=== PATIENT | male | born 1950 | race Caucasian/White ===

== ENCOUNTER 2016-09-10 13:52 | Inpatient (IN) ==
--- NOTE | 2016-09-10 16:58 | Emergency Department Note ---
Disposition Clinical Impression: Acute exacerbation of chronic obstructive airways disease Chest pain Qualifiers: Chest pain type: unspecified Qualified Code(s): R07.9 - Chest pain, unspecified Disposition: Admitted As Inpatient Condition: Fair Referrals: Lavinia Guerra MD [Primary Care Provider] - Forms: ED Satisfaction Letter Time of Disposition: 17:37 SOB HPI - General Chief Complaint: ED Shortness of Breath/Dyspnea Stated Complaint: Chest Pain, [place] Source: patient, family Limitations: no limitations Nursing Notes Reviewed: Yes Vital Signs Reviewed: Yes - History of Present Illness 66-year-old L with a history of COPD and CHF comes in with increasing shortness of breath. Patient states that he ran out of steroids 3 days ago symptoms got worse. Pt Subjective Complaint: shortness of breath Onset (ago): day(s) Severity: moderate Consistency/Duration: constant Improves with: nothing Worsens with: exertion Known history of: COPD, congestive heart failure Associated symptoms: Reports: cough Treatment prior to arrival: none Cough Description: Involuntary Cough Frequency: Intermittent - Related Data Home Medications Medication Instructions Recorded Confirmed Insulin Human Regular [HumuLIN R] 30 unit SQ TIDAC #0 09/05/15 05/10/16 Isosorbide MONOnitrate (24 HR) 30 mg PO DAILY #0 09/05/15 05/10/16 [Imdur] Ferrous Sulfate [Iron Supplement] 325 mg PO TID 12/18/15 05/10/16 Aspirin [Lo-Dose Aspirin EC] 81 mg PO DAILY 03/15/16 05/10/16 Glucagon,Human Recombinant 1 mg SQ DAILY PRN 03/15/16 05/10/16 [Glucagon Emergency Kit] Insulin NPH/REG 70/30 [HumuLIN 80 unit SQ BIDWM 03/15/16 05/10/16 70/30 VIAL] Albuterol Sulfate [Proair 90 mcg IH TID 05/10/16 Respiclick] Atorvastatin Calcium [Lipitor] 80 mg PO HS 05/10/16 05/10/16 Budesonide/Formoterol 160/4.5 2 puff IH BIDR 05/10/16 05/10/16 [Symbicort 160/4.5] Diltiazem CD (24hr) [Cardizem CD] 120 mg PO DAILY 05/10/16 05/10/16 Furosemide [Lasix] 80 mg PO TID 05/10/16 Gabapentin [Neurontin] 300 mg PO TID 05/10/16 05/10/16 GlipiZIDE [Glipizide] 10 mg PO DAILY 05/10/16 Lisinopril 2.5 mg PO DAILY 05/10/16 Metformin [Glucophage] 500 mg PO BIDWM 05/10/16 05/10/16 Metolazone 10 mg PO DAILY 05/10/16 Metoprolol [Lopressor] 50 mg PO BID 05/10/16 05/10/16 Nitroglycerin [Nitrostat] 0.4 mg SL 05/10/16 Pantoprazole Sodium [Protonix] 40 mg PO DAILY 05/10/16 Potassium Chloride [K-Tab ER] 20 meq PO TID 05/10/16 05/10/16 Buspirone HCl [Buspar] 10 mg PO BID 07/30/16 07/30/16 Ipratropium/Albuterol Neb [Duoneb] 3 ml IH Q6HR 07/30/16 07/30/16 Montelukast Sodium [Singulair] 10 mg PO DAILY 07/30/16 07/30/16 Naproxen Sodium [Aleve] 220 mg PO BID 07/30/16 07/30/16 Oseltamivir Phosphate 75 mg PO BID 07/30/16 07/30/16 PredniSONE [Deltasone] 60 mg PO DAILY 07/30/16 07/30/16 Previous Rx's Medication Instructions Recorded HYDROcodone/Acet 5/325 mg [[place] 1 tab PO Q6H PRN #10 tab 07/31/16 5-325 mg] Indomethacin [Indocin] 25 mg PO BIDWM #10 capsule 08/23/16 Indomethacin [Indocin] 25 mg PO BIDWM #10 capsule 08/23/16 PredniSONE 60 mg PO DAILY #15 tablet 08/23/16 PredniSONE 60 mg PO DAILY #15 tablet 08/23/16 Allergies Allergy/AdvReac Type Severity Reaction Status Date / Time No Known Allergies Allergy Verified 09/10/16 14:44 Constitutional: Denies: fever, chills, weakness, weight change Eyes: Denies: eye pain, eye discharge, vision change ENT ED: Denies: ear pain, throat pain, dental pain, hearing loss, epistaxis, congestion, dysphagia Cardiovascular: Denies: chest pain, palpitations, dyspnea on exertion, edema, syncope Respiratory: Reports: dyspnea, wheezes. Denies: cough, hemoptysis, stridor Gastrointestinal: Denies: abdominal pain, nausea, vomiting, diarrhea, constipation, hematemesis, melena, hematochezia Genitourinary: Denies: urgency, dysuria, frequency, hematuria Musculoskeletal: Denies: back pain, neck pain, arthralgia, myalgia Integumentary: Denies: rash, abrasion, lesions Neurological: Denies: headache, weakness, numbness, paresthesias, confusion, abnormal gait, vertigo Psychiatric: Denies: anxiety, depression, suicidal thoughts, homicidal thoughts , auditory hallucinations, visual hallucinations Endocrine: Denies: fatigue Hematological/Lymphatic: Denies: easy bleeding, easy bruising Allergic/Immunologic: Denies: facial swelling, urticaria Past Medical History - Past Medical History Medical history: Reports: arthritis, atrial fibrillation, CHF, COPD, coronary artery disease, diabetes, GERD, hyperlipidemia, hypertension, myocardial infarction, osteoporosis, venous stasis, valvular heart disease, other Surgical history: Reports: angioplasty/stent, herniorrhaphy, knee replacement, other Psychiatric history: Reports: anxiety, depression - Social History Smoking Status: Never smoker Smokeless Tobacco Status: No Alcohol use: Reports: none Drug use: Reports: none Physical Exam - General Limitations: no limitations General appearance: alert, in no apparent distress - Head Head exam: atraumatic, normocephalic, normal inspection - Eye Eye exam: Present: normal appearance, PERRL, EOMI - ENT ENT exam: normal exam, normal oropharynx, mucous membranes moist - Neck Neck exam: Present: normal inspection, full ROM, trachea midline - Chest Chest inspection: Present: normal inspection, symmetric chest wall rise - Respiratory Respiratory exam: Present: wheezes, accessory muscle use - Cardiovascular Cardiovascular exam: Present: regular rate, normal rhythm, normal heart sounds - Abdominal Exam Abdominal exam: Present: soft, Non-Tender. Absent: tenderness, distention, guarding, rebound, rigidity - Extremities Exam Extremities exam: Present: normal inspection, full ROM. Absent: tenderness, pedal edema - Expanded Lower Extremity Exam Neurovascular/Tendon exam: Absent: motor deficit, sensory deficit, tendon deficit Gait: not tested/not observed - Back Exam Back exam: Present: normal inspection, full ROM. Absent: tenderness - Neurological Exam Neurological exam: Present: alert, oriented X3 - Psychiatric Psychiatric exam: Present: normal affect, normal mood - Skin Skin exam: Present: warm, dry, intact, normal color Course - Reevaluation(s) Reevaluation #1: 66-year-old with a COPD exacerbation. Patient also had some congestive changes on his chest x-ray that looked unchanged from previous. Patient was given breathing treatments Lasix will be admitted for further evaluation. Time: 18:38 - Consultations Consultation #1: Discussed with Time: 18:39 Vital Signs Temperature 98.9 F 09/10/16 14:35 Pulse Rate 70 09/10/16 14:35 Respiratory Rate 20 09/10/16 14:35 Blood Pressure 118/69 09/10/16 14:35 O2 Sat by Pulse Oximetry 93 09/10/16 14:35 Temperature 98.9 F 09/10/16 14:35 Pulse Rate 85 09/10/16 18:32 Respiratory Rate 25 09/10/16 18:32 Blood Pressure 134/88 09/10/16 18:32 O2 Sat by Pulse Oximetry 92 09/10/16 18:32 Oxygen Delivery Oxygen Delivery Nasal Cannula Shortness of Breath/Dyspnea - Lab Data Lab results reviewed: Yes I reviewed the patient's lab results. Result diagrams: 09/10/16 17:00 09/10/16 17:00 Lab Results 09/10/16 09/10/16 09/10/16 Range/Units 17:00 17:00 17:00 WBC 10.3 (4.3-11.1) K/mcL RBC 4.39 (4.19-5.50) M/mcL Hgb 11.7 L (12.9-16.9) g/dL Hct 39.6 (37.5-50.1) % MCV 90.2 (83.0-100.0) fL MCH 26.7 L (28.0-33.3) pg MCHC 29.5 L (31.6-35.5) g/dL RDW 20.4 H (11.5-14.5) % Plt Count 224 (140-400) K/mcL MPV 10.7 (9.4-12.4) fL Immature Gran % 0.9 (0-4) % Seg Neutrophils % 76.1 % Lymphocytes % 16.2 % Monocytes % 5.9 % Eosinophils % 0.7 % Basophils % 0.2 % Neutrophils # 7.8 (1.6-8.9) K/mcL Lymphocytes # 1.7 (0.6-4.6) K/mcL Monocytes # 0.6 (0.0-1.3) K/mcL Eosinophils # 0.1 (0.0-0.6) K/mcL Basophils # 0.0 (0.0-0.2) K/mcL PT 11.0 (9.4-12.1) Seconds INR 1.0 APTT 30.2 (26.0-36.0) Seconds Sodium 141 (136-145) mEq/L Potassium 4.0 (3.5-4.5) mEq/L Chloride 92 L (98-109) mEq/L Carbon Dioxide 38 H (19-29) mEq/L BUN 27 H (8-26) mg/dL Creatinine 1.42 H (0.72-1.25) mg/dL Est GFR ( Amer) > 60 (> 60) Est GFR (Non-Af Amer) 50 L (> 60) BUN/Creatinine Ratio 19 (6-26) Glucose 211 H (70-99) mg/dL Calculated Osmolality 303 H (280-300) Calcium 10.2 (8.6-10.8) mg/dL Troponin I (0-0.03) ng/mL TSH 7.802 H (0.350-4.840) mcIU/mL 09/10/16 Range/Units 17:00 WBC (4.3-11.1) K/mcL RBC (4.19-5.50) M/mcL Hgb (12.9-16.9) g/dL Hct (37.5-50.1) % MCV (83.0-100.0) fL MCH (28.0-33.3) pg MCHC (31.6-35.5) g/dL RDW (11.5-14.5) % Plt Count (140-400) K/mcL MPV (9.4-12.4) fL Immature Gran % (0-4) % Seg Neutrophils % % Lymphocytes % % Monocytes % % Eosinophils % % Basophils % % Neutrophils # (1.6-8.9) K/mcL Lymphocytes # (0.6-4.6) K/mcL Monocytes # (0.0-1.3) K/mcL Eosinophils # (0.0-0.6) K/mcL Basophils # (0.0-0.2) K/mcL PT (9.4-12.1) Seconds INR APTT (26.0-36.0) Seconds Sodium (136-145) mEq/L Potassium (3.5-4.5) mEq/L Chloride (98-109) mEq/L Carbon Dioxide (19-29) mEq/L BUN (8-26) mg/dL Creatinine (0.72-1.25) mg/dL Est GFR ( Amer) (> 60) Est GFR (Non-Af Amer) (> 60) BUN/Creatinine Ratio (6-26) Glucose (70-99) mg/dL Calculated Osmolality (280-300) Calcium (8.6-10.8) mg/dL Troponin I 0.09 H* (0-0.03) ng/mL TSH (0.350-4.840) mcIU/mL - Radiology Data Radiology results reviewed: Yes I reviewed the patient's radiology results. Chest X-Ray 09/10/16 16:48 IMPRESSION: Pulmonary vascular congestion and interstitial prominence, not substantially changed. D/ / Jannie Guevara MD / Jannie Guevara MD Interpreting Provider: Jannie Guevara MD - EKG Data EKG attestation: Yes I reviewed and interpreted this EKG. EKG results narrative: Repeat EKG was obtained as the patient's chest pain seemed to increase. It's unchanged from the previous EKG we just obtained earlier. EKG shows normal: Reports: sinus rhythm Rate: Reports: normal Rhythm: Reports: NSR, PAC's Heart block present: Reports: 1st Degree Interpretation: Reports: no acute changes
[2016-09-10] MEDS ORDERED: Ipratropium/Albuterol Neb 3 ML IH ONE (16:59)
[2016-09-10] MEDS ORDERED: methylPREDNISolone 125 MG/2 ML VIAL IVP ONE (16:59)
[2016-09-10 17:09] LABS: Basophils % 0.2 %; Eosinophils # 0.1 K/mcL (0.0-0.6); Eosinophils % 0.7 %; Hematocrit 39.6 % (37.5-50.1); Hemoglobin 11.7 g/dL (12.9-16.9); Immature Granulocytes % 0.9 % (0-4); Lymphocytes # 1.7 K/mcL (0.6-4.6); Lymphocytes % 16.2 %; Mean Corpuscular HGB Conc 29.5 g/dL (31.6-35.5); Mean Corpuscular Hemoglobin 26.7 pg (28.0-33.3); Mean Corpuscular Volume 90.2 fL (83.0-100.0); Mean Platelet Volume 10.7 fL (9.4-12.4); Monocytes # 0.6 K/mcL (0.0-1.3); Monocytes % 5.9 %; Neutrophils # 7.8 K/mcL (1.6-8.9); Platelet Count 224 K/mcL (140-400); Red Blood Count 4.39 M/mcL (4.19-5.50); Red Cell Distribution Width 20.4 % (11.5-14.5); Segmented Neutrophils % 76.1 %
[2016-09-10 17:19] LABS: BUN/Creatinine Ratio 19 (6-26); Blood Urea Nitrogen 27 mg/dL (8-26); Calcium 10.2 mg/dL (8.6-10.8); Carbon Dioxide 38 mEq/L (19-29); Chloride 92 mEq/L (98-109); Glucose 211 mg/dL (70-99); Osmolality,Calculated 303 (280-300); Sodium 141 mEq/L (136-145); eGFR For African Americans > 60 (> 60); eGFR For Non-African Americans 50 (> 60)
[2016-09-10 17:40] LABS: Thyroid Stimulating Hormone 7.802 mcIU/mL (0.350-4.840)
[2016-09-10 18:07] LABS: Activated Partial Thrombo Time 30.2 Seconds (26.0-36.0)
[2016-09-10] MEDS ORDERED: Furosemide 40 MG/4 ML VIAL IVP ONE (18:14)
[2016-09-11] MEDS ORDERED: Naloxone 0.4 MG/ML INJ IVP PRN (01:01)
[2016-09-11] MEDS ORDERED: *HR* Morphine 2 MG/ML SYRINGE IVP PRN (01:01)
[2016-09-11] MEDS ORDERED: *HR* Promethazine 25 MG/ML VIAL IVP PRN (01:01)
[2016-09-11] MEDS ORDERED: Albuterol 2.5 MG/3 ML NEBULIZER IH PRN (01:01)
[2016-09-11] MEDS ORDERED: *HR* Dextrose 50 % in Water (Syg) 50 ML SYRINGE IVP PRN (01:06)
[2016-09-11] MEDS ORDERED: *HR* Heparin 5,000 UNIT/ML VIAL IVP PRN ×2 (01:06)
[2016-09-11] MEDS ORDERED: Dextrose Gel 15 GM PO PRN ×2 (01:06)
[2016-09-11] MEDS ORDERED: *HR* Heparin 5,000 UNIT/ML VIAL IVP ONE (01:06)
[2016-09-11] MEDS ORDERED: D5% in Water 1,000 ML IVC PRN (01:06)
--- NOTE | 2016-09-11 01:20 | Internal Med History&Physical ---
Date of Encounter: 09/11/16 Time of Encounter: 00:45 Assessment and Plan (1) Asthma exacerbation Current visit: No Status: Acute 1. Will treat with frequent aerosols, steroids, and antibiotics. 2. Patient has never smoked and has not been exposed to smoke. 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 3. Oxygen per home dosing. (2) Chest pain Current visit: No Status: Acute 1. Given history, I'm concerned for PE. 2. Will start heparin drip and pursue work-up with V/Q and BLE Dopplers. 3. Unable to proceed with CTA chest due to CKD. 4. Will cycle troponins and provide Morphine for chest pain. 5. May need repeat ECHO and/or cardiology consultation if above negative. Qualifiers: Chest pain type: chest pain on breathing Qualified Code(s): R07.1 - Chest pain on breathing (3) Diabetes mellitus Current visit: No Status: Chronic 1. Hold Metformin. 2. Will continue basal insulin and SSI. 3. Monitor glucose closely with IV steroids use. 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 Resume CPAP per home setings and per RT. Qualifiers: Sleep apnea type: obstructive Qualified Code(s): G47.33 - Obstructive sleep apnea (adult) (pediatric) (5) DVT prophylaxis Current visit: Yes Status: Acute 1. On heparin drip. Internal Medicine - H&P: HPI Chief complaint: CP; SOB Admitted From: Emergency Dept Plans for Post Hospital Care: Home History of present illness: Mr. Hill is a 66 year old male who presents with complaints of chest pain, worsening shortness of breath, cough, and increasing generalized edema. He was seen by his PCP today who sent him to the ER for evaluation and admission. He states his chest pain is pleuritic in nature and worse with deep breath and exertion. He has a history of COPD but denies any prior history of smoke exposure or tobacco use. 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 He also has a history of sleep apnea and was wearing a CPAP mask at night religiously. However, his CPAP machine was recently retrieved by his home medical equipment company as directed by his insurance company for reasons unexplained, according to the patient. He denies any fevers or chills but he states his respiratory status has worsened recently. He denies any known history of pulmonary hypertension or right heart failure. He did have 2 recent echoes in the last year, neither of which could document his right ventricular systolic pressures and/or findings. Patient denies any prolonged travel, family history of clots, or any known malignancy. Nonetheless, given his symptoms and pleuritic chest pain, I am concerned for the possibility of thromboembolism. Therefore, I will start him on heparin drip empirically and pursue workup as detailed above. Past Med Surg Social Fam HX - Past Medical History Attestation: Yes The following information was validated with the patient. Source: patient, old records reviewed Medical history: arthritis, atrial fibrillation, CHF, COPD, coronary artery disease, diabetes, GERD, hyperlipidemia, hypertension, myocardial infarction, osteoporosis, venous stasis, valvular heart disease Psychiatric history: anxiety, depression - Past Surgical History Surgical History: angioplasty/stent, herniorrhaphy, knee replacement, other - Social History Smoking Status: Never smoker Smokeless Tobacco Status: No Alcohol use: none Drug use: none Occupational status: retired Current living situation: Home, With Family Activity Level: Independent ambulation Recent Out of Country Travel Within the Last 8 Weeks: No - Family History Father Living Status: Hx Family Cardiac Disorders: Yes Hx Family Respiratory Disorders: Yes Hx Family Cancer: Yes Hx Family GI Disorders: Yes Hx Family Endocrine Disorder: No Internal Medicine - H&P: Meds Insulin Human Regular [HumuLIN R] 25 - 30 unit SQ TIDAC #0 09/05/15 [History] Isosorbide MONOnitrate (24 HR) [Imdur] 30 mg PO DAILY #0 09/05/15 [History] Ferrous Sulfate [Iron Supplement] 325 mg PO TID 12/18/15 [History] Aspirin [Lo-Dose Aspirin EC] 81 mg PO DAILY 03/15/16 [History] Glucagon,Human Recombinant [Glucagon Emergency Kit] 1 mg SQ DAILY PRN 03/15/16 [ History] Insulin NPH/REG 70/30 [HumuLIN 70/30 VIAL] 80 unit SQ BIDWM 03/15/16 [History] Albuterol Sulfate [Proair Respiclick] 90 mcg IH TID 01/06/17 [History] Atorvastatin Calcium [Lipitor] 80 mg PO HS 05/10/16 [History] Budesonide/Formoterol 160/4.5 [Symbicort 160/4.5] 2 puff IH BIDR 05/10/16 [ History] Diltiazem CD (24hr) [Cardizem CD] 120 mg PO DAILY 05/10/16 [History] Furosemide [Lasix] 80 mg PO TID 05/10/16 [History] Gabapentin [Neurontin] 300 mg PO TID PRN 05/10/16 [History] GlipiZIDE [Glipizide] 10 mg PO DAILY 05/10/16 [History] Lisinopril 2.5 mg PO DAILY 05/10/16 [History] Metformin [Glucophage] 500 mg PO BIDWM 05/10/16 [History] Metolazone 10 mg PO DAILY 05/10/16 [History] Metoprolol [Lopressor] 50 mg PO BID 05/10/16 [History] Nitroglycerin [Nitrostat] 0.4 mg SL 05/10/16 [History] Pantoprazole Sodium [Protonix] 40 mg PO DAILY 05/10/16 [History] Potassium Chloride [K-Tab ER] 20 meq PO TID 05/10/16 [History] Buspirone HCl [Buspar] 10 mg PO BID 07/30/16 [History] Ipratropium/Albuterol Neb [Duoneb] 3 ml IH Q6HR 07/30/16 [History] Montelukast Sodium [Singulair] 10 mg PO HS 07/30/16 [History] Naproxen Sodium [Aleve] 220 mg PO BID PRN 07/30/16 [History] Oseltamivir Phosphate 75 mg PO BID 07/30/16 [History] Albuterol Neb [Proventil Neb] 2.5 mg IH TID 09/10/16 [History] Allopurinol [Zyloprim 100 MG] 100 mg PO DAILY 09/10/16 [History] Potassium Chloride [K-Tab ER] 60 meq PO TID 09/10/16 [History] Allergies No Known Allergies Allergy (Verified 09/10/16 14:44) - Constitutional Constitutional: no chills, no fever(s) - EENT Eyes: no blurry vision, no change in vision Ears: no ear pain, no tinnitus Nose, mouth and throat: dry mouth, nasal congestion, no sinus pain, no sinus pressure, no sore throat - Cardiovascular Cardiovascular ROS IM: chest pain (pleuritic), dyspnea, dyspnea on exertion, edema - Respiratory Respiratory: cough, dyspnea, dyspnea on exertion, wheezing, pain on inspiration , change in phlegm color, pain with cough, no hemoptysis, no excessive phlegm production - Gastrointestinal Gastrointestinal: abdominal pain, bloating, no diarrhea, no hematemesis, no hematochezia, no melena, no vomiting - Genitourinary Genitourinary ROS male: no dysuria, no flank pain - Musculoskeletal Musculoskeletal ROS IM: no arthralgias, no back pain, no joint swelling - Integumentary Integumentary IM: no rash, no jaundice - Neurological Neurological ROS: no dizziness, no focal weakness, no frequent falls - Psychiatric Psychiatric: no anxiety, no depression - Endocrine Endocrine IM: fatigue, no polydipsia, no polyuria - Allergic/Immunologic Allergic/Immunologic: wheezing, no GI upset with certain foods - Constitutional Vitals: Temp Pulse Resp BP Pulse Ox 98.1 F 90 18 157/98 93 09/10/16 23:20 09/10/16 23:20 09/10/16 23:20 09/10/16 23:20 09/10/16 23:20 General appearance: Present: cooperative, mild distress, A&O X 3, pleasant, answers questions appropriately - Head Head exam: Present: atraumatic, normal inspection - Expanded Head Exam Head exam expanded: Absent: abrasion, contusion - Eye Eye exam: Present: EOMI, normal appearance, PERRL. Absent: scleral icterus Pupils: Present: normal accommodation - ENT ENT exam: Present: mucous membranes dry, normal exam - Neck Neck exam general surgery: Present: full ROM, supple. Absent: tenderness, thyromegaly - Expanded Neck Exam Neck exam: Absent: carotid bruit - Respiratory Respiratory exam: Present: decreased breath sounds, prolonged expiratory phase, respiratory distress (mild), wheezes (very distant), tachypnea. Absent: chest wall tenderness, CTAB, rhonchi - Cardiovascular Cardiovascular exam: Present: distant heart sounds, RRR, +S1, +S2. Absent: diastolic murmur, JVD, systolic murmur - GI/Abdominal GI/Abdominal exam: Present: distended, normal bowel sounds. Absent: guarding, hepatomegaly, rebound, splenomegaly, tenderness - Extremities Exam Extremities exam: Present: pedal edema, warm, radial pulses palpable and symetrical. Absent: calf tenderness, joint swelling, tenderness - Back Exam Back exam: Present: normal inspection. Absent: CVA tenderness (L), CVA tenderness (R) - Neurological Exam Neurological exam: Present: alert, CN II-XII intact, oriented X3, no focal deficits, strengths equal and symetr throughout - Psychiatric Psychiatric exam: Present: normal affect, normal mood - Skin Skin exam: Present: dry, warm. Absent: rash Internal Med - H&P Results - Labs CBC & Chem 7: 09/10/16 17:00 09/10/16 17:00 - EKG Data -: EKG Interpreted by Myself EKG shows normal: sinus rhythm - EKG Data EKG comments: 09/11/16 01:41 Sinus rhythm with some T wave flattening but non-specific. - Diagnostic Studies Chest x-ray Status: image reviewed by me (negative toehr than some vascular congestion)
[2016-09-11] MEDS: Heparin 25,000 UNIT/500 ML D5W 25,000 UNIT/500 ML MLS IVC SCH ×2 (03:04→17:21)
[2016-09-11 03:08] LABS: Basophils % 0.1 %; Hemoglobin 11.2 g/dL (12.9-16.9); Immature Granulocytes % 0.9 % (0-4); Lymphocytes # 0.8 K/mcL (0.6-4.6); Lymphocytes % 9.3 %; Mean Corpuscular HGB Conc 30.3 g/dL (31.6-35.5); Mean Corpuscular Hemoglobin 27.1 pg (28.0-33.3); Mean Corpuscular Volume 89.4 fL (83.0-100.0); Mean Platelet Volume 10.9 fL (9.4-12.4); Monocytes # 0.1 K/mcL (0.0-1.3); Monocytes % 1.5 %; Neutrophils # 7.1 K/mcL (1.6-8.9); Platelet Count 205 K/mcL (140-400); Red Blood Count 4.14 M/mcL (4.19-5.50); Segmented Neutrophils % 88.2 %
[2016-09-11 03:14] LABS: INR 1.1
[2016-09-11 03:16] LABS: Activated Partial Thrombo Time 30.8 Seconds (26.0-36.0)
[2016-09-11 03:21] LABS: Chol/HDL Ratio 5.6 (0-4.9)
[2016-09-11 03:23] LABS: Albumin 3.5 g/dL (3.5-5.0); Calcium 9.4 mg/dL (8.6-10.8); Globulin 3.6 g/dL (2.4-3.5); Magnesium 1.7 mg/dL (1.6-2.6); Potassium 4.7 mEq/L (3.5-4.5); Total Protein 7.1 g/dL (6.0-8.3)
[2016-09-11] MEDS: Ipratropium/Albuterol Neb 3 ML IH SCH ×6 (03:53→23:35)
[2016-09-11] MEDS ORDERED: INSULIN NPH SQ SCH (08:00)
[2016-09-11] MEDS ORDERED: REG SQ SCH (08:00)
[2016-09-11] MEDS ORDERED: Insulin NPH/REG 70/30 300 UNIT/3 ML VIAL SQ SCH (08:00)
[2016-09-11] MEDS: Budesonide/Formoterol 160/4.5 MDI IH SCH ×2 (08:00→19:42)
[2016-09-11] MEDS: Isosorbide MONOnitrate (24 HR) 30 MG TAB.ER.24H PO SCH (09:38)
[2016-09-11] MEDS: Furosemide 40 MG TABLET PO SCH ×2 (09:38→17:23)
[2016-09-11] MEDS: Azithromycin 250 MG TABLET PO SCH (09:38)
[2016-09-11] MEDS: Aspirin Enteric Coated 81 MG Tablet PO SCH (09:38)
[2016-09-11] MEDS: metOLazone 5 MG TABLET PO SCH (09:38)
[2016-09-11] MEDS: methylPREDNISolone 125 MG/2 ML VIAL IVP SCH ×3 (09:38→22:54)
[2016-09-11] MEDS: Insulin LISPRO 300 UNITS/3 ML VIAL SQ SCH ×4 (09:38→22:17)
[2016-09-11] MEDS: Diltiazem CD (24hr) 120 MG CAPSULE PO SCH (09:38)
[2016-09-11] MEDS: Insulin NPH/REG 70/30 100 UNIT/ML (x5UNIT) SQ SCH ×2 (10:08→17:23)
--- NOTE | 2016-09-11 15:16 | Electrocardiograph Report ---
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
--- NOTE | 2016-09-11 15:21 | Electrocardiograph Report ---
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
--- NOTE | 2016-09-11 17:58 | Internal Med Progress Note ---
Date of Encounter: 09/11/16 Time of Encounter: 09:10 - Assessment and plan (1) Asthma exacerbation Current Visit: No Status: Acute Assessment and plan: Patient states that he has had shortness of breath and joint pain for about a week to 10 days. He was on prednisone outpatient and said he felt better, however, when the prednisone was done he started feeling badly again. He is a nonsmoker, he has never smoked. 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 Patient normally wears oxygen at home, 3 L continuously. He noted that his sats dropped below 87% yesterday even on his oxygen. He was sent here for evaluation due to low sats and hypotension from his primary care office. Nebulizers scheduled Steroids Zithromax by mouth and Rocephin IV Oxygen at 3 L and titrate to maintain sats greater than 92%. Monitor vital signs Monitor labs Continuous pulse ox (2) Diabetes mellitus type 2, uncontrolled Current Visit: No Status: Chronic Assessment and plan: Blood sugar has been uncontrolled today. 400 this morning. Nursing covering. He is on steroids. Continue to monitor blood sugars before meals at bedtime Sliding scale coverage Taper steroids when available Diabetic diet Qualifiers: Diabetes mellitus complication status: with neurologic complications Diabetes mellitus complication detail: with unspecified neuropathy Diabetes mellitus half-way insulin use: with half-way use Qualified Code(s): E11.40 - Type 2 diabetes mellitus with diabetic neuropathy, unspecified (3) Chest pain Current Visit: No Status: Acute Assessment and plan: Patient denied chest pain to me today. Concern for PE. Patient was placed on a heparin drip which may remains VQ scan appeared to be negative with low probability for PE. Troponins have been mildly elevated last one 0.05. It is not trending up, however it did trend down from initial 0.09. Most likely from demand. Bilateral lower extremity Dopplers ordered and negative for DVT and SVT Patient had echocardiogram in March, showed LVEF 70% with normal systolic function. Mild concentric LV hypertrophy and indeterminant diastolic dysfunction. His a severely dilated left atrium, mildly dilated right atrium and no significant valvular dysfunction. All wall segments showed normal motion. We will repeat echocardiogram in the morning. Cardiology consult and echo change from prior. Qualifiers: Chest pain type: chest pain on breathing Qualified Code(s): R07.1 - Chest pain on breathing (4) Sleep apnea Current Visit: Yes Status: Acute Assessment and plan: CPAP use. Qualifiers: Sleep apnea type: obstructive Qualified Code(s): G47.33 - Obstructive sleep apnea (adult) (pediatric) (5) DVT prophylaxis Current Visit: Yes Status: Acute Assessment and plan: Patient is on a heparin drip at this time due to concern for PE and chest pain. - Time Spent With Patient less than 15 minutes - Subjective Interval history: Patient was seen and examined at about 910 this morning. He says that he had been on prednisone outpatient and says that his shortness of breath and joints felt better. He says that he absolutely needs prednisone every day to feel better. He repeatedly tells me that he requires at least 20 mg of prednisone a day just to baseline function. He says that his primary care physician does not want to give it to him for obvious reasons. He says that she occasionally will put him on a taper and he will break up the prescription and take it how he wants to make it last longer. He says that he has chronic arthritis and that he can barely move without prednisone. He did ask to see a specialist. Perhaps an outpatient rheumatology appointment is in order. Patient states that he was at his primary care physician's office yesterday was sent to a local emergency room for hypotension. He did come here from [facility]. He said that his sats were less than 87% at home on his 3 L of oxygen that he wears continuously. He was sent here for evaluation and admission. - Constitutional Vitals: Temp Pulse Resp BP Pulse Ox 98.1 F 87 15 123/76 96 09/11/16 15:20 09/11/16 15:20 09/11/16 15:20 09/11/16 15:20 09/11/16 15:20 General appearance: Present: cooperative, mild distress, A&O X 3, pleasant, obese, answers questions appropriately - Head Head exam: Present: normal inspection - Eye Eye exam: Present: normal appearance, conjuntiva pink - ENT ENT exam: Present: mucous membranes moist, normal exam - Neck Neck exam general surgery: Present: normal inspection. Absent: lymphadenopathy , tenderness - Respiratory Respiratory exam: Present: decreased breath sounds, wheezes. Absent: rales, rhonchi, stridor - Cardiovascular Cardiovascular exam: Present: RRR, +S1, +S2. Absent: diastolic murmur, systolic murmur - GI/Abdominal GI/Abdominal exam: Present: distended, firm, rigid. Absent: hepatomegaly, tenderness Additional comments: Abdomen rounded, distended, hard. Patient states is normal for him and has been that way for years. - Extremities Exam Extremities exam: Present: pedal edema, warm, radial pulses palpable and symetrical Additional comments: Patient reports chronic lower extremity edema. +3 nonpitting. - Neurological Exam Neurological exam: Present: alert, oriented X3, no focal deficits, strengths equal and symetr throughout. Absent: facial droop, speech deficit Internal Medicine: Result - Labs CBC & Chem 7: 09/11/16 03:00 09/11/16 03:00 Labs: Short CBC 09/11/16 Range/Units 03:00 WBC 8.0 (4.3-11.1) K/mcL Hgb 11.2 L (12.9-16.9) g/dL Hct 37.0 L (37.5-50.1) % Plt Count 205 (140-400) K/mcL Neutrophils # 7.1 (1.6-8.9) K/mcL BMP 09/11/16 03:00 Sodium 139 Potassium 4.7 H Chloride 91 L Carbon Dioxide 34 H BUN 32 H Creatinine 1.46 H Glucose 487 H Calcium 9.4 Cardiac Enzymes 09/11/16 09/11/16 09/11/16 Range/Units 03:00 06:37 13:23 Troponin I 0.05 H* 0.04 H* 0.05 H* (0-0.03) ng/mL Liver Function 09/11/16 Range/Units 03:00 Total Bilirubin 1.0 (0.2-1.2) mg/dL AST 35 H (5-34) Units/L ALT 50 (0-55) Units/L Alkaline Phosphatase 90 (38-126) Units/L Albumin 3.5 (3.5-5.0) g/dL - ABG Interpretation ABG results: PT/INR, D-dimer PT 12.0 Seconds (9.4-12.1) 09/11/16 03:00 - Impressions Impressions Pulmonary Perfusion Imaging 09/11/16 01:06 IMPRESSION: Low probability for pulmonary embolism. D/ / Cliff Jang MD / Cliff Jang MD Interpreting Provider: Cliff Jang MD Consult Discharge Plan - Plan Referrals: Lavinia Guerra MD [Primary Care Provider] -
--- NOTE | 2016-09-11 18:45 | Venous Imaging Report ---
LE Venous Duplex Patient Name:Josh Hill Order Number:[id number] Procedure Date:09/11/2016 Date:1950Age:66 yrs Gender:Male Location:[facility] Room #: 3B37 Control Systems Technician:Mina Lucy Referring MD:Mauricio Beaulieu MD intensive care anaesthetist:Lavinia James MD Reading MD:Johnson Lerma MD , FACS Primary Indications:Rule out DVT Secondary Indications: Risk Factors Yes/No Anticoagulants No Hx of DVT No Impressions: Bilateral lower extremity: normal superficial and deep exam. Recommendations: After imaging the patient returned to their room. Findings Venous Duplex Results: Right: Venous imaging of the lower extremity reveals full patency and normal vessel compressibility of the right distal iliac, right common femoral, right superficial femoral, right popliteal, right posterior tibial, right peroneal, right great saphenous and right lesser saphenous. Doppler signals in the evaluated veins were normal. Left: Venous imaging of the lower extremity reveals full patency and normal vessel compressibility of the left distal iliac, left common femoral, left superficial femoral, left popliteal, left posterior tibial, left peroneal, left great saphenous and left lesser saphenous. Doppler signals in the evaluated veins were normal. Prior Study: No prior study available for comparison. Lower Extremity Venous Duplex Side Vein Compress Spontaneous Flow Augment Diameter (cm) Depth (cm) Right Distal Iliac Normal Yes Phasic Yes Right Common Femoral Normal Yes Phasic Yes Right Superficial Femoral Normal Yes Phasic Yes Right Popliteal Normal Yes Phasic Yes Right Posterior Tibial Normal Yes Phasic Yes Right Peroneal Normal Yes Phasic Yes Right Great Saphenous Normal Yes Phasic Yes Right Lesser Saphenous Normal Yes Phasic Yes Left Distal Iliac Normal Yes Phasic Yes Left Common Femoral Normal Yes Phasic Yes Left Superficial Femoral Normal Yes Phasic Yes Left Popliteal Normal Yes Phasic Yes Left Posterior Tibial Normal Yes Phasic Yes Left Peroneal Normal Yes Phasic Yes Left Great Saphenous Normal Yes Phasic Yes Left Lesser Saphenous Normal Yes Phasic Yes Updated by Johnson Lerma MD, FACS on 09/11/2016 6:38:57 PM Johnson Lerma MD electronically signed on 09/11/2016 6:39:35 PM with status of Final
[2016-09-12] MEDS ORDERED: INSULIN HUMAN REGULAR IV ONE (00:34)
[2016-09-12] MEDS ORDERED: SODIUM CHLORIDE 0.9% IV ONE (00:34)
[2016-09-12] MEDS: Ipratropium/Albuterol Neb 3 ML IH SCH ×5 (03:45→20:44)
[2016-09-12 05:23] LABS: Basophils % 0.1 %; Hematocrit 35.3 % (37.5-50.1); Hemoglobin 11.1 g/dL (12.9-16.9); Immature Granulocytes % 0.6 % (0-4); Lymphocytes # 0.8 K/mcL (0.6-4.6); Lymphocytes % 8.2 %; Mean Corpuscular HGB Conc 31.4 g/dL (31.6-35.5); Mean Corpuscular Hemoglobin 27.8 pg (28.0-33.3); Mean Corpuscular Volume 88.3 fL (83.0-100.0); Mean Platelet Volume 11.4 fL (9.4-12.4); Monocytes # 0.3 K/mcL (0.0-1.3); Monocytes % 3.4 %; Neutrophils # 8.5 K/mcL (1.6-8.9); Platelet Count 216 K/mcL (140-400); Segmented Neutrophils % 87.7 %
[2016-09-12 05:46] LABS: Potassium 3.7 mEq/L (3.5-4.5)
[2016-09-12] MEDS: Heparin 25,000 UNIT/500 ML D5W 25,000 UNIT/500 ML MLS IVC SCH (05:46)
[2016-09-12 06:24] LABS: Calcium 9.6 mg/dL (8.6-10.8)
[2016-09-12] MEDS: Budesonide/Formoterol 160/4.5 MDI IH SCH ×2 (07:49→20:44)
[2016-09-12] MEDS ORDERED: Perflutren Lipid Microsphere 1.3 ML in 0.9 % Sodium Chloride 8.7 ML IVP ONE ×2 (08:21→08:45)
[2016-09-12] MEDS: Isosorbide MONOnitrate (24 HR) 30 MG TAB.ER.24H PO SCH (09:23)
[2016-09-12] MEDS: methylPREDNISolone 125 MG/2 ML VIAL IVP SCH (09:23)
[2016-09-12] MEDS: Diltiazem CD (24hr) 120 MG CAPSULE PO SCH (09:23)
[2016-09-12] MEDS: Aspirin Enteric Coated 81 MG Tablet PO SCH (09:24)
[2016-09-12] MEDS: Azithromycin 250 MG TABLET PO SCH (09:24)
[2016-09-12] MEDS: metOLazone 5 MG TABLET PO SCH (09:24)
[2016-09-12] MEDS: Furosemide 40 MG TABLET PO SCH (09:24)
[2016-09-12] MEDS: Insulin LISPRO 300 UNITS/3 ML VIAL SQ SCH ×4 (09:25→21:54)
[2016-09-12] MEDS: Insulin NPH/REG 70/30 100 UNIT/ML (x5UNIT) SQ SCH (09:40)
--- NOTE | 2016-09-12 10:12 | ECHO - Doppler Report ---
Echo with Imaging Enhancement Agent Name: Josh Hill Date of Study: 09/12/2016 Date: 1950 Ht: 64.0 in Medical Record#: [id number] Age: 66 Wt: 285.0 lb Gender: Male BSA: 2.27 Order #: [id number] Location: [facility] Room #: 3B37 Reading Physician: Kaveh Henderson DO, FACC, SPENSER Technical Support Intern: Angela Rodrigez, RVT Ordering Physician: Shalini Mcghee CNP Primary Physician: Lavinia James MD Indications: Chest pain Impressions: LVEF 60%. Normal LV chamber size and function. Mild to moderate concentric left ventricular hypertrophy. Severe left ventricular diastolic dysfunction. Atypical septal motion consistent with bundle branch block. Mildly dilated right ventricle with normal function. Severely dilated left atrium. Moderately dilated right atrium. Unable to estimate RVSP due to lack of TR jet. Left Ventricular Wall Motion: Rest Echo Findings All wall segments showed normal motion. Findings: Study Quality * Technically sub-optimal due to body habitus. ECG Findings * Sinus rhythm with BBB. Left Ventricle * LVEF 60%. * Normal LV chamber size and function. * Mild to moderate concentric left ventricular hypertrophy. * Severe left ventricular diastolic dysfunction. * Atypical septal motion consistent with bundle branch block. Right Ventricle * Mildly dilated right ventricle with normal function. Left Atrium * Severely dilated left atrium. Right Atrium * Moderately dilated right atrium. Interatrial Septum * Interatrial septum not well evaluated. Aortic Valve * Aortic valve not well visualized. * Focal areas of calcification noted on the aortic valve. * No aortic regurgitation. * No aortic stenosis. Mitral Valve * Normal mitral valve structure and function. * No mitral regurgitation. * No mitral stenosis. Tricuspid Valve * No tricuspid regurgitation. * Tricuspid valve not well visualized. * Unable to estimate RVSP due to lack of TR jet. Pulmonic Valve * Pulmonic valve not well visualized. Aorta * Normally sized aortic root. Pericardium * The pericardium appears normal. IVC * Normal IVC dimensions and inspiratory collapse. Pulmonary Artery * Normal visualized portions of the main pulmonary artery. History Hypertension Diabetes History of CAD/PTCA Congestive Heart Failure 03/2016 a Previous Echo was performed. Contrast: Definity 1.3 ml in 8.7 ml of saline 3 ml. Measurements: BP: 126/ 86 2D Normal Values RVIDd: 3.21 cm <2.7 cm IVSd: 1.40 cm 0.6 - 1.0 cm LVIDd: 5.57 cm 3.7 - 5.6 cm LVPWd: 1.40 cm 0.6 - 1.1 cm LVIDs: 3.69 cm 1.5 - 3.6 cm AO: 2.80 cm < 4.0 cm LA: 5.00 cm 2.0 - 4.0cm %FS: 33.80 cm >25 % LA volume: 124 Mitral Valve Pressure Time:59.00 msec Valve Area:3.73 cm2 Peak E:1.28 m/sec Peak A:.51 m/sec E/A Ratio:2.5 E/E' Lat Ratio:13.4 E/E' Med Ratio:11.7 Updated by Kaveh Henderson DO, TYLER, SPENSER, KAITA on 09/12/2016 10:05:35 AM electronically signed on 09/12/2016 10:06:31 AM with status of Final Wall Motion Colon: 1=Normal, 2=Hypokinesis, 3=Akinesis, 4=Dyskinesis, 5=Aneurysmal, 6=Hyperkinetic, X=Not Visualized (Blank)=Missing
[2016-09-12] MEDS: Insulin DETEMIR 100 UNIT/ML X5UNITS SQ SCH ×2 (11:40→21:53)
[2016-09-12] MEDS: Torsemide 20 MG TABLET PO SCH ×3 (14:24→21:55)
--- NOTE | 2016-09-12 18:28 | Internal Med Progress Note ---
Date of Encounter: 09/12/16 Time of Encounter: 09:45 - Assessment and plan (1) Acute on chronic respiratory failure with hypoxia Current Visit: Yes Status: Acute Assessment and plan: Secondary to severe diastolic and right-sided heart failure and asthma-COPD exacerbation. Patient uses 3 L of oxygen at home. He takes torsemide at home and not any more Lasix due to worsening of kidney function. Echocardiogram revealed LVEF 60%, severe left ventricular diastolic dysfunction , moderate dilated right atrium, atypical septal motion consistent with bundle branch block. CT chest showed no evidence of acute airspace disease, bandlike parenchymal thickening within the right aspect of the left lower lobe is slightly greater than remote prior examination most likely representing atelectasis or scaring. Clinically improving. Patient requires 6 L oxygen on admission and now down to 3 L which is his baseline. Stop Lasix. Start torsemide home dose 60 mg twice a day. Stop IV steroids due to hyperglycemia. May start oral prednisone tomorrow. Continue metolazone. Fluid restriction. If not Worsening of kidney function in the morning I will discharge him home. (2) Diabetes mellitus type 2, uncontrolled Current Visit: No Status: Chronic Assessment and plan: Accuchecks in the 4 to 500s. Stop NPH. He started Levemir 40 twice a day. Humalog 40 units before meals and at bedtime. Stop his steroids. 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 (4) Atrial fibrillation Current Visit: No Status: Chronic Assessment and plan: Heart rate is controlled. Continue home dose metoprolol and Cardizem. Qualifiers: Atrial fibrillation type: permanent Qualified Code(s): I48.2 - Chronic atrial fibrillation (5) CAD (coronary artery disease) Current Visit: No Status: Chronic Assessment and plan: Stable. Continue home medications. Qualifiers: Coronary Disease-Associated Artery/Lesion type: [place] artery [place] vs. transplanted heart: [place] heart Associated angina: angina presence unspecified Qualified Code(s): I25.10 - Atherosclerotic heart disease of [place] coronary artery without angina pectoris (6) COPD (chronic obstructive pulmonary disease) Current Visit: No Status: Acute Assessment and plan: Asthma -COPD overlap syndrome exacerbation. Plan as above. Qualifiers: COPD type: unspecified COPD Qualified Code(s): J44.9 - Chronic obstructive pulmonary disease, unspecified (7) HTN (hypertension) Current Visit: No Status: Chronic Qualifiers: Hypertension type: unspecified secondary hypertension Qualified Code(s): I15.9 - Secondary hypertension, unspecified; I15 - Secondary hypertension (8) Morbid obesity with BMI of 45.0-49.9, adult Current Visit: Yes Status: Acute Assessment and plan: BMI 45.9. Outpatient weight loss program. - Subjective Interval history: Patient reports improved shortness of breath at exertion and productive cough. No chest pain. Positive lower extremity edema. - Constitutional Vitals: Temp Pulse Resp BP Pulse Ox 98.7 F 64 16 154/76 94 09/12/16 16:03 09/12/16 16:03 09/12/16 16:03 09/12/16 16:03 09/12/16 16:03 General appearance: Present: cooperative, mild distress, A&O X 3, pleasant, obese, answers questions appropriately - Respiratory Respiratory exam: Present: decreased breath sounds, wheezes. Absent: respiratory distress - Cardiovascular Cardiovascular exam: Present: RRR - GI/Abdominal GI/Abdominal exam: Present: normal bowel sounds, soft. Absent: distended, tenderness - Extremities Exam Extremities exam: Present: pedal edema (2+ lower extremity edema.) - Neurological Exam Neurological exam: Present: alert, oriented X3, no focal deficits, strengths equal and symetr throughout. Absent: facial droop, speech deficit - Skin Skin exam: Absent: rash Internal Medicine: Result - Labs CBC & Chem 7: 09/12/16 05:01 09/12/16 05:01 Labs: Short CBC 09/12/16 Range/Units 05:01 WBC 9.7 (4.3-11.1) K/mcL Hgb 11.1 L (12.9-16.9) g/dL Hct 35.3 L (37.5-50.1) % Plt Count 216 (140-400) K/mcL Neutrophils # 8.5 (1.6-8.9) K/mcL BMP 09/12/16 05:01 Sodium 139 Potassium 3.7 D Chloride 92 L Carbon Dioxide 29 BUN 43 H D Creatinine 1.50 H Glucose 400 H Calcium 9.6 Cardiac Enzymes 09/11/16 Range/Units 18:35 Troponin I 0.04 H* (0-0.03) ng/mL - ABG Interpretation ABG results: PT/INR, D-dimer PT 12.0 Seconds (9.4-12.1) 09/11/16 03:00 - Impressions Impressions Chest CT 09/12/16 12:30 IMPRESSION: No evidence of acute airspace disease. Bandlike parenchymal thickening within the inferior aspect of the left lower lobe is slightly greater than remote prior examination. While most likely representing atelectasis or scarring, neoplasm cannot be excluded. Three-month follow-up chest CT would be helpful for reassessment. Atherosclerosis, including coronary artery calcification. Fatty liver. D/ / Cliff Jang MD / Cliff Jang MD Interpreting Provider: Cliff Jang MD Consult Discharge Plan - Plan Referrals: Lavinia Guerra MD [Primary Care Provider] -
[2016-09-13] MEDS: Ipratropium/Albuterol Neb 3 ML IH SCH ×7 (01:00→23:01)
[2016-09-13 04:26] LABS: Basophils % 0.1 %; Hematocrit 38.1 % (37.5-50.1); Hemoglobin 11.8 g/dL (12.9-16.9); Immature Granulocytes % 0.5 % (0-4); Lymphocytes # 0.9 K/mcL (0.6-4.6); Lymphocytes % 8.3 %; Mean Corpuscular Hemoglobin 26.8 pg (28.0-33.3); Mean Corpuscular Volume 86.6 fL (83.0-100.0); Mean Platelet Volume 10.7 fL (9.4-12.4); Monocytes # 0.7 K/mcL (0.0-1.3); Neutrophils # 9.4 K/mcL (1.6-8.9); Platelet Count 244 K/mcL (140-400); Red Cell Distribution Width 19.9 % (11.5-14.5); Segmented Neutrophils % 85.1 %
[2016-09-13 04:48] LABS: Calcium 10.2 mg/dL (8.6-10.8); Magnesium 2.5 mg/dL (1.6-2.6); Phosphorous 4.3 mg/dL (2.3-4.7)
[2016-09-13] MEDS: Budesonide/Formoterol 160/4.5 MDI IH SCH ×2 (08:02→20:23)
[2016-09-13] MEDS: Aspirin Enteric Coated 81 MG Tablet PO SCH (08:29)
[2016-09-13] MEDS: Diltiazem CD (24hr) 120 MG CAPSULE PO SCH (08:29)
[2016-09-13] MEDS: Torsemide 20 MG TABLET PO SCH (08:29)
[2016-09-13] MEDS: metOLazone 5 MG TABLET PO SCH (08:29)
[2016-09-13] MEDS: Isosorbide MONOnitrate (24 HR) 30 MG TAB.ER.24H PO SCH (08:29)
[2016-09-13] MEDS: Azithromycin 250 MG TABLET PO SCH (08:29)
[2016-09-13] MEDS: Insulin LISPRO 300 UNITS/3 ML VIAL SQ SCH ×3 (08:38→17:31)
[2016-09-13] MEDS: Insulin DETEMIR 100 UNIT/ML X5UNITS SQ SCH ×2 (08:38→22:29)
--- NOTE | 2016-09-13 13:39 | Electrocardiograph Report ---
[address] [place], [place] [address] Test Date: 2016-09-13 Pat Name: Josh Hill Department: 113 Room: 3B37 Gender: M [employer] Fe[employer]: MILENA : 1950 Requested By: Nan Anthony Order Number: [id number] Reading MD: Magalie Apodaca Measurements Intervals [place] Rate: 77 P: DE: 0 QRS: -2 QRSD: 105 T: 252 QT: 372 QTc: 403 Interpretive Statements ATRIAL FIBRILLATION ST DEVIATION AND MODERATE T-WAVE ABNORMALITY, CONSIDER LATERAL ISCHEMIA ST DEVIATION AND MODERATE T-WAVE ABNORMALITY, CONSIDER INFERIOR ISCHEMIA Electronically Signed On 09-13-2016 13:37:53 EDT by Magalie Apodaca
[2016-09-13 14:40] LABS: Calcium 9.9 mg/dL (8.6-10.8); Potassium 2.9 mEq/L (3.5-4.5)
[2016-09-13] MEDS ORDERED: Potassium Chloride 40 MEQ, Lidocaine 1% 2 ML in D5% in Water 500 ML IVPB STA (16:12)
--- NOTE | 2016-09-13 16:39 | Internal Med Progress Note ---
Date of Encounter: 09/13/16 Time of Encounter: 10:00 - Assessment and plan (1) Hypokalemia Current Visit: Yes Status: Acute Assessment and plan: replete (2) Acute worsening of stage 3 chronic kidney disease Current Visit: Yes Status: Acute Assessment and plan: BUn and Cr are trending up. will hold torsemide and metolazone. close monitor of kidney function. (3) Acute on chronic respiratory failure with hypoxia Current Visit: Yes Status: Acute Assessment and plan: Secondary to severe diastolic and right-sided heart failure and asthma-COPD exacerbation. Patient uses 3 L of oxygen at home. He takes torsemide at home and not any more Lasix due to worsening of kidney function. Echocardiogram revealed LVEF 60%, severe left ventricular diastolic dysfunction , moderate dilated right atrium, atypical septal motion consistent with bundle branch block. CT chest showed no evidence of acute airspace disease, bandlike parenchymal thickening within the right aspect of the left lower lobe is slightly greater than remote prior examination most likely representing atelectasis or scaring. Clinically improving. Patient requires 6 L oxygen on admission and now down to 3 L which is his baseline. He received solumedrol and now he is on prednisone. Stop torsemide and metolazone given GINA. Fluid restriction. continue nebs and symbicort. (4) Diabetes mellitus type 2, uncontrolled Current Visit: No Status: Chronic Assessment and plan: 09/12: Accuchecks in the 400 to 500s. Solumedrol stopped. 09/13 acuccheck improving. continue Levemir 40 twice a day. stop Humalog 40 units at bedtime and decreased humalog to 30 units before meals. Diabetic diet Qualifiers: Diabetes mellitus complication status: with neurologic complications Diabetes mellitus complication detail: with unspecified neuropathy Diabetes mellitus intermission coordinator insulin use: with intermission coordinator use Qualified Code(s): E11.40 - Type 2 diabetes mellitus with diabetic neuropathy, unspecified (5) Acute on chronic diastolic CHF (congestive heart failure), NYHA class 3 Current Visit: Yes Status: Acute Assessment and plan: Plan as above. (6) Atrial fibrillation Current Visit: No Status: Chronic Assessment and plan: Heart rate is controlled. Continue home dose metoprolol and Cardizem. Qualifiers: Atrial fibrillation type: permanent Qualified Code(s): I48.2 - Chronic atrial fibrillation (7) CAD (coronary artery disease) Current Visit: No Status: Chronic Assessment and plan: Stable. Continue home medications. Qualifiers: Coronary Disease-Associated Artery/Lesion type: [place] artery [place] vs. transplanted heart: [place] heart Associated angina: angina presence unspecified Qualified Code(s): I25.10 - Atherosclerotic heart disease of [place] coronary artery without angina pectoris (8) COPD (chronic obstructive pulmonary disease) Current Visit: No Status: Acute Assessment and plan: Asthma -COPD overlap syndrome exacerbation. Plan as above. Qualifiers: COPD type: unspecified COPD Qualified Code(s): J44.9 - Chronic obstructive pulmonary disease, unspecified (9) HTN (hypertension) Current Visit: No Status: Chronic Qualifiers: Hypertension type: unspecified secondary hypertension Qualified Code(s): I15.9 - Secondary hypertension, unspecified; I15 - Secondary hypertension (10) Morbid obesity with BMI of 45.0-49.9, adult Current Visit: Yes Status: Acute Assessment and plan: BMI 45.9. Outpatient weight loss program. - Subjective Interval history: Minimal cough. no shortness of breath. No chest pain. - Constitutional Vitals: Temp Pulse Resp BP Pulse Ox 98.1 F 76 20 110/62 97 09/13/16 15:21 09/13/16 15:21 09/13/16 16:08 09/13/16 15:21 09/13/16 16:08 General appearance: Present: cooperative, mild distress, A&O X 3, pleasant, obese, answers questions appropriately - Eye Eye exam: Present: PERRL, sclera anicteric - Neck Neck exam general surgery: Present: supple, trachea midline. Absent: lymphadenopathy - Respiratory Respiratory exam: Present: rhonchi (at lung bases). Absent: wheezes - Cardiovascular Cardiovascular exam: Present: RRR - GI/Abdominal GI/Abdominal exam: Present: normal bowel sounds, soft. Absent: distended, tenderness - Extremities Exam Extremities exam: Absent: pedal edema - Back Exam Back exam: Absent: CVA tenderness (L), CVA tenderness (R) - Neurological Exam Neurological exam: Present: alert, oriented X3, no focal deficits, strengths equal and symetr throughout. Absent: facial droop, speech deficit - Skin Skin exam: Absent: rash Internal Medicine: Result - Labs CBC & Chem 7: 09/13/16 03:40 09/13/16 14:11 Labs: Short CBC 09/13/16 Range/Units 03:40 WBC 11.0 (4.3-11.1) K/mcL Hgb 11.8 L (12.9-16.9) g/dL Hct 38.1 (37.5-50.1) % Plt Count 244 (140-400) K/mcL Neutrophils # 9.4 H (1.6-8.9) K/mcL BMP 09/13/16 09/13/16 03:40 14:11 Sodium 144 143 Potassium 3.0 L 2.9 L Chloride 90 L 92 L Carbon Dioxide 36 H 34 H BUN 52 H 52 H Creatinine 1.56 H 1.57 H Glucose 162 H 177 H Calcium 10.2 9.9 - ABG Interpretation ABG results: PT/INR, D-dimer PT 12.0 Seconds (9.4-12.1) 09/11/16 03:00 Consult Discharge Plan - Plan Referrals: Lavinia Guerra MD [Primary Care Provider] -
[2016-09-13] MEDS: Gabapentin 300 MG CAPSULE PO PRN (21:19)
[2016-09-14] MEDS: Acetaminophen 325 MG TABLET PO PRN ×2 (02:57→10:18)
[2016-09-14] MEDS: Ipratropium/Albuterol Neb 3 ML IH SCH ×4 (04:13→15:54)
[2016-09-14] MEDS ORDERED: *HR* OxyCODONE/APAP 5/325 TABLET PO ONE (04:22)
[2016-09-14 05:22] LABS: Basophils % 0.1 %; Eosinophils % 0.1 %; Hematocrit 40.9 % (37.5-50.1); Hemoglobin 12.6 g/dL (12.9-16.9); Immature Granulocytes % 0.5 % (0-4); Lymphocytes # 1.5 K/mcL (0.6-4.6); Lymphocytes % 15.4 %; Mean Corpuscular HGB Conc 30.8 g/dL (31.6-35.5); Mean Corpuscular Hemoglobin 27.5 pg (28.0-33.3); Mean Corpuscular Volume 89.1 fL (83.0-100.0); Mean Platelet Volume 11.3 fL (9.4-12.4); Monocytes # 0.7 K/mcL (0.0-1.3); Monocytes % 6.6 %; Neutrophils # 7.6 K/mcL (1.6-8.9); Platelet Count 219 K/mcL (140-400); Red Blood Count 4.59 M/mcL (4.19-5.50); Red Cell Distribution Width 20.2 % (11.5-14.5); Segmented Neutrophils % 77.3 %
[2016-09-14 05:34] LABS: BUN/Creatinine Ratio 36 (6-26); Blood Urea Nitrogen 45 mg/dL (8-26); Calcium 9.9 mg/dL (8.6-10.8); Carbon Dioxide 33 mEq/L (19-29); Chloride 96 mEq/L (98-109); Glucose 149 mg/dL (70-99); Magnesium 2.3 mg/dL (1.6-2.6); Osmolality,Calculated 310 (280-300); Potassium 3.2 mEq/L (3.5-4.5); Sodium 143 mEq/L (136-145); eGFR For African Americans > 60 (> 60); eGFR For Non-African Americans 57 (> 60)
[2016-09-14] MEDS: Budesonide/Formoterol 160/4.5 MDI IH SCH (07:28)
[2016-09-14] MEDS ORDERED: Torsemide 20 MG TABLET PO SCH (08:00)
[2016-09-14] MEDS: Azithromycin 250 MG TABLET PO SCH (08:01)
[2016-09-14] MEDS: Diltiazem CD (24hr) 120 MG CAPSULE PO SCH (08:02)
[2016-09-14] MEDS: Aspirin Enteric Coated 81 MG Tablet PO SCH (08:02)
[2016-09-14] MEDS: Isosorbide MONOnitrate (24 HR) 30 MG TAB.ER.24H PO SCH (08:02)
[2016-09-14] MEDS: Insulin LISPRO 300 UNITS/3 ML VIAL SQ SCH ×2 (08:03→11:46)
[2016-09-14] MEDS: Insulin DETEMIR 100 UNIT/ML X5UNITS SQ SCH (08:03)
[2016-09-14] MEDS ORDERED: predniSONE 10 MG TABLET PO SCH (09:00)
--- NOTE | 2016-09-14 09:54 | Discharge Summary ---
Date of Encounter: 09/14/16 Time of Encounter: 09:52 - Discharge Diagnosis (1) Hypokalemia Priority: Primary Status: Acute (2) Acute worsening of stage 3 chronic kidney disease Priority: Primary Status: Acute (3) Acute on chronic respiratory failure with hypoxia Priority: Primary Status: Acute (4) Acute on chronic diastolic CHF (congestive heart failure), NYHA class 3 Priority: Primary Status: Acute (5) COPD (chronic obstructive pulmonary disease) Priority: Primary Status: Acute Qualifiers: COPD type: COPD with acute exacerbation Qualified Code(s): J44.1 - Chronic obstructive pulmonary disease with (acute) exacerbation (6) Diabetes mellitus type 2, uncontrolled Priority: Secondary Status: Chronic Qualifiers: Diabetes mellitus complication status: with hyperglycemia 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 transplanted heart: [place] heart Associated angina: angina presence unspecified Qualified Code(s): I25.10 - Atherosclerotic heart disease of [place] coronary artery without angina pectoris (9) HTN (hypertension) Priority: Secondary Status: Chronic Qualifiers: Hypertension type: unspecified secondary hypertension Qualified Code(s): I15.9 - Secondary hypertension, unspecified; I15 - Secondary hypertension (10) Morbid obesity with BMI of 45.0-49.9, adult Priority: Secondary Status: Chronic - Discharge Medications Prescriptions: GuaiFENesin ER [Mucinex] 1,200 mg PO BID #10 tbbp.12hr predniSONE [PredniSONE] 30 mg PO AD #15 tablet Home Medications: Insulin Human Regular [HumuLIN R] 25 - 30 unit SQ TIDAC #0 09/05/15 [History] Isosorbide MONOnitrate (24 HR) [Imdur] 30 mg PO DAILY #0 09/05/15 [History] Ferrous Sulfate [Iron Supplement] 325 mg PO TID 12/18/15 [History] Aspirin [Lo-Dose Aspirin EC] 81 mg PO DAILY 03/15/16 [History] Glucagon,Human Recombinant [Glucagon Emergency Kit] 1 mg SQ DAILY PRN 03/15/16 [ History] Insulin NPH/REG 70/30 [HumuLIN 70/30 VIAL] 80 unit SQ BIDWM 03/15/16 [History] Albuterol Sulfate [Proair Respiclick] 90 mcg IH TID 05/10/16 [History] Budesonide/Formoterol 160/4.5 [Symbicort 160/4.5] 2 puff IH BIDR 05/10/16 [ History] Diltiazem CD (24hr) [Cardizem CD] 120 mg PO DAILY 05/10/16 [History] Gabapentin [Neurontin] 300 mg PO TID PRN 05/10/16 [History] Metoprolol [Lopressor] 50 mg PO BID 05/10/16 [History] Nitroglycerin [Nitrostat] 0.4 mg SL AD PRN 05/10/16 [History] Pantoprazole Sodium [Protonix] 40 mg PO DAILY 05/10/16 [History] Potassium Chloride [K-Tab ER] 20 meq PO TID 05/10/16 [History] glipiZIDE [Glipizide] 10 mg PO DAILY 05/10/16 [History] metFORMIN [Glucophage] 500 mg PO BIDWM 05/10/16 [History] metOLazone [Metolazone] 10 mg PO DAILY 05/10/16 [History] Buspirone HCl [Buspar] 10 mg PO BID 07/30/16 [History] Montelukast Sodium [Singulair] 10 mg PO HS 07/30/16 [History] Allopurinol [Zyloprim 100 MG] 100 mg PO DAILY 09/10/16 [History] Oxygen 3 l .ROUTE AD 09/11/16 [History] Torsemide [Demadex] 60 mg PO BID 09/11/16 [History] Atorvastatin [Lipitor] 80 mg PO HS tablet 09/14/16 [Rx] GuaiFENesin ER [Mucinex] 1,200 mg PO BID #10 tbbp.12hr 09/14/16 [Rx] Ipratropium/Albuterol Neb [Duoneb] 3 ml IH Q4HR #0 09/14/16 [Rx] predniSONE [PredniSONE] 30 mg PO AD #15 tablet 09/14/16 [Rx] Allergies/Adverse Reactions: Allergies No Known Allergies Allergy (Verified 09/10/16 14:44) Procedures/tests Complete & Pending: Procedures Performed prior 72 hours Category Date Time Status CT chest wo con [CT] Routine Cat Scan 09/12/16 12:30 Completed EKG [ECG 12 lead ECG] [ECG] Stat Y 09/13/16 11:17 Completed EV echocardiogram w enhance Routine Y 09/12/16 18:11 Completed Date of admission: 09/11/16 17:51 Primary care physician: Lavinia Guerra, Consults: 09/12/16 17:02 Consult to Occupational Therapy [CONS] Routine Comment: Evaluate, develop and implement POC Reason for Consult: weakness, falls Consult to Physical Therapy [CONS] Routine Comment: Evaluate, develop and implement POC Reason for Consult: weakness, falls Consult to Rn Bsn [CONS] Routine Reason for SW Consult: weakness, rehab - Patient Status Disposition: Home, Self-Care Condition: Good Functional capacity at discharge: independent ambulation Overall status at discharge: patient is progressing back to baseline - Discharge Instructions Instructions: Heart Failure (DC), Chest Pain (DC), Chronic Obstructive Pulmonary Disease (DC) Follow Up With: Lavinia Guerra MD [Primary Care Provider] - Additional Instructions: PLEASE CHECK YOUR BLOOD SUGARS BEFORE MEALS AND AT BEDTIME. WRITE DOWN THE NUMBERS AND BRING RECORD TO DOCTOR'S APPOINTMENT. PLEASE FOLLOW A STRICT 1.5 LITERS A DAY OF FLUID RESTRICTION AND A LOW SALT AND DIABETIC DIET. WEIGHT YOURSELF EVERY DAY AND IF YOU GAIN MORE THAN 1 POUND IN A DAY, PLEASE CALL YOUR DOCTOR. FOLLOW UP WITH YOUR PRIMARY CARE DOCTOR NEXT WEEK. YOU WILL NEED A REPEAT CAT SCAN OF YOUR CHEST IN 3-4 MONTHS MAKE SURE TO HAVE A BLOOD TEST THIS COMING FRIDAY. - Diet and Activity Activity: resume usual activities as tolerated, wear oxygen at all times (3 l nc ) Diet: diabetic diet, low fat, low cholesterol, low salt diet, other (FLUID RESTRICTION 1.5 l A DAY) Interval History: patient feels better compared to admission. he states that he will follow his own fluid restriction at home as well as his own diabetic diet. patient encourage to watch his fluid and salt intake to prevent coming back to the hospital. Hospital course: Mr. Hill is a 66 year old male with past medical history of COPD on 3 L NC , asthma-COPD overlap syndrome, diastolic heart failure,C AD, diabetes, and hypertension. He presented with a chief complaint of shortness of breath and chest pain. Patient admitted with acute on chronic respiratory failure secondary to severe diastolic and right-sided heart failure and asthma COPD exacerbation. He was started on IV Solu-Medrol, nebulizations, Lasix, fluid restriction and Symbicort with slow clinical improvement. Patient required 6 L of oxygen on admission and it was down to 3.5 L at discharge. He developed worsening of chronic kidney disease due to Lasix and this was held for one day with improvement of his kidney function to baseline. His home dose torsemide was resume at discharge. He developed severe hyperglycemia due to Solu-Medrol with Accu-Cheks in the 400s to 500s. Solu-Medrol was stopped and he was started on oral prednisone with better control of his diabetes. Patient was encouraged to follow a strict diabetic, fluid restriction and low-salt diet at home however he stated to the nurse that he will follow his own diet and fluid restriction. plan: BMP NEXT FRIDAY. CT CHEST IN 3 MONTHS. Follow-up with primary care physician next week for CHF, CKD and COPD. - Time Spent with Patient Total time spent providing and/or coordinating discharge services: - Constitutional Vitals: Temp Pulse Resp BP Pulse Ox 97.4 F L 71 18 148/100 97 09/14/16 07:03 09/14/16 07:03 09/14/16 07:29 09/14/16 07:03 09/14/16 07:29 General appearance: Present: cooperative, mild distress, A&O X 3, pleasant, obese, answers questions appropriately - Neck Neck exam general surgery: Present: supple, trachea midline. Absent: lymphadenopathy - Respiratory Respiratory exam: Present: rhonchi (AT LUNG BASES) - Cardiovascular Cardiovascular exam: Present: RRR - GI/Abdominal GI/Abdominal exam: Present: normal bowel sounds, soft. Absent: distended, tenderness - Extremities Exam Extremities exam: Absent: pedal edema - Back Exam Back exam: Absent: CVA tenderness (L), CVA tenderness (R) - Neurological Exam Neurological exam: Present: alert, oriented X3, no focal deficits, strengths equal and symetr throughout. Absent: facial droop, speech deficit - Skin Skin exam: Absent: rash
[2016-09-14] MEDS: Gabapentin 300 MG CAPSULE PO PRN (10:18)
[2016-09-14 11:04] VITALS: BP 128/81
== END 2016-09-14 17:00 | disposition home or self-care (01) | DRG 189 ==
LOC: EMEROO 13:52 → 3BNU 13:52 → SUATTDRO 09-11 17:51 → 3ANU 09-13 17:18
PROVIDERS: ADMIT Internal Medicine; ATTEND Internal Medicine

== ENCOUNTER 2016-09-22 00:26 | Inpatient (IN) ==
[2016-09-22] MEDS ORDERED: Naloxone 0.4 MG/ML INJ IVP PRN (04:50)
[2016-09-22] MEDS ORDERED: Ondansetron 4 MG/2 ML VIAL IVP PRN (04:50)
[2016-09-22] MEDS ORDERED: Acetaminophen 325 MG TABLET PO PRN (04:50)
[2016-09-22] MEDS ORDERED: D5% in Water 1,000 ML IVC PRN (04:57)
[2016-09-22] MEDS ORDERED: Dextrose Gel 15 GM PO PRN ×2 (04:57)
[2016-09-22] MEDS ORDERED: *HR* Dextrose 50 % in Water (Syg) 50 ML SYRINGE IVP PRN (04:57)
[2016-09-22] MEDS: *HR* Heparin 5,000 UNIT/ML VIAL SQ SCH ×2 (05:15→18:29)
[2016-09-22] MEDS: *HR* Morphine 2 MG/ML SYRINGE IVP PRN ×3 (05:15→17:20)
--- NOTE | 2016-09-22 05:25 | Internal Med History&Physical ---
Date of Encounter: 09/22/16 Time of Encounter: 04:00 Assessment and Plan (1) Edema of upper extremity Current visit: Yes Status: Acute Uncertain etiology- DVT vs acute gout vs acute CHF. Venous Doppler of left upper extremity to r/o DVT. Continue IV diuresis, left UE elevation and supportive care. Pain control with PRN Tylenol and IV Morphine. (2) CHF (congestive heart failure) Current visit: Yes Status: Acute Likely acute on chronic given worsening pedal edema, dyspnea, pulmonary edema/ pleural effusion on chest XRay; continue IV Lasix along with fluid restriction, daily weights and urine output monitoring; reports compliance to meds at home. He will likely need to be discharged on oral Lasix as he reports Torsemide was not effective for him. Telemetry monitoring. Continue beta-liv; Echocardiogram from 10 days back showed preserved EF, severe LV diastolic dysfunction, biatrial dilation; Qualifiers: Congestive heart failure type: diastolic Congestive heart failure chronicity: acute on chronic Qualified Code(s): I50.33 - Acute on chronic diastolic (congestive) heart failure (3) CKD (chronic kidney disease) Current visit: Yes Status: Chronic serum creatinine noted to be at baseline and improving; patient does need to be on diuretics due to volume overload; Qualifiers: Chronic kidney disease stage: stage 3 (moderate) Qualified Code(s): N18.3 - Chronic kidney disease, stage 3 (moderate) (4) CAD (coronary artery disease) Current visit: Yes Status: Chronic Qualifiers: Coronary Disease-Associated Artery/Lesion type: [place] artery [place] vs. transplanted heart: [place] heart Associated angina: without angina Qualified Code(s): I25.10 - Atherosclerotic heart disease of [place] coronary artery without angina pectoris (5) Asthma with COPD (chronic obstructive pulmonary disease) Current visit: Yes Status: Chronic not in acute exacerbation. Continue bronchodilators, supplemental O2, ICS, Singulair; (6) HTN (hypertension) Current visit: Yes Status: Chronic Qualifiers: Hypertension type: essential hypertension Qualified Code(s): I10 - Essential (primary) hypertension (7) Hyperlipidemia Current visit: Yes Status: Chronic Qualifiers: Hyperlipidemia type: unspecified Qualified Code(s): E78.5 - Hyperlipidemia , unspecified (8) Diabetes mellitus Current visit: Yes Status: Chronic Uncontrolled DM; HbA1C last month noted to be around 10%. 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 Continue beta-liv; no skilled nursing anticoagulation due to h/o- Gi bleed per patient; Qualifiers: Atrial fibrillation type: permanent Qualified Code(s): I48.2 - Chronic atrial fibrillation Internal Medicine - H&P: HPI Chief complaint: Pain and swelling in left arm Admitted From: Emergency Dept Plans for Post Hospital Care: Home History of present illness: Mr. Hill is a 66 year old male with multiple medical problems including CHF , DM, presents with c/o- worsening pain and swelling in his left arm and forearm including his hand for the last 2-3 days. He also has worsening leg swelling. He reports no trauma or injury, reports compliance to diuretics and fluid restriction at home. He was recently discharged from our hospital after being treated for acute CHF and COPD and was sent home on Torsemide. He followed up with his PCP 3 days ago, who changed his diuretics to Lasix as Torsemide was not diuresing him well enough. He reports no chest pain, and does have some baseline dyspnea, palpitations and leg swelling. Past Med Surg Social Fam HX - Past Medical History Medical history: arthritis, atrial fibrillation, CHF, COPD, coronary artery disease, diabetes, GERD, hyperlipidemia, hypertension, myocardial infarction, osteoporosis, venous stasis, valvular heart disease Psychiatric history: anxiety, depression - Past Surgical History Surgical History: angioplasty/stent, herniorrhaphy, knee replacement (B/L), other - Social History Smoking Status: Never smoker Smokeless Tobacco Status: No Alcohol use: none Drug use: none Occupational status: disabled Current living situation: Home, With Family Activity Level: Independent ambulation Recent Out of Country Travel Within the Last 8 Weeks: No - Family History Father Living Status: Hx Family Cardiac Disorders: Yes Hx Family Respiratory Disorders: Yes Hx Family Cancer: Yes Hx Family GI Disorders: Yes Hx Family Endocrine Disorder: No Internal Medicine - H&P: Meds Insulin Human Regular [HumuLIN R] 25 - 30 unit SQ TIDAC #0 09/05/15 [History] Isosorbide MONOnitrate (24 HR) [Imdur] 30 mg PO DAILY #0 09/05/15 [History] Ferrous Sulfate [Iron Supplement] 325 mg PO TID 12/18/15 [History] Aspirin [Lo-Dose Aspirin EC] 81 mg PO DAILY 03/15/16 [History] Glucagon,Human Recombinant [Glucagon Emergency Kit] 1 mg SQ DAILY PRN 03/15/16 [ History] Insulin NPH/REG 70/30 [HumuLIN 70/30 VIAL] 80 unit SQ BIDWM 03/15/16 [History] Albuterol Sulfate [Proair Respiclick] 90 mcg IH TID 05/10/16 [History] Budesonide/Formoterol 160/4.5 [Symbicort 160/4.5] 2 puff IH BIDR 05/10/16 [ History] Diltiazem CD (24hr) [Cardizem CD] 120 mg PO DAILY 05/10/16 [History] Gabapentin [Neurontin] 300 mg PO TID PRN 05/10/16 [History] Metoprolol [Lopressor] 50 mg PO BID 05/10/16 [History] Nitroglycerin [Nitrostat] 0.4 mg SL AD PRN 05/10/16 [History] Pantoprazole Sodium [Protonix] 40 mg PO DAILY 05/10/16 [History] Potassium Chloride [K-Tab ER] 20 meq PO TID 05/10/16 [History] glipiZIDE [Glipizide] 10 mg PO DAILY 05/10/16 [History] metFORMIN [Glucophage] 500 mg PO BIDWM 05/10/16 [History] metOLazone [Metolazone] 10 mg PO DAILY 05/10/16 [History] Buspirone HCl [Buspar] 10 mg PO BID 07/30/16 [History] Montelukast Sodium [Singulair] 10 mg PO HS 07/30/16 [History] Allopurinol [Zyloprim 100 MG] 100 mg PO DAILY 09/10/16 [History] Oxygen 3 l .ROUTE AD 09/11/16 [History] Atorvastatin [Lipitor] 80 mg PO HS tablet 09/14/16 [Rx] Ipratropium/Albuterol Neb [Duoneb] 3 ml IH Q4HR #0 09/14/16 [Rx] Lisinopril [Zestril] 2.5 mg PO DAILY 09/21/16 [History] Allergies No Known Allergies Allergy (Verified 09/10/16 14:44) All Systems PM: A 10-system review of systems was performed and is negative for pertinent findings except as documented above in the HPI. - Constitutional Constitutional: weight gain - EENT Eyes: no change in vision, no discharge, no pain, no photophobia Ears: no ear discharge, no ear pain, no tinnitus Nose, mouth and throat: no dysphagia, no nasal discharge, no neck pain, no sore throat - Cardiovascular Cardiovascular ROS IM: dyspnea, dyspnea on exertion, edema - Respiratory Respiratory: dyspnea - Gastrointestinal Gastrointestinal: no abdominal pain, no diarrhea, no hematemesis, no hematochezia, no melena, no nausea, no vomiting - Musculoskeletal Musculoskeletal ROS IM: limited range of motion (left shoulder, elbow and wrist due to pain and swelling) - Integumentary Integumentary IM: no rash, no unusual bruising - Neurological Neurological ROS: no confusion, no convulsions, no focal weakness, no numbness, no tingling, no tremor(s) - Hematologic/Lymphatic Hematologic/Lymphatic: no easy bruising - Constitutional Vitals: Temp Pulse Resp BP Pulse Ox 98.4 F 81 24 147/85 97 09/22/16 02:20 09/22/16 02:20 09/22/16 02:20 09/22/16 02:20 09/22/16 03:28 General appearance: Present: mild distress, A&O X 3 - Respiratory Respiratory exam: Present: CTAB. Absent: accessory muscle use, rales, rhonchi, wheezes - Cardiovascular Cardiovascular exam: Present: irregular rhythm, +S1, +S2. Absent: diastolic murmur, gallop, rubs, systolic murmur - GI/Abdominal GI/Abdominal exam: Present: normal bowel sounds, soft, no peritoneal signs. Absent: distended, tenderness - Extremities Exam Extremities exam: Present: full ROM, pedal edema (B/L 3+ tense pedal edema with mild erythema on legs; Left UE diffuse nonpitting edema with tenderness, no focal joint swelling), warm, radial pulses palpable and symetrical. Absent: calf tenderness, cyanotic - Neurological Exam Neurological exam: Present: CN II-XII intact, oriented X3, no focal deficits. Absent: pronater drift, facial droop, speech deficit - Skin Skin exam: Present: dry, intact Internal Med - H&P Results - Diagnostic Studies Chest x-ray Status: image reviewed by me (cardiomegaly, pulmonary edema, right pleural effusion)
[2016-09-22 05:45] LABS: Basophils % 0.2 %; Eosinophils % 0.2 %; Hematocrit 37.3 % (37.5-50.1); Hemoglobin 11.2 g/dL (12.9-16.9); Immature Granulocytes % 0.7 % (0-4); Lymphocytes # 1.3 K/mcL (0.6-4.6); Lymphocytes % 10.4 %; Mean Corpuscular Hemoglobin 26.7 pg (28.0-33.3); Mean Platelet Volume 10.9 fL (9.4-12.4); Monocytes # 0.8 K/mcL (0.0-1.3); Monocytes % 5.9 %; Neutrophils # 10.6 K/mcL (1.6-8.9); Platelet Count 271 K/mcL (140-400); Red Blood Count 4.19 M/mcL (4.19-5.50); Red Cell Distribution Width 18.6 % (11.5-14.5); Segmented Neutrophils % 82.6 %
[2016-09-22 06:51] LABS: BUN/Creatinine Ratio 22 (6-26); Blood Urea Nitrogen 22 mg/dL (8-26); Calcium 9.3 mg/dL (8.6-10.8); Carbon Dioxide 35 mEq/L (19-29); Chloride 89 mEq/L (98-109); Glucose 262 mg/dL (70-99); Magnesium 1.3 mg/dL (1.6-2.6); Osmolality,Calculated 302 (280-300); Phosphorous 3.2 mg/dL (2.3-4.7); Potassium 3.7 mEq/L (3.5-4.5); Sodium 140 mEq/L (136-145); eGFR For African Americans > 60 (> 60); eGFR For Non-African Americans > 60 (> 60)
[2016-09-22] MEDS: Budesonide/Formoterol 160/4.5 MDI IH SCH ×2 (08:17→19:48)
[2016-09-22] MEDS: Insulin LISPRO 300 UNITS/3 ML VIAL SQ SCH ×5 (08:32→22:35)
[2016-09-22] MEDS: Magnesium Oxide 400 MG TABLET PO SCH ×2 (08:33→22:35)
[2016-09-22] MEDS: Gabapentin 300 MG CAPSULE PO SCH ×3 (08:33→22:34)
[2016-09-22] MEDS: *HR* OxyCODONE Immed Rel 5 MG TABLET PO PRN ×2 (08:35→18:30)
[2016-09-22] MEDS: Aspirin Enteric Coated 81 MG Tablet PO SCH (08:36)
[2016-09-22] MEDS: Furosemide 40 MG/4 ML VIAL IVP SCH ×2 (08:36→18:29)
[2016-09-22] MEDS: Diltiazem CD (24hr) 120 MG CAPSULE PO SCH (08:36)
[2016-09-22] MEDS: Isosorbide MONOnitrate (24 HR) 30 MG TAB.ER.24H PO SCH (08:36)
[2016-09-22] MEDS: Insulin DETEMIR 100 UNIT/ML X5UNITS SQ SCH ×2 (08:37→22:36)
--- NOTE | 2016-09-22 12:13 | Internal Med Progress Note ---
<Chemo Phillips - Last Filed: 09/22/16 14:29> Date of Encounter: 09/22/16 Time of Encounter: 12:12 - Assessment and plan (1) CHF exacerbation Current Visit: Yes Status: Acute Assessment and plan: 66 y/o male hx of diastolic CHF, diabetes mellitus, coronary disease presents with worsening pain and swelling of the left arm and forearm in the last 2 days and also worsening lower extremity swelling. Patient states he is also short of breath. He was recently discharged from [facility] after being treated for acute CHF and COPD exacerbation and sent home on torsemide. Patient's PCP after discharge changed his diuretics from torsemide to Lasix as he was not diuresing well with torsemide. CXR: cardiomegaly and pulmonary edema lung exam: b/l basilar rales, accessory muscle use, decreased breath sounds BNP pending echo 09/12/2016: EF 60%, severe left ventricular diastolic dysfunction, atypical septal motion consistent with bundle branch block, severely dilated left atrium , moderately dilated right atrium Plan: continue IV lasix, fluid restriction, strict I&O, daily weight, continue daily potassium chloride Qualifiers: Congestive heart failure type: diastolic Qualified Code(s): I50.33 - Acute on chronic diastolic (congestive) heart failure (2) DVT (deep venous thrombosis) Current Visit: Yes Status: Suspected Assessment and plan: Patient has asymmetrical swelling of LUE and states he has increased pain in left elbow and shoulder that worsens with movement. Furthermore, patient has new onset left lower extremity pain. both b/l lower extremity have 2+ swelling Will obtain venous doppler patient also has hx of gout and may visits to ER for acute gout which complicates the picture. had venous duplex of b/l lower extremities 11 days ago that were negative. Qualifiers: DVT location: upper extremity Affected thrombotic vein of extremity: unspecified vein of extremity Laterality: left Chronicity: acute Qualified Code(s): I82.622 - Acute embolism and thrombosis of deep veins of left upper extremity (3) Pulmonary embolism Current Visit: Yes Status: Suspected Assessment and plan: Patient presented sob, tachycardic, tachypneic. wells score 4.5 will obtain CTA r/o PE. he has similar work up during the past admission and had pulmonary perfusion imaging which was negative. continue supplemental O2. Qualifiers: Pulmonary embolism type: other Chronicity: unspecified Acute cor pulmonale presence: without acute cor pulmonale Qualified Code(s): I26.99 - Other pulmonary embolism without acute cor pulmonale (4) CAD (coronary artery disease) Current Visit: Yes Status: Chronic Assessment and plan: hx of PCI to LAD february 2014 Nuclear stress test 09/2015 negative for ischemia with EF of 67%. denies cp currently mild trop elevation 2nd to demand ischemia trending down. continue aspirin, statin, bblocker, imdur Qualifiers: Coronary Disease-Associated Artery/Lesion type: [place] artery [place] vs. transplanted heart: [place] heart Associated angina: without angina Qualified Code(s): I25.10 - Atherosclerotic heart disease of [place] coronary artery without angina pectoris (5) Atrial fibrillation Current Visit: Yes Status: Chronic Assessment and plan: hx of afib currently in afib and rate controlled with cardizem not on angticoagutaion due to GI bleed on coumadin and also xarelto. had ANNIE cardioversion on 10/2015 colonoscopy in 10/2015 found tubular adenoma. hgb stable. Qualifiers: Atrial fibrillation type: permanent Qualified Code(s): I48.2 - Chronic atrial fibrillation (6) HTN (hypertension) Current Visit: Yes Status: Chronic Assessment and plan: controlled. continue home medications Qualifiers: Hypertension type: essential hypertension Qualified Code(s): I10 - Essential (primary) hypertension (7) Hyperlipidemia Current Visit: Yes Status: Chronic Assessment and plan: hx of HLD on atorvastatin 80mg qHS will continue Qualifiers: Hyperlipidemia type: pure hypercholesterolemia Qualified Code(s): E78.00 - Pure hypercholesterolemia, unspecified; E78.0 - Pure hypercholesterolemia (8) Gouty arthritis Current Visit: Yes Status: Acute Assessment and plan: patient has hx of gout. currently has pain in left elbow and shoulder, and left lower extremity calf area patient has left elbow effusion on xray taken on 09/20 shoulder xray on 09/20 show no fracture but patient has AC join degernative changes and calcific peritendinitis adjacent to the greater tuberosity. left ankle xray on 05/2016 showed ankle swelling. will continue allopurinol. (9) Diabetes mellitus Current Visit: Yes Status: Chronic Assessment and plan: last HgA1c is 10.5. uncontrolled diabetes cardiac ada diet. on SSI will start on basal and preprandial insulin Qualifiers: Diabetes mellitus type: type 2 Diabetes mellitus complication status: with hyperglycemia Diabetes mellitus sales apprentice insulin use: with sales apprentice use Qualified Code(s): E11.65 - Type 2 diabetes mellitus with hyperglycemia; Z79.4 - nursing home (current) use of insulin (10) Asthma Current Visit: Yes Status: Acute Assessment and plan: PFT in 2016 shows restrictive pattern with FC 40% predicted and FEV1 41 %. asthma complicated by superimposed COPD continue duoneb prn, symbicort, singulair, Qualifiers: Asthma severity: unspecified severity Asthma complication type: uncomplicated Qualified Code(s): J45.909 - Unspecified asthma, uncomplicated - Subjective Interval history: Patient continues to feel short of breath and complains of pain in the left upper extremity and left lower extremity. - Constitutional Vitals: Temp Pulse Resp BP Pulse Ox 97.6 F 79 18 134/88 93 09/22/16 11:16 09/22/16 11:16 09/22/16 11:16 09/22/16 11:16 09/22/16 11:16 General appearance: Present: mild distress, A&O X 3 - Neck Neck exam general surgery: Present: supple, trachea midline. Absent: lymphadenopathy - Respiratory Respiratory exam: Present: accessory muscle use, decreased breath sounds, rales (bibasilar ), tachypnea - Cardiovascular Cardiovascular exam: Present: irregular rhythm, tachycardia - GI/Abdominal GI/Abdominal exam: Present: normal bowel sounds, soft, no peritoneal signs. Absent: distended, tenderness - Extremities Exam Extremities exam: Absent: full ROM (decreased ROM LUE due to pain with movemnt ) Additional comments: LUE swelling form shoulder to hand b/l lower extremity swelling 2+ Internal Medicine: Result - Labs CBC & Chem 7: 09/22/16 05:08 09/22/16 05:08 Labs: Short CBC 09/22/16 Range/Units 05:08 WBC 12.8 H (4.3-11.1) K/mcL Hgb 11.2 L (12.9-16.9) g/dL Hct 37.3 L (37.5-50.1) % Plt Count 271 (140-400) K/mcL Neutrophils # 10.6 H (1.6-8.9) K/mcL BMP 09/22/16 05:08 Sodium 140 Potassium 3.7 Chloride 89 L Carbon Dioxide 35 H BUN 22 Creatinine 1.00 Glucose 262 H Calcium 9.3 Cardiac Enzymes 09/22/16 09/22/16 Range/Units 05:08 10:32 Troponin I 0.07 H* 0.06 H* (0-0.03) ng/mL Consult Discharge Plan - Plan Referrals: Lavinia Guerra MD [Primary Care Provider] - <Naveen Moreno - Last Filed: 09/23/16 15:44> Date of Encounter: 09/22/16 - Constitutional Vitals: Temp Pulse Resp BP Pulse Ox 97.8 F 70 17 153/80 95 09/23/16 11:54 09/23/16 11:54 09/23/16 11:54 09/23/16 11:54 09/23/16 11:54 Internal Medicine: Result - Labs CBC & Chem 7: 09/23/16 04:04 09/23/16 04:04 Labs: Short CBC 09/23/16 Range/Units 04:04 WBC 13.6 H (4.3-11.1) K/mcL Hgb 11.1 L (12.9-16.9) g/dL Hct 37.3 L (37.5-50.1) % Plt Count 270 (140-400) K/mcL Neutrophils # 11.8 H (1.6-8.9) K/mcL BMP 09/23/16 04:04 Sodium 143 Potassium 4.3 Chloride 93 L Carbon Dioxide 36 H BUN 17 Creatinine 1.00 Glucose 273 H Calcium 9.8 Cardiac Enzymes 09/22/16 Range/Units 17:23 Troponin I 0.05 H* (0-0.03) ng/mL - ABG Interpretation ABG results: ABG ABG pH 7.49 pH Units (7.32-7.45) H 09/22/16 22:30 ABG pCO2 61 mmHg (35-45) H 09/22/16 22:30 ABG pO2 64 mmHg (85-104) L 09/22/16 22:30 ABG O2 Saturation 94 % (95-98) L 09/22/16 22:30 - Impressions Impressions Chest CTA 09/22/16 15:45 IMPRESSION: 1. No evidence of pulmonary embolic disease. 2. No acute pulmonary findings. Dependent atelectasis at the lung bases bilaterally without significant change. 3. Cardiomegaly with atherosclerotic calcification in the coronary circulation. 4. Hepatomegaly with steatosis. Borderline splenomegaly. D/ / 09/22/2016 17:29:55 Bull Lopes MD / earnold Interpreting Provider: Bull Lopes MD - Attending Attestation I examined this patient and my medical decision-making was reviewed with the Resident Physician on 09/22/16. I agree with the documented findings, disposition and treatment plan as described except to the extent set forth below. Mr. Hill was admitted earlier today. He has L arm swelling and pain. Exam LUE and LLE edematous - elbow with effusion Plan Continue current plan ? gout versus other
[2016-09-22] MEDS ORDERED: predniSONE 20 MG TABLET PO ONE (18:41)
--- NOTE | 2016-09-22 20:52 | Electrocardiograph Report ---
[address] [place], [place] [address] Test Date: 2016-09-22 Pat Name: Josh Hill Department: 111 Room: [facility] Gender: M Internal Corrosion Specialist: GE : 1950 Requested By: Naveen Morneo Order Number: [id number] Reading MD: Aamir Norton MD Measurements Intervals [place] Rate: 93 P: 15 VA: 209 QRS: -2 QRSD: 95 T: -7 QT: 364 QTc: 415 Interpretive Statements ATRIAL FIBRILLATION BASELINE ARTIFACT Electronically Signed On 09-22-2016 20:50:31 EDT by Aamir Norton MD
[2016-09-22] MEDS ORDERED: Insulin DETEMIR 100 UNIT/ML X5UNITS SQ SCH (21:00)
[2016-09-22] MEDS: Colchicine 0.6 MG TABLET PO SCH (22:35)
[2016-09-22 22:47] LABS: ABG Base Excess 19.6 mEq/L (-2.0 to 3.0); ABG HCO3 46.5 mEQ/L (21-27); ABG Oxygen Saturation 94 % (95-98); ABG PCO2 61 mmHg (35-45); ABG PH 7.49 pH Units (7.32-7.45); ABG PO2 64 mmHg (85-104); ABG TCO2 48.4 mEq/L (20-26)
[2016-09-22 22:49] LABS: Blood Gas FiO2 38 %
--- NOTE | 2016-09-23 01:23 | Venous Imaging Report ---
LE Venous Duplex Patient Name:Josh Hill Order Number:[id number] Procedure Date:09/22/2016 Date:1950Age:66 yrs Gender:Male Location:[facility] Room #: 2NE25 Louver Mortiser Operator:Johanna Parra RVT Referring MD:Chemo Phillips DO perianesthesia rn:Lavinia James MD Reading MD:Judah Fulton MD Primary Indications:bilateral lower extremity swelling Secondary Indications: Risk Factors Yes/No Anticoagulants No Hx of DVT No Impressions: Normal bilateral lower extremity deep and superficial venous exam. Recommendations: Critical findings reported to The floor by phone by Johanna Parra RVT. Findings Venous Duplex Results: Right: Venous imaging of the lower extremity reveals full patency and normal vessel compressibility of the right distal iliac, right common femoral, right superficial femoral, right popliteal, right great saphenous and right lesser saphenous. Doppler signals in the evaluated veins were normal. Left: Venous imaging of the lower extremity reveals full patency and normal vessel compressibility of the left distal iliac, left common femoral, left superficial femoral, left popliteal, left great saphenous and left lesser saphenous. Doppler signals in the evaluated veins were normal. Lower Extremity Venous Duplex Side Vein Compress Spontaneous Flow Augment Diameter (cm) Depth (cm) Right Distal Iliac Normal Yes Phasic Yes Right Common Femoral Normal Yes Phasic Yes Right Superficial Femoral Normal Yes Phasic Yes Right Popliteal Normal Yes Phasic Yes Right Great Saphenous Normal Yes Phasic Yes Right Lesser Saphenous Normal Yes Phasic Yes Left Distal Iliac Normal Yes Phasic Yes Left Common Femoral Normal Yes Phasic Yes Left Superficial Femoral Normal Yes Phasic Yes Left Popliteal Normal Yes Phasic Yes Left Great Saphenous Normal Yes Phasic Yes Left Lesser Saphenous Normal Yes Phasic Yes Updated by Judah Fulton MD on 09/23/2016 1:17:30 AM electronically signed on 09/23/2016 1:17:52 AM with status of Final
--- NOTE | 2016-09-23 01:23 | Venous Imaging Report ---
UE Venous Duplex Patient Name:Josh Hill Order Number:[id number] Procedure Date:09/22/2016 Date:1950Age:66 yrs Gender:Male Location:[facility] Room #: 2NE25 Agricultural Equipment Mechanic:Johanna Parra RVT Referring MD:Chemo Phillips DO foil stamp operator:Lavinia James MD Reading MD:Judah Fulton MD Primary Indications:bilateral arm swelling Secondary Indications: Risk Factors Yes/No Anticoagulants No Hx of DVT No Recent IV therapy ( past 2 weeks) Yes Impressions: Normal bilateral upper extremity deep and superficial venous exam. Recommendations: Critical findings reported to The floor by phone by Johanna Parra RVT. Findings Venous Duplex Results: Right: Venous imaging of the upper extremity reveals full patency and normal vessel compressibility of the right jugular, right subclavian, right axillary, right brachial, right cephalic, right basilic, right radial and right ulnar. Doppler signals in the evaluated veins were normal. Left: Venous imaging of the upper extremity reveals full patency and normal vessel compressibility of the left jugular, left subclavian, left axillary, left brachial, left cephalic, left basilic, left radial and left ulnar. Doppler signals in the evaluated veins were normal. Prior Study: No prior study available for comparison. Upper Extremity Venous Duplex Side Vein Compress Spontaneous Flow Augment Right Jugular Normal Yes Phasic Yes Right Subclavian Normal Yes Phasic Yes Right Axillary Normal Yes Phasic Yes Right Brachial Normal Yes Phasic Yes Right Cephalic Normal Yes Phasic Yes Right Basilic Normal Yes Phasic Yes Right Radial Normal Yes Phasic Yes Right Ulnar Normal Yes Phasic Yes Left Jugular Normal Yes Phasic Yes Left Subclavian Normal Yes Phasic Yes Left Axillary Normal Yes Phasic Yes Left Brachial Normal Yes Phasic Yes Left Cephalic Normal Yes Phasic Yes Left Basilic Normal Yes Phasic Yes Left Radial Normal Yes Phasic Yes Left Ulnar Normal Yes Phasic Yes Updated by Judah Fulton MD on 09/23/2016 1:18:23 AM electronically signed on 09/23/2016 1:19:12 AM with status of Final
[2016-09-23 04:51] LABS: BUN/Creatinine Ratio 17 (6-26); Basophils % 0.1 %; Blood Urea Nitrogen 17 mg/dL (8-26); Calcium 9.8 mg/dL (8.6-10.8); Carbon Dioxide 36 mEq/L (19-29); Chloride 93 mEq/L (98-109); Glucose 273 mg/dL (70-99); Hematocrit 37.3 % (37.5-50.1); Hemoglobin 11.1 g/dL (12.9-16.9); Immature Granulocytes % 0.8 % (0-4); Lymphocytes # 0.9 K/mcL (0.6-4.6); Lymphocytes % 6.5 %; Mean Corpuscular HGB Conc 29.8 g/dL (31.6-35.5); Mean Corpuscular Hemoglobin 27.2 pg (28.0-33.3); Mean Corpuscular Volume 91.4 fL (83.0-100.0); Mean Platelet Volume 11.1 fL (9.4-12.4); Monocytes # 0.8 K/mcL (0.0-1.3); Monocytes % 5.8 %; Neutrophils # 11.8 K/mcL (1.6-8.9); Osmolality,Calculated 307 (280-300); Platelet Count 270 K/mcL (140-400); Potassium 4.3 mEq/L (3.5-4.5); Red Blood Count 4.08 M/mcL (4.19-5.50); Red Cell Distribution Width 18.4 % (11.5-14.5); Segmented Neutrophils % 86.8 %; Sodium 143 mEq/L (136-145); eGFR For African Americans > 60 (> 60); eGFR For Non-African Americans > 60 (> 60)
[2016-09-23] MEDS: *HR* Heparin 5,000 UNIT/ML VIAL SQ SCH ×2 (06:39→16:49)
[2016-09-23] MEDS: Budesonide/Formoterol 160/4.5 MDI IH SCH ×2 (08:10→21:43)
[2016-09-23] MEDS: *HR* OxyCODONE Immed Rel 5 MG TABLET PO PRN ×3 (09:01→21:14)
[2016-09-23] MEDS: Gabapentin 300 MG CAPSULE PO SCH ×3 (09:02→20:21)
[2016-09-23] MEDS: Diltiazem CD (24hr) 120 MG CAPSULE PO SCH (09:02)
[2016-09-23] MEDS: Magnesium Oxide 400 MG TABLET PO SCH ×2 (09:02→20:22)
[2016-09-23] MEDS: Aspirin Enteric Coated 81 MG Tablet PO SCH (09:02)
[2016-09-23] MEDS: Colchicine 0.6 MG TABLET PO SCH ×2 (09:02→20:22)
[2016-09-23] MEDS: Furosemide 40 MG/4 ML VIAL IVP SCH (09:03)
[2016-09-23] MEDS: Isosorbide MONOnitrate (24 HR) 30 MG TAB.ER.24H PO SCH (09:03)
[2016-09-23] MEDS: Insulin LISPRO 300 UNITS/3 ML VIAL SQ SCH ×7 (09:04→20:23)
[2016-09-23] MEDS: Insulin DETEMIR 100 UNIT/ML X5UNITS SQ SCH ×2 (09:19→20:22)
[2016-09-23] MEDS ORDERED: Vancomycin 2,000 MG in D5% in Water 250 ML IVPB SCH (11:00)
[2016-09-23] MEDS: Vancomycin 2,000 MG in D5% in Water 500 ML IVPB SCH ×2 (11:34→23:54)
--- NOTE | 2016-09-23 14:09 | Infectious Disease Consult ---
Date of Encounter: 09/23/16 Time of Encounter: 14:07 Assessment and Plan (1) Sepsis Status: Acute Assessment and plan: Had 3 SIRS criteria on admission. No obvious source of infection on review of system and physical exam Noninfectious etiology high on my differential Patient currently on vancomycin and Zosyn If all cultures and imaging continue to be negative by tomorrow consider reducing the vancomycin and Zosyn on observing. Sepsis type: sepsis due to unspecified organism (2) Gout attack Status: Acute Assessment and plan: Check uric acid, check inflammatory markers, Discussed with Dr. Darden from rheumatology Patient was started on appropriate antigout medication Defer to rheumatology for further evaluation and if needed imaging of the joints. Qualifiers: Gout site: multiple sites Gout etiology: unspecified cause Qualified Code (s): M10.9 - Gout, unspecified (3) Elevated erythrocyte sedimentation rate Status: Acute (4) CHF (congestive heart failure) Status: Acute Qualifiers: Congestive heart failure type: diastolic Congestive heart failure chronicity: acute on chronic Qualified Code(s): I50.33 - Acute on chronic diastolic (congestive) heart failure (5) Edema of upper extremity Status: Acute Infectious Disease HPI - Data of Consult Patient: new to practice Consult date: 09/23/16 Requesting Physician: Naveen Moreno DO Primary Care Provider: Lavinia Guerra, - Consult Narrative Reason for consult: fever History of present illness: Mr. Hill is a 66 year old male Patient is a 66-year-old gentleman admitted on 09/22/2016 complaining of pain and swelling in the left upper extremity. We are consulted on 09/23/2016 or worsen joint erythema and swelling of the left upper extremity and right knee with fever and leukocytosis. Patient 0-7-walp-old gentleman with past medical history mentioned below including congestive heart failure, diabetes mellitus presented to the emergency department complaining of pain and swelling in the left upper extremity and forearm and hands for about 2-3 days prior to admission. Apparently patient also having leg swelling, bilateral ankle and knee pain, left shoulder pain and some neck pain. Patient denied any fevers or chills or rigors at home. Patient denies any chest pain or shortness of breath. Patient denied any URI symptoms. Patient denied any cough or sputum production. Patient denied any diarrhea. Patient denied any urinary symptoms. Patient denied any rash. On further questioning patient tells me that he's had bilateral knee replacement surgeries in the past. No complications post knee replacement. Patient also tells me when he usually gets a gout attack they usually goes to his ankles bilaterally and one time to his left elbow but never to his knees or shoulder. Patient apparently was recently admitted to the hospital for CHF exacerbation and shortness of breath and he tells me at that time they did not give him his gout medication. Since admission, patient had a MAXIMUM TEMPERATURE of 100.8, respiratory rate of 24, heart rate of 102 and WBC of 12.8 with neutrophil predominance no bands. Patients that also revealed metabolic alkalosis. And elevated CRP at 383. ESR was over 130. Blood cultures were obtained on 09/21/2016 and are no growth to date. CT chest was done and it showed no pulmonary embolic disease no acute pulmonary findings there is some atelectasis at the lung bases bilaterally. Ultrasound venous duplex of the upper extremities done and it showed no DVT. Patient was started on vancomycin and Zosyn and we were asked to evaluate the patient and make further recommendations. Had a chest discussed the case with rheumatology, theyre concerned that this is a gout attack. CC: Naveen Moreno, DO Past Med Surg Social Fam HX - Past Medical History Medical history: arthritis, atrial fibrillation, CHF, COPD, coronary artery disease, diabetes, GERD, hyperlipidemia, hypertension, myocardial infarction, osteoporosis, venous stasis, valvular heart disease Psychiatric history: anxiety, depression - Past Surgical History Surgical History: angioplasty/stent, herniorrhaphy, knee replacement (B/L), other - Social History Smoking Status: Never smoker Smokeless Tobacco Status: No Alcohol use: none Drug use: none - Family History Father Living Status: Hx Family Cardiac Disorders: Yes Hx Family Respiratory Disorders: Yes Hx Family Cancer: Yes Hx Family GI Disorders: Yes Hx Family Endocrine Disorder: No Infectious Disease-CN:Meds Insulin Human Regular [HumuLIN R] 40 unit SQ 0800,1700 #0 MDD With Breakfast and Dinner 09/05/15 [History] Isosorbide MONOnitrate (24 HR) [Imdur] 30 mg PO DAILY #0 09/05/15 [History] Ferrous Sulfate [Iron Supplement] 325 mg PO TID 12/18/15 [History] Aspirin [Lo-Dose Aspirin EC] 81 mg PO DAILY 03/15/16 [History] Glucagon,Human Recombinant [Glucagon Emergency Kit] 1 mg SQ DAILY PRN 03/15/16 [ History] Insulin NPH/REG 70/30 [HumuLIN 70/30 VIAL] 80 unit SQ BIDWM 03/15/16 [History] Budesonide/Formoterol 160/4.5 [Symbicort 160/4.5] 2 puff IH BIDR 05/10/16 [ History] Diltiazem CD (24hr) [Cardizem CD] 120 mg PO DAILY 05/10/16 [History] Gabapentin [Neurontin] 300 mg PO TID PRN 05/10/16 [History] Metoprolol [Lopressor] 50 mg PO BID 05/10/16 [History] Nitroglycerin [Nitrostat] 0.4 mg SL Q5M PRN 05/10/16 [History] Pantoprazole Sodium [Protonix] 40 mg PO DAILY 05/10/16 [History] Potassium Chloride [K-Tab ER] 20 meq PO TID 05/10/16 [History] glipiZIDE [Glipizide] 10 mg PO DAILY 05/10/16 [History] metFORMIN [Glucophage] 500 mg PO BIDWM 05/10/16 [History] metOLazone [Metolazone] 10 mg PO DAILY 05/10/16 [History] Buspirone HCl [Buspar] 10 mg PO BID 07/30/16 [History] Montelukast Sodium [Singulair] 10 mg PO HS 07/30/16 [History] Allopurinol [Zyloprim 100 MG] 100 mg PO DAILY 09/10/16 [History] Oxygen 3 l .ROUTE AD 09/11/16 [History] Atorvastatin [Lipitor] 80 mg PO HS tablet 09/14/16 [Rx] Lisinopril [Zestril] 2.5 mg PO DAILY 09/21/16 [History] Albuterol Sulfate [Albuterol Inhaler] 2 puff IH Q4H 09/22/16 [History] Ipratropium/Albuterol Neb [Duoneb] 3 ml IH Q4HR PRN 09/22/16 [History] Allergies No Known Allergies Allergy (Verified 09/10/16 14:44) Review of systems: 10 point ros done, negative other what's mentioned in the HPI Exam - Constitutional Vitals: Temp Pulse Resp BP Pulse Ox 97.8 F 70 17 153/80 95 09/23/16 11:54 09/23/16 11:54 09/23/16 11:54 09/23/16 11:54 09/23/16 11:54 General appearance: no acute distress, no febrile - Head Head exam: Present: atraumatic, normocephalic - Eye Eye exam: Present: EOMI, PERRL - Neck Neck exam: Present: normal inspection. Absent: tenderness - Respiratory Respiratory exam: Present: CTAB, rales - Cardiovascular Cardiovascular exam: Present: RRR, +S1, +S2 - GI/Abdominal GI/Abdominal exam: Present: normal bowel sounds, soft. Absent: rebound, tenderness Additional comments: Patient's abdomen is mildly distended but due to obesity - Extremities Exam Additional comments: Decreased range of motion all 4 extremities. Unable to get the water off the table to hand him. Patient has bilateral scars of the lower extremities on the knees but with no obvious knee infection. There is no erythema there is no edema and it's not warm to touch. Some redness around his ankle bilaterally. Some venous stasis and lower extremities bilaterally. - Neurological Exam Neurological exam: Present: alert, oriented X3. Absent: no focal deficits - Skin Skin exam: Present: normal color. Absent: rash Infectious Disease CN: Results - Labs CBC & Chem 7: 09/24/16 06:08 09/24/16 06:08 Consult Discharge Plan - Plan Referrals: Lavinia Guerra MD [Primary Care Provider] -
--- NOTE | 2016-09-23 14:10 | Internal Med Progress Note ---
<Yo Phillip - Last Filed: 09/23/16 17:00> Date of Encounter: 09/23/16 Time of Encounter: 10:15 - Assessment and plan (1) Gout attack Status: Acute Assessment and plan: - With polyarthritis, low-grade fever and worsening leukocytosis. - Infectious diseases consulted and think it's more likely gout attack than infection. - Patient has serum uric acid 15.8 on 08/23/16 and 8.0 today. Per rheumatology, a slightly elevated to normal uric acid can be seen in acute gout attack. - Continue allopurinol and cochicine. - Start prednisone 40 mg PO daily as recommended by rheumatology. - Continue to monitor. Qualifiers: Gout site: multiple sites Gout etiology: unspecified cause Qualified Code (s): M10.9 - Gout, unspecified (2) Inflammatory arthritis Status: Acute Assessment and plan: - Polyarthritis affecting left upper extremity, bilateral knee and possible neck and back. - Likely secondary to goat given known history of gout and uric acid 8.0 today. - Elevated ESR and CRP. - Continue allopurinol and chochicine. - Arthrocentesis of left elbow was attempted but cannot obtain any fluid. - Will start prednisone as recommended by rheumatology. - Continue to monitor. (3) CHF exacerbation Status: Acute Assessment and plan: - Recently discharged from [place] after being treated for acute CHF and COPD exacerbation and sent home on torsemide. Patient's PCP then changed his diuretics from torsemide to Lasix as he was not diuresing well with torsemide. - CXR on admission showed cardiomegaly and pulmonary edema - Echo 09/12/2016: EF 60%, severe left ventricular diastolic dysfunction, atypical septal motion consistent with bundle branch block, severely dilated left atrium, moderately dilated right atrium. - Bilateral upper and lower extremities venous US and CTA chest found no evidence of blood clots. - Clinically improves as patient reports breathing better compared to yesterday. - Continue IV Lasix, fluid restriction, strict I&O, daily weight and daily potassium chloride. - Continue to monitor. Qualifiers: Congestive heart failure type: diastolic Qualified Code(s): I50.33 - Acute on chronic diastolic (congestive) heart failure (4) Atrial fibrillation Status: Chronic Assessment and plan: - Still in A-fib but rate controlled. - Not on on anticoagulation at home given history of GI bleed while on coumadin or xarelto. - Continue rate control with Cardizem. - Continue to monitor with telemetry. 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 (6) CAD (coronary artery disease) Status: Chronic Assessment and plan: - History of PCI to LAD February 2014 - Nuclear stress test 09/2015 negative for ischemia with EF of 67%. - No chest pain at this time. - Troponin mildly elevated on admission but then trending down (0.07, 0.06, 0.05 ), likely secondary to demand ischemia. - Continue aspirin, statin, beta liv, Imdur Qualifiers: Coronary Disease-Associated Artery/Lesion type: [place] artery [place] vs. transplanted heart: [place] heart Associated angina: without angina Qualified Code(s): I25.10 - Atherosclerotic heart disease of [place] coronary artery without angina pectoris - Subjective Interval history: Patient was noted to be lethargy overnight likely secondary to opiate since patient became more awake after Narcan was given. Patient was also noted to have fever 100.8 at midnight. Patient was seen and examined this morning. Patient reports worsening pain and swelling of left upper extremity joints, mostly elbow and hand. Patient also reports some right knee pain & swelling, low back pain and decreased neck range of motion due to pain. Patient reports breathing better and denies chest pain, abdominal pain, nausea, vomiting, diarrhea. - Constitutional Vitals: Temp Pulse Resp BP Pulse Ox 97.8 F 70 17 153/80 95 09/23/16 11:54 09/23/16 11:54 09/23/16 11:54 09/23/16 11:54 09/23/16 11:54 General appearance: Present: mild distress (from multiple joint pain), A&O X 3 - Head Head exam: Present: atraumatic, normocephalic - Eye Eye exam: Present: EOMI, PERRL, conjuntiva pink, sclera anicteric - Neck Neck exam general surgery: Present: supple, trachea midline. Absent: lymphadenopathy - Respiratory Respiratory exam: Present: CTAB. Absent: accessory muscle use, rales, rhonchi, wheezes - Cardiovascular Cardiovascular exam: Present: irregular rhythm, +S1, +S2. Absent: diastolic murmur, gallop, rubs, systolic murmur - GI/Abdominal GI/Abdominal exam: Present: distended, firm, normal bowel sounds, no peritoneal signs. Absent: tenderness - Extremities Exam Extremities exam: Present: warm, radial pulses palpable and symetrical. Absent : cyanotic Additional comments: Left upper extremity: Diffuse edema, erythema and tenderness to palpation with limited range of motion in elbow and wrist. It's also felt warmer compared to the right Bilateral lower extremities: Diffuse edema and tenderness to palpation with the left greater than the right. Erythema extending from left ankle and upward. Limited range of motion in bilateral knees and ankles due to severe pain. - Neurological Exam Neurological exam: Present: CN II-XII intact, oriented X3, no focal deficits. Absent: pronater drift, facial droop, speech deficit - Skin Skin exam: Present: dry, intact, warm Internal Medicine: Result - Labs CBC & Chem 7: 09/23/16 04:04 09/23/16 04:04 Labs: Short CBC 09/23/16 Range/Units 04:04 WBC 13.6 H (4.3-11.1) K/mcL Hgb 11.1 L (12.9-16.9) g/dL Hct 37.3 L (37.5-50.1) % Plt Count 270 (140-400) K/mcL Neutrophils # 11.8 H (1.6-8.9) K/mcL BMP 09/23/16 04:04 Sodium 143 Potassium 4.3 Chloride 93 L Carbon Dioxide 36 H BUN 17 Creatinine 1.00 Glucose 273 H Calcium 9.8 Cardiac Enzymes 09/22/16 Range/Units 17:23 Troponin I 0.05 H* (0-0.03) ng/mL - ABG Interpretation ABG results: ABG ABG pH 7.49 pH Units (7.32-7.45) H 09/22/16 22:30 ABG pCO2 61 mmHg (35-45) H 09/22/16 22:30 ABG pO2 64 mmHg (85-104) L 09/22/16 22:30 ABG O2 Saturation 94 % (95-98) L 09/22/16 22:30 - Impressions Impressions Chest CTA 09/22/16 15:45 IMPRESSION: 1. No evidence of pulmonary embolic disease. 2. No acute pulmonary findings. Dependent atelectasis at the lung bases bilaterally without significant change. 3. Cardiomegaly with atherosclerotic calcification in the coronary circulation. 4. Hepatomegaly with steatosis. Borderline splenomegaly. D/ / 09/22/2016 17:29:55 Bull Lopes MD / earnold Interpreting Provider: Bull Lopes MD Consult Discharge Plan - Plan Additional Instructions: Please continue prescribed allopurinol 100 mg by mouth daily and colchicine 0.6 mg by mouth twice a day. Please finish prednisone laurie: 20 mg by mouth daily for 3 days followed by 10 mg by mouth daily for 3 days. Okay to use oxycodone immediate release 5 mg every 4 hours as needed for moderate or severe pain (18 pills prescribed, no refill). Please follow up with Dr. De La Vega of rheumatology at 11:20 am on 10/11/16. Dr. De La Vega's office is located in the Medical Office Building. [address]. Please follow up with your primary care physician Dr. Guerra within a week regarding your hospitalization. Please come back to emergency room if you develop acute onset of fever, significant erythema or joint pain. Referrals: Lavinia Guerra MD [Primary Care Provider] - (Within a week) Brayden De L aVega DO [Partnered Physician] - 10/11/16 11:20 am (Rheumatolgy) Prescriptions: Allopurinol [Zyloprim 100 MG] 100 mg PO DAILY #30 tablet Colchicine [Colcrys] 0.6 mg PO BID #30 tablet OxyCODONE Immed Rel [Roxicodone 5 MG] 5 mg PO Q4H PRN #18 tablet PRN Reason: moderate or severe pain predniSONE [PredniSONE] See Taper PO TAPER #9 tablet <Naveen Moreno - Last Filed: 10/02/16 15:24> Date of Encounter: 09/23/16 - Constitutional Vitals: Temp Pulse Resp BP Pulse Ox 97.6 F 63 16 146/89 96 09/30/16 04:52 09/30/16 07:00 09/30/16 10:14 09/30/16 07:00 09/30/16 10:14 Internal Medicine: Result - Labs CBC & Chem 7: 09/30/16 05:40 09/30/16 05:40 - ABG Interpretation ABG results: ABG ABG pH 7.49 pH Units (7.32-7.45) H 09/22/16 22:30 ABG pCO2 61 mmHg (35-45) H 09/22/16 22:30 ABG pO2 64 mmHg (85-104) L 09/22/16 22:30 ABG O2 Saturation 94 % (95-98) L 09/22/16 22:30 - Attending Attestation I examined this patient and my medical decision-making was reviewed with the Resident Physician on 09/23/2016. I agree with the documented findings, disposition and treatment plan as described except to the extent set forth below. Mr. Hill is moderate to high risk due to potential for worsening cardiac and respiratory status. Mr. Hill is doing OK Denies new issues. Exam Alert. Comfortable Heart reg No wheeze I/P 1. Resp failure Further diagnoses and plan as above.
--- NOTE | 2016-09-23 14:52 | Rheumatology Consult Note ---
<Gibson Aranda - Last Filed: 09/23/16 16:52> Date of Encounter: 09/23/16 Time of Encounter: 13:30 Rheumatology Assess and Plan (1) Inflammatory arthritis Current Visit: Yes Status: Acute Polyarthritis, inflammatory likely due to gout. Patient has multiple sites of inflammatory arthritis, patient states this is similar to previous get attacks but more severe and widespread. Patient low-grade fever and leukocytosis could be the result of polyarthritis due to gout. Previous uric acid was 15.8 in late August, recheck of 8.0 today. Patient is on uric acid lowering medications , and a slightly elevated to normal uric acid is expected in acute gouty attack. We will attempt arthrocentesis of wrist or elbow Recommend 40 mg prednisone daily with dose today Continue allopurinol and colchicine (2) Gouty arthritis Current Visit: Yes Status: Acute Plan as above (3) Diabetes mellitus type 2, uncontrolled Current Visit: No Status: Chronic Since patient will be continued on prednisone, will expect this to affect patient blood sugar. We will continue to monitor patient blood sugar and adjust insulin dosage accordingly Qualifiers: Diabetes mellitus complication status: with hyperglycemia Diabetes mellitus long-term insulin use: with intermediate manager use Qualified Code(s): E11.65 - Type 2 diabetes mellitus with hyperglycemia; Z79.4 - assisted (current) use of insulin (4) Diastolic CHF, acute on chronic Current Visit: No Status: Acute Management per primary team Rheumatology HPI Consult date: 09/23/16 Requesting physician: Yo Phillip Consult reason: Polyarthritis with elevated inflammatory markers Chief complaint: Severe joint pain History of present illness: Mr. Hill is a 66 year old male with prior medical history of HFpEF, COPD, atrial fibrillation, diabetes, gout, and other problems as below who presents to [facility] on 09/22/16 due to severe pain in his extremities. He states the pain started to progress 2-3 days ago and was in his feet originally, which evolved to include his left elbow and left wrist. Pain progressed to the point where she has been unable to ambulate in any motions involving the affected joints causes severe pain. He recently pain as 8/10 in severity and describes sensation as "achy" that is similar in quality to his previous gout attacks, though he states there is never been this widespread before. He states his preliminary move his elbow, feet, or left wrist. He states this pain was present during this last hospitalization, discharged on 09/14/16. During his last hospitalization he was treated for acute exacerbation of COPD and acute exacerbation of CHF over the course of 4 days. He was treated with Lasix and torsemide with course of his treatment, with improvement of his rotatory status was discharged home with continued prednisone. He states the pain was present during this hospitalization, but not nearly as severe as it is now. He has a history of gout attacks with previous uric acid on 08/03/16 of 15.8. He reports having had several attacks in the past usually involve his knees. Denies ever having an attack this widespread or this severe. He has difficulty moving his extremities due to pain and reports significant swelling, he describes the feeling in his left hand of "wearing a boxing glove." He reports fever, diaphoresis, left-sided pain as per history of present illness , nausea/vomiting of clear liquid, off-and-on blurry vision (with elevated blood sugar and pain), stiff neck, pain with movement, erythema, swelling in his joints. He denies chest pain, photophobia, shortness of breath, cough, rashes Past Med Surg Social Fam HX - Past Medical History Medical history: arthritis, atrial fibrillation, CHF, COPD, coronary artery disease, diabetes, GERD, hyperlipidemia, hypertension, myocardial infarction, osteoporosis, venous stasis, valvular heart disease Psychiatric history: anxiety, depression - Past Surgical History Surgical History: angioplasty/stent, herniorrhaphy, knee replacement (B/L), other - Social History Smoking Status: Never smoker Smokeless Tobacco Status: No Alcohol use: none Drug use: none - Family History Father Living Status: Hx Family Cardiac Disorders: Yes Hx Family Respiratory Disorders: Yes Hx Family Cancer: Yes Hx Family GI Disorders: Yes Hx Family Endocrine Disorder: No Medications and Allergies Insulin Human Regular [HumuLIN R] 40 unit SQ 0800,1700 #0 MDD With Breakfast and Dinner 09/05/15 [History] Isosorbide MONOnitrate (24 HR) [Imdur] 30 mg PO DAILY #0 09/05/15 [History] Ferrous Sulfate [Iron Supplement] 325 mg PO TID 12/18/15 [History] Aspirin [Lo-Dose Aspirin EC] 81 mg PO DAILY 03/15/16 [History] Glucagon,Human Recombinant [Glucagon Emergency Kit] 1 mg SQ DAILY PRN 03/15/16 [ History] Insulin NPH/REG 70/30 [HumuLIN 70/30 VIAL] 80 unit SQ BIDWM 03/15/16 [History] Budesonide/Formoterol 160/4.5 [Symbicort 160/4.5] 2 puff IH BIDR 05/10/16 [ History] Diltiazem CD (24hr) [Cardizem CD] 120 mg PO DAILY 05/10/16 [History] Gabapentin [Neurontin] 300 mg PO TID PRN 05/10/16 [History] Metoprolol [Lopressor] 50 mg PO BID 05/10/16 [History] Nitroglycerin [Nitrostat] 0.4 mg SL Q5M PRN 05/10/16 [History] Pantoprazole Sodium [Protonix] 40 mg PO DAILY 05/10/16 [History] Potassium Chloride [K-Tab ER] 20 meq PO TID 05/10/16 [History] glipiZIDE [Glipizide] 10 mg PO DAILY 05/10/16 [History] metFORMIN [Glucophage] 500 mg PO BIDWM 05/10/16 [History] metOLazone [Metolazone] 10 mg PO DAILY 05/10/16 [History] Buspirone HCl [Buspar] 10 mg PO BID 07/30/16 [History] Montelukast Sodium [Singulair] 10 mg PO HS 07/30/16 [History] Allopurinol [Zyloprim 100 MG] 100 mg PO DAILY 09/10/16 [History] Oxygen 3 l .ROUTE AD 09/11/16 [History] Atorvastatin [Lipitor] 80 mg PO HS tablet 09/14/16 [Rx] Lisinopril [Zestril] 2.5 mg PO DAILY 09/21/16 [History] Albuterol Sulfate [Albuterol Inhaler] 2 puff IH Q4H 09/22/16 [History] Ipratropium/Albuterol Neb [Duoneb] 3 ml IH Q4HR PRN 09/22/16 [History] Allergies No Known Allergies Allergy (Verified 09/10/16 14:44) Review of Systems: General: + fever, diaphoresis HEENT: + Nasal pharyngeal dryness, occasional/chronic blurry vision, - photophobia, sore throat Resp: - Shortness of breath, cough CV: - Chest pain GI: + N/V of clear emesis, abdominal distention, - abdominal pain MSK/Ext: + Pain, swelling, erythema, limited motion, Skin: - Rash Rheumatology Exam Vital Signs, Last 4 Hours Temp Pulse Resp BP Pulse Ox 09/23/16 11:54 97.8 F 70 17 153/80 95 Exam: General: Cooperative, pleasant, severe pain on movement, alert and oriented 3, answers questions appropriately HEENT: Normocephalic, atraumatic, limited range of motion in left/right side bending, left/right rotation, and flexion/extension, trachea midline, Conjunctiva pink, sclera anicteric, oral mucosa moist, no orophargeal erythema or exudates Respiratory: No accessory muscle usage, clear to auscultation bilaterally, no wheezes/rhonchi/rales appreciated Cardiovascular:Irregular rhythm, no murmurs/rubs/gallops/clicks appreciated GI/abdominal: Distended, firm, nontender, normal bowel sounds, no peritoneal signs, no fluid wave Extremities: Left upper extremity tenderness to palpation, limited range of motion in elbow and wrist, increased warmth compared to right, fluid collection in left elbow, increased swelling in the entirety of left upper extremity including back of hand, tenderness to palpation in bilateral lower extremities worse on left, increased edema in bilateral lower extremities worse on left, erythema on left lower extremity apparently started ankle and extending upward, limited range of motion in bilateral knees and ankles, range of motion limited in all joints due to severe pain, lower extremity pulses palpable and symmetrical Neurological: Alert and oriented 3, no facial droop, no focal deficits Skin: Dry, intact, normal color Rheumatology Results 09/23/16 04:04 09/23/16 04:04 ESR >= 130 CRP 383 Uric acid 8.0 Consult Discharge Plan - Plan Referrals: Lavinia Guerra MD [Primary Care Provider] - <Brayden De La Vega - Last Filed: 09/23/16 17:36> Date of Encounter: 09/23/16 Rheumatology HPI History of present illness: Mr. Hill is a 66 year old male All Systems Review: A 10-system review of systems was performed and is negative for pertinent findings except as documented above in the HPI. Rheumatology Exam Vital Signs, Last 4 Hours Temp Pulse Resp BP Pulse Ox 09/23/16 16:30 98.3 F 70 20 150/94 93 Rheumatology Results 09/23/16 04:04 09/23/16 04:04 All other labs normal. - Attending Attestation I examined this patient and my medical decision making was reviewed with the resident physician. I agree with the documented findings, disposition and treatment as described with these exceptions. In summary, this is a 66 year old male with PMH diastolic heart disease, A fib, CAD, DM, HTN, HLD and gout who presesnts to the hospital with polyarticular arthritis. Uric Acid 15.8 on 08/19, Allopurinol 100 mg started 08/26. Now with fever, leukocytosis and inflammatory arthritis. Blood cultures negative. Fevers resolved. Attempts were made to withdraw fluid unsuccessfully. At this time, will treat empirically for acute polyarticular gouty arthritis. Start prednisone 40 mg po daily; will need close monitoring of glucose and cardiovascular function. Continue colchicine Can continue allopurinol 100 mg daily Continue to monitor.
[2016-09-23] MEDS: Piperacillin/Tazobactam 3.375 GM in D5% in Water (Mini-Bag+) 100 ML IVPB SCH (15:01)
[2016-09-23] MEDS: predniSONE 20 MG TABLET PO SCH (16:49)
--- NOTE | 2016-09-23 16:51 | Procedure Note ---
Date of procedure: 09/23/16 Pre-op diagnosis: Inflammatory Arthritis Post-op diagnosis: same Procedure: Arthrocentesis of left wrist and left elbow Sign consent was obtained from patient prior to attempted arthrocentesis. The best site was identified in the dorsal aspect of patient's left wrist and lateral aspect of patient left elbow. Patient's left wrist was prepped in sterile manner using alcohol swabs. A 20 mL syringe with 18-gauge needle was used and inserted into location previously identified, syringe was kept under continuous negative pressure by continuous manual aspiration, no fluid was obtained from patient left wrist. The needle withdrawn with slight patient bleeding. Site was dressed with Band- Aid A 20 mL syringe and 18-gauge needle was used with lateral aspect of patient elbow at previously identified site, the syringe was kept under continuous negative pressure by continuous manual aspiration, no fluid was obtained from patient left elbow. No bleeding was seen after attempted arthrocentesis, site was dressed with Band-Aid. Anesthesia: none Surgeon: Gibson Aranda Customer Care Coordinator: Brayden De La Vega Estimated blood loss (cc): 2 IV fluids (cc): 0 Urine output (cc): 0 Pathology: none sent Condition: stable Disposition: floor
--- NOTE | 2016-09-23 17:06 | Electrocardiograph Report ---
[address] [address] Test Date: 2016-09-22 Pat Name: Josh Hill Department: 111 Room: [facility] Gender: M Director Of Solutions Architecture: GE : 1950 Requested By: Willam Butler Order Number: [id number] Reading MD: Juanito Apodaca Measurements Intervals [place] Rate: 99 P: 51 UT: 203 QRS: 3 QRSD: 91 T: 9 QT: 336 QTc: 392 Interpretive Statements SINUS RHYTHM WITH OCCASIONAL SUPRAVENTRICULAR PREMATURE COMPLEXES NONSPECIFIC T-WAVE ABNORMALITY Electronically Signed On 09-23-2016 17:04:49 EDT by Juanito Apodaca
[2016-09-23] MEDS: Ipratropium/Albuterol Neb 3 ML IH PRN (21:45)
[2016-09-24] MEDS: Ipratropium/Albuterol Neb 3 ML IH PRN ×2 (00:27→00:41)
[2016-09-24] MEDS ORDERED: Albuterol 2.5 MG/3 ML NEBULIZER IH PRN (00:48)
[2016-09-24] MEDS: Piperacillin/Tazobactam 3.375 GM in D5% in Water (Mini-Bag+) 100 ML IVPB SCH ×3 (02:55→17:53)
[2016-09-24] MEDS: Ipratropium/Albuterol Neb 3 ML IH SCH ×4 (03:59→21:02)
[2016-09-24] MEDS ORDERED: Insulin LISPRO 300 UNITS/3 ML VIAL SQ SCH (04:54)
[2016-09-24] MEDS: Insulin LISPRO 300 UNITS/3 ML VIAL SQ SCH ×8 (05:10→21:54)
[2016-09-24] MEDS: *HR* Heparin 5,000 UNIT/ML VIAL SQ SCH ×2 (05:53→17:53)
[2016-09-24] MEDS: Insulin DETEMIR 100 UNIT/ML X5UNITS SQ SCH ×2 (06:14→21:54)
[2016-09-24 06:16] LABS: Basophils % 0.1 %; Hematocrit 33.5 % (37.5-50.1); Hemoglobin 10.1 g/dL (12.9-16.9); Immature Granulocytes % 0.7 % (0-4); Lymphocytes # 0.9 K/mcL (0.6-4.6); Lymphocytes % 7.8 %; Mean Corpuscular HGB Conc 30.1 g/dL (31.6-35.5); Mean Corpuscular Hemoglobin 27.4 pg (28.0-33.3); Mean Corpuscular Volume 90.8 fL (83.0-100.0); Mean Platelet Volume 10.6 fL (9.4-12.4); Monocytes # 0.6 K/mcL (0.0-1.3); Neutrophils # 9.6 K/mcL (1.6-8.9); Platelet Count 285 K/mcL (140-400); Red Blood Count 3.69 M/mcL (4.19-5.50); Red Cell Distribution Width 18.4 % (11.5-14.5); Segmented Neutrophils % 86.4 %
[2016-09-24 06:30] LABS: BUN/Creatinine Ratio 22 (6-26); Blood Urea Nitrogen 27 mg/dL (8-26); Carbon Dioxide 35 mEq/L (19-29); Chloride 89 mEq/L (98-109); Potassium 4.5 mEq/L (3.5-4.5); Sodium 136 mEq/L (136-145); eGFR For African Americans > 60 (> 60)
[2016-09-24 06:31] LABS: Calcium 9.4 mg/dL (8.6-10.8); Glucose 422 mg/dL (70-99); Osmolality,Calculated 305 (280-300); eGFR For Non-African Americans 60 (> 60)
--- NOTE | 2016-09-24 08:44 | Rheumatology Progress Note ---
<Gibson Aranda - Last Filed: 09/24/16 08:41> Date of Encounter: 09/24/16 Time of Encounter: 08:00 Rheumatology Assess and Plan (1) Inflammatory arthritis Current Visit: Yes Status: Acute Polyarthritis, inflammatory likely due to gout. Patient has multiple sites of inflammatory arthritis, patient states this is similar to previous get attacks but more severe and widespread. Patient low-grade fever and leukocytosis could be the result of wide inflammation from polyarticular gout. Previous uric acid was 15.8 in late August, recheck of 8.0. Patient is on uric acid lowering medications, and a slightly elevated to normal uric acid is expected in acute gouty attack. Arthrocentesis attempt of patient left wrist and elbow were unsuccessful Patient having mild improvement on allopurinol, colchicine, and prednisone Recommend continuing 40 mg prednisone daily Continue allopurinol and colchicine (2) Gouty arthritis Current Visit: Yes Status: Acute Plan as above (3) Diabetes mellitus type 2, uncontrolled Current Visit: No Status: Chronic Since patient will be continued on prednisone, will expect this to affect patient blood sugar. We will continue to monitor patient blood sugar and adjust insulin dosage accordingly Qualifiers: Diabetes mellitus complication status: with hyperglycemia Diabetes mellitus terminal makeup operator insulin use: with penitentiary use Qualified Code(s): E11.65 - Type 2 diabetes mellitus with hyperglycemia; Z79.4 - FPC (current) use of insulin (4) Diastolic CHF, acute on chronic Current Visit: No Status: Acute Management per primary team - Subjective Interval history: Patient reports mild improvement of overall symptoms. He states he has mild improvement in his ability to move the affected joints, especially in his neck, left arm, left wrist. He denies continued nausea and vomiting, but does report having continued fevers and diaphoresis. Review of systems: General: Continued fevers, reports diaphoresis Respiratory: Denies shortness of breath, denies cough Cardiovascular: Denies chest pain, denies palpitations Abdomen: Continued distention, denies nausea/vomiting, denies abdominal pain Back: Reports chronic low back pain with paraspinal musculature : Reports mild dysuria, denies hematuria MSK/skin: Denies rash, reports continued pain in joints, reports continued swelling, reports continued difficulty with movement Exam Vital Signs - 24 hr 09/23/16 11:54 09/23/16 16:30 09/23/16 20:00 Temperature 97.8 F 98.3 F 99.1 F Pulse Rate 70 70 85 Respiratory Rate 17 20 20 Blood Pressure 153/80 150/94 149/91 O2 Sat by Pulse Oximetry 95 93 91 09/23/16 20:15 09/23/16 21:48 09/24/16 00:00 Temperature 97.6 F Pulse Rate 65 Respiratory Rate 18 20 Blood Pressure 111/77 O2 Sat by Pulse Oximetry 94 95 92 09/24/16 00:39 09/24/16 03:59 09/24/16 04:00 Temperature 97.4 F L Pulse Rate 74 Respiratory Rate 18 18 20 Blood Pressure 107/90 O2 Sat by Pulse Oximetry 94 95 94 Exam: General: Cooperative, pleasant, significant pain on movement, alert and oriented 3, answers questions appropriately HEENT: Normocephalic, atraumatic, limited range of motion in left/right side bending, left/right rotation, and flexion/extension, trachea midline, head ROM mildly improved from yesterday, Conjunctiva pink, sclera anicteric, oral mucosa moist, no orophargeal erythema or exudates Respiratory: No accessory muscle usage, clear to auscultation bilaterally, no wheezes/rhonchi/rales appreciated Cardiovascular: Irregular rhythm, no murmurs/rubs/gallops/clicks appreciated GI/abdominal: Distended, firm, nontender, normal bowel sounds, no peritoneal signs, no fluid wave Extremities: Left upper extremity tenderness to palpation, limited range of motion in elbow and wrist, increased warmth compared to right, fluid collection in left elbow, increased swelling in the entirety of left upper extremity including back of hand, tenderness to palpation in bilateral lower extremities worse on left, increased edema in bilateral lower extremities worse on left, erythema on left lower extremity apparently started ankle and extending upward, limited range of motion in bilateral knees and ankles, range of motion limited in all joints due to severe pain, lower extremity pulses palpable and symmetrical mild improvement in patient ROM seen since yesterday Neurological: Alert and oriented 3, no facial droop, no focal deficits Skin: Dry, intact, normal color Objective Data 09/24/16 06:08 09/24/16 06:08 Short CBC 09/24/16 Range/Units 06:08 WBC 11.1 (4.3-11.1) K/mcL Hgb 10.1 L (12.9-16.9) g/dL Hct 33.5 L (37.5-50.1) % Plt Count 285 (140-400) K/mcL Neutrophils # 9.6 H (1.6-8.9) K/mcL BMP 09/24/16 Range/Units 06:08 Sodium 136 (136-145) mEq/L Potassium 4.5 (3.5-4.5) mEq/L Chloride 89 L (98-109) mEq/L Carbon Dioxide 35 H (19-29) mEq/L BUN 27 H D (8-26) mg/dL Creatinine 1.21 (0.72-1.25) mg/dL Glucose 422 H (70-99) mg/dL Calcium 9.4 (8.6-10.8) mg/dL Consult Discharge Plan - Plan Referrals: Lavinia Guerra MD [Primary Care Provider] - <Brayden De La Vega - Last Filed: 09/24/16 17:07> Date of Encounter: 09/24/16 Exam Vital Signs, Last 4 Hours Temp Pulse Resp BP Pulse Ox 09/24/16 16:33 20 91 09/24/16 16:06 98.4 F 74 20 121/79 94 Objective Data 09/24/16 06:08 09/24/16 06:08 All other labs normal. - Attending Attestation I examined this patient and my medical decision making was reviewed with the resident physician. I agree with the documented findings, disposition and treatment as described with these exceptions. He is clinically improving; I suspect this is a polyarticular gout attack. Infectious workup unrevealing thus far. I would continue prednisone 40 mg daily x 5 days for a clinical response with careful attention to blood glucose levels. He may need to be discharged on a lower dose of prednisone in a prophylactic manner to prevent flares especially given the severity. He will require close follow-up with PCP and myself. Will require outpatient titration of urate lowering therapy.
[2016-09-24] MEDS ORDERED: predniSONE 20 MG TABLET PO SCH (09:00)
[2016-09-24] MEDS: predniSONE 20 MG TABLET PO SCH (09:31)
[2016-09-24] MEDS: Colchicine 0.6 MG TABLET PO SCH ×2 (09:32→21:52)
[2016-09-24] MEDS: Magnesium Oxide 400 MG TABLET PO SCH ×2 (09:32→21:53)
[2016-09-24] MEDS: Furosemide 40 MG/4 ML VIAL IVP SCH (09:32)
[2016-09-24] MEDS: Diltiazem CD (24hr) 120 MG CAPSULE PO SCH (09:32)
[2016-09-24] MEDS: Isosorbide MONOnitrate (24 HR) 30 MG TAB.ER.24H PO SCH (09:32)
[2016-09-24] MEDS: Gabapentin 300 MG CAPSULE PO SCH ×3 (09:32→21:53)
[2016-09-24] MEDS: Aspirin Enteric Coated 81 MG Tablet PO SCH (09:32)
[2016-09-24] MEDS: *HR* OxyCODONE Immed Rel 5 MG TABLET PO PRN ×2 (09:50→19:51)
--- NOTE | 2016-09-24 10:23 | Internal Med Progress Note ---
<Yo Phillip - Last Filed: 09/24/16 15:58> Date of Encounter: 09/24/16 Time of Encounter: 09:15 - Assessment and plan (1) Gout attack Current Visit: Yes Status: Acute Assessment and plan: - With polyarthritis, low-grade fever and worsening leukocytosis. - Infectious diseases consulted and think it's more likely gout attack than infection. - Patient has serum uric acid 15.8 on 08/23/16 and 8.0 today. Per rheumatology, a slightly elevated to normal uric acid can be seen in acute gout attack. - Continue allopurinol and cochicine. - Patient seems to have good response on steroid. Will continue prednisone. - Continue antibiotic for now given cannot 100% rule out infectious cause. Will de-escalate later based on clinical findings and culture results. - Continue to monitor. Qualifiers: Gout site: multiple sites Gout etiology: unspecified cause Qualified Code (s): M10.9 - Gout, unspecified (2) Inflammatory arthritis Current Visit: Yes Status: Acute Assessment and plan: - Polyarthritis affecting left upper extremity, bilateral knee and possible neck and back. - Likely secondary to goat given known history of gout and uric acid 8.0 today. - Elevated ESR and CRP. - Continue allopurinol and chochicine. - Arthrocentesis of left elbow was attempted but cannot obtain any fluid. - Patient seems to have good response on steroid. Will continue prednisone. - Continue to monitor. (3) CHF exacerbation Current Visit: Yes Status: Acute Assessment and plan: - Recently discharged from [facility] after being treated for acute CHF and COPD exacerbation and sent home on torsemide. Patient's PCP then changed his diuretics from torsemide to Lasix as he was not diuresing well with torsemide. - CXR on admission showed cardiomegaly and pulmonary edema - Echo 09/12/2016: EF 60%, severe left ventricular diastolic dysfunction, atypical septal motion consistent with bundle branch block, severely dilated left atrium, moderately dilated right atrium. - Bilateral upper and lower extremities venous US and CTA chest found no evidence of blood clots. - Clinically improves as patient reports breathing better than before. - Continue IV Lasix, fluid restriction, strict I&O, daily weight and daily potassium chloride. - Continue to monitor. Qualifiers: Congestive heart failure type: diastolic Qualified Code(s): I50.33 - Acute on chronic diastolic (congestive) heart failure (4) Atrial fibrillation Current Visit: Yes Status: Chronic Assessment and plan: - Still in A-fib but rate controlled. - Not on on anticoagulation at home given history of GI bleed while on coumadin or xarelto. - Continue rate control with Cardizem. - Continue to monitor with telemetry. 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 (6) CAD (coronary artery disease) Current Visit: Yes Status: Chronic Assessment and plan: - History of PCI to LAD February 2014 - Nuclear stress test 09/2015 negative for ischemia with EF of 67%. - No chest pain at this time. - Troponin mildly elevated on admission but then trending down (0.07, 0.06, 0.05 ), likely secondary to demand ischemia. - Continue aspirin, statin, beta liv, Imdur Qualifiers: Coronary Disease-Associated Artery/Lesion type: [place] artery [place] vs. transplanted heart: [place] heart Associated angina: without angina Qualified Code(s): I25.10 - Atherosclerotic heart disease of [place] coronary artery without angina pectoris - Subjective Interval history: No significant event noted overnight. Patient was seen and examined this morning. Patient reports diffuse joint and swelling, mostly affecting left upper extremity, had been significantly improved. Patient denies shortness of breath, chest pain, abdominal pain, nausea, vomiting, diarrhea. - Constitutional Vitals: Temp Pulse Resp BP Pulse Ox 97.5 F L 72 20 107/82 95 09/24/16 07:39 09/24/16 07:39 09/24/16 07:39 09/24/16 07:39 09/24/16 07:39 General appearance: Present: cooperative, A&O X 3, no acute distress, answers questions appropriately - Head Head exam: Present: atraumatic, normocephalic - Eye Eye exam: Present: EOMI, PERRL, conjuntiva pink, sclera anicteric - Neck Neck exam general surgery: Present: supple, trachea midline. Absent: lymphadenopathy - Respiratory Respiratory exam: Present: CTAB. Absent: accessory muscle use, rales, rhonchi, wheezes - Cardiovascular Cardiovascular exam: Present: irregular rhythm, +S1, +S2. Absent: diastolic murmur, gallop, rubs, systolic murmur - GI/Abdominal GI/Abdominal exam: Present: distended, firm, normal bowel sounds, no peritoneal signs. Absent: tenderness - Extremities Exam Extremities exam: Present: warm, radial pulses palpable and symetrical. Absent : calf tenderness, cyanotic Additional comments: Left upper extremity: Edema, erythema and tenderness to palpation reduced compared to yesterday and patient is able to move his left elbow and wrist better. Bilateral lower extremities: Edema reduced compared to yesterday. Erythema extending from left ankle and upward seems about the same like yesterday. - Neurological Exam Neurological exam: Present: CN II-XII intact, oriented X3, no focal deficits. Absent: pronater drift, facial droop, speech deficit - Skin Skin exam: Present: dry, intact, warm Internal Medicine: Result - Labs CBC & Chem 7: 09/24/16 06:08 09/24/16 06:08 Labs: Short CBC 09/24/16 Range/Units 06:08 WBC 11.1 (4.3-11.1) K/mcL Hgb 10.1 L (12.9-16.9) g/dL Hct 33.5 L (37.5-50.1) % Plt Count 285 (140-400) K/mcL Neutrophils # 9.6 H (1.6-8.9) K/mcL BMP 09/24/16 06:08 Sodium 136 Potassium 4.5 Chloride 89 L Carbon Dioxide 35 H BUN 27 H D Creatinine 1.21 Glucose 422 H Calcium 9.4 - ABG Interpretation ABG results: ABG ABG pH 7.49 pH Units (7.32-7.45) H 09/22/16 22:30 ABG pCO2 61 mmHg (35-45) H 09/22/16 22:30 ABG pO2 64 mmHg (85-104) L 09/22/16 22:30 ABG O2 Saturation 94 % (95-98) L 09/22/16 22:30 Consult Discharge Plan - Plan Referrals: Lavinia Guerra MD [Primary Care Provider] - <Jin Badillo - Last Filed: 09/24/16 18:21> Date of Encounter: 09/24/16 - Constitutional Vitals: Temp Pulse Resp BP Pulse Ox 98.4 F 74 20 121/79 91 09/24/16 16:06 09/24/16 16:06 09/24/16 16:33 09/24/16 16:06 09/24/16 16:33 Internal Medicine: Result - Labs CBC & Chem 7: 09/24/16 06:08 09/24/16 06:08 Labs: Short CBC 09/24/16 Range/Units 06:08 WBC 11.1 (4.3-11.1) K/mcL Hgb 10.1 L (12.9-16.9) g/dL Hct 33.5 L (37.5-50.1) % Plt Count 285 (140-400) K/mcL Neutrophils # 9.6 H (1.6-8.9) K/mcL BMP 09/24/16 06:08 Sodium 136 Potassium 4.5 Chloride 89 L Carbon Dioxide 35 H BUN 27 H D Creatinine 1.21 Glucose 422 H Calcium 9.4 - ABG Interpretation ABG results: ABG ABG pH 7.49 pH Units (7.32-7.45) H 09/22/16 22:30 ABG pCO2 61 mmHg (35-45) H 09/22/16 22:30 ABG pO2 64 mmHg (85-104) L 09/22/16 22:30 ABG O2 Saturation 94 % (95-98) L 09/22/16 22:30 - Attending Attestation I examined this patient and my medical decision-making was reviewed with the COLD REDUCTION ROLLER/PA/Advanced Practice Nurse/Resident Physician. I agree with the documented findings, disposition and treatment plan as described except to the extent set forth below.
[2016-09-24] MEDS: Budesonide/Formoterol 160/4.5 MDI IH SCH ×2 (10:55→21:02)
[2016-09-24] MEDS: *HR* Morphine 2 MG/ML SYRINGE IVP PRN (12:09)
[2016-09-24] MEDS: Vancomycin 1,250 MG in D5% in Water 250 ML IVPB SCH (16:32)
--- NOTE | 2016-09-24 16:53 | Infectious Disease Progress No ---
Date of Encounter: 09/24/16 Time of Encounter: 16:51 - Assessment and Plan (1) Sepsis Current Visit: Yes Status: Acute The patient had three SIRS criteria on admission. No obvious source of infection identified. The patient has been afebrile x >24 hours. Blood cultures drawn 09/23/16 are pending. Continue antibiotics for now. Will likely discontinue soon if no infectious etiology is identified. Sepsis type: sepsis due to unspecified organism (2) Gout attack Current Visit: Yes Status: Acute Uric acid elevated at 8. ESR >130. Patient has been started on appropriate anti-gout medication and appears to be improving. Rheumatology consulted and following. Defer further management to the rheumatology team. Qualifiers: Gout site: multiple sites Gout etiology: unspecified cause Qualified Code (s): M10.9 - Gout, unspecified (3) Elevated erythrocyte sedimentation rate Current Visit: Yes Status: Acute (4) Edema of upper extremity Current Visit: Yes Status: Acute (5) CHF (congestive heart failure) Current Visit: Yes Status: Acute Qualifiers: Congestive heart failure type: diastolic Congestive heart failure chronicity: acute on chronic Qualified Code(s): I50.33 - Acute on chronic diastolic (congestive) heart failure - Subjective Interval history: Patient seen and examined. No acute events noted overnight. Patient states he continues to have pain in the left upper extremity, bilateral lower extremities , and neck, but states he is marginally better today. He denies any fevers or chills or rigors. He denies any chest pain or cough, but does report chronic shortness of breath . He denies any nausea, vomiting, diarrhea, or constipation. He denies any urinary complaints. he denies any oral thrush or new skin lesions. Infect Dis PN-Objective Data - Labs CBC & Chem 7: 09/24/16 06:08 09/24/16 06:08 Labs: Laboratory Results - last 24 hr 09/23/16 09/23/16 09/23/16 11:59 16:34 19:41 WBC RBC Hgb Hct MCV MCH MCHC RDW Plt Count MPV Immature Gran % Seg Neutrophils % Lymphocytes % Monocytes % Eosinophils % Basophils % Neutrophils # Lymphocytes # Monocytes # Eosinophils # Basophils # Immature Plt Fraction Sodium Potassium Chloride Carbon Dioxide BUN Creatinine Est GFR ( Amer) Est GFR (Non-Af Amer) BUN/Creatinine Ratio Glucose POC Glucose 312 H 241 H 389 H Calculated Osmolality Calcium Random Vancomycin 09/24/16 09/24/16 09/24/16 03:46 03:51 05:54 WBC RBC Hgb Hct MCV MCH MCHC RDW Plt Count MPV Immature Gran % Seg Neutrophils % Lymphocytes % Monocytes % Eosinophils % Basophils % Neutrophils # Lymphocytes # Monocytes # Eosinophils # Basophils # Immature Plt Fraction Sodium Potassium Chloride Carbon Dioxide BUN Creatinine Est GFR ( Amer) Est GFR (Non-Af Amer) BUN/Creatinine Ratio Glucose POC Glucose 478 H* 443 H* 410 H* Calculated Osmolality Calcium Random Vancomycin 09/24/16 09/24/16 09/24/16 06:08 06:08 07:39 WBC 11.1 RBC 3.69 L Hgb 10.1 L Hct 33.5 L MCV 90.8 MCH 27.4 L MCHC 30.1 L RDW 18.4 H Plt Count 285 MPV 10.6 Immature Gran % 0.7 Seg Neutrophils % 86.4 Lymphocytes % 7.8 Monocytes % 5.0 Eosinophils % 0.0 Basophils % 0.1 Neutrophils # 9.6 H Lymphocytes # 0.9 Monocytes # 0.6 Eosinophils # 0.0 Basophils # 0.0 Immature Plt Fraction 6.0 Sodium 136 Potassium 4.5 Chloride 89 L Carbon Dioxide 35 H BUN 27 H D Creatinine 1.21 Est GFR ( Amer) > 60 Est GFR (Non-Af Amer) 60 BUN/Creatinine Ratio 22 Glucose 422 H POC Glucose 364 H Calculated Osmolality 305 H Calcium 9.4 Random Vancomycin 09/24/16 10:06 WBC RBC Hgb Hct MCV MCH MCHC RDW Plt Count MPV Immature Gran % Seg Neutrophils % Lymphocytes % Monocytes % Eosinophils % Basophils % Neutrophils # Lymphocytes # Monocytes # Eosinophils # Basophils # Immature Plt Fraction Sodium Potassium Chloride Carbon Dioxide BUN Creatinine Est GFR ( Amer) Est GFR (Non-Af Amer) BUN/Creatinine Ratio Glucose POC Glucose Calculated Osmolality Calcium Random Vancomycin 21.8 Cultures: Cultures 09/23/16 12:00 Urine Culture - Final Urine,Clean Catch No pathogens isolated. Exam - Constitutional Vitals: Temp Pulse Resp BP Pulse Ox 98.4 F 74 20 121/79 91 09/24/16 16:06 09/24/16 16:06 09/24/16 16:33 09/24/16 16:06 09/24/16 16:33 General appearance: cooperative, no acute distress, obese - Head Head exam: Present: atraumatic, normal inspection, normocephalic - Eye Eye exam: Present: EOMI, normal appearance, PERRL Pupils: Present: normal accommodation - ENT ENT exam: Present: mucous membranes moist - Neck Neck exam: Present: normal inspection. Absent: full ROM (Range of motion limited due to pain.) - Respiratory Respiratory exam: Present: wheezes (Fine expiratoryFinal Silvino wheezes throughout all lung goel anteriorly.), tachypnea. Absent: rales, respiratory distress, rhonchi - Cardiovascular Cardiovascular exam: Present: RRR, +S1, +S2 - GI/Abdominal GI/Abdominal exam: Present: distended (Obese), normal bowel sounds, soft. Absent: tenderness - Extremities Exam Extremities exam: Present: normal inspection, pedal edema (1+ bilateral lower extremities), tenderness (Bilateral feet, bilateral ankles, bilateral knees). Absent: joint swelling - Neurological Exam Neurological exam: Present: alert, oriented X3, no focal deficits - Psychiatric Psychiatric exam: Present: normal affect, normal mood - Skin Skin exam: Present: dry, intact, normal color, warm Consult Discharge Plan - Plan Referrals: Lavinai Guerra MD [Primary Care Provider] - - Attending Attestation I examined this patient and my medical decision-making was reviewed with the LOG GETTER/PA/Advanced Practice Nurse/Resident Physician. I agree with the documented findings, disposition and treatment plan as described except to the extent set forth below.
[2016-09-25] MEDS: Piperacillin/Tazobactam 3.375 GM in D5% in Water (Mini-Bag+) 100 ML IVPB SCH ×2 (00:36→08:50)
[2016-09-25] MEDS: Ipratropium/Albuterol Neb 3 ML IH SCH ×4 (03:57→21:22)
[2016-09-25] MEDS: Vancomycin 1,250 MG in D5% in Water 250 ML IVPB SCH (04:36)
[2016-09-25] MEDS: *HR* Heparin 5,000 UNIT/ML VIAL SQ SCH ×2 (04:39→16:50)
[2016-09-25 07:06] LABS: Basophils % 0.1 %; Eosinophils % 0.3 %; Hematocrit 33.9 % (37.5-50.1); Immature Granulocytes % 1.4 % (0-4); Lymphocytes # 1.1 K/mcL (0.6-4.6); Lymphocytes % 12.2 %; Mean Corpuscular HGB Conc 29.5 g/dL (31.6-35.5); Mean Corpuscular Hemoglobin 26.7 pg (28.0-33.3); Mean Corpuscular Volume 90.6 fL (83.0-100.0); Mean Platelet Volume 10.9 fL (9.4-12.4); Monocytes # 0.4 K/mcL (0.0-1.3); Monocytes % 4.6 %; Neutrophils # 7.2 K/mcL (1.6-8.9); Platelet Count 283 K/mcL (140-400); Red Blood Count 3.74 M/mcL (4.19-5.50); Red Cell Distribution Width 17.8 % (11.5-14.5); Segmented Neutrophils % 81.4 %
[2016-09-25 07:19] LABS: BUN/Creatinine Ratio 28 (6-26); Blood Urea Nitrogen 28 mg/dL (8-26); Calcium 9.4 mg/dL (8.6-10.8); Carbon Dioxide 37 mEq/L (19-29); Chloride 91 mEq/L (98-109); Glucose 319 mg/dL (70-99); Osmolality,Calculated 306 (280-300); Potassium 4.2 mEq/L (3.5-4.5); Sodium 139 mEq/L (136-145); eGFR For African Americans > 60 (> 60); eGFR For Non-African Americans > 60 (> 60)
[2016-09-25] MEDS ORDERED: Aminoglycoside Consult 1 EACH MC ONE (08:09)
[2016-09-25] MEDS: Gabapentin 300 MG CAPSULE PO SCH ×3 (08:48→20:23)
[2016-09-25] MEDS: *HR* OxyCODONE Immed Rel 5 MG TABLET PO PRN ×2 (08:49→16:49)
[2016-09-25] MEDS: Colchicine 0.6 MG TABLET PO SCH ×2 (08:49→20:23)
[2016-09-25] MEDS: Diltiazem CD (24hr) 120 MG CAPSULE PO SCH (08:49)
[2016-09-25] MEDS: Isosorbide MONOnitrate (24 HR) 30 MG TAB.ER.24H PO SCH (08:49)
[2016-09-25] MEDS: Magnesium Oxide 400 MG TABLET PO SCH ×2 (08:49→20:23)
[2016-09-25] MEDS: predniSONE 20 MG TABLET PO SCH (08:49)
[2016-09-25] MEDS: Furosemide 40 MG/4 ML VIAL IVP SCH (08:49)
[2016-09-25] MEDS: Insulin LISPRO 300 UNITS/3 ML VIAL SQ SCH ×7 (08:50→21:50)
[2016-09-25] MEDS: Insulin DETEMIR 100 UNIT/ML X5UNITS SQ SCH ×2 (08:50→20:23)
[2016-09-25] MEDS: Aspirin Enteric Coated 81 MG Tablet PO SCH (08:51)
--- NOTE | 2016-09-25 09:32 | Rheumatology Progress Note ---
<Gibson Aranda - Last Filed: 09/25/16 09:16> Date of Encounter: 09/25/16 Time of Encounter: 08:00 Rheumatology Assess and Plan (1) Inflammatory arthritis Current Visit: Yes Status: Acute Polyarthritis, inflammatory likely due to gout. Patient has multiple sites of inflammatory arthritis, patient states this is similar to previous gout attacks but more severe and widespread. Patient low-grade fever and leukocytosis could be the result of more diffuse inflammation from polyarticular gout. Previous uric acid was 15.8 in late August, recheck of 8.0. Patient was previously started on allopurinol in August and a slightly elevated to normal uric acid is expected in acute gouty attack. Patient having mild improvement on allopurinol, colchicine, and prednisone Recommend continuing 40 mg prednisone daily for 3 more days, if clinical response observed prior to beginning taper Continue close monitoring of patient blood glucose Continue allopurinol and colchicine (2) Gouty arthritis Current Visit: Yes Status: Acute Plan as above (3) Diabetes mellitus type 2, uncontrolled Current Visit: No Status: Chronic Since patient will be continued on prednisone, will expect this to affect patient blood sugar. We will continue to monitor patient blood sugar and adjust insulin dosage accordingly Qualifiers: Diabetes mellitus complication status: with hyperglycemia Diabetes mellitus [facility] insulin use: with [facility] use Qualified Code(s): E11.65 - Type 2 diabetes mellitus with hyperglycemia; Z79.4 - [facility] (current) use of insulin (4) Diastolic CHF, acute on chronic Current Visit: No Status: Acute Management per primary team - Subjective Interval history: Patient reports feeling improved overall. He continues to reports decreased range of motion of his head, left arm, and b/l legs. He continues to have tenderness in his affected areas, but the tenderness is not as severe. He reports continued long grade, subjective fevers and diaphoresis. Review of systems: General: Continued mild fevers, reports diaphoresis Respiratory: Denies shortness of breath, denies cough Cardiovascular: Denies chest pain, denies palpitations Abdomen: Continued distention, denies nausea/vomiting, reports mild, chronic abdominal pain Back: Reports chronic low back pain with paraspinal musculature : Reports mild dysuria, denies hematuria MSK/skin: Denies rash, reports continued pain in joints, reports continued swelling, reports continued difficulty with movement Exam Vital Signs, Last 4 Hours Temp Pulse Resp BP Pulse Ox 09/25/16 07:00 98.0 F 74 24 132/84 90 Exam: General: Cooperative, pleasant, significant pain on movement, alert and oriented 3, answers questions appropriately HEENT: Normocephalic, atraumatic, limited range of motion in left/right side bending, left/right rotation, and flexion/extension, trachea midline, head ROM shows continued improvement, Conjunctiva pink, sclera anicteric, oral mucosa moist, no orophargeal erythema or exudates Respiratory: No accessory muscle usage, clear to auscultation bilaterally, no wheezes/rhonchi/rales appreciated Cardiovascular: Irregular rhythm, no murmurs/rubs/gallops/clicks appreciated GI/abdominal: Distended, firm, nontender, normal bowel sounds, no peritoneal signs, no fluid wave Extremities: Left upper extremity tenderness to palpation, limited range of motion in elbow and wrist, tenderness to palpation in bilateral lower extremities worse on left, increased edema in bilateral lower extremities worse on left, erythema on left lower extremity apparently started ankle and extending upward, limited range of motion in bilateral knees and ankles, range of motion limited in all joints due to severe pain, lower extremity pulses palpable and symmetrical, no warmth in joints appreciated, improvement/ resolution of upper extremity swelling Neurological: Alert and oriented 3, no facial droop, no focal deficits Skin: Dry, intact, normal color Objective Data 09/25/16 06:23 09/25/16 06:23 Short CBC 09/25/16 Range/Units 06:23 WBC 8.8 (4.3-11.1) K/mcL Hgb 10.0 L (12.9-16.9) g/dL Hct 33.9 L (37.5-50.1) % Plt Count 283 (140-400) K/mcL Neutrophils # 7.2 (1.6-8.9) K/mcL BMP 09/25/16 Range/Units 06:23 Sodium 139 (136-145) mEq/L Potassium 4.2 (3.5-4.5) mEq/L Chloride 91 L (98-109) mEq/L Carbon Dioxide 37 H (19-29) mEq/L BUN 28 H (8-26) mg/dL Creatinine 1.00 (0.72-1.25) mg/dL Glucose 319 H (70-99) mg/dL Calcium 9.4 (8.6-10.8) mg/dL Consult Discharge Plan - Plan Referrals: Lavinia Guerra MD [Primary Care Provider] - <YoletteBrayden chapman - Last Filed: 09/25/16 16:36> Date of Encounter: 09/25/16 Exam Vital Signs, Last 4 Hours Temp Pulse Resp BP Pulse Ox 09/25/16 15:08 97.7 F 69 18 137/85 91 Objective Data 09/25/16 06:23 09/25/16 06:23 All other labs normal. - Attending Attestation I examined this patient and my medical decision making was reviewed with the resident physician. I agree with the documented findings, disposition and treatment as described with these exceptions. He is clinically improving and this is most likely a polyarticular gout attack. While inpatient, I would continue prednisone 40 mg daily for a total of 5 days with careful blood glucose monitoring. I would discharge him on prednisone 10 mg daily; Given the severity of this attack, he will need a prophylactic medication while allopurinol is titrated. I would stop colchicine at discharge to avoid interactions with other medications. I will set him up a follow-up appt in rheumatology clinic.
[2016-09-25] MEDS: Budesonide/Formoterol 160/4.5 MDI IH SCH ×2 (10:09→21:22)
--- NOTE | 2016-09-25 11:41 | Internal Med Progress Note ---
<Yo Phillip - Last Filed: 09/25/16 14:46> Date of Encounter: 09/25/16 Time of Encounter: 09:45 - Assessment and plan (1) Gout attack Current Visit: Yes Status: Acute Assessment and plan: - With polyarthritis, low-grade fever and worsening leukocytosis. - Infectious diseases consulted and think it's more likely gout attack than infection. - Patient has serum uric acid 15.8 on 08/23/16 and 8.0 on 09/23/16. Per rheumatology, a slightly elevated to normal uric acid can be seen in acute gout attack. - Continue allopurinol and cochicine. - Patient seems to have good response on steroid. Will continue prednisone. Appreciate rheumatology input. - Patient is still on IV vancomycin and Zosyn given infectious cause is likely low (since multiple joints affected) but cannot be completely ruled out. Urine culture negative and blood cultures NGTD. Appreciate infectious diseases recommendations regarding when to discontinue antibiotics. - Continue to monitor. Qualifiers: Gout site: multiple sites Gout etiology: unspecified cause Qualified Code (s): M10.9 - Gout, unspecified (2) Inflammatory arthritis Current Visit: Yes Status: Acute Assessment and plan: - Polyarthritis affecting left upper extremity, bilateral knee and possible neck and back. - Likely secondary to goat given known history of gout and uric acid 8.0 on 09/23. - Elevated ESR and CRP. - Continue allopurinol and chochicine. - Arthrocentesis of left elbow was attempted but cannot obtain any fluid. - Patient seems to have good response on steroid. Will continue prednisone. - Continue to monitor. (3) CHF exacerbation Current Visit: Yes Status: Acute Assessment and plan: - Recently discharged from [place] after being treated for acute CHF and COPD exacerbation and sent home on torsemide. Patient's PCP then changed his diuretics from torsemide to Lasix as he was not diuresing well with torsemide. - CXR on admission showed cardiomegaly and pulmonary edema - Echo 09/12/2016: EF 60%, severe left ventricular diastolic dysfunction, atypical septal motion consistent with bundle branch block, severely dilated left atrium, moderately dilated right atrium. - Bilateral upper and lower extremities venous US and CTA chest found no evidence of blood clots. - Clinically improves as patient reports breathing without significant difficulty. Negative 2.5 L so far since admission. - Continue IV Lasix, fluid restriction, strict I&O, daily weight and daily potassium chloride. - Continue to monitor. Qualifiers: Congestive heart failure type: diastolic Qualified Code(s): I50.33 - Acute on chronic diastolic (congestive) heart failure (4) Atrial fibrillation Current Visit: Yes Status: Chronic Assessment and plan: - Still in A-fib but rate controlled. - Not on on anticoagulation at home given history of GI bleed while on Coumadin or Xarelto. - Continue rate control with Cardizem. - Continue to monitor with telemetry. 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 (6) CAD (coronary artery disease) Current Visit: Yes Status: Chronic Assessment and plan: - History of PCI to LAD February 2014 - Nuclear stress test 09/2015 negative for ischemia with EF of 67%. - No chest pain at this time. - Troponin mildly elevated on admission but then trending down (0.07, 0.06, 0.05 ), likely secondary to demand ischemia. - Continue aspirin, statin, beta liv, Imdur Qualifiers: Coronary Disease-Associated Artery/Lesion type: enterprise artery [place] vs. transplanted heart: enterprise heart Associated angina: without angina Qualified Code(s): I25.10 - Atherosclerotic heart disease of enterprise coronary artery without angina pectoris - Subjective Interval history: No significant event noted overnight. Patient was seen and examined this morning. Patient reports much better than yesterday with diffuse joint and swelling significantly improved and be able to walk to bedside commode. Patient reports breathing well and denies chest pain, abdominal pain, nausea, vomiting, diarrhea. - Constitutional Vitals: Temp Pulse Resp BP Pulse Ox 98.0 F 74 24 132/84 90 09/25/16 07:00 09/25/16 07:00 09/25/16 10:11 09/25/16 07:00 09/25/16 10:11 General appearance: Present: cooperative, A&O X 3, no acute distress, answers questions appropriately - Head Head exam: Present: atraumatic, normocephalic - Eye Eye exam: Present: EOMI, PERRL, conjuntiva pink, sclera anicteric - Neck Neck exam general surgery: Present: supple, trachea midline. Absent: lymphadenopathy - Respiratory Respiratory exam: Present: CTAB. Absent: accessory muscle use, rales, rhonchi, wheezes - Cardiovascular Cardiovascular exam: Present: irregular rhythm, +S1, +S2. Absent: diastolic murmur, gallop, rubs, systolic murmur - GI/Abdominal GI/Abdominal exam: Present: distended, firm, normal bowel sounds, soft, no peritoneal signs. Absent: tenderness - Extremities Exam Extremities exam: Present: warm, radial pulses palpable and symetrical. Absent : cyanotic Additional comments: Left upper extremity: Edema, erythema and tenderness to palpation continues to improve compared to yesterday and patient is also able to move his left elbow and wrist better. Bilateral lower extremities: Edema improves compared to yesterday. Erythema extending from left ankle and upward seems reduced as well and no longer hot to touch. - Neurological Exam Neurological exam: Present: CN II-XII intact, oriented X3, no focal deficits. Absent: pronater drift, facial droop, speech deficit - Skin Skin exam: Present: dry, intact, warm Internal Medicine: Result - Labs CBC & Chem 7: 09/25/16 06:23 09/25/16 06:23 Labs: Short CBC 09/25/16 Range/Units 06:23 WBC 8.8 (4.3-11.1) K/mcL Hgb 10.0 L (12.9-16.9) g/dL Hct 33.9 L (37.5-50.1) % Plt Count 283 (140-400) K/mcL Neutrophils # 7.2 (1.6-8.9) K/mcL BMP 09/25/16 06:23 Sodium 139 Potassium 4.2 Chloride 91 L Carbon Dioxide 37 H BUN 28 H Creatinine 1.00 Glucose 319 H Calcium 9.4 - ABG Interpretation ABG results: ABG ABG pH 7.49 pH Units (7.32-7.45) H 09/22/16 22:30 ABG pCO2 61 mmHg (35-45) H 09/22/16 22:30 ABG pO2 64 mmHg (85-104) L 09/22/16 22:30 ABG O2 Saturation 94 % (95-98) L 09/22/16 22:30 Consult Discharge Plan - Plan Referrals: Lavinia Guerra MD [Primary Care Provider] - <Jin Badillo P - Last Filed: 09/25/16 16:39> Date of Encounter: 09/25/16 - Constitutional Vitals: Temp Pulse Resp BP Pulse Ox 97.7 F 69 18 137/85 94 09/25/16 15:08 09/25/16 15:08 09/25/16 16:37 09/25/16 15:08 09/25/16 16:37 Internal Medicine: Result - Labs CBC & Chem 7: 09/25/16 06:23 09/25/16 06:23 Labs: Short CBC 09/25/16 Range/Units 06:23 WBC 8.8 (4.3-11.1) K/mcL Hgb 10.0 L (12.9-16.9) g/dL Hct 33.9 L (37.5-50.1) % Plt Count 283 (140-400) K/mcL Neutrophils # 7.2 (1.6-8.9) K/mcL BMP 09/25/16 06:23 Sodium 139 Potassium 4.2 Chloride 91 L Carbon Dioxide 37 H BUN 28 H Creatinine 1.00 Glucose 319 H Calcium 9.4 - ABG Interpretation ABG results: ABG ABG pH 7.49 pH Units (7.32-7.45) H 09/22/16 22:30 ABG pCO2 61 mmHg (35-45) H 09/22/16 22:30 ABG pO2 64 mmHg (85-104) L 09/22/16 22:30 ABG O2 Saturation 94 % (95-98) L 09/22/16 22:30 - Attending Attestation I examined this patient and my medical decision-making was reviewed with the BODY PIERCER/PA/Advanced Practice Nurse/Resident Physician. I agree with the documented findings, disposition and treatment plan as described except to the extent set forth below.
[2016-09-25] MEDS: *HR* Morphine 2 MG/ML SYRINGE IVP PRN (12:00)
--- NOTE | 2016-09-25 13:30 | Infectious Disease Progress No ---
Date of Encounter: 09/25/16 Time of Encounter: 13:26 - Assessment and Plan (1) Sepsis Current Visit: Yes Status: Resolved The patient had three SIRS criteria on admission. No obvious source of infection identified. Consider non-infectious etiology. The patient has been afebrile x >24 hours. Blood cultures drawn 09/23/16 are NGTD. Urine culture negative. Very low index of suspicion for infectious etiology. Discontinue antibiotics and observe. Sepsis type: sepsis due to unspecified organism (2) Gout attack Current Visit: Yes Status: Acute Uric acid elevated at 8. ESR >130. Patient has been started on appropriate anti-gout medication and appears to be improving. Rheumatology consulted and following. Defer further management to the rheumatology team. Qualifiers: Gout site: multiple sites Gout etiology: unspecified cause Qualified Code (s): M10.9 - Gout, unspecified (3) Elevated erythrocyte sedimentation rate Current Visit: Yes Status: Acute (4) Edema of upper extremity Current Visit: Yes Status: Acute (5) CHF (congestive heart failure) Current Visit: Yes Status: Acute Qualifiers: Congestive heart failure type: diastolic Congestive heart failure chronicity: acute on chronic Qualified Code(s): I50.33 - Acute on chronic diastolic (congestive) heart failure - Subjective Interval history: Patient seen and examined. No acute events noted overnight. Patient sitting up on the side of the bed during exam. States he continues to have pain in the left upper extremity, bilateral lower extremities, and neck, but states he is better today and is better able to move around. He denies any fevers or chills or rigors. He denies any chest pain or cough. He reports chronic shortness of breath that appears to be back to baseline . He denies any nausea, vomiting, diarrhea, or constipation. He denies any urinary complaints. He denies any oral thrush or new skin lesions. Infect Dis PN-Objective Data - Labs CBC & Chem 7: 09/26/16 03:58 09/26/16 03:58 Labs: Laboratory Results - last 24 hr 09/24/16 09/24/16 09/24/16 12:06 15:44 19:35 WBC RBC Hgb Hct MCV MCH MCHC RDW Plt Count MPV Immature Gran % Seg Neutrophils % Lymphocytes % Monocytes % Eosinophils % Basophils % Neutrophils # Lymphocytes # Monocytes # Eosinophils # Basophils # Sodium Potassium Chloride Carbon Dioxide BUN Creatinine Est GFR ( Amer) Est GFR (Non-Af Amer) BUN/Creatinine Ratio Glucose POC Glucose 338 H 336 H 391 H Calculated Osmolality Calcium 09/25/16 09/25/16 06:23 06:23 WBC 8.8 RBC 3.74 L Hgb 10.0 L Hct 33.9 L MCV 90.6 MCH 26.7 L MCHC 29.5 L RDW 17.8 H Plt Count 283 MPV 10.9 Immature Gran % 1.4 Seg Neutrophils % 81.4 Lymphocytes % 12.2 Monocytes % 4.6 Eosinophils % 0.3 Basophils % 0.1 Neutrophils # 7.2 Lymphocytes # 1.1 Monocytes # 0.4 Eosinophils # 0.0 Basophils # 0.0 Sodium 139 Potassium 4.2 Chloride 91 L Carbon Dioxide 37 H BUN 28 H Creatinine 1.00 Est GFR ( Amer) > 60 Est GFR (Non-Af Amer) > 60 BUN/Creatinine Ratio 28 H Glucose 319 H POC Glucose Calculated Osmolality 306 H Calcium 9.4 Cultures: Cultures 09/23/16 10:46 Blood Culture - Preliminary Peripheral Venipuncture No growth. 09/23/16 10:46 Blood Culture - Preliminary Peripheral Venipuncture No growth. 09/23/16 12:00 Urine Culture - Final Urine,Clean Catch No pathogens isolated. Exam - Constitutional Vitals: Temp Pulse Resp BP Pulse Ox 98.5 F 75 22 119/87 90 09/25/16 11:00 09/25/16 11:00 09/25/16 11:00 09/25/16 11:00 09/25/16 10:11 General appearance: cooperative, morbidly obese, no acute distress - Head Head exam: Present: atraumatic, normal inspection, normocephalic - Eye Eye exam: Present: EOMI, normal appearance, PERRL Pupils: Present: normal accommodation - ENT ENT exam: Present: mucous membranes moist - Neck Neck exam: Absent: full ROM (ROM limited due to pain.) - Respiratory Respiratory exam: Present: CTAB. Absent: rales, respiratory distress, rhonchi, wheezes - Cardiovascular Cardiovascular exam: Present: RRR, +S1, +S2 - GI/Abdominal GI/Abdominal exam: Present: distended (obese), normal bowel sounds, soft. Absent: tenderness - Extremities Exam Extremities exam: Present: normal inspection, pedal edema (1+ BLE), tenderness ( BLE, LUE). Absent: joint swelling - Neurological Exam Neurological exam: Present: alert, oriented X3, no focal deficits - Psychiatric Psychiatric exam: Present: normal affect, normal mood - Skin Skin exam: Present: dry, intact, normal color, warm Consult Discharge Plan - Plan Additional Instructions: Dr. De La Vega's office is located in the Medical Office Building. [address] Referrals: Lavinia Guerra MD [Primary Care Provider] - Brayden De La Vega DO [Partnered Physician] - 10/11/16 11:20 am (Rheumatolgy) - Attending Attestation I examined this patient and my medical decision-making was reviewed with the WATERSHED COORDINATOR/PA/Advanced Practice Nurse/Resident Physician. I agree with the documented findings, disposition and treatment plan as described except to the extent set forth below.
[2016-09-26] MEDS: *HR* OxyCODONE Immed Rel 5 MG TABLET PO PRN ×4 (00:46→21:42)
[2016-09-26] MEDS: Ipratropium/Albuterol Neb 3 ML IH SCH ×4 (04:40→21:09)
[2016-09-26 04:46] LABS: Basophils % 0.1 %; Eosinophils % 0.4 %; Hematocrit 32.6 % (37.5-50.1); Hemoglobin 9.9 g/dL (12.9-16.9); Immature Granulocytes % 1.5 % (0-4); Lymphocytes # 1.1 K/mcL (0.6-4.6); Lymphocytes % 13.5 %; Mean Corpuscular HGB Conc 30.4 g/dL (31.6-35.5); Mean Corpuscular Hemoglobin 27.4 pg (28.0-33.3); Mean Corpuscular Volume 90.3 fL (83.0-100.0); Mean Platelet Volume 10.6 fL (9.4-12.4); Monocytes # 0.4 K/mcL (0.0-1.3); Monocytes % 4.6 %; Neutrophils # 6.2 K/mcL (1.6-8.9); Platelet Count 294 K/mcL (140-400); Red Blood Count 3.61 M/mcL (4.19-5.50); Red Cell Distribution Width 17.8 % (11.5-14.5); Segmented Neutrophils % 79.9 %
[2016-09-26 05:10] LABS: BUN/Creatinine Ratio 29 (6-26); Blood Urea Nitrogen 29 mg/dL (8-26); Calcium 9.4 mg/dL (8.6-10.8); Carbon Dioxide 34 mEq/L (19-29); Chloride 93 mEq/L (98-109); Glucose 289 mg/dL (70-99); Osmolality,Calculated 304 (280-300); Potassium 4.1 mEq/L (3.5-4.5); Sodium 139 mEq/L (136-145); eGFR For African Americans > 60 (> 60); eGFR For Non-African Americans > 60 (> 60)
[2016-09-26] MEDS: *HR* Heparin 5,000 UNIT/ML VIAL SQ SCH ×2 (05:17→16:54)
[2016-09-26] MEDS: Isosorbide MONOnitrate (24 HR) 30 MG TAB.ER.24H PO SCH (08:52)
[2016-09-26] MEDS: predniSONE 20 MG TABLET PO SCH (08:52)
[2016-09-26] MEDS: Gabapentin 300 MG CAPSULE PO SCH ×3 (08:52→21:26)
[2016-09-26] MEDS: Diltiazem CD (24hr) 120 MG CAPSULE PO SCH (08:52)
[2016-09-26] MEDS: Magnesium Oxide 400 MG TABLET PO SCH ×2 (08:52→21:26)
[2016-09-26] MEDS: Colchicine 0.6 MG TABLET PO SCH ×2 (08:52→21:26)
[2016-09-26] MEDS: Aspirin Enteric Coated 81 MG Tablet PO SCH (08:52)
[2016-09-26] MEDS: Insulin DETEMIR 100 UNIT/ML X5UNITS SQ SCH ×2 (08:53→21:26)
[2016-09-26] MEDS: Insulin LISPRO 300 UNITS/3 ML VIAL SQ SCH ×7 (08:53→21:26)
[2016-09-26] MEDS: Furosemide 40 MG/4 ML VIAL IVP SCH (08:53)
[2016-09-26] MEDS: Budesonide/Formoterol 160/4.5 MDI IH SCH ×2 (10:51→21:10)
--- NOTE | 2016-09-26 11:23 | Internal Med Progress Note ---
<Yo Phillip - Last Filed: 09/26/16 13:19> Date of Encounter: 09/26/16 Time of Encounter: 10:15 - Assessment and plan (1) Gout attack Current Visit: Yes Status: Acute Assessment and plan: - With polyarthritis, low-grade fever and worsening leukocytosis. - Infectious diseases consulted and think it's more likely gout attack than infection. - Patient has serum uric acid 15.8 on 08/23/16 and 8.0 on 09/23/16. Per rheumatology, a slightly elevated to normal uric acid can be seen in acute gout attack. - Continue allopurinol and cochicine. - Patient seems to have good response on steroid. Will continue prednisone. Appreciate rheumatology input. - ID on board. IV vancomycin and Zosyn were discontinued on 09/25 due to very low index of suspicion for infectious etiology with rine culture negative and blood cultures NGTD. - Continue to monitor. Qualifiers: Gout site: multiple sites Gout etiology: unspecified cause Qualified Code (s): M10.9 - Gout, unspecified (2) Inflammatory arthritis Current Visit: Yes Status: Acute Assessment and plan: - Polyarthritis affecting left upper extremity, bilateral knee and possible neck and back. - Likely secondary to goat given known history of gout and uric acid 8.0 on 09/23. - Elevated ESR and CRP. - Continue allopurinol and chochicine. - Arthrocentesis of left elbow was attempted but cannot obtain any fluid. - Patient seems to have good response on steroid. Will continue prednisone. - Continue to monitor. (3) CHF exacerbation Current Visit: Yes Status: Acute Assessment and plan: - Recently discharged from [facility] after being treated for acute CHF and COPD exacerbation and sent home on torsemide. Patient's PCP then changed his diuretics from torsemide to Lasix as he was not diuresing well with torsemide. - CXR on admission showed cardiomegaly and pulmonary edema - Echo 09/12/2016: EF 60%, severe left ventricular diastolic dysfunction, atypical septal motion consistent with bundle branch block, severely dilated left atrium, moderately dilated right atrium. - Bilateral upper and lower extremities venous US and CTA chest found no evidence of blood clots. - Clinically improves as patient reports breathing without significant difficulty. Negative 4 L so far since admission. - Continue IV Lasix, fluid restriction, strict I&O, daily weight and daily potassium chloride. - Continue to monitor. Qualifiers: Congestive heart failure type: diastolic Qualified Code(s): I50.33 - Acute on chronic diastolic (congestive) heart failure (4) Atrial fibrillation Current Visit: Yes Status: Chronic Assessment and plan: - Still in A-fib but rate controlled. - Not on on anticoagulation at home given history of GI bleed while on Coumadin or Xarelto. - Continue rate control with Cardizem. - Continue to monitor with telemetry. 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 (6) CAD (coronary artery disease) Current Visit: Yes Status: Chronic Assessment and plan: - History of PCI to LAD February 2014 - Nuclear stress test 09/2015 negative for ischemia with EF of 67%. - No chest pain at this time. - Troponin mildly elevated on admission but then trending down (0.07, 0.06, 0.05 ), likely secondary to demand ischemia. - Continue aspirin, statin, beta liv, Imdur Qualifiers: Coronary Disease-Associated Artery/Lesion type: [place] artery [place] vs. transplanted heart: [place] heart Associated angina: without angina Qualified Code(s): I25.10 - Atherosclerotic heart disease of [place] coronary artery without angina pectoris - Subjective Interval history: No significant event noted overnight. Patient was seen and examined this morning. Patient reports his diffuse joint and swelling continue to improve. Patient reports breathing well and denies chest pain, abdominal pain, nausea, vomiting, diarrhea. - Constitutional Vitals: Temp Pulse Resp BP Pulse Ox 97.6 F 74 16 133/97 98 09/26/16 07:00 09/26/16 07:00 09/26/16 07:00 09/26/16 07:00 09/26/16 07:00 General appearance: Present: cooperative, A&O X 3, no acute distress, answers questions appropriately - Head Head exam: Present: atraumatic, normocephalic - Eye Eye exam: Present: EOMI, PERRL, conjuntiva pink, sclera anicteric - Neck Neck exam general surgery: Present: supple, trachea midline. Absent: lymphadenopathy - Respiratory Respiratory exam: Present: CTAB. Absent: accessory muscle use, rales, rhonchi, wheezes - Cardiovascular Cardiovascular exam: Present: RRR, +S1, +S2. Absent: diastolic murmur, gallop, rubs, systolic murmur - GI/Abdominal GI/Abdominal exam: Present: normal bowel sounds, soft, no peritoneal signs. Absent: distended, tenderness - Extremities Exam Extremities exam: Present: warm, radial pulses palpable and symetrical. Absent : cyanotic Additional comments: Left upper extremity: Edema, erythema and tenderness to palpation continues to improve compared to yesterday and patient is also able to move his left elbow and wrist better. Bilateral lower extremities: Edema improves compared to yesterday. Erythema extending from left ankle and upward seems to become a little bit more prominent and warmer to touch. - Neurological Exam Neurological exam: Present: CN II-XII intact, oriented X3, no focal deficits. Absent: pronater drift, facial droop, speech deficit - Skin Skin exam: Present: dry, intact, warm Internal Medicine: Result - Labs CBC & Chem 7: 09/26/16 03:58 09/26/16 03:58 Labs: Short CBC 09/26/16 Range/Units 03:58 WBC 7.8 (4.3-11.1) K/mcL Hgb 9.9 L (12.9-16.9) g/dL Hct 32.6 L (37.5-50.1) % Plt Count 294 (140-400) K/mcL Neutrophils # 6.2 (1.6-8.9) K/mcL BMP 09/26/16 03:58 Sodium 139 Potassium 4.1 Chloride 93 L Carbon Dioxide 34 H BUN 29 H Creatinine 0.99 Glucose 289 H Calcium 9.4 - ABG Interpretation ABG results: ABG ABG pH 7.49 pH Units (7.32-7.45) H 09/22/16 22:30 ABG pCO2 61 mmHg (35-45) H 09/22/16 22:30 ABG pO2 64 mmHg (85-104) L 09/22/16 22:30 ABG O2 Saturation 94 % (95-98) L 09/22/16 22:30 Consult Discharge Plan - Plan Additional Instructions: Dr. De La Vega's office is located in the Medical Office Building. [address] Referrals: Lavinia Guerra MD [Primary Care Provider] - Brayden De La Vega DO [Partnered Physician] - 10/11/16 11:20 am (Rheumatolgy) <Jin Badillo - Last Filed: 09/26/16 17:53> Date of Encounter: 09/26/16 - Constitutional Vitals: Temp Pulse Resp BP Pulse Ox 97.5 F L 82 18 105/95 96 09/26/16 15:00 09/26/16 15:00 09/26/16 15:00 09/26/16 15:00 09/26/16 15:00 Internal Medicine: Result - Labs CBC & Chem 7: 09/26/16 03:58 09/26/16 03:58 Labs: Short CBC 09/26/16 Range/Units 03:58 WBC 7.8 (4.3-11.1) K/mcL Hgb 9.9 L (12.9-16.9) g/dL Hct 32.6 L (37.5-50.1) % Plt Count 294 (140-400) K/mcL Neutrophils # 6.2 (1.6-8.9) K/mcL BMP 09/26/16 03:58 Sodium 139 Potassium 4.1 Chloride 93 L Carbon Dioxide 34 H BUN 29 H Creatinine 0.99 Glucose 289 H Calcium 9.4 - ABG Interpretation ABG results: ABG ABG pH 7.49 pH Units (7.32-7.45) H 09/22/16 22:30 ABG pCO2 61 mmHg (35-45) H 09/22/16 22:30 ABG pO2 64 mmHg (85-104) L 09/22/16 22:30 ABG O2 Saturation 94 % (95-98) L 09/22/16 22:30 - Attending Attestation I examined this patient and my medical decision-making was reviewed with the FIRE BOAT ENGINEER/PA/Advanced Practice Nurse/Resident Physician. I agree with the documented findings, disposition and treatment plan as described except to the extent set forth below.
--- NOTE | 2016-09-26 11:44 | Infectious Disease Progress No ---
Date of Encounter: 09/26/16 Time of Encounter: 11:42 - Assessment and Plan (1) Sepsis Current Visit: Yes Status: Resolved The patient had three SIRS criteria on admission. No obvious source of infection identified. Consider non-infectious etiology. The patient has been afebrile x >24 hours. Blood cultures drawn 09/23/16 are NGTD. Urine culture negative. Very low index of suspicion for infectious etiology. Antibiotics discontinued 09/25/16. Continue to observe off antibiotics. Sepsis type: sepsis due to unspecified organism (2) Gout attack Current Visit: Yes Status: Acute Uric acid elevated at 8. ESR >130. Patient has been started on appropriate anti-gout medication and appears to be improving. Rheumatology consulted and following. Defer further management to the rheumatology team. Qualifiers: Gout site: multiple sites Gout etiology: unspecified cause Qualified Code (s): M10.9 - Gout, unspecified (3) Elevated erythrocyte sedimentation rate Current Visit: Yes Status: Acute (4) Edema of upper extremity Current Visit: Yes Status: Acute (5) CHF (congestive heart failure) Current Visit: Yes Status: Acute Qualifiers: Congestive heart failure type: diastolic Congestive heart failure chronicity: acute on chronic Qualified Code(s): I50.33 - Acute on chronic diastolic (congestive) heart failure (6) Edema of both legs Current Visit: Yes Status: Acute Likely secondary to venous insufficiency. Recommend the patient sit with legs elevated at all times. Recommend compression stockings if the patient can tolerate them. Discussed with Dr. Phillip of the primary team. - Subjective Interval history: Patient seen and examined. No acute events noted overnight. Patient lying in bed during exam. States he continues to have pain in the left upper extremity, bilateral lower extremities, and neck, but he states it continues to get better by the day. He denies any fevers or chills or rigors. He denies any chest pain or cough. He reports chronic shortness of breath that appears to be back to baseline . He denies any nausea, vomiting, diarrhea, or constipation. He denies any urinary complaints. He denies any oral thrush or new skin lesions. Infect Dis PN-Objective Data - Labs CBC & Chem 7: 09/26/16 03:58 09/26/16 03:58 Labs: Laboratory Results - last 24 hr 09/25/16 09/25/16 09/25/16 07:44 11:46 15:11 WBC RBC Hgb Hct MCV MCH MCHC RDW Plt Count MPV Immature Gran % Seg Neutrophils % Lymphocytes % Monocytes % Eosinophils % Basophils % Neutrophils # Lymphocytes # Monocytes # Eosinophils # Basophils # Sodium Potassium Chloride Carbon Dioxide BUN Creatinine Est GFR ( Amer) Est GFR (Non-Af Amer) BUN/Creatinine Ratio Glucose POC Glucose 295 H 341 H 297 H Calculated Osmolality Calcium 09/26/16 09/26/16 03:58 03:58 WBC 7.8 RBC 3.61 L Hgb 9.9 L Hct 32.6 L MCV 90.3 MCH 27.4 L MCHC 30.4 L RDW 17.8 H Plt Count 294 MPV 10.6 Immature Gran % 1.5 Seg Neutrophils % 79.9 Lymphocytes % 13.5 Monocytes % 4.6 Eosinophils % 0.4 Basophils % 0.1 Neutrophils # 6.2 Lymphocytes # 1.1 Monocytes # 0.4 Eosinophils # 0.0 Basophils # 0.0 Sodium 139 Potassium 4.1 Chloride 93 L Carbon Dioxide 34 H BUN 29 H Creatinine 0.99 Est GFR ( Amer) > 60 Est GFR (Non-Af Amer) > 60 BUN/Creatinine Ratio 29 H Glucose 289 H POC Glucose Calculated Osmolality 304 H Calcium 9.4 Cultures: Cultures 09/23/16 10:46 Blood Culture - Preliminary Peripheral Venipuncture No growth. 09/23/16 10:46 Blood Culture - Preliminary Peripheral Venipuncture No growth. 09/23/16 12:00 Urine Culture - Final Urine,Clean Catch No pathogens isolated. Exam - Constitutional Vitals: Temp Pulse Resp BP Pulse Ox 97.6 F 74 16 133/97 98 09/26/16 07:00 09/26/16 07:00 09/26/16 07:00 09/26/16 07:00 09/26/16 07:00 General appearance: cooperative, morbidly obese, no acute distress - Head Head exam: Present: atraumatic, normal inspection, normocephalic - Eye Eye exam: Present: EOMI, normal appearance, PERRL Pupils: Present: normal accommodation - ENT ENT exam: Present: mucous membranes moist - Neck Neck exam: Present: full ROM, normal inspection - Respiratory Respiratory exam: Present: rales (Fine crackles to the left anterior base.). Absent: respiratory distress, rhonchi, wheezes - Cardiovascular Cardiovascular exam: Present: irregular rhythm. Absent: tachycardia - GI/Abdominal GI/Abdominal exam: Present: distended (obese), firm, normal bowel sounds. Absent: tenderness - Extremities Exam Extremities exam: Present: pedal edema (1+ BLE), tenderness (BLE, LUE). Absent : joint swelling Additional comments: Mild erythema noted to the lower aspect of the LLE, but no ulcers or warmth noted. - Neurological Exam Neurological exam: Present: alert, oriented X3, no focal deficits - Psychiatric Psychiatric exam: Present: normal affect, normal mood - Skin Skin exam: Present: dry, intact, normal color, warm Consult Discharge Plan - Plan Additional Instructions: Dr. De La Vega's office is located in the Medical Office Building. [address] Referrals: Lavinia Guerra MD [Primary Care Provider] - Brayden De La Vega DO [Partnered Physician] - 10/11/16 11:20 am (Rheumatolgy) - Attending Attestation I examined this patient and my medical decision-making was reviewed with the CIGAR HEAD PERFORATOR/PA/Advanced Practice Nurse/Resident Physician. I agree with the documented findings, disposition and treatment plan as described except to the extent set forth below.
[2016-09-27] MEDS: Ipratropium/Albuterol Neb 3 ML IH SCH ×4 (03:52→21:19)
[2016-09-27 04:13] LABS: Basophils % 0.4 %; Eosinophils % 0.3 %; Hematocrit 34.9 % (37.5-50.1); Hemoglobin 10.4 g/dL (12.9-16.9); Immature Granulocytes % 2.2 % (0-4); Lymphocytes % 13.6 %; Mean Corpuscular HGB Conc 29.8 g/dL (31.6-35.5); Mean Corpuscular Volume 90.6 fL (83.0-100.0); Mean Platelet Volume 10.9 fL (9.4-12.4); Monocytes # 0.3 K/mcL (0.0-1.3); Monocytes % 4.6 %; Neutrophils # 5.8 K/mcL (1.6-8.9); Nucleated Red Blood Cells 0.5 /100 WBC (0); Platelet Count 316 K/mcL (140-400); Red Blood Count 3.85 M/mcL (4.19-5.50); Red Cell Distribution Width 17.9 % (11.5-14.5); Segmented Neutrophils % 78.9 %
[2016-09-27 04:24] LABS: BUN/Creatinine Ratio 32 (6-26); Blood Urea Nitrogen 29 mg/dL (8-26); Calcium 9.6 mg/dL (8.6-10.8); Carbon Dioxide 34 mEq/L (19-29); Chloride 97 mEq/L (98-109); Glucose 223 mg/dL (70-99); Osmolality,Calculated 305 (280-300); Potassium 4.3 mEq/L (3.5-4.5); Sodium 141 mEq/L (136-145); eGFR For African Americans > 60 (> 60); eGFR For Non-African Americans > 60 (> 60)
[2016-09-27] MEDS: *HR* Heparin 5,000 UNIT/ML VIAL SQ SCH ×2 (05:28→16:47)
[2016-09-27] MEDS: *HR* OxyCODONE Immed Rel 5 MG TABLET PO PRN ×3 (05:33→21:33)
[2016-09-27] MEDS: Insulin LISPRO 300 UNITS/3 ML VIAL SQ SCH ×6 (08:49→16:51)
[2016-09-27] MEDS: Aspirin Enteric Coated 81 MG Tablet PO SCH (08:50)
[2016-09-27] MEDS: Diltiazem CD (24hr) 120 MG CAPSULE PO SCH (08:50)
[2016-09-27] MEDS: Magnesium Oxide 400 MG TABLET PO SCH ×2 (08:51→21:33)
[2016-09-27] MEDS: Gabapentin 300 MG CAPSULE PO SCH ×3 (08:51→21:33)
[2016-09-27] MEDS: predniSONE 20 MG TABLET PO SCH (08:51)
[2016-09-27] MEDS: Isosorbide MONOnitrate (24 HR) 30 MG TAB.ER.24H PO SCH (08:51)
[2016-09-27] MEDS: Colchicine 0.6 MG TABLET PO SCH ×2 (08:51→21:32)
[2016-09-27] MEDS: Furosemide 40 MG/4 ML VIAL IVP SCH (08:52)
[2016-09-27] MEDS: Budesonide/Formoterol 160/4.5 MDI IH SCH ×2 (10:09→21:19)
[2016-09-27] MEDS: Insulin DETEMIR 100 UNIT/ML X5UNITS SQ SCH (10:40)
--- NOTE | 2016-09-27 11:37 | Infectious Disease Progress No ---
Date of Encounter: 09/27/16 Time of Encounter: 11:35 - Assessment and Plan (1) Sepsis Current Visit: Yes Status: Resolved The patient had three SIRS criteria on admission. No obvious source of infection identified. Consider non-infectious etiology. The patient has been afebrile x >24 hours. Blood cultures drawn 09/23/16 are NGTD. Urine culture negative. Very low index of suspicion for infectious etiology. Antibiotics discontinued 09/25/16. Continue to observe off antibiotics. Sepsis type: sepsis due to unspecified organism (2) Gout attack Current Visit: Yes Status: Acute Uric acid elevated at 8. ESR >130. Patient has been started on appropriate anti-gout medication and appears to be improving. Rheumatology consulted and following. Defer further management to the rheumatology team. Qualifiers: Gout site: multiple sites Gout etiology: unspecified cause Qualified Code (s): M10.9 - Gout, unspecified (3) Elevated erythrocyte sedimentation rate Current Visit: Yes Status: Acute (4) Edema of upper extremity Current Visit: Yes Status: Acute (5) CHF (congestive heart failure) Current Visit: Yes Status: Acute Qualifiers: Congestive heart failure type: diastolic Congestive heart failure chronicity: acute on chronic Qualified Code(s): I50.33 - Acute on chronic diastolic (congestive) heart failure (6) Edema of both legs Current Visit: Yes Status: Acute Likely secondary to venous insufficiency. Recommend the patient sit with legs elevated at all times. Recommend compression stockings if the patient can tolerate them. Discussed with Dr. Phillip of the primary team. - Subjective Interval history: Patient seen and examined. No acute events noted overnight. Patient lying in bed during exam. States he continues to have pain in the left upper extremity, bilateral lower extremities, and neck, but he states it continues to get better each day. He denies any fevers or chills or rigors. He denies any chest pain or cough. He reports chronic shortness of breath that appears to be back to baseline . He denies any nausea, vomiting, diarrhea, or constipation. He denies any urinary complaints. He denies any oral thrush or new skin lesions. Infect Dis PN-Objective Data - Labs CBC & Chem 7: 09/27/16 03:27 09/27/16 03:27 Labs: Laboratory Results - last 24 hr 09/25/16 09/26/16 09/26/16 21:42 07:27 11:44 WBC RBC Hgb Hct MCV MCH MCHC RDW Plt Count MPV Immature Gran % Seg Neutrophils % Lymphocytes % Monocytes % Eosinophils % Basophils % Neutrophils # Lymphocytes # Monocytes # Eosinophils # Basophils # Nucleated RBCs/100 WBC Sodium Potassium Chloride Carbon Dioxide BUN Creatinine Est GFR ( Amer) Est GFR (Non-Af Amer) BUN/Creatinine Ratio Glucose POC Glucose 337 H 231 H 317 H Calculated Osmolality Calcium 09/26/16 09/26/16 09/26/16 16:20 19:31 19:33 WBC RBC Hgb Hct MCV MCH MCHC RDW Plt Count MPV Immature Gran % Seg Neutrophils % Lymphocytes % Monocytes % Eosinophils % Basophils % Neutrophils # Lymphocytes # Monocytes # Eosinophils # Basophils # Nucleated RBCs/100 WBC Sodium Potassium Chloride Carbon Dioxide BUN Creatinine Est GFR ( Amer) Est GFR (Non-Af Amer) BUN/Creatinine Ratio Glucose POC Glucose 305 H 404 H* 429 H* Calculated Osmolality Calcium 09/26/16 09/27/16 09/27/16 22:21 03:27 03:27 WBC 7.4 RBC 3.85 L Hgb 10.4 L Hct 34.9 L MCV 90.6 MCH 27.0 L MCHC 29.8 L RDW 17.9 H Plt Count 316 MPV 10.9 Immature Gran % 2.2 Seg Neutrophils % 78.9 Lymphocytes % 13.6 Monocytes % 4.6 Eosinophils % 0.3 Basophils % 0.4 Neutrophils # 5.8 Lymphocytes # 1.0 Monocytes # 0.3 Eosinophils # 0.0 Basophils # 0.0 Nucleated RBCs/100 WBC 0.5 H Sodium 141 Potassium 4.3 Chloride 97 L Carbon Dioxide 34 H BUN 29 H Creatinine 0.90 Est GFR ( Amer) > 60 Est GFR (Non-Af Amer) > 60 BUN/Creatinine Ratio 32 H Glucose 223 H POC Glucose 308 H Calculated Osmolality 305 H Calcium 9.6 09/27/16 07:36 WBC RBC Hgb Hct MCV MCH MCHC RDW Plt Count MPV Immature Gran % Seg Neutrophils % Lymphocytes % Monocytes % Eosinophils % Basophils % Neutrophils # Lymphocytes # Monocytes # Eosinophils # Basophils # Nucleated RBCs/100 WBC Sodium Potassium Chloride Carbon Dioxide BUN Creatinine Est GFR ( Amer) Est GFR (Non-Af Amer) BUN/Creatinine Ratio Glucose POC Glucose 191 H Calculated Osmolality Calcium Cultures: Cultures 09/23/16 10:46 Blood Culture - Preliminary Peripheral Venipuncture No growth. 09/23/16 10:46 Blood Culture - Preliminary Peripheral Venipuncture No growth. 09/23/16 12:00 Urine Culture - Final Urine,Clean Catch No pathogens isolated. Exam - Constitutional Vitals: Temp Pulse Resp BP Pulse Ox 97.3 F L 63 18 139/86 94 09/27/16 07:32 09/27/16 07:32 09/27/16 10:22 09/27/16 07:32 09/27/16 10:22 General appearance: cooperative, morbidly obese, no acute distress - Head Head exam: Present: atraumatic, normal inspection, normocephalic - Eye Eye exam: Present: EOMI, normal appearance, PERRL Pupils: Present: normal accommodation - ENT ENT exam: Present: mucous membranes moist - Neck Neck exam: Present: normal inspection - Respiratory Respiratory exam: Present: CTAB. Absent: rales, respiratory distress, rhonchi, wheezes - Cardiovascular Cardiovascular exam: Present: irregular rhythm. Absent: tachycardia - GI/Abdominal GI/Abdominal exam: Present: distended (obese), firm, normal bowel sounds. Absent: tenderness - Extremities Exam Extremities exam: Present: tenderness (BLE, LUE, neck). Absent: joint swelling , pedal edema Additional comments: Venous stasis dermatitis noted to the LLE. - Neurological Exam Neurological exam: Present: alert, oriented X3, no focal deficits - Psychiatric Psychiatric exam: Present: normal affect, normal mood - Skin Skin exam: Present: dry, intact, normal color, warm Consult Discharge Plan - Plan Additional Instructions: Dr. De La Vega's office is located in the Medical Office Building. [address] Referrals: Lavinia Guerra MD [Primary Care Provider] - Brayden De La Vega DO [Partnered Physician] - 10/11/16 11:20 am (Rheumatolgy) - Attending Attestation I examined this patient and my medical decision-making was reviewed with the DESK OPERATOR/PA/Advanced Practice Nurse/Resident Physician. I agree with the documented findings, disposition and treatment plan as described except to the extent set forth below.
--- NOTE | 2016-09-27 13:26 | Internal Med Progress Note ---
<Yo Phillip - Last Filed: 09/27/16 13:26> Date of Encounter: 09/27/16 Time of Encounter: 10:30 - Assessment and plan (1) Gout attack Current Visit: Yes Status: Acute Assessment and plan: - With polyarthritis, low-grade fever and worsening leukocytosis. - Infectious diseases consulted and think it's more likely gout attack than infection. - Patient has serum uric acid 15.8 on 08/23/16 and 8.0 on 09/23/16. Per rheumatology, a slightly elevated to normal uric acid can be seen in acute gout attack. - Continue allopurinol and cochicine. - Patient seems to have good response on steroid. Per rheumatology recommendation, will continue prednisone 40 mg PO daily one more day and then switch to taper dose. - ID on board. IV vancomycin and Zosyn were discontinued on 09/25 due to very low index of suspicion for infectious etiology with urine culture negative and blood cultures NGTD. - Continue to monitor. Qualifiers: Gout site: multiple sites Gout etiology: unspecified cause Qualified Code (s): M10.9 - Gout, unspecified (2) Inflammatory arthritis Current Visit: Yes Status: Acute Assessment and plan: - Polyarthritis affecting left upper extremity, bilateral knee and possible neck and back. - Likely secondary to goat given known history of gout and uric acid 8.0 on 09/23. - Elevated ESR and CRP. - Continue allopurinol and chochicine. - Arthrocentesis of left elbow was attempted but cannot obtain any fluid. - Patient seems to have good response on steroid. Will continue prednisone. - Continue to monitor. (3) CHF exacerbation Current Visit: Yes Status: Acute Assessment and plan: - Recently discharged from [facility] after being treated for acute CHF and COPD exacerbation and sent home on torsemide. Patient's PCP then changed his diuretics from torsemide to Lasix as he was not diuresing well with torsemide. - CXR on admission showed cardiomegaly and pulmonary edema - Echo 09/12/2016: EF 60%, severe left ventricular diastolic dysfunction, atypical septal motion consistent with bundle branch block, severely dilated left atrium, moderately dilated right atrium. - Bilateral upper and lower extremities venous US and CTA chest found no evidence of blood clots. - Clinically improves as patient reports breathing without significant difficulty. Negative 4 L so far since admission. - Continue IV Lasix, fluid restriction, strict I&O, daily weight and daily potassium chloride. - Continue to monitor. Qualifiers: Congestive heart failure type: diastolic Qualified Code(s): I50.33 - Acute on chronic diastolic (congestive) heart failure (4) Atrial fibrillation Current Visit: Yes Status: Chronic Assessment and plan: - Still in A-fib but rate controlled. - Not on on anticoagulation at home given history of GI bleed while on Coumadin or Xarelto. - Continue rate control with Cardizem. - Continue to monitor with telemetry. 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 (6) CAD (coronary artery disease) Current Visit: Yes Status: Chronic Assessment and plan: - History of PCI to LAD February 2014 - Nuclear stress test 09/2015 negative for ischemia with EF of 67%. - No chest pain at this time. - Troponin mildly elevated on admission but then trending down (0.07, 0.06, 0.05 ), likely secondary to demand ischemia. - Continue aspirin, statin, beta liv, Imdur Qualifiers: Coronary Disease-Associated Artery/Lesion type: [place] artery [place] vs. transplanted heart: [place] heart Associated angina: without angina Qualified Code(s): I25.10 - Atherosclerotic heart disease of [place] coronary artery without angina pectoris - Subjective Interval history: No significant event noted overnight. Patient was seen and examined this morning. Patient reports doing well as his joint pain and swelling continue to reduce and no significant breathing difficulty. Patient denies chest pain, abdominal pain, nausea, vomiting, diarrhea. - Constitutional Vitals: Temp Pulse Resp BP Pulse Ox 97.3 F L 72 18 137/88 94 09/27/16 12:10 09/27/16 12:10 09/27/16 10:22 09/27/16 12:10 09/27/16 10:22 General appearance: Present: cooperative, A&O X 3, no acute distress, answers questions appropriately - Head Head exam: Present: atraumatic, normocephalic - Eye Eye exam: Present: EOMI, PERRL, conjuntiva pink, sclera anicteric - Neck Neck exam general surgery: Present: supple, trachea midline. Absent: lymphadenopathy - Respiratory Respiratory exam: Present: CTAB. Absent: accessory muscle use, rales, rhonchi, wheezes - Cardiovascular Cardiovascular exam: Present: RRR, +S1, +S2. Absent: diastolic murmur, gallop, rubs, systolic murmur - GI/Abdominal GI/Abdominal exam: Present: normal bowel sounds, soft, no peritoneal signs. Absent: distended, tenderness - Extremities Exam Extremities exam: Present: warm, radial pulses palpable and symetrical. Absent : cyanotic Additional comments: Left upper extremity: Edema, erythema and tenderness to palpation continues to improve compared to yesterday and patient is also able to move his left elbow and wrist better. Bilateral lower extremities: Edema improves compared to yesterday. Erythema extending from left ankle and upward seems to be reduced compared to yesterday and not hot to touch.. - Neurological Exam Neurological exam: Present: CN II-XII intact, oriented X3, no focal deficits. Absent: pronater drift, facial droop, speech deficit - Skin Skin exam: Present: dry, intact, warm Internal Medicine: Result - Labs CBC & Chem 7: 09/27/16 03:27 09/27/16 03:27 Labs: Short CBC 09/27/16 Range/Units 03:27 WBC 7.4 (4.3-11.1) K/mcL Hgb 10.4 L (12.9-16.9) g/dL Hct 34.9 L (37.5-50.1) % Plt Count 316 (140-400) K/mcL Neutrophils # 5.8 (1.6-8.9) K/mcL BMP 09/27/16 03:27 Sodium 141 Potassium 4.3 Chloride 97 L Carbon Dioxide 34 H BUN 29 H Creatinine 0.90 Glucose 223 H Calcium 9.6 - ABG Interpretation ABG results: ABG ABG pH 7.49 pH Units (7.32-7.45) H 09/22/16 22:30 ABG pCO2 61 mmHg (35-45) H 09/22/16 22:30 ABG pO2 64 mmHg (85-104) L 09/22/16 22:30 ABG O2 Saturation 94 % (95-98) L 09/22/16 22:30 Consult Discharge Plan - Plan Additional Instructions: Dr. De La Vega's office is located in the Medical Office Building. [address] Referrals: Lavinia Guerra MD [Primary Care Provider] - Brayden De La Vega DO [Partnered Physician] - 10/11/16 11:20 am (Rheumatolgy) <Jin Badillo - Last Filed: 09/27/16 13:47> Date of Encounter: 09/27/16 - Constitutional Vitals: Temp Pulse Resp BP Pulse Ox 97.3 F L 72 18 137/88 94 09/27/16 12:10 09/27/16 12:10 09/27/16 10:22 09/27/16 12:10 09/27/16 10:22 Internal Medicine: Result - Labs CBC & Chem 7: 09/27/16 03:27 09/27/16 03:27 Labs: Short CBC 09/27/16 Range/Units 03:27 WBC 7.4 (4.3-11.1) K/mcL Hgb 10.4 L (12.9-16.9) g/dL Hct 34.9 L (37.5-50.1) % Plt Count 316 (140-400) K/mcL Neutrophils # 5.8 (1.6-8.9) K/mcL BMP 09/27/16 03:27 Sodium 141 Potassium 4.3 Chloride 97 L Carbon Dioxide 34 H BUN 29 H Creatinine 0.90 Glucose 223 H Calcium 9.6 - ABG Interpretation ABG results: ABG ABG pH 7.49 pH Units (7.32-7.45) H 09/22/16 22:30 ABG pCO2 61 mmHg (35-45) H 09/22/16 22:30 ABG pO2 64 mmHg (85-104) L 09/22/16 22:30 ABG O2 Saturation 94 % (95-98) L 09/22/16 22:30 - Attending Attestation I examined this patient and my medical decision-making was reviewed with the AD TAKER/PA/Advanced Practice Nurse/Resident Physician. I agree with the documented findings, disposition and treatment plan as described except to the extent set forth below.
[2016-09-28] MEDS: Ipratropium/Albuterol Neb 3 ML IH SCH ×4 (03:19→22:38)
[2016-09-28 04:46] LABS: Basophils % 0.5 %; Eosinophils % 0.4 %; Hematocrit 35.3 % (37.5-50.1); Hemoglobin 10.5 g/dL (12.9-16.9); Immature Granulocytes % 2.5 % (0-4); Lymphocytes % 12.3 %; Mean Corpuscular HGB Conc 29.7 g/dL (31.6-35.5); Mean Corpuscular Hemoglobin 27.4 pg (28.0-33.3); Mean Corpuscular Volume 92.2 fL (83.0-100.0); Mean Platelet Volume 11.1 fL (9.4-12.4); Monocytes # 0.4 K/mcL (0.0-1.3); Monocytes % 4.4 %; Neutrophils # 6.3 K/mcL (1.6-8.9); Nucleated Red Blood Cells 0.5 /100 WBC (0); Platelet Count 345 K/mcL (140-400); Red Blood Count 3.83 M/mcL (4.19-5.50); Red Cell Distribution Width 18.1 % (11.5-14.5); Segmented Neutrophils % 79.9 %
[2016-09-28] MEDS: *HR* Heparin 5,000 UNIT/ML VIAL SQ SCH ×2 (05:23→17:07)
[2016-09-28] MEDS: *HR* OxyCODONE Immed Rel 5 MG TABLET PO PRN ×3 (05:23→17:06)
[2016-09-28] MEDS: Insulin DETEMIR 100 UNIT/ML X5UNITS SQ SCH ×3 (05:31→22:24)
[2016-09-28] MEDS: Insulin LISPRO 300 UNITS/3 ML VIAL SQ SCH ×8 (05:31→22:21)
[2016-09-28] MEDS: Isosorbide MONOnitrate (24 HR) 30 MG TAB.ER.24H PO SCH (07:47)
[2016-09-28] MEDS: Diltiazem CD (24hr) 120 MG CAPSULE PO SCH (07:47)
[2016-09-28] MEDS: Gabapentin 300 MG CAPSULE PO SCH ×3 (07:47→21:28)
[2016-09-28] MEDS: Aspirin Enteric Coated 81 MG Tablet PO SCH (07:47)
[2016-09-28] MEDS: Magnesium Oxide 400 MG TABLET PO SCH ×2 (07:47→21:28)
[2016-09-28] MEDS: predniSONE 20 MG TABLET PO SCH (07:47)
[2016-09-28] MEDS: Colchicine 0.6 MG TABLET PO SCH ×2 (07:47→21:26)
[2016-09-28] MEDS: Furosemide 40 MG/4 ML VIAL IVP SCH (07:48)
[2016-09-28] MEDS: Budesonide/Formoterol 160/4.5 MDI IH SCH ×2 (10:16→22:38)
--- NOTE | 2016-09-28 12:31 | Internal Med Progress Note ---
Date of Encounter: 09/28/16 Time of Encounter: 12:29 - Assessment and plan (1) Gout attack Current Visit: Yes Status: Acute Assessment and plan: - With polyarthritis, low-grade fever and worsening leukocytosis. - Infectious diseases consulted and think it's more likely gout attack than infection. - Patient has serum uric acid 15.8 on 08/23/16 and 8.0 on 09/23/16. Per rheumatology, a slightly elevated to normal uric acid can be seen in acute gout attack. - Continue allopurinol and cochicine. - Patient seems to have good response on steroid. Per rheumatology recommendation, will continue prednisone 40 mg PO daily one more day and then switch to taper dose. - ID on board. IV vancomycin and Zosyn were discontinued on 09/25 due to very low index of suspicion for infectious etiology with urine culture negative and blood cultures NGTD. - Continue to monitor. 09/28/2016 Patient feels much better as compared to yesterday. Patient claims that joint pains are much less severe as compared to last 2-3 days. Noted that dermatology has signed off. We will continue present treatment for his gout attack. Patient will go for rehabilitation likely in next 1-2 days at [facility]. Qualifiers: Gout site: multiple sites Gout etiology: unspecified cause Qualified Code (s): M10.9 - Gout, unspecified (2) Inflammatory arthritis Current Visit: Yes Status: Acute Assessment and plan: - Polyarthritis affecting left upper extremity, bilateral knee and possible neck and back. - Likely secondary to goat given known history of gout and uric acid 8.0 on 09/23. - Elevated ESR and CRP. - Continue allopurinol and chochicine. - Arthrocentesis of left elbow was attempted but cannot obtain any fluid. - Patient seems to have good response on steroid. Will continue prednisone. - Continue to monitor. 09/28/2016 Infectious disease on the board. We will follow the recommendation. (3) Atrial fibrillation Current Visit: Yes Status: Chronic Assessment and plan: - Still in A-fib but rate controlled. - Not on on anticoagulation at home given history of GI bleed while on Coumadin or Xarelto. - Continue rate control with Cardizem. - Continue to monitor with telemetry. Qualifiers: Atrial fibrillation type: permanent Qualified Code(s): I48.2 - Chronic atrial fibrillation - Subjective Interval history: Seen and examined. Chart reviewed. Patient is comfortably sitting in a chair. Patient still has a swelling, redness, inability to move his left lower extremity. Patient has a redness at his left ankle. Patient claims that the redness is getting better as compared to yesterday. - Constitutional Vitals: Temp Pulse Resp BP Pulse Ox 97.6 F 76 16 151/81 98 09/28/16 07:12 09/28/16 07:12 09/28/16 10:16 09/28/16 07:12 09/28/16 10:16 General appearance: Present: cooperative, A&O X 3, no acute distress, answers questions appropriately - Head Head exam: Present: atraumatic, normocephalic - Eye Eye exam: Present: PERRL, conjuntiva pink, sclera anicteric Pupils: Present: PERRL - Neck Neck exam general surgery: Present: supple, trachea midline. Absent: lymphadenopathy - Respiratory Respiratory exam: Present: CTAB. Absent: accessory muscle use, rales, rhonchi, wheezes - Cardiovascular Cardiovascular exam: Present: RRR, +S1, +S2. Absent: diastolic murmur, gallop, rubs, systolic murmur - GI/Abdominal GI/Abdominal exam: Present: normal bowel sounds, soft, no peritoneal signs. Absent: distended, tenderness - Extremities Exam Extremities exam: Present: warm, radial pulses palpable and symetrical. Absent : calf tenderness, cyanotic, pedal edema - Neurological Exam Neurological exam: Present: CN II-XII intact, oriented X3, no focal deficits. Absent: pronater drift, facial droop, speech deficit - Skin Skin exam: Present: dry, intact Internal Medicine: Result - Labs CBC & Chem 7: 09/28/16 03:52 09/27/16 03:27 Labs: Short CBC 09/28/16 Range/Units 03:52 WBC 7.9 (4.3-11.1) K/mcL Hgb 10.5 L (12.9-16.9) g/dL Hct 35.3 L (37.5-50.1) % Plt Count 345 (140-400) K/mcL Neutrophils # 6.3 (1.6-8.9) K/mcL - ABG Interpretation ABG results: ABG ABG pH 7.49 pH Units (7.32-7.45) H 09/22/16 22:30 ABG pCO2 61 mmHg (35-45) H 09/22/16 22:30 ABG pO2 64 mmHg (85-104) L 09/22/16 22:30 ABG O2 Saturation 94 % (95-98) L 09/22/16 22:30 Consult Discharge Plan - Plan Additional Instructions: Dr. De La Vega's office is located in the Medical Office Building. [address] Referrals: Lavinia Guerra MD [Primary Care Provider] - Brayden De La Vega DO [Partnered Physician] - 10/11/16 11:20 am (Rheumatolgy)
[2016-09-28] MEDS: *HR* Morphine 2 MG/ML SYRINGE IVP PRN (14:43)
[2016-09-28 16:25] LABS: QuantiFERON Mitogen minus NIL 1.49 IU/mL; QuantiFERON-TB minus NIL 0.02 IU/mL (0.00-0.34)
[2016-09-29] MEDS: Ipratropium/Albuterol Neb 3 ML IH SCH ×4 (04:34→22:23)
[2016-09-29] MEDS: *HR* Heparin 5,000 UNIT/ML VIAL SQ SCH ×2 (06:13→16:44)
[2016-09-29 07:29] LABS: QuantiFERON NIL 0.01 IU/mL; QuantiFERON-TB Gold In-Tube NEGATIVE (Negative)
[2016-09-29] MEDS: Insulin DETEMIR 100 UNIT/ML X5UNITS SQ SCH ×2 (08:27→21:31)
[2016-09-29] MEDS: Magnesium Oxide 400 MG TABLET PO SCH ×2 (08:28→21:31)
[2016-09-29] MEDS: predniSONE 20 MG TABLET PO SCH (08:28)
[2016-09-29] MEDS: Aspirin Enteric Coated 81 MG Tablet PO SCH (08:28)
[2016-09-29] MEDS: *HR* OxyCODONE Immed Rel 5 MG TABLET PO PRN ×3 (08:28→21:42)
[2016-09-29] MEDS: Gabapentin 300 MG CAPSULE PO SCH ×3 (08:28→21:32)
[2016-09-29] MEDS: Colchicine 0.6 MG TABLET PO SCH ×2 (08:28→21:30)
[2016-09-29] MEDS: Isosorbide MONOnitrate (24 HR) 30 MG TAB.ER.24H PO SCH (08:28)
[2016-09-29] MEDS: Diltiazem CD (24hr) 120 MG CAPSULE PO SCH (08:29)
[2016-09-29] MEDS: Furosemide 40 MG/4 ML VIAL IVP SCH (08:29)
[2016-09-29] MEDS: Insulin LISPRO 300 UNITS/3 ML VIAL SQ SCH ×7 (08:32→21:33)
[2016-09-29] MEDS: Budesonide/Formoterol 160/4.5 MDI IH SCH ×2 (10:04→22:23)
--- NOTE | 2016-09-29 15:45 | Internal Med Progress Note ---
Date of Encounter: 09/29/16 Time of Encounter: 15:32 - Assessment and plan (1) Gout attack Current Visit: Yes Status: Acute Assessment and plan: - With polyarthritis, low-grade fever and worsening leukocytosis. - Infectious diseases consulted and think it's more likely gout attack than infection. - Patient has serum uric acid 15.8 on 08/23/16 and 8.0 on 09/23/16. Per rheumatology, a slightly elevated to normal uric acid can be seen in acute gout attack. - Continue allopurinol and cochicine. - Patient seems to have good response on steroid. Per rheumatology recommendation, will continue prednisone 40 mg PO daily one more day and then switch to taper dose. - ID on board. IV vancomycin and Zosyn were discontinued on 09/25 due to very low index of suspicion for infectious etiology with urine culture negative and blood cultures NGTD. - Continue to monitor. 09/28/2016 Patient feels much better as compared to yesterday. Patient claims that joint pains are much less severe as compared to last 2-3 days. Noted that dermatology has signed off. We will continue present treatment for his gout attack. Patient will go for rehabilitation likely in next 1-2 days at [facility]. 09/29/2016 Patient is feeling much better as compared to yesterday. His left leg swelling has improved a lot. Redness over left lower extremity has been improved. Transfer to rehabilitation tomorrow Qualifiers: Gout site: multiple sites Gout etiology: unspecified cause Qualified Code (s): M10.9 - Gout, unspecified (2) Inflammatory arthritis Current Visit: Yes Status: Acute Assessment and plan: - Polyarthritis affecting left upper extremity, bilateral knee and possible neck and back. - Likely secondary to goat given known history of gout and uric acid 8.0 on 09/23. - Elevated ESR and CRP. - Continue allopurinol and chochicine. - Arthrocentesis of left elbow was attempted but cannot obtain any fluid. - Patient seems to have good response on steroid. Will continue prednisone. - Continue to monitor. 09/28/2016 Infectious disease on the board. We will follow the recommendation. (3) Atrial fibrillation Current Visit: Yes Status: Chronic Assessment and plan: - Still in A-fib but rate controlled. - Not on on anticoagulation at home given history of GI bleed while on Coumadin or Xarelto. - Continue rate control with Cardizem. - Continue to monitor with telemetry. Qualifiers: Atrial fibrillation type: permanent Qualified Code(s): I48.2 - Chronic atrial fibrillation - Subjective Interval history: Seen and examined. Chart reviewed. Patient is comfortably sitting in a chair. Patient still has a swelling, redness, inability to move his left lower extremity. Patient has a redness at his left ankle. Patient claims that the redness is getting better as compared to yesterday. 09/29/2016 Seen and examined. Chart reviewed. Patient is comfortably lying in the bed. The left leg swelling is much better as compared to yesterday. The redness is getting better. Likely transfer to rehabilitation tomorrow - Constitutional Vitals: Temp Pulse Resp BP Pulse Ox 97.8 F 66 16 157/81 97 09/29/16 07:22 09/29/16 07:22 09/29/16 10:04 09/29/16 07:22 09/29/16 10:04 General appearance: Present: cooperative, A&O X 3, no acute distress, answers questions appropriately - Head Head exam: Present: atraumatic, normocephalic - Eye Eye exam: Present: PERRL, conjuntiva pink, sclera anicteric Pupils: Present: PERRL - Neck Neck exam general surgery: Present: supple, trachea midline. Absent: lymphadenopathy - Respiratory Respiratory exam: Present: CTAB. Absent: accessory muscle use, rales, rhonchi, wheezes - Cardiovascular Cardiovascular exam: Present: RRR, +S1, +S2. Absent: diastolic murmur, gallop, rubs, systolic murmur - GI/Abdominal GI/Abdominal exam: Present: normal bowel sounds, soft, no peritoneal signs. Absent: distended, tenderness - Extremities Exam Extremities exam: Present: warm, radial pulses palpable and symetrical. Absent : calf tenderness, cyanotic, pedal edema - Neurological Exam Neurological exam: Present: CN II-XII intact, oriented X3, no focal deficits. Absent: pronater drift, facial droop, speech deficit - Skin Skin exam: Present: dry, intact Internal Medicine: Result - Labs CBC & Chem 7: 09/28/16 03:52 09/27/16 03:27 - ABG Interpretation ABG results: ABG ABG pH 7.49 pH Units (7.32-7.45) H 09/22/16 22:30 ABG pCO2 61 mmHg (35-45) H 09/22/16 22:30 ABG pO2 64 mmHg (85-104) L 09/22/16 22:30 ABG O2 Saturation 94 % (95-98) L 09/22/16 22:30 - VTE Documentation of Mechanical Device: Graduated compression elastic hosiery Consult Discharge Plan - Plan Additional Instructions: Dr. De La Vega's office is located in the Medical Office Building. [address] Referrals: Lavinia Guerra MD [Primary Care Provider] - Brayden De La Vega DO [Partnered Physician] - 10/11/16 11:20 am (Rheumatolgy)
[2016-09-30] MEDS: Ipratropium/Albuterol Neb 3 ML IH SCH ×2 (04:24→10:14)
[2016-09-30] MEDS: *HR* Heparin 5,000 UNIT/ML VIAL SQ SCH (05:59)
[2016-09-30 06:09] LABS: Basophils % 0.4 %; Eosinophils % 0.4 %; Hematocrit 37.1 % (37.5-50.1); Immature Granulocytes % 2.6 % (0-4); Lymphocytes # 1.3 K/mcL (0.6-4.6); Lymphocytes % 18.9 %; Mean Corpuscular HGB Conc 29.6 g/dL (31.6-35.5); Mean Corpuscular Volume 91.2 fL (83.0-100.0); Mean Platelet Volume 10.8 fL (9.4-12.4); Monocytes # 0.4 K/mcL (0.0-1.3); Monocytes % 5.5 %; Neutrophils # 5.1 K/mcL (1.6-8.9); Nucleated Red Blood Cells 0.3 /100 WBC (0); Platelet Count 316 K/mcL (140-400); Red Blood Count 4.07 M/mcL (4.19-5.50); Red Cell Distribution Width 17.6 % (11.5-14.5); Segmented Neutrophils % 72.2 %
[2016-09-30 06:31] LABS: Alanine Aminotransferase 82 Units/L (0-55); Albumin/Globulin Ratio 0.8 (1.1-2.2); Alkaline Phosphatase 154 Units/L (38-126); Aspartate Amino Transferase 67 Units/L (5-34); BUN/Creatinine Ratio 26 (6-26); Bilirubin,Total 0.6 mg/dL (0.2-1.2); Blood Urea Nitrogen 27 mg/dL (8-26); Calcium 9.6 mg/dL (8.6-10.8); Carbon Dioxide 32 mEq/L (19-29); Chloride 99 mEq/L (98-109); Globulin 3.7 g/dL (2.4-3.5); Glucose 191 mg/dL (70-99); Osmolality,Calculated 306 (280-300); Potassium 4.4 mEq/L (3.5-4.5); Sodium 143 mEq/L (136-145); Total Protein 6.7 g/dL (6.0-8.3); eGFR For African Americans > 60 (> 60); eGFR For Non-African Americans > 60 (> 60)
[2016-09-30 07:24] VITALS: BP 146/89
[2016-09-30] MEDS: Gabapentin 300 MG CAPSULE PO SCH (09:03)
[2016-09-30] MEDS: Colchicine 0.6 MG TABLET PO SCH (09:03)
[2016-09-30] MEDS: *HR* OxyCODONE Immed Rel 5 MG TABLET PO PRN ×2 (09:03→13:42)
[2016-09-30] MEDS: Diltiazem CD (24hr) 120 MG CAPSULE PO SCH (09:03)
[2016-09-30] MEDS: Magnesium Oxide 400 MG TABLET PO SCH (09:03)
[2016-09-30] MEDS: Aspirin Enteric Coated 81 MG Tablet PO SCH (09:03)
[2016-09-30] MEDS: Isosorbide MONOnitrate (24 HR) 30 MG TAB.ER.24H PO SCH (09:03)
[2016-09-30] MEDS: Furosemide 40 MG/4 ML VIAL IVP SCH (09:04)
[2016-09-30] MEDS: predniSONE 20 MG TABLET PO SCH (09:04)
[2016-09-30] MEDS: Insulin DETEMIR 100 UNIT/ML X5UNITS SQ SCH (09:04)
[2016-09-30] MEDS: Insulin LISPRO 300 UNITS/3 ML VIAL SQ SCH ×4 (09:04→12:26)
[2016-09-30] MEDS: Budesonide/Formoterol 160/4.5 MDI IH SCH (10:14)
--- NOTE | 2016-09-30 10:49 | Discharge Summary ---
<Yo Phillip - Last Filed: 09/30/16 17:28> Date of Encounter: 09/30/16 Time of Encounter: 09:30 - Discharge Diagnosis (1) Gout attack Priority: Primary Status: Acute Qualifiers: Gout site: multiple sites Gout etiology: unspecified cause Qualified Code (s): M10.9 - Gout, unspecified (2) Inflammatory arthritis Priority: Secondary Status: Acute (3) CHF exacerbation Priority: Secondary Status: Acute Qualifiers: Congestive heart failure type: diastolic Qualified Code(s): I50.33 - Acute on chronic diastolic (congestive) heart failure (4) Atrial fibrillation Priority: Secondary Status: Chronic Qualifiers: Atrial fibrillation type: permanent Qualified Code(s): I48.2 - Chronic atrial fibrillation (5) 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 transplanted heart: [place] heart Associated angina: without angina Qualified Code(s): I25.10 - Atherosclerotic heart disease of [place] coronary artery without angina pectoris - Discharge Medications Prescriptions: Allopurinol [Zyloprim 100 MG] 100 mg PO DAILY #30 tablet Colchicine [Colcrys] 0.6 mg PO BID #30 tablet OxyCODONE Immed Rel [Roxicodone 5 MG] 5 mg PO Q4H PRN #18 tablet PRN Reason: moderate or severe pain predniSONE [PredniSONE] See Taper PO TAPER #9 tablet Home Medications: Insulin Human Regular [HumuLIN R] 40 unit SQ 0800,1700 #0 MDD With Breakfast and Dinner 09/05/15 [History] Isosorbide MONOnitrate (24 HR) [Imdur] 30 mg PO DAILY #0 09/05/15 [History] Ferrous Sulfate [Iron Supplement] 325 mg PO TID 12/18/15 [History] Aspirin [Lo-Dose Aspirin EC] 81 mg PO DAILY 03/15/16 [History] Insulin NPH/REG 70/30 [HumuLIN 70/30 VIAL] 80 unit SQ BIDWM 03/15/16 [History] Budesonide/Formoterol 160/4.5 [Symbicort 160/4.5] 2 puff IH BIDR 05/10/16 [ History] Diltiazem CD (24hr) [Cardizem CD] 120 mg PO DAILY 05/10/16 [History] Gabapentin [Neurontin] 300 mg PO TID PRN 05/10/16 [History] Metoprolol [Lopressor] 50 mg PO BID 05/10/16 [History] Nitroglycerin [Nitrostat] 0.4 mg SL Q5M PRN 05/10/16 [History] Pantoprazole Sodium [Protonix] 40 mg PO DAILY 05/10/16 [History] Potassium Chloride [K-Tab ER] 20 meq PO TID 05/10/16 [History] glipiZIDE [Glipizide] 10 mg PO DAILY 05/10/16 [History] metFORMIN [Glucophage] 500 mg PO BIDWM 05/10/16 [History] metOLazone [Metolazone] 10 mg PO DAILY 05/10/16 [History] Buspirone HCl [Buspar] 10 mg PO BID 07/30/16 [History] Montelukast Sodium [Singulair] 10 mg PO HS 07/30/16 [History] Oxygen 4 l .ROUTE AD 09/11/16 [History] Atorvastatin [Lipitor] 80 mg PO HS tablet 09/14/16 [Rx] Lisinopril [Zestril] 2.5 mg PO DAILY 09/21/16 [History] Albuterol Sulfate [Albuterol Inhaler] 2 puff IH Q4H 09/22/16 [History] Ipratropium/Albuterol Neb [Duoneb] 3 ml IH Q4HR PRN 09/22/16 [History] Allopurinol [Zyloprim 100 MG] 100 mg PO DAILY #30 tablet 09/30/16 [Rx] Colchicine [Colcrys] 0.6 mg PO BID #30 tablet 09/30/16 [Rx] Furosemide [Lasix] 80 mg PO TID 09/30/16 [History] Insulin LISPRO [HumaLOG] 10 units SQ TIDWM 09/30/16 [History] OxyCODONE Immed Rel [Roxicodone 5 MG] 5 mg PO Q4H PRN #18 tablet 09/30/16 [Rx] predniSONE [PredniSONE] See Taper PO TAPER #9 tablet 09/30/16 [Rx] predniSONE [PredniSONE] 20 mg PO DAILY tablet 10/02/16 [Rx] predniSONE [PredniSONE] 20 mg PO DAILY tablet 10/02/16 [Rx] Allergies/Adverse Reactions: Allergies No Known Allergies Allergy (Verified 09/30/16 17:05) Date of admission: 09/22/16 04:50 Primary care physician: Lavinia Guerra, Consults: 09/22/16 07:27 Consult to Machinery Erector [CONS] Routine Reason for SW Consult: family no longer able to care for him at home and financial concerns 09/23/16 11:50 Consult to Infectious Diseases [CONS] Routine Consulting Provider: Infectious Disease [place] Reason for Consult: Worsening joint erythema and swelling or LUE and right knee. Also c/o neck stiffness. Fever overnight with increased WBC. Appreciate ID evaluation and recommendations. Call Completed: Yes 09/23/16 12:00 Consult to Physician [CONS] Routine Consulting Provider: Brayden De La Vega Reason for Consult: Worsening LUE and right knee arthritis despite of colchicine. Pt also c/o neck stiffness. Pt w/ fever and leukocytosis. Elevated ESR and CRP. Concern of underlying autoimmune process. Appreciate rhemuatology evaluation and recommendations. Call Completed: Yes 09/25/16 09:52 Consult to Occupational Therapy [CONS] Routine Comment: Evaluate, develop and implement POC Reason for Consult: [facility] needs to approve Consult to Physical Therapy [CONS] Routine Comment: Evaluate, develop and implement POC Reason for Consult: [facility] needs to approve placement. Discharging clinician: Yo Phillip Anticipated date of discharge: 09/30/16 - Patient Status Disposition: Transfer Inpatient Rehab Fac Condition: Fair Functional capacity at discharge: uses cane/walker Overall status at discharge: patient is progressing back to baseline - Discharge Instructions Follow Up With: Brayden De La Vega DO [Partnered Physician] - 10/11/16 11:20 am (Rheumatolgy) Lavinia Guerra MD [Primary Care Provider] - (Within a week) Additional Instructions: Please continue prescribed allopurinol 100 mg by mouth daily and colchicine 0.6 mg by mouth twice a day. Please finish prednisone laurie: 20 mg by mouth daily for 3 days followed by 10 mg by mouth daily for 3 days. Okay to use oxycodone immediate release 5 mg every 4 hours as needed for moderate or severe pain (18 pills prescribed, no refill). Please follow up with Dr. De La Vega of rheumatology at 11:20 am on 10/11/16. Dr. De La Vega's office is located in the Medical Office Building. [address]. Please follow up with your primary care physician Dr. Guerra within a week regarding your hospitalization. Please come back to emergency room if you develop acute onset of fever, significant erythema or joint pain. - Diet and Activity Activity: as per physical therapy Diet: diabetic diet, low fat, low cholesterol, low salt diet Hospital course: Mr. Hill is a 66 year old male with PMH of CHF, COPD, CAD, A-fib, HTN, DM, hyperlipidemia and history of gout. Patient was recently hospitalized for CHF exacerbation and his PCP switched him from Lasix to Torsemide, which it's not as effective as Lasix per patient. Patient presented with complaint of 3-day history of worsening pain and swelling of left upper extremities along with worsening leg swelling. Patient was admitted on 09/22/16 for further work-up and management of upper extremity edema. Bilateral upper and lower extremities venous US and chest CTA found evidence of DVT/PE. Patient was noted to have fever 100.8 at midnight of 09/23/16 with WBC increased from 12.8 to 13.6 and worsening arthritis affecting multiple joints including left elbow, left wrist, left hand and bilateral knees. Urine and blood cultures were collected and patient was started on IV vancomycin and Zosyn. For the concern of septic joints , infectious disease was consulted and thinks low suspicion on infectious etiology as it's most likely gout attack. Rheumatology agrees with that and started patient on prednisone 40 mg PO daily while continuing allopurinol and colchicine. Arthrocentesis of left wrist and left elbow were attempted but no fluid was obtained. Patient's polyarthritis significantly improves with prednisone and IV antibiotics were discontinued on 09/25/16 as no growth on urine and blood cultures . Patient's respiratory status and polyarthritis continue to improve during his hospital stay. On 09/30/16, patient's polyarthritis had almost completely resolved. Given patient's clinical improvement and remains hemodynamically stable, patient will be discharged to [facility] as recommended by PT/OT. Patient is instructed tofinish prednisone laurie (20 mg PO daily for 3 days followed by 10 mg PO daily for 3 days) while continuing prescribed allopurinol 100 mg PO daily and colchicine 0.6 mg PO BID. Patient can use prescribed oxycodone immediate release 5 mg every 4 hours as needed for moderate or severe pain (18 pills prescribed, no refill). Patient will follow up with Dr. De La Vega of rheumatology at 11:20 am on 10/11/16. Patient is instructed to follow up with his PCP Dr. Guerra within a week regarding his hospitalization. - Time Spent with Patient Total time spent providing and/or coordinating discharge services: Greater than 30 minutes - Constitutional Vitals: Temp Pulse Resp BP Pulse Ox 97.6 F 63 19 146/89 96 09/30/16 04:52 09/30/16 07:00 09/30/16 07:00 09/30/16 07:00 09/30/16 07:00 General appearance: Present: cooperative, A&O X 3, no acute distress, answers questions appropriately - Head Head exam: Present: atraumatic, normocephalic - Eye Eye exam: Present: EOMI, PERRL, conjuntiva pink, sclera anicteric - Neck Neck exam general surgery: Present: supple, trachea midline. Absent: lymphadenopathy - Respiratory Respiratory exam: Present: CTAB. Absent: accessory muscle use, rales, rhonchi, wheezes - Cardiovascular Cardiovascular exam: Present: RRR, +S1, +S2. Absent: diastolic murmur, gallop, rubs, systolic murmur - GI/Abdominal GI/Abdominal exam: Present: normal bowel sounds, soft, no peritoneal signs. Absent: distended, tenderness - Extremities Exam Extremities exam: Present: warm, radial pulses palpable and symetrical. Absent : calf tenderness, cyanotic Additional comments: Left upper extremity: Edema, erythema and tenderness to palpation had almost completely resolved and patient is also able to move his left elbow and wrist with significant pain or difficulty. Bilateral lower extremities: Erythema and edema extending from left ankle and upward seems to be almost resolved and the site is not even warm to touch.. - Neurological Exam Neurological exam: Present: CN II-XII intact, oriented X3, no focal deficits. Absent: pronater drift, facial droop, speech deficit - Skin Skin exam: Present: dry, intact - VTE Documentation of Mechanical Device: Graduated compression elastic hosiery <Jin Badillo P - Last Filed: 10/07/16 17:40> Date of Encounter: 10/07/16 - Discharge Diagnosis (1) Gout attack Status: Acute Qualifiers: Gout site: multiple sites Gout etiology: unspecified cause Qualified Code (s): M10.9 - Gout, unspecified (2) Inflammatory arthritis Status: Acute (3) Atrial fibrillation Status: Chronic Date of admission: 09/22/16 04:50 Primary care physician: Lavinia Guerra, Consults: 09/22/16 07:27 Consult to Machinery Erector [CONS] Routine Reason for SW Consult: family no longer able to care for him at home and financial concerns 09/23/16 11:50 Consult to Infectious Diseases [CONS] Routine Consulting Provider: Infectious Disease [place] Reason for Consult: Worsening joint erythema and swelling or LUE and right knee. Also c/o neck stiffness. Fever overnight with increased WBC. Appreciate ID evaluation and recommendations. Call Completed: Yes 09/23/16 12:00 Consult to Physician [CONS] Routine Consulting Provider: Brayden De La Vega Reason for Consult: Worsening LUE and right knee arthritis despite of colchicine. Pt also c/o neck stiffness. Pt w/ fever and leukocytosis. Elevated ESR and CRP. Concern of underlying autoimmune process. Appreciate rhemuatology evaluation and recommendations. Call Completed: Yes 09/25/16 09:52 Consult to Occupational Therapy [CONS] Routine Comment: Evaluate, develop and implement POC Reason for Consult: [facility] needs to approve Consult to Physical Therapy [CONS] Routine Comment: Evaluate, develop and implement POC Reason for Consult: [facility] needs to approve placement. Hospital course: Mr. Hill is a 66 year old male - Time Spent with Patient Total time spent providing and/or coordinating discharge services: - Constitutional Vitals: Temp Pulse Resp BP Pulse Ox 97.6 F 63 16 146/89 96 09/30/16 04:52 09/30/16 07:00 09/30/16 10:14 09/30/16 07:00 09/30/16 10:14 - Attending Attestation I examined this patient and my medical decision-making was reviewed with the VITAMIN MANAGER/PA/Advanced Practice Nurse/Resident Physician. I agree with the documented findings, disposition and treatment plan as described except to the extent set forth below. Transferred to [facility] for further management.
--- NOTE | 2016-09-30 12:41 | Physician Discharge Referral ---
<Yo Phillip - Last Filed: 09/30/16 12:41> ExtendedCare Referral Info Transfer To: [facility] Provider in Charge after Transfer: PCP Institutional Level of Care: Intermediate - MR - Diagnosis (1) Gout attack Priority: Primary Status: Acute (2) Inflammatory arthritis Priority: Secondary Status: Acute (3) CHF exacerbation Priority: Secondary Status: Acute (4) Atrial fibrillation Priority: Secondary Status: Chronic (5) Asthma with COPD (chronic obstructive pulmonary disease) Priority: Secondary Status: Chronic (6) CAD (coronary artery disease) Priority: Secondary Status: Chronic Prognosis: Fair Aware of Diagnosis: Patient Aware of Prognosis: Patient - Transfer Medications Prescriptions: Allopurinol [Zyloprim 100 MG] 100 mg PO DAILY #30 tablet Colchicine [Colcrys] 0.6 mg PO BID #30 tablet Furosemide [Lasix] 20 mg PO DAILY #30 tablet OxyCODONE Immed Rel [Roxicodone 5 MG] 5 mg PO Q4H PRN #18 tablet PRN Reason: moderate or severe pain predniSONE [PredniSONE] See Taper PO TAPER #9 tablet Home Medications: Insulin Human Regular [HumuLIN R] 40 unit SQ 0800,1700 #0 MDD With Breakfast and Dinner 09/05/15 [History] Isosorbide MONOnitrate (24 HR) [Imdur] 30 mg PO DAILY #0 09/05/15 [History] Ferrous Sulfate [Iron Supplement] 325 mg PO TID 12/18/15 [History] Aspirin [Lo-Dose Aspirin EC] 81 mg PO DAILY 03/15/16 [History] Glucagon,Human Recombinant [Glucagon Emergency Kit] 1 mg SQ DAILY PRN 03/15/16 [ History] Insulin NPH/REG 70/30 [HumuLIN 70/30 VIAL] 80 unit SQ BIDWM 03/15/16 [History] Budesonide/Formoterol 160/4.5 [Symbicort 160/4.5] 2 puff IH BIDR 05/10/16 [ History] Diltiazem CD (24hr) [Cardizem CD] 120 mg PO DAILY 05/10/16 [History] Gabapentin [Neurontin] 300 mg PO TID PRN 05/10/16 [History] Metoprolol [Lopressor] 50 mg PO BID 05/10/16 [History] Nitroglycerin [Nitrostat] 0.4 mg SL Q5M PRN 05/10/16 [History] Pantoprazole Sodium [Protonix] 40 mg PO DAILY 05/10/16 [History] Potassium Chloride [K-Tab ER] 20 meq PO TID 05/10/16 [History] glipiZIDE [Glipizide] 10 mg PO DAILY 05/10/16 [History] metFORMIN [Glucophage] 500 mg PO BIDWM 05/10/16 [History] metOLazone [Metolazone] 10 mg PO DAILY 05/10/16 [History] Buspirone HCl [Buspar] 10 mg PO BID 07/30/16 [History] Montelukast Sodium [Singulair] 10 mg PO HS 07/30/16 [History] Oxygen 3 l .ROUTE AD 09/11/16 [History] Atorvastatin [Lipitor] 80 mg PO HS tablet 09/14/16 [Rx] Lisinopril [Zestril] 2.5 mg PO DAILY 09/21/16 [History] Albuterol Sulfate [Albuterol Inhaler] 2 puff IH Q4H 09/22/16 [History] Ipratropium/Albuterol Neb [Duoneb] 3 ml IH Q4HR PRN 09/22/16 [History] Allopurinol [Zyloprim 100 MG] 100 mg PO DAILY #30 tablet 09/30/16 [Rx] Colchicine [Colcrys] 0.6 mg PO BID #30 tablet 09/30/16 [Rx] Furosemide [Lasix] 20 mg PO DAILY #30 tablet 09/30/16 [Rx] OxyCODONE Immed Rel [Roxicodone 5 MG] 5 mg PO Q4H PRN #18 tablet 09/30/16 [Rx] predniSONE [PredniSONE] See Taper PO TAPER #9 tablet 09/30/16 [Rx] Allergies/Adverse Reactions: Allergies No Known Allergies Allergy (Verified 09/10/16 14:44) - Respiratory Orders Oxygen / L per min (4) Smoking Cessation: Smoking cessation has been advised. For more information, call the [place] Tobacco Quit Line at 9-025-SAXQ-NOW. - Mobility Orders Ambulate (With walker) - Rehabiliation Orders Rehab Potential: Fair Rehab Orders: Evaluation for Physical Therapy, Evaluation for Occupational Therapy - Diet Orders No Concentrated Sweets, Cardiac CERTIFICATION: I certify that the transfer of the above named patient to an Extended Care Facility is necessary for the continuing treatment of the diagnosis listed. The above information is true and accurate reflection of patient's current condition. Confidential - Redisclosure prohibited without a patient's written consent. <Jin Badillo P - Last Filed: 09/30/16 17:04> - Diagnosis (1) Gout attack Status: Acute (2) Inflammatory arthritis Status: Acute (3) Atrial fibrillation Status: Chronic - Respiratory Orders Smoking Cessation: Smoking cessation has been advised. For more information, call the [place] Tobacco Quit Line at 9-321-EDVSNOW. CERTIFICATION: I certify that the transfer of the above named patient to an Extended Care Facility is necessary for the continuing treatment of the diagnosis listed. The above information is true and accurate reflection of patient's current condition. Confidential - Redisclosure prohibited without a patient's written consent.
== END 2016-09-30 15:19 | DRG 871 ==
LOC: 2NENU → SUATTDRO 04:50
PROVIDERS: ADMIT Internal Medicine; ATTEND Internal Medicine

== ENCOUNTER 2016-11-21 20:28 | Inpatient (IN) ==
[2016-11-21] MEDS ORDERED: D5% in Water 1,000 ML IVC PRN (23:03)
[2016-11-21] MEDS ORDERED: Dextrose Gel 15 GM PO PRN ×2 (23:03)
[2016-11-21] MEDS ORDERED: *HR* Dextrose 50 % in Water (Syg) 50 ML SYRINGE IVP PRN (23:03)
--- NOTE | 2016-11-21 23:09 | Internal Med History&Physical ---
<Janis Cam - Last Filed: 11/22/16 00:23> Date of Encounter: 11/22/16 Time of Encounter: 22:55 Assessment and Plan (1) Hypotension Current visit: Yes Status: Inactive Patient was noted to be hypotensive while he was at [place] emergency department and placed on dopamine after 3 L of fluid was bolused. His dopamine has been turned off since he was transported. He is not hypotensive while here. However he does have an GINA. He states decreased urination today. We will continue to monitor his I's and O's strictly and replace his fluid. This likely is due to dehydration as he states he did not eat or drink well for the past couple days. It appears as if the patient has a chronic troponin leak however his troponin is 0.3 which is higher than his normal leak. We will trend this. He is denying any chest pain or shortness of breath at this time. His EKG does not show any signs of acute infarct. Bladder scanner showed around 100 mL of fluid in his bladder. I do not believe his decreased urination is due to an obstruction. Plan: Closely monitor I's and O's Normal saline at 125 mL an hour. Holding colchicine due to GINA. Repeat troponins. Diabetic diet. Continue to monitor patient's blood pressure and heart rate. Sliding scale insulin Continue Symbicort Albuterol every 4 Oxygen at 3 L per home dose. EPCDs due to patient's history of GI bleeding. Protonix for GI prophylaxis. Qualifiers: Hypotension type: unspecified hypotension type Qualified Code(s): I95.9 - Hypotension, unspecified (2) GINA (acute kidney injury) Current visit: Yes Status: Acute Plan as above. (3) Diabetes mellitus Current visit: Yes Status: Chronic Plan as above. 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 Qualifiers: Atrial fibrillation type: persistent Qualified Code(s): I48.1 - Persistent atrial fibrillation (5) COPD (chronic obstructive pulmonary disease) Current visit: Yes Status: Chronic Plan as above. Qualifiers: COPD type: COPD with acute exacerbation Qualified Code(s): J44.1 - Chronic obstructive pulmonary disease with (acute) exacerbation (6) DVT prophylaxis Current visit: Yes Status: Acute Plan as above (7) Gouty arthritis Current visit: Yes Status: Resolved Resolving (8) Elevated troponin Current visit: Yes Status: Inactive Plan as above (9) CHF (congestive heart failure) Current visit: No Status: Chronic Qualifiers: Congestive heart failure type: combined Congestive heart failure chronicity : chronic Qualified Code(s): I50.42 - Chronic combined systolic (congestive) and diastolic (congestive) heart failure (10) CAD (coronary artery disease) Current visit: No Status: Chronic Qualifiers: Coronary Disease-Associated Artery/Lesion type: [place] artery [place] vs. transplanted heart: [place] heart Associated angina: with stable angina Qualified Code(s): I25.118 - Atherosclerotic heart disease of [place] coronary artery with other forms of angina pectoris Internal Medicine - H&P: HPI Admitted From: Intrahospital Transfer Plans for Post Hospital Care: Home History of present illness: Mr. Hill is a 66 year old male is being sent from [place] emergency department for hypotension. He was placed on dopamine after he was given 3 L of fluid and had no response at their facility. The dopamine has been turned off since he was transported. He is not hypotensive at arrival to the emergency department here. Patient is complaining of a 3 day history of generalized weakness that progressively got worse. He states he went to sleep in a chair today and someone will come up around 5. He then went to the emergency department. Patient states that he has felt like this previously but has been several years ago. He does have a history of atrial fibrillation. He takes aspirin and Plavix but is not on any other type of anticoagulation due to a previous GI bleed. He denies any hematemesis hematuria hematochezia or melena. He denies any chest pain shortness of breath or difficulty breathing. However documentation from [place] shows that he was complaining of chest pain while he was there and he was given a nitroglycerin. Patient had an elevated troponin while he was there as well. We are repeating this well he is here. Of note he has a new AK I. His creatinine is greater than. His previous creatinines were ranging from anywhere from 1-2. Patient denies any weakness to one side of his body or the other. He states he was just generally weak. He also states he had some blurry vision. He denies any headaches or trouble with his peripheral vision. He is neurologically intact at this time. He is mentating appropriately. He is a diabetic and does have a history of coronary artery disease with stent placement. He states that although he is compliant with his medication as well as his diabetic diet his blood sugars do stay high sometimes. He states he has been treated for gout recently and does complain of some bilateral foot pain but he states this is resolving. He states that his urine output has been decreased today. He states that he was so tired and weak earlier that he took a nap and had not eaten all day. We will feed and hydrate patient while here. Does have a history of CHF so we will continue to monitor his lung sounds. Past Med Surg Social Fam HX - Past Medical History Medical history: arthritis, atrial fibrillation, CHF, COPD, coronary artery disease, diabetes, GERD, GI bleed, hyperlipidemia, hypertension, myocardial infarction, osteoporosis, venous stasis, valvular heart disease, other Psychiatric history: anxiety, depression - Past Surgical History Surgical History: angioplasty/stent, cataract, herniorrhaphy, knee replacement, other - Social History Smoking Status: Never smoker Smokeless Tobacco Status: No Alcohol use: none Drug use: none - Family History Sister Living Status: Still Living Mother Living Status: Still Living Hx Family Cardiac Disorders: Yes (htn,cad, lipid) Hx Family Neurologic Disorders: Yes (alzheimers) Father Living Status: Hx Family Cardiac Disorders: Yes (cad) Hx Family Respiratory Disorders: Yes Hx Family Cancer: Yes (colon) Hx Family GI Disorders: Yes Hx Family Endocrine Disorder: No Internal Medicine - H&P: Meds Insulin Human Regular [HumuLIN R] 40 unit SQ 0800,1700 #0 MDD With Breakfast and Dinner 09/05/15 [History] Isosorbide MONOnitrate (24 HR) [Imdur] 30 mg PO DAILY #0 09/05/15 [History] Ferrous Sulfate [Iron Supplement] 325 mg PO TID 12/18/15 [History] Aspirin [Lo-Dose Aspirin EC] 81 mg PO DAILY 03/15/16 [History] Insulin NPH/REG 70/30 [HumuLIN 70/30 VIAL] 80 unit SQ BIDWM 03/15/16 [History] Budesonide/Formoterol 160/4.5 [Symbicort 160/4.5] 2 puff IH BIDR 05/10/16 [ History] Diltiazem CD (24hr) [Cardizem CD] 120 mg PO DAILY 05/10/16 [History] Metoprolol [Lopressor] 50 mg PO BID 05/10/16 [History] Nitroglycerin [Nitrostat] 0.4 mg SL Q5M PRN 05/10/16 [History] Pantoprazole Sodium [Protonix] 40 mg PO DAILY 05/10/16 [History] Potassium Chloride [K-Tab ER] 20 meq PO TID 05/10/16 [History] glipiZIDE [Glipizide] 10 mg PO DAILY 05/10/16 [History] metFORMIN [Glucophage] 500 mg PO BIDWM 05/10/16 [History] metOLazone [Metolazone] 10 mg PO DAILY 05/10/16 [History] Buspirone HCl [Buspar] 10 mg PO BID 07/30/16 [History] Oxygen 3 l .ROUTE AD 09/11/16 [History] Atorvastatin [Lipitor] 80 mg PO HS tablet 09/14/16 [Rx] Lisinopril [Zestril] 2.5 mg PO DAILY 09/21/16 [History] Albuterol Sulfate [Albuterol Inhaler] 2 puff IH Q4H 09/22/16 [History] Ipratropium/Albuterol Neb [Duoneb] 3 ml IH Q4HR PRN 09/22/16 [History] Insulin LISPRO [HumaLOG] 10 units SQ TIDWM 09/30/16 [History] Furosemide [Lasix] 80 mg PO TID 11/01/16 [History] Acetaminophen [Tylenol] 500 mg PO Q6HR PRN #0 tablet 11/06/16 [Rx] Allopurinol [Zyloprim 100 MG] 100 mg PO DAILY #30 tablet 11/06/16 [Rx] Colchicine [Colcrys] 0.6 mg PO BID #60 tablet 11/06/16 [Rx] Gabapentin [Neurontin] 200 mg PO TID #60 capsule 11/06/16 [Rx] OxyCODONE Immed Rel [Roxicodone 5 MG] 5 mg PO Q4H PRN #18 tablet 11/06/16 [Rx] predniSONE [PredniSONE] 10 mg PO DAILY #50 tablet 11/06/16 [Rx] Allergies No Known Allergies Allergy (Verified 11/21/16 19:20) All Systems PM: A 10-system review of systems was performed and is negative for pertinent findings except as documented above in the HPI. - Constitutional Constitutional: weakness (For the past 3 days. Progressively getting worse.), weight loss (Patient states a weight loss over the past 3 months because he has been in and out of the hospital. He states this has been due to his gout.), no chills, no fever(s), no falls - EENT Eyes: blurry vision (At a distance.), no diplopia, no loss of peripheral vision , no loss of vision, no seeing flashes, no spots in vision, no tunnel vision - Cardiovascular Cardiovascular ROS IM: irregular heart rhythm (Chronic), lightheadedness (For the past 3 days progressively got worse today.), no chest pain, no diaphoresis, no dyspnea, no dyspnea on exertion, no edema, no syncope - Respiratory Respiratory: no cough, no dyspnea, no pain on inspiration, no chest congestion, no excessive phlegm production, no change in phlegm color - Gastrointestinal Gastrointestinal: no abdominal pain, no change in stool character, no coffee ground emesis, no constipation, no cramping, no diarrhea, no fecal incontinence , no hematemesis, no hematochezia, no melena, no nausea, no vomiting - Genitourinary Genitourinary ROS male: urinary frequency (Decreased today.), no dysuria, no genital pain, no hematuria, no testicular pain, no urinary incontinence, no urinary urgency - Musculoskeletal Musculoskeletal ROS IM: other (Bilateral foot pain. Consistent with his gout.) - Integumentary Integumentary IM: no erythema, no rash - Neurological Neurological ROS: weakness, no abnormal gait, no abnormal speech, no confusion, no convulsions, no dizziness, no frequent falls, no headache(s), no loss of vision, no memory loss - Constitutional General appearance: Present: cooperative, A&O X 3, pleasant, no acute distress, answers questions appropriately - Head Head exam: Present: atraumatic, normal inspection, normocephalic - Eye Eye exam: Present: EOMI, PERRL. Absent: scleral icterus Pupils: Present: normal accommodation, PERRL Additional comments: Peripheral vision intact. - Neck Neck exam general surgery: Present: full ROM, normal inspection, trachea midline. Absent: lymphadenopathy, tenderness, nuchal rigidity - Respiratory Respiratory exam: Present: CTAB. Absent: accessory muscle use, chest wall tenderness - Cardiovascular Cardiovascular exam: Present: irregular rhythm. Absent: JVD - GI/Abdominal GI/Abdominal exam: Present: normal bowel sounds, soft, no peritoneal signs. Absent: rebound, rigid - Extremities Exam Extremities exam: Present: full ROM, radial pulses palpable and symetrical. Absent: calf tenderness, joint swelling, pedal edema - Neurological Exam Neurological exam: Present: alert, oriented X3, no focal deficits, strengths equal and symetr throughout. Absent: motor sensory deficit, facial droop - Skin Skin exam: Present: dry, normal color, warm. Absent: abrasion, cyanosis, diaphoretic, rash <Avery Zuluaga - Last Filed: 11/22/16 05:41> Date of Encounter: 11/21/16 Internal Medicine - H&P: HPI History of present illness: Mr. Hill is a 66 year old male All Systems PM: A 10-system review of systems was performed and is negative for pertinent findings except as documented above in the HPI. - Constitutional Vitals: Temp Pulse Resp BP Pulse Ox 97.6 F 60 18 89/52 96 11/22/16 02:34 11/22/16 02:34 11/22/16 02:34 11/22/16 02:34 11/22/16 02:34 Internal Med - H&P Results - Labs CBC & Chem 7: 11/22/16 04:01 11/22/16 04:01 Labs: Short CBC 11/22/16 Range/Units 04:01 WBC 9.2 (4.3-11.1) K/mcL Hgb 11.2 L D (12.9-16.9) g/dL Hct 35.6 L (37.5-50.1) % Plt Count 161 (140-400) K/mcL Neutrophils # 7.2 (1.6-8.9) K/mcL BMP 11/22/16 04:01 Sodium 132 L Potassium 2.8 L Chloride 86 L Carbon Dioxide 30 H BUN 72 H Creatinine 4.05 H Glucose 250 H Calcium 8.0 L Cardiac Enzymes 11/22/16 Range/Units 00:21 Troponin I 0.27 H* (0-0.03) ng/mL - Attending Attestation Correction, DATE OF ENCOUNTER WAS 11/21/16, the date above was an electronic error I personally interviewed and examined this patient and my medical decision- making was reviewed with the Resident Physician. I agree with the documented findings, disposition and treatment plan as described. Patient with a history of diastolic failure on heavy doses of lasix; 80mg q8h, and fluid restriction and poor oral intake recently associated with being in the sun and sweating comes in with GINA/hypokalemia in the setting of persistent hypotension which improved after >3L of fluid resuscitation. Caution will be exercised in fluid resuscitation since per family he easily gets fluid overloaded explaining the heavy lasix dose. Avery Zuluaga MD, MPH Hospitalist
[2016-11-21] MEDS ORDERED: 0.9 % Sodium Chloride 1,000 ML IVC SCH (23:45)
[2016-11-22] MEDS ORDERED: Calcium Gluconate 1,000 MG in D5% in Water 100 ML IVPB PRN (00:05)
[2016-11-22] MEDS ORDERED: Magnesium Sulfate 2 GM in D5% in Water 100 ML IVPB PRN (00:05)
[2016-11-22] MEDS: Ipratropium/Albuterol Neb 3 ML IH SCH ×7 (00:12→23:30)
[2016-11-22] MEDS ORDERED: 0.9 % Sodium Chloride 1,000 ML IVC SCH ×2 (00:15→17:45)
[2016-11-22 00:55] LABS: Ionized Calcium 0.93 mmol/L (1.15-1.35)
[2016-11-22] MEDS: Insulin LISPRO 300 UNITS/3 ML VIAL SQ SCH ×6 (00:57→21:20)
[2016-11-22 01:00] LABS: Magnesium 1.9 mg/dL (1.6-2.6); Phosphorous 5.6 mg/dL (2.3-4.7)
[2016-11-22] MEDS ORDERED: 0.9 % Sodium Chloride 500 ML IVC ONE (02:30)
[2016-11-22] MEDS ORDERED: 0.9 % Sodium Chloride 1,000 ML ONE (02:37)
[2016-11-22 04:29] LABS: Basophils % 0.2 %; Eosinophils # 0.1 K/mcL (0.0-0.6); Eosinophils % 0.8 %; Hematocrit 35.6 % (37.5-50.1); Hemoglobin 11.2 g/dL (12.9-16.9); Lymphocytes # 1.3 K/mcL (0.6-4.6); Lymphocytes % 14.4 %; Mean Corpuscular HGB Conc 31.5 g/dL (31.6-35.5); Mean Corpuscular Hemoglobin 26.8 pg (28.0-33.3); Mean Corpuscular Volume 85.2 fL (83.0-100.0); Mean Platelet Volume 11.6 fL (9.4-12.4); Monocytes # 0.5 K/mcL (0.0-1.3); Monocytes % 5.3 %; Neutrophils # 7.2 K/mcL (1.6-8.9); Platelet Count 161 K/mcL (140-400); Red Blood Count 4.18 M/mcL (4.19-5.50); Red Cell Distribution Width 16.5 % (11.5-14.5); Segmented Neutrophils % 78.3 %
[2016-11-22 04:38] LABS: Ionized Calcium 0.92 mmol/L (1.15-1.35)
[2016-11-22 04:40] LABS: Magnesium 1.7 mg/dL (1.6-2.6); Phosphorous 6.7 mg/dL (2.3-4.7); Potassium 2.8 mEq/L (3.5-4.5)
[2016-11-22] MEDS ORDERED: *HR* Dextrose 50 % in Water (Syg) 50 ML SYRINGE IVP PRN (04:55)
[2016-11-22] MEDS ORDERED: Dextrose Gel 15 GM PO PRN ×2 (04:55)
[2016-11-22] MEDS ORDERED: D5% in Water 1,000 ML IVC PRN (04:55)
[2016-11-22] MEDS ORDERED: Potassium Chloride Elixir 20 MEQ/15 ML UDC PO ONE (05:43)
[2016-11-22] MEDS: Budesonide/Formoterol 160/4.5 MDI IH SCH ×2 (07:35→19:54)
[2016-11-22] MEDS ORDERED: Potassium Chloride Elixir 20 MEQ/15 ML UDC PO SCH (09:00)
[2016-11-22] MEDS ORDERED: predniSONE 10 MG TABLET PO SCH ×2 (09:00)
[2016-11-22] MEDS ORDERED: Isosorbide MONOnitrate (24 HR) 30 MG TAB.ER.24H PO SCH (09:00)
[2016-11-22] MEDS ORDERED: Aspirin Enteric Coated 81 MG Tablet PO SCH (09:00)
[2016-11-22] MEDS: Aspirin Enteric Coated 81 MG Tablet PO SCH (09:30)
[2016-11-22] MEDS: *HR* Heparin 5,000 UNIT/ML VIAL SQ SCH ×3 (09:30→21:15)
[2016-11-22] MEDS ORDERED: Budesonide/Formoterol 160/4.5 MDI IH SCH (10:00)
[2016-11-22 10:36] LABS: Bilirubin,Urine Small (Negative); Blood,Urine Trace (Negative); Clarity,Urine Clear (Clear); Color,Urine Yellow (Yellow); Glucose,Urine (UA) 100 mg/dL (Normal); Ketones,Urine Negative (Negative); Leukocyte Esterase,Urine Negative (Negative); Nitrite,Urine Negative (Negative); PH,Urine 5.5 pH Units (5.0-8.0); Protein,Urine 30 mg/dL (Neg-Trace); Specific Gravity,Urine 1.018 (1.010-1.025); Urobilinogen,Urine Normal (Normal)
[2016-11-22 10:38] LABS: Bacteria,Urine None Seen per hpf (None-Few); Hyaline Casts,Urine None Seen per lpf (None-Few); Squamous Epithelial Cell,Urine Moderate per lpf (None-Few); WBC,Urine 0-3 per hpf (0-3)
[2016-11-22] MEDS ORDERED: Insulin DETEMIR 100 UNIT/ML X5UNITS SQ SCH (13:00)
[2016-11-22 18:19] LABS: Magnesium 1.7 mg/dL (1.6-2.6); Potassium 3.6 mEq/L (3.5-4.5)
--- NOTE | 2016-11-22 19:25 | Internal Med Progress Note ---
Date of Encounter: 11/22/16 Time of Encounter: 17:45 - Assessment and plan (1) Generalized weakness Current Visit: Yes Status: Acute Assessment and plan: Patient reports 3 days history of generalized weakness. Likely secondary to dehydration from over diuresis. Patient feels better now. (2) Hypotension Current Visit: Yes Status: Resolved Assessment and plan: Secondary to overdiuresis. Resolved after fluid hydration. Close monitor. Qualifiers: Hypotension type: orthostatic hypotension Qualified Code(s): I95.1 - Orthostatic hypotension (3) Elevated troponin Current Visit: Yes Status: Acute Assessment and plan: Troponin peaked at 0.37. Patient denies any chest pain. No shortness of breath. EKG was unremarkable. Likely secondary to acute kidney injury. 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 Echocardiogram in September 2016 revealed LVEF 60%, mild to moderate concentric left ventricular hypertrophy, severe left ventricular diastolic dysfunction, severely dilated H and, moderate dilated right atrium. Repeat limited echo. (4) GINA (acute kidney injury) Current Visit: Yes Status: Acute Assessment and plan: Secondary to over diuresis. Patient takes high doses of furosemide and metolazone for diastolic heart failure. Patient is currently dehydrated. He responded well to IV fluids. Will continue gentle IV hot fluid hydration. Close monitor kidney function. Avoid nephrotoxic agents as possible. Hold lisinopril, Lasix and metolazone home meds. (5) Hypokalemia Current Visit: Yes Status: Acute Assessment and plan: Potassium 2.9. Replete. Check this afternoon. (6) Diabetes mellitus type 2, uncontrolled Current Visit: Yes Status: Chronic Assessment and plan: Hyperglycemia due to diabetes mellitus type 2. A1c 10.5 in August 2016. Stop home dose NPH. Start Levemir 40 units twice a day. Sliding scale insulin. Strict diabetic diet. 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 Continue home meds. Qualifiers: Coronary Disease-Associated Artery/Lesion type: [place] artery [place] vs. transplanted heart: [place] heart Associated angina: with stable angina Qualified Code(s): I25.118 - Atherosclerotic heart disease of [place] coronary artery with other forms of angina pectoris (8) Anemia Current Visit: No Status: Acute Assessment and plan: Hemoglobin is 11.2. Hemodynamically stable. No bleeding. Close monitor. Qualifiers: Anemia type: unspecified type Qualified Code(s): D64.9 - Anemia, unspecified (9) HTN (hypertension) Current Visit: No Status: Chronic Assessment and plan: Holding lisinopril, and furosemide, due to acute kidney injury. Close monitor. Qualifiers: Hypertension type: essential hypertension Qualified Code(s): I10 - Essential (primary) hypertension (10) Atrial fibrillation Current Visit: Yes Status: Chronic Assessment and plan: Heart rate is adequate. Continue home metoprolol. Qualifiers: Atrial fibrillation type: persistent Qualified Code(s): I48.1 - Persistent atrial fibrillation (11) Morbid obesity with BMI of 40.0-44.9, adult Current Visit: Yes Status: Acute Assessment and plan: bmi 40. (12) Diastolic heart failure Current Visit: No Status: Chronic Assessment and plan: Not in acute exacerbation. Qualifiers: Heart failure chronicity: chronic Qualified Code(s): I50.32 - Chronic diastolic (congestive) heart failure - Subjective Interval history: Patient feels better. He is concern about drinking fluids because of his lower extremity edema. - Constitutional Vitals: Temp Pulse Resp BP Pulse Ox 97.5 F L 78 18 113/71 96 11/22/16 19:15 11/22/16 19:15 11/22/16 19:15 11/22/16 19:15 11/22/16 19:15 General appearance: Present: cooperative, A&O X 3, morbidly obese, pleasant, no acute distress, answers questions appropriately - Neck Neck exam general surgery: Present: supple, trachea midline. Absent: lymphadenopathy - Respiratory Respiratory exam: Present: CTAB - Cardiovascular Cardiovascular exam: Present: RRR - GI/Abdominal GI/Abdominal exam: Present: normal bowel sounds, soft. Absent: distended, tenderness - Extremities Exam Extremities exam: Present: pedal edema (1+ lower extremity edema.) - Back Exam Back exam: Absent: CVA tenderness (L), CVA tenderness (R) - Neurological Exam Neurological exam: Present: alert, oriented X3, no focal deficits, strengths equal and symetr throughout. Absent: facial droop, speech deficit - Skin Skin exam: Absent: rash Internal Medicine: Result - Labs CBC & Chem 7: 11/22/16 04:01 11/22/16 17:44 Labs: Short CBC 11/22/16 Range/Units 04:01 WBC 9.2 (4.3-11.1) K/mcL Hgb 11.2 L D (12.9-16.9) g/dL Hct 35.6 L (37.5-50.1) % Plt Count 161 (140-400) K/mcL Neutrophils # 7.2 (1.6-8.9) K/mcL BMP 11/22/16 11/22/16 04:01 17:44 Sodium 132 L 132 L Potassium 2.8 L 3.6 Chloride 86 L 87 L Carbon Dioxide 30 H 30 H BUN 72 H 64 H Creatinine 4.05 H 2.27 H Glucose 250 H 393 H Calcium 8.0 L 9.0 Cardiac Enzymes 11/22/16 Range/Units 00:21 Troponin I 0.27 H* (0-0.03) ng/mL Urine 11/22/16 Range/Units 10:31 Urine Color Yellow (Yellow) Urine Clarity Clear (Clear) Urine pH 5.5 (5.0-8.0) pH Units Ur Specific [place] 1.018 (1.010-1.025) Urine Protein 30 H (Neg-Trace) mg/dL Urine Glucose (UA) 100 H (Normal) mg/dL Consult Discharge Plan - Plan Referrals: Lavinia Guerra MD [Primary Care Provider] -
[2016-11-22] MEDS ORDERED: Insulin LISPRO 300 UNITS/3 ML VIAL SQ SCH (21:00)
[2016-11-22] MEDS: Insulin DETEMIR 100 UNIT/ML X5UNITS SQ SCH ×2 (21:17→23:46)
[2016-11-22] MEDS: *HR* OxyCODONE Immed Rel 5 MG TABLET PO PRN (22:51)
[2016-11-23] MEDS: Insulin LISPRO 300 UNITS/3 ML VIAL SQ SCH ×5 (00:42→17:32)
[2016-11-23] MEDS: Ipratropium/Albuterol Neb 3 ML IH SCH ×5 (03:58→19:51)
[2016-11-23] MEDS: *HR* Heparin 5,000 UNIT/ML VIAL SQ SCH ×2 (05:31→14:13)
[2016-11-23 05:38] LABS: Basophils % 0.3 %; Eosinophils # 0.1 K/mcL (0.0-0.6); Eosinophils % 1.8 %; Hemoglobin 12.7 g/dL (12.9-16.9); Immature Granulocytes % 0.8 % (0-4); Lymphocytes % 24.5 %; Mean Corpuscular HGB Conc 31.8 g/dL (31.6-35.5); Mean Corpuscular Hemoglobin 26.9 pg (28.0-33.3); Mean Corpuscular Volume 84.7 fL (83.0-100.0); Mean Platelet Volume 11.9 fL (9.4-12.4); Monocytes # 0.4 K/mcL (0.0-1.3); Monocytes % 5.5 %; Neutrophils # 5.4 K/mcL (1.6-8.9); Platelet Count 155 K/mcL (140-400); Red Blood Count 4.72 M/mcL (4.19-5.50); Red Cell Distribution Width 16.5 % (11.5-14.5); Segmented Neutrophils % 67.1 %
[2016-11-23 05:56] LABS: BUN/Creatinine Ratio 41 (6-26); Blood Urea Nitrogen 51 mg/dL (8-26); Calcium 9.2 mg/dL (8.6-10.8); Carbon Dioxide 34 mEq/L (19-29); Chloride 91 mEq/L (98-109); Glucose 99 mg/dL (70-99); Osmolality,Calculated 298 (280-300); Potassium 2.8 mEq/L (3.5-4.5); Sodium 137 mEq/L (136-145); eGFR For African Americans > 60 (> 60); eGFR For Non-African Americans 58 (> 60)
[2016-11-23 05:59] LABS: Albumin 3.7 g/dL (3.5-5.0); Albumin/Globulin Ratio 1.2 (1.1-2.2); Bilirubin,Direct 0.3 mg/dL (0.0-0.5); Bilirubin,Indirect 0.6 mg/dL (0.0-1.2); Bilirubin,Total 0.9 mg/dL (0.2-1.2); Globulin 3.1 g/dL (2.4-3.5); Magnesium 1.8 mg/dL (1.6-2.6); Total Protein 6.8 g/dL (6.0-8.3)
[2016-11-23 06:06] LABS: Phosphorous 2.3 mg/dL (2.3-4.7)
[2016-11-23] MEDS: Budesonide/Formoterol 160/4.5 MDI IH SCH ×2 (07:58→19:51)
[2016-11-23] MEDS: *HR* OxyCODONE Immed Rel 5 MG TABLET PO PRN (08:29)
[2016-11-23] MEDS: Aspirin Enteric Coated 81 MG Tablet PO SCH (08:29)
[2016-11-23] MEDS ORDERED: predniSONE 10 MG TABLET PO SCH (09:00)
[2016-11-23] MEDS ORDERED: Insulin DETEMIR 100 UNIT/ML X5UNITS SQ SCH (09:00)
[2016-11-23] MEDS ORDERED: Perflutren Lipid Microsphere 1.3 ML in 0.9 % Sodium Chloride 8.7 ML IVP ONE (09:03)
[2016-11-23 14:23] LABS: BUN/Creatinine Ratio 31 (6-26); Blood Urea Nitrogen 41 mg/dL (8-26); Calcium 9.5 mg/dL (8.6-10.8); Carbon Dioxide 28 mEq/L (19-29); Chloride 91 mEq/L (98-109); Glucose 355 mg/dL (70-99); Osmolality,Calculated 304 (280-300); Potassium 3.8 mEq/L (3.5-4.5); Sodium 135 mEq/L (136-145); eGFR For African Americans > 60 (> 60); eGFR For Non-African Americans 54 (> 60)
--- NOTE | 2016-11-23 17:01 | Discharge Summary ---
Date of Encounter: 11/23/16 Time of Encounter: 16:59 - Discharge Diagnosis (1) Generalized weakness Priority: Primary Status: Acute Comments: Secondary to acute kidney injury from overdiuresis. (2) GINA (acute kidney injury) Priority: Primary Status: Acute (3) Hypotension Priority: Primary Status: Resolved Qualifiers: Hypotension type: orthostatic hypotension Qualified Code(s): I95.1 - Orthostatic hypotension (4) Elevated troponin Priority: Primary Status: Acute (5) Diastolic heart failure Priority: Primary Status: Chronic Qualifiers: Heart failure chronicity: chronic Qualified Code(s): I50.32 - Chronic diastolic (congestive) heart failure (6) Hypokalemia Priority: Primary Status: Acute (7) Diabetes mellitus type 2, uncontrolled Priority: Primary Status: Chronic Qualifiers: Diabetes mellitus complication status: with hyperglycemia Diabetes mellitus group home insulin use: with group home use Qualified Code(s): E11.65 - Type 2 diabetes mellitus with hyperglycemia; Z79.4 - anesthesiologist assistant certified (current) use of insulin (8) CAD (coronary artery disease) Priority: Secondary Status: Chronic Qualifiers: Coronary Disease-Associated Artery/Lesion type: [place] artery [place] vs. transplanted heart: [place] heart Associated angina: with stable angina Qualified Code(s): I25.118 - Atherosclerotic heart disease of [place] coronary artery with other forms of angina pectoris (9) Anemia Priority: Secondary Status: Chronic Qualifiers: Anemia type: unspecified type Qualified Code(s): D64.9 - Anemia, unspecified (10) HTN (hypertension) Priority: Secondary Status: Chronic Qualifiers: Hypertension type: essential hypertension Qualified Code(s): I10 - Essential (primary) hypertension (11) Atrial fibrillation Priority: Secondary Status: Chronic Qualifiers: Atrial fibrillation type: persistent Qualified Code(s): I48.1 - Persistent atrial fibrillation (12) Morbid obesity with BMI of 40.0-44.9, adult Priority: Secondary Status: Acute - Discharge Medications Home Medications: Insulin Human Regular [HumuLIN R] 40 unit SQ 0800,1700 #0 MDD With Breakfast and Dinner 09/05/15 [History] Isosorbide MONOnitrate (24 HR) [Imdur] 30 mg PO DAILY #0 09/05/15 [History] Ferrous Sulfate [Iron Supplement] 325 mg PO TID 12/18/15 [History] Aspirin [Lo-Dose Aspirin EC] 81 mg PO DAILY 03/15/16 [History] Insulin NPH/REG 70/30 [HumuLIN 70/30 VIAL] 100 unit SQ BIDWM 03/15/16 [History] Budesonide/Formoterol 160/4.5 [Symbicort 160/4.5] 2 puff IH BIDR 05/10/16 [ History] Diltiazem CD (24hr) [Cardizem CD] 120 mg PO DAILY 05/10/16 [History] Metoprolol [Lopressor] 50 mg PO BID 05/10/16 [History] Nitroglycerin [Nitrostat] 0.4 mg SL Q5M PRN 05/10/16 [History] Pantoprazole Sodium [Protonix] 40 mg PO DAILY 05/10/16 [History] glipiZIDE [Glipizide] 10 mg PO DAILY 05/10/16 [History] metFORMIN [Glucophage] 500 mg PO BIDWM 05/10/16 [History] metOLazone [Metolazone] 5 mg PO DAILY 05/10/16 [History] Buspirone HCl [Buspar] 10 mg PO BID 07/30/16 [History] Oxygen 3 l NS AD 09/11/16 [History] Atorvastatin [Lipitor] 80 mg PO HS tablet 09/14/16 [Rx] Lisinopril [Zestril] 2.5 mg PO DAILY 09/21/16 [History] Albuterol Sulfate [Albuterol Inhaler] 2 puff IH Q4H 09/22/16 [History] Ipratropium/Albuterol Neb [Duoneb] 3 ml IH Q4HR PRN 09/22/16 [History] Acetaminophen [Tylenol] 500 mg PO Q6HR PRN #0 tablet 11/06/16 [Rx] Allopurinol [Zyloprim 100 MG] 100 mg PO DAILY #30 tablet 11/06/16 [Rx] Colchicine [Colcrys] 0.6 mg PO BID #60 tablet 11/06/16 [Rx] Gabapentin [Neurontin] 200 mg PO TID #60 capsule 11/06/16 [Rx] OxyCODONE Immed Rel [Roxicodone 5 MG] 5 mg PO Q4H PRN #18 tablet 11/06/16 [Rx] predniSONE [PredniSONE] 5 mg PO DAILY 11/22/16 [History] Furosemide [Lasix] 60 mg PO BID #0 11/23/16 [Rx] Potassium Chloride [K-Tab ER] 20 meq PO BID #0 11/23/16 [Rx] predniSONE [PredniSONE] 10 mg PO DAILY tab 11/23/16 [Rx] Allergies/Adverse Reactions: Allergies No Known Allergies Allergy (Verified 11/22/16 09:06) Procedures/tests Complete & Pending: Procedures Performed prior 72 hours Category Date Time Status EV limited echo w enhance Routine Y 11/23/16 19:34 Completed Date of admission: 11/21/16 21:53 Primary care physician: Lavinia Guerra, Consults: 11/22/16 11:41 Consult to Restaurant Culinary Manager [CONS] Routine Reason for SW Consult: Readmission - Patient Status Disposition: Home Health Service Condition: Good Functional capacity at discharge: independent ambulation Overall status at discharge: patient is progressing back to baseline - Discharge Instructions Follow Up With: Lavinia Guerra MD [Primary Care Provider] - Additional Instructions: RESUME YOUR METOLAZONE ON FRIDAY. weight yourself daily. check your blood pressure daily. have blood drawn by nurse on sunday 11/26. check your blood sugars before meals and at bedtime. - Diet and Activity Activity: resume usual activities as tolerated Diet: diabetic diet, low fat, low cholesterol, low salt diet Interval History: patient has no complains. no chest pain. no shortness of breath. Hospital course: Mr. Hill is a 66 year old male with past medical history of diastolic heart failure, atrial fibrillation, hypertension, CAD, diabetes mellitus, chronic respiratory failure on 3 L of oxygen and morbid obesity who presented with a 3 day history of generalized weakness. His kidney function was abnormal with creatinine of 4.21 and BUN at 70. He was started on gentle IV fluid hydration and all diuretics were stopped. His kidney function improved to BUN 41 and creatinine 1.33. Echocardiogram in September 2016 revealed LVEF 60%, mild to moderate concentric left ventricular hypertrophy, severe left ventricular diastolic dysfunction, severely dilated H and, moderate dilated right atrium. Repeat limited echo showed LVEF 60%. PLAN: Patient instructed to wait himself daily, hold his metolazone and 2 Friday and check BMP on Friday. he verbalized understanding and agreed with the plan. - Time Spent with Patient Total time spent providing and/or coordinating discharge services: - Constitutional Vitals: Temp Pulse Resp BP Pulse Ox 98.1 F 87 16 140/91 97 11/23/16 15:44 11/23/16 15:44 11/23/16 15:44 11/23/16 15:44 11/23/16 15:44 General appearance: Present: cooperative, A&O X 3, morbidly obese, pleasant, no acute distress, answers questions appropriately - Respiratory Respiratory exam: Present: CTAB - Cardiovascular Cardiovascular exam: Present: RRR - GI/Abdominal GI/Abdominal exam: Present: normal bowel sounds, soft. Absent: distended, tenderness - Extremities Exam Extremities exam: Present: pedal edema (1+ LE edema) - Back Exam Back exam: Absent: CVA tenderness (L), CVA tenderness (R) - Neurological Exam Neurological exam: Present: alert, oriented X3, no focal deficits, strengths equal and symetr throughout. Absent: facial droop, speech deficit - Skin Skin exam: Absent: rash
--- NOTE | 2016-11-23 17:18 | Physician Discharge Referral ---
Home Health/Hosp Referral Info Transfer to: Home Health Attending Provider: herman Provider in Charge Post Discharge: PCP - Diagnosis (1) Generalized weakness Status: Acute (2) Hypotension Status: Resolved (3) Elevated troponin Status: Acute (4) GINA (acute kidney injury) Status: Acute (5) Hypokalemia Status: Acute (6) Diabetes mellitus type 2, uncontrolled Status: Chronic (7) CAD (coronary artery disease) Status: Chronic (8) Anemia Status: Acute (9) HTN (hypertension) Status: Chronic (10) Atrial fibrillation Status: Chronic (11) Morbid obesity with BMI of 40.0-44.9, adult Status: Acute (12) Diastolic heart failure Status: Chronic - Respiratory Orders Oxygen / L per min (3) Smoking Cessation: Smoking cessation has been advised. For more information, call the [employer] Quit Line at 2-767-MNUN-NOW. - Diet/Nutrition Diet/Nutrition Orders: No Added Salt (RADHA), Cardiac, No Concentrated Sweets ( fluid restriction 1.8L/day) - Activity Activity Orders: Ambulate - Services Needed Following services are medically necessary services: Nursing, Physical Therapy - Transfer Medications Home Medications: Insulin Human Regular [HumuLIN R] 40 unit SQ 0800,1700 #0 MDD With Breakfast and Dinner 09/05/15 [History] Isosorbide MONOnitrate (24 HR) [Imdur] 30 mg PO DAILY #0 09/05/15 [History] Ferrous Sulfate [Iron Supplement] 325 mg PO TID 12/18/15 [History] Aspirin [Lo-Dose Aspirin EC] 81 mg PO DAILY 03/15/16 [History] Insulin NPH/REG 70/30 [HumuLIN 70/30 VIAL] 100 unit SQ BIDWM 03/15/16 [History] Budesonide/Formoterol 160/4.5 [Symbicort 160/4.5] 2 puff IH BIDR 05/10/16 [ History] Diltiazem CD (24hr) [Cardizem CD] 120 mg PO DAILY 05/10/16 [History] Metoprolol [Lopressor] 50 mg PO BID 05/10/16 [History] Nitroglycerin [Nitrostat] 0.4 mg SL Q5M PRN 05/10/16 [History] Pantoprazole Sodium [Protonix] 40 mg PO DAILY 05/10/16 [History] glipiZIDE [Glipizide] 10 mg PO DAILY 05/10/16 [History] metFORMIN [Glucophage] 500 mg PO BIDWM 05/10/16 [History] metOLazone [Metolazone] 5 mg PO DAILY 05/10/16 [History] Buspirone HCl [Buspar] 10 mg PO BID 07/30/16 [History] Oxygen 3 l NS AD 09/11/16 [History] Atorvastatin [Lipitor] 80 mg PO HS tablet 09/14/16 [Rx] Lisinopril [Zestril] 2.5 mg PO DAILY 09/21/16 [History] Albuterol Sulfate [Albuterol Inhaler] 2 puff IH Q4H 09/22/16 [History] Ipratropium/Albuterol Neb [Duoneb] 3 ml IH Q4HR PRN 09/22/16 [History] Acetaminophen [Tylenol] 500 mg PO Q6HR PRN #0 tablet 11/06/16 [Rx] Allopurinol [Zyloprim 100 MG] 100 mg PO DAILY #30 tablet 11/06/16 [Rx] Colchicine [Colcrys] 0.6 mg PO BID #60 tablet 11/06/16 [Rx] Gabapentin [Neurontin] 200 mg PO TID #60 capsule 11/06/16 [Rx] OxyCODONE Immed Rel [Roxicodone 5 MG] 5 mg PO Q4H PRN #18 tablet 11/06/16 [Rx] predniSONE [PredniSONE] 5 mg PO DAILY 11/22/16 [History] Furosemide [Lasix] 60 mg PO BID #0 11/23/16 [Rx] Potassium Chloride [K-Tab ER] 20 meq PO BID #0 11/23/16 [Rx] predniSONE [PredniSONE] 10 mg PO DAILY tab 11/23/16 [Rx] Allergies/Adverse Reactions: Allergies No Known Allergies Allergy (Verified 11/22/16 09:06) Certification: Further, I certify that my clinical findings support that this patient is homebound (i.e. absences from home require considerable and taxing effort and are for medical reasons or voodoo services or infrequently or short duration when for other reasons) because: Homebound Reason: Patient requires assistance of a person or device to safely leave home, Leaving home requires considerable and taxing effort due to condition, Severity of cardiac or pulmonary status limits activity tolerance Attestation: My signature below is to certify that this patient is under my care and that I, or nurse practitioner, or a physician's assistant women's tennis coach working with me, has a face-to -face encounter with this patient.
[2016-11-23 18:57] VITALS: BP 105/60
[2016-11-23] MEDS ORDERED: Potassium Chloride Elixir 20 MEQ/15 ML UDC PO SCH (19:00)
== END 2016-11-23 19:30 | disposition home health service (06) | DRG 683 ==
LOC: ICNU 21:53 → SUATTDRO 21:53 → 3BNU 11-22 02:17
PROVIDERS: ADMIT Internal Medicine; ATTEND Internal Medicine

== ENCOUNTER 2016-12-27 14:17 | Inpatient (IN) ==
[2016-12-27] MEDS ORDERED: Naloxone 0.4 MG/ML INJ IVP PRN (16:51)
[2016-12-27] MEDS ORDERED: Acetaminophen 325 MG TABLET PO PRN (16:51)
[2016-12-27] MEDS ORDERED: Nitroglycerin 0.4 MG TAB.SUBL SL PRN (16:55)
[2016-12-27] MEDS ORDERED: METOLAZONE 10 MG PO SCH (17:00)
--- NOTE | 2016-12-27 17:18 | Internal Med History&Physical ---
<Makenzie Sterling M - Last Filed: 12/27/16 23:07> Date of Encounter: 12/27/16 Time of Encounter: 17:15 Assessment and Plan (1) Diastolic CHF, acute on chronic Current visit: Yes Status: Acute Patient presents with weight gain of 20 lbs in 2 weeks. He reports increased shortness of breath. CXR showed findings suggestive of pulmonary edema. He takes 80mg of lasix PO TID at home, plus Metolazone daily PRN. He has taken his metolazone the last 3 days as well as a few days earlier this week. Last echo 11/23 showed EF of 60%. Echo from 09/12 showed preserved EF with severe diastolic dysfunction. 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 Ascencio will see patient. (2) Acute kidney injury superimposed on CKD Current visit: Yes Status: Acute Creatinine 2.66 up from 1.49 on 12/13. We will be aggressively diuresing patient for his CHF exacerbation and kidney function may continue to deteriorate. Avoid NSAIDs and nephrotoxins. Consult to Nephrology. (3) Acute on chronic respiratory failure with hypoxia Current visit: Yes Status: Acute Patient wears 3L O2 at home at baseline. He has increased oxygen requirements to maintain saturations secondary to CHF exacerbation. Continue Bipap. (4) Type 2 diabetes mellitus Current visit: Yes Status: Chronic Diabetic, heart healthy diet. Check blood sugars ACHS Continue home regimen of insulin plus sliding scale ACHS hypoglycemic protocol Qualifiers: Diabetes mellitus complication status: with unspecified complications Diabetes mellitus intermission coordinator insulin use: with mcc use Qualified Code(s) : E11.8 - Type 2 diabetes mellitus with unspecified complications; Z79.4 - alf (current) use of insulin (5) Sleep apnea Current visit: Yes Status: Chronic Respiratory therapy consulted for CPAP. Qualifiers: Sleep apnea type: obstructive Qualified Code(s): G47.33 - Obstructive sleep apnea (adult) (pediatric) (6) DVT prophylaxis Current visit: Yes Status: Acute anti-embolic stockings heparin TID Internal Medicine - H&P: HPI Chief complaint: shortness of breath, wt gain Admitted From: Emergency Dept Plans for Post Hospital Care: Home History of present illness: Mr. Hill is a 66 year old male with atrial fibrillation, CHF, coronary artery disease status post stent placement, diabetes type 2, hypertension, hyperlipidemia, COPD and was sent to [place] [facility] from his primary care physician's office for increased shortness of breath and weight gain. Patient follows with his primary care provider every 2 weeks, may noted a 20 pound weight gain. Patient states that he has had some increased shortness of breath , occasional right-sided chest pain, occasional nausea, and occasional lightheadedness. Evaluation in the [place] [facility] included a chest x-ray which showed stable cardiomegaly with findings suggesting mild pulmonary edema. Troponin was mildly elevated at 0.06, however this is down from previous. BNP was elevated to 52. He was in history of present illness with BUN of 76 and creatinine of 2.66 up from previous of 1.49. He was given 60 mg of IV push Lasix and transferred to our facility. On exam, patient is alert and oriented, in no acute distress. Heart has regular rate and rhythm, lungs have mild crackles in the bases. Patient is obese, abdomen is firm and distended, patient reports this is what happens when he rotates to much fluid. Bilateral lower extremities with +1 edema. Past Med Surg Social Fam HX - Past Medical History Medical history: arthritis, atrial fibrillation, CHF, COPD, coronary artery disease, diabetes, GERD, GI bleed, hyperlipidemia, hypertension, myocardial infarction, osteoporosis, venous stasis, valvular heart disease, other Psychiatric history: anxiety, depression - Past Surgical History Surgical History: angioplasty/stent, cataract, herniorrhaphy, knee replacement, other - Social History Smoking Status: Never smoker Smokeless Tobacco Status: No Alcohol use: none Drug use: none - Family History Sister Living Status: Still Living Mother Living Status: Still Living Hx Family Cardiac Disorders: Yes (htn,cad, lipid) Hx Family Neurologic Disorders: Yes (alzheimers) Father Living Status: Hx Family Cardiac Disorders: Yes (cad) Hx Family Respiratory Disorders: Yes Hx Family Cancer: Yes (colon) Hx Family GI Disorders: Yes Hx Family Endocrine Disorder: No Internal Medicine - H&P: Meds Insulin Human Regular [HumuLIN R] 25 - 30 unit SQ 0800,1700 #0 09/05/15 [ History] Isosorbide MONOnitrate (24 HR) [Imdur] 30 mg PO DAILY #0 09/05/15 [History] Ferrous Sulfate [Iron Supplement] 325 mg PO TID 12/18/15 [History] Aspirin [Lo-Dose Aspirin EC] 81 mg PO DAILY 03/15/16 [History] Insulin NPH/REG 70/30 [HumuLIN 70/30 VIAL] 80 unit SQ BIDWM 03/15/16 [History] Budesonide/Formoterol 160/4.5 [Symbicort 160/4.5] 2 puff IH BIDR 05/10/16 [ History] Diltiazem CD (24hr) [Cardizem CD] 120 mg PO DAILY 05/10/16 [History] Metoprolol [Lopressor] 50 mg PO BID 05/10/16 [History] Nitroglycerin [Nitrostat] 0.4 mg SL Q5M PRN 05/10/16 [History] Pantoprazole Sodium [Protonix] 40 mg PO DAILY 05/10/16 [History] glipiZIDE [Glipizide] 10 mg PO DAILY 05/10/16 [History] metFORMIN [Glucophage] 500 mg PO BIDWM 05/10/16 [History] metOLazone [Metolazone] 10 mg PO DAILY PRN 05/10/16 [History] Buspirone HCl [Buspar] 10 mg PO BID 07/30/16 [History] Oxygen 3 l NS AD 09/11/16 [History] Atorvastatin [Lipitor] 80 mg PO HS tablet 09/14/16 [Rx] Lisinopril [Zestril] 2.5 mg PO DAILY 09/21/16 [History] Albuterol Sulfate [Albuterol Inhaler] 2 puff IH Q4H PRN 09/22/16 [History] Ipratropium/Albuterol Neb [Duoneb] 3 ml IH Q4HR PRN 09/22/16 [History] Acetaminophen [Tylenol] 500 mg PO Q6HR PRN #0 tablet 11/06/16 [Rx] Gabapentin [Neurontin] 200 mg PO TID #60 capsule 11/06/16 [Rx] Allopurinol [Zyloprim 100 MG] 300 mg PO DAILY 12/27/16 [History] Colchicine [Colcrys] 0.6 mg PO DAILY 12/27/16 [History] Furosemide [Lasix] 80 mg PO TID 12/27/16 [History] Potassium Chloride [K-Tab ER] 60 meq PO TID 12/27/16 [History] predniSONE [PredniSONE] 10 mg PO AD 12/27/16 [History] 3 Allergy/AdvReac Type Severity Reaction Status Date / Time No Known Allergies Allergy Verified 12/27/16 11:49 All Systems PM: A 10-system review of systems was performed and is negative for pertinent findings except as documented above in the HPI. - Constitutional Constitutional: no chills, no fever(s), no night sweats - EENT Eyes: no change in vision, no discharge, no pain, no photophobia Ears: no ear discharge, no ear pain, no tinnitus Nose, mouth and throat: no dysphagia, no nasal discharge, no neck pain, no sore throat - Cardiovascular Cardiovascular ROS IM: chest pain (occasional), dyspnea, dyspnea on exertion, edema, lightheadedness, orthopnea, no diaphoresis, no palpitations, no syncope - Respiratory Respiratory: cough (dry), no dyspnea, no wheezing, no excessive phlegm production - Gastrointestinal Gastrointestinal: no abdominal pain, no diarrhea, no hematemesis, no hematochezia, no melena, no nausea, no vomiting - Musculoskeletal Musculoskeletal ROS IM: no numbness, no tingling - Integumentary Integumentary IM: no rash, no unusual bruising - Neurological Neurological ROS: no confusion, no convulsions, no focal weakness, no numbness, no tingling, no tremor(s) - Hematologic/Lymphatic Hematologic/Lymphatic: no easy bruising - Constitutional Vitals: Temp Pulse Resp BP Pulse Ox 97.7 F 100 19 116/60 90 12/27/16 16:07 12/27/16 16:07 12/27/16 16:07 12/27/16 16:07 12/27/16 16:49 General appearance: Present: A&O X 3, morbidly obese, pleasant, no acute distress - Head Head exam: Present: atraumatic, normocephalic - Eye Eye exam: Present: PERRL, conjuntiva pink, sclera anicteric Pupils: Present: PERRL - Neck Neck exam general surgery: Present: supple, trachea midline. Absent: lymphadenopathy - Respiratory Respiratory exam: Present: decreased breath sounds, rales. Absent: accessory muscle use, rhonchi, wheezes - Cardiovascular Cardiovascular exam: Present: RRR, +S1, +S2. Absent: diastolic murmur, gallop, rubs, systolic murmur - GI/Abdominal GI/Abdominal exam: Present: distended, firm, normal bowel sounds, soft, no peritoneal signs. Absent: tenderness - Extremities Exam Extremities exam: Present: pedal edema (+1 BLE edema/), warm, radial pulses palpable and symmetrical. Absent: calf tenderness, cyanotic - Neurological Exam Neurological exam: Present: CN II-XII intact, oriented X3, no focal deficits. Absent: pronater drift, facial droop, speech deficit - Skin Skin exam: Present: dry, intact Internal Med - H&P Results - Labs Labs: Labs from [place]: Hgb 10.0 Hct 31.8 WBC 8.1 Plt 195 Na 141 K 4.3 Cl 99 CO@ 26 BUN 76 Cr 2.66 Glu 204 trop 0.06 BNP 252 <Eloise Pennington - Last Filed: 12/28/16 08:13> Date of Encounter: 12/27/16 Time of Encounter: 17:45 Internal Medicine - H&P: HPI History of present illness: Mr. Hill is a 66 year old male All Systems PM: A 10-system review of systems was performed and is negative for pertinent findings except as documented above in the HPI. - Constitutional Vitals: Temp Pulse Resp BP Pulse Ox 97.7 F 76 16 134/80 94 12/28/16 07:58 12/28/16 07:58 12/28/16 07:58 12/28/16 07:58 12/28/16 07:58 Internal Med - H&P Results - Labs CBC & Chem 7: 12/28/16 05:58 12/28/16 05:58 Labs: Short CBC 12/28/16 Range/Units 05:58 WBC 6.9 (4.3-11.1) K/mcL Hgb 10.3 L (12.9-16.9) g/dL Hct 34.0 L (37.5-50.1) % Plt Count 187 (140-400) K/mcL Neutrophils # 4.2 (1.6-8.9) K/mcL BMP 12/28/16 05:58 Sodium 145 Potassium 4.0 Chloride 103 Carbon Dioxide 32 H BUN 69 H Creatinine 1.64 H Glucose 159 H Calcium 9.6 Cardiac Enzymes 12/27/16 12/28/16 Range/Units 17:55 00:01 Troponin I 0.08 H* 0.05 H* (0-0.03) ng/mL - Attending Attestation Pt independently seen and examined. Transferred from [facility] ER for further evaluation of CHF decompensation and GINA on CKD. Pt to be seen by cardiology. will obtain 2D echo. Case discussed with SABRINA Sterling, I agree with her documented findings, assessment, and plan.
[2016-12-27] MEDS: Insulin Regular, Human 100 UNIT/ML SQ SCH (18:18)
[2016-12-27] MEDS: Insulin NPH/REG 70/30 100 UNIT/ML (x5UNIT) SQ SCH (18:19)
[2016-12-27] MEDS ORDERED: D5% in Water 1,000 ML IVC PRN (18:25)
[2016-12-27] MEDS ORDERED: Dextrose Gel 15 GM PO PRN ×2 (18:25)
[2016-12-27] MEDS ORDERED: *HR* Dextrose 50 % in Water (Syg) 50 ML SYRINGE IVP PRN (18:25)
[2016-12-27] MEDS ORDERED: Ipratropium/Albuterol Neb 3 ML IH PRN (20:00)
[2016-12-27] MEDS: Insulin LISPRO 300 UNITS/3 ML VIAL SQ SCH (21:32)
[2016-12-27] MEDS: Furosemide 100 MG/10 ML VIAL IVP SCH (21:41)
[2016-12-27] MEDS: Budesonide/Formoterol 160/4.5 MDI IH SCH (22:42)
[2016-12-28] MEDS: *HR* Heparin 5,000 UNIT/ML VIAL SQ SCH ×4 (03:31→23:28)
[2016-12-28 07:04] LABS: Basophils # 0.1 K/mcL (0.0-0.2); Basophils % 0.7 %; Eosinophils # 0.3 K/mcL (0.0-0.6); Eosinophils % 4.7 %; Hemoglobin 10.3 g/dL (12.9-16.9); Immature Granulocytes % 0.7 % (0-4); Lymphocytes # 1.6 K/mcL (0.6-4.6); Lymphocytes % 23.4 %; Mean Corpuscular HGB Conc 30.3 g/dL (31.6-35.5); Mean Corpuscular Hemoglobin 27.7 pg (28.0-33.3); Mean Platelet Volume 12.7 fL (9.4-12.4); Monocytes # 0.7 K/mcL (0.0-1.3); Monocytes % 9.6 %; Neutrophils # 4.2 K/mcL (1.6-8.9); Platelet Count 187 K/mcL (140-400); Red Blood Count 3.72 M/mcL (4.19-5.50); Red Cell Distribution Width 19.9 % (11.5-14.5); Segmented Neutrophils % 60.9 %
[2016-12-28 07:08] LABS: Calcium 9.6 mg/dL (8.6-10.8)
[2016-12-28 07:12] LABS: Mean Corpuscular Volume 91.4 fL (83.0-100.0)
[2016-12-28] MEDS: Budesonide/Formoterol 160/4.5 MDI IH SCH ×2 (07:51→20:23)
[2016-12-28] MEDS: Insulin LISPRO 300 UNITS/3 ML VIAL SQ SCH ×6 (08:38→20:42)
[2016-12-28] MEDS: Furosemide 100 MG/10 ML VIAL IVP SCH ×2 (08:39→20:37)
[2016-12-28] MEDS: Insulin NPH/REG 70/30 100 UNIT/ML (x5UNIT) SQ SCH ×2 (08:39→17:46)
[2016-12-28] MEDS: Aspirin Enteric Coated 81 MG Tablet PO SCH (08:40)
[2016-12-28] MEDS: Colchicine 0.6 MG TABLET PO SCH (08:40)
[2016-12-28] MEDS: Diltiazem CD (24hr) 120 MG CAPSULE PO SCH (08:40)
[2016-12-28] MEDS: Isosorbide MONOnitrate (24 HR) 30 MG TAB.ER.24H PO SCH (08:40)
[2016-12-28] MEDS: Gabapentin 100 MG CAPSULE PO SCH ×3 (08:40→20:36)
--- NOTE | 2016-12-28 11:03 | Nephrology Consult Note ---
Date of Encounter: 12/28/16 Time of Encounter: 10:59 Assessment and Plan (1) Type 2 diabetes mellitus Current Visit: Yes Status: Chronic Per primary team. Qualifiers: Diabetes mellitus complication status: with unspecified complications Diabetes mellitus chcf insulin use: with terminal gauger use Qualified Code(s) : E11.8 - Type 2 diabetes mellitus with unspecified complications; Z79.4 - residential (current) use of insulin (2) GINA (acute kidney injury) Current Visit: No Status: Acute Likely related to impaired cardiac output associated with CHF. Improving with cautious diuresis. Monitor rate of diuresis closely. We will check renal ultrasound as well as urinalysis. No acute need for dialysis. Avoid nephrotoxins. Adjust medication for renal function. Discussed plan with team. (3) CHF exacerbation Current Visit: No Status: Acute Diastolic dysfunction. Cardiology following. Caution with diuretics. Patient with fluid overload state. Qualifiers: Congestive heart failure type: diastolic Qualified Code(s): I50.33 - Acute on chronic diastolic (congestive) heart failure (4) Anemia Current Visit: No Status: Chronic Check iron stores, vitamin B-12, and folate. Qualifiers: Anemia type: unspecified type Qualified Code(s): D64.9 - Anemia, unspecified (5) HTN (hypertension) Current Visit: No Status: Chronic Blood pressure is controlled. Adjust medications as needed. Qualifiers: Hypertension type: essential hypertension Qualified Code(s): I10 - Essential (primary) hypertension (6) Morbid obesity with BMI of 45.0-49.9, adult Current Visit: No Status: Chronic Outpatient management. He would benefit from weight loss. History of Present Illness - Reason for Consult Consult date: 12/28/16 Acute Kidney Injury - Chief Complaint GINA - History of Present Illness Mr. Hill is a 66 yo man with a history of diastolic dysfunction presents with fluid overload and GINA. Patient reports a history of episodes of CHF and follows closely with his primary care provider for management. He presents to the hospital with shortness of breath and GINA. He is feeling better at the time of my evaluation. His right chest pain is gone and he is less dyspneic. He denies ever seeing a tower cleaner, but is aware that he has had GINA in the past. Past Med Surg Social Fam HX - Past Medical History Medical history: arthritis, atrial fibrillation, CHF, COPD, coronary artery disease, diabetes, GERD, GI bleed, hyperlipidemia, hypertension, myocardial infarction, osteoporosis, venous stasis, valvular heart disease, other Psychiatric history: anxiety, depression - Past Surgical History Surgical History: angioplasty/stent, cataract, herniorrhaphy, knee replacement, other - Social History Smoking Status: Never smoker Smokeless Tobacco Status: No Alcohol use: none Drug use: none - Family History Sister Living Status: Still Living Mother Living Status: Still Living Hx Family Cardiac Disorders: Yes (htn,cad, lipid) Hx Family Neurologic Disorders: Yes (alzheimers) Father Living Status: Hx Family Cardiac Disorders: Yes (cad) Hx Family Respiratory Disorders: Yes Hx Family Cancer: Yes (colon) Hx Family GI Disorders: Yes Hx Family Endocrine Disorder: No Medications and Allergies Insulin Human Regular [HumuLIN R] 25 - 30 unit SQ 0800,1700 #0 09/05/15 [ History] Isosorbide MONOnitrate (24 HR) [Imdur] 30 mg PO DAILY #0 09/05/15 [History] Ferrous Sulfate [Iron Supplement] 325 mg PO TID 12/18/15 [History] Aspirin [Lo-Dose Aspirin EC] 81 mg PO DAILY 03/15/16 [History] Insulin NPH/REG 70/30 [HumuLIN 70/30 VIAL] 80 unit SQ BIDWM 03/15/16 [History] Budesonide/Formoterol 160/4.5 [Symbicort 160/4.5] 2 puff IH BIDR 05/10/16 [ History] Diltiazem CD (24hr) [Cardizem CD] 120 mg PO DAILY 05/10/16 [History] Metoprolol [Lopressor] 50 mg PO BID 05/10/16 [History] Nitroglycerin [Nitrostat] 0.4 mg SL Q5M PRN 05/10/16 [History] Pantoprazole Sodium [Protonix] 40 mg PO DAILY 05/10/16 [History] glipiZIDE [Glipizide] 10 mg PO DAILY 05/10/16 [History] metFORMIN [Glucophage] 500 mg PO BIDWM 05/10/16 [History] metOLazone [Metolazone] 10 mg PO DAILY PRN 05/10/16 [History] Buspirone HCl [Buspar] 10 mg PO BID 07/30/16 [History] Oxygen 3 l NS AD 09/11/16 [History] Atorvastatin [Lipitor] 80 mg PO HS tablet 09/14/16 [Rx] Lisinopril [Zestril] 2.5 mg PO DAILY 09/21/16 [History] Albuterol Sulfate [Albuterol Inhaler] 2 puff IH Q4H PRN 09/22/16 [History] Ipratropium/Albuterol Neb [Duoneb] 3 ml IH Q4HR PRN 09/22/16 [History] Acetaminophen [Tylenol] 500 mg PO Q6HR PRN #0 tablet 11/06/16 [Rx] Gabapentin [Neurontin] 200 mg PO TID #60 capsule 11/06/16 [Rx] Allopurinol [Zyloprim 100 MG] 300 mg PO DAILY 12/27/16 [History] Colchicine [Colcrys] 0.6 mg PO DAILY 12/27/16 [History] Furosemide [Lasix] 80 mg PO TID 12/27/16 [History] Potassium Chloride [K-Tab ER] 60 meq PO TID 12/27/16 [History] predniSONE [PredniSONE] 10 mg PO AD 12/27/16 [History] 3 Allergy/AdvReac Type Severity Reaction Status Date / Time No Known Allergies Allergy Verified 12/27/16 11:49 Review of Systems All Systems: reviewed and no additional remarkable complaints except as stated ( as documented in the HPI.) Exam - Vital Signs Vital signs: Initial Vital Signs Temp Pulse Resp BP Pulse Ox 97.7 F 100 19 116/60 90 12/27/16 16:07 12/27/16 16:07 12/27/16 16:07 12/27/16 16:07 12/27/16 16:07 Vital Signs - Last 8 Hours Temp Pulse Resp BP Pulse Ox 12/28/16 10:50 98.2 F 70 18 105/65 96 12/28/16 09:03 16 134/80 96 12/28/16 07:58 97.7 F 76 16 134/80 94 12/28/16 03:15 98.2 F 79 15 109/71 96 Intake and Output 12/27/16 12/28/16 12/28/16 23:59 07:59 15:59 Intake Total 340 / 340 360 / 360 Output Total 445 / 445 440 / 440 1100 / 1100 Balance -105 / -105 -440 / -440 -740 / -740 Intake: Oral 340 / 340 360 / 360 Output: Urine 445 / 445 440 / 440 1100 / 1100 Other: Meal Dinner Breakfast Percent of Meal Consumed 100% 100% Weight 129.274 kg 130 kg Blood Glucose* 163 189 Patient Weight 12/28/16 23:59 Weight 130 kg - General Appearance General appearance: well-developed, well-nourished, obese EENT: ATNC Neck: supple Respiratory: course breath sounds Cardiology: edema, regular rate, regular rhythm Gastrointestinal: no tenderness, obese Integumentary: warm and dry Neurologic: alert and oriented x3 Musculoskeletal: no cyanosis Psychiatric: mood/affect appropriate Results - Lab Results 12/28/16 05:58 12/28/16 05:58 Most recent lab results Calcium 9.6 mg/dL (8.6-10.8) 12/28/16 05:58 Consult Discharge Plan - Plan Referrals: Lavinia Guerra MD [Primary Care Provider] -
--- NOTE | 2016-12-28 11:21 | Internal Med Progress Note ---
Date of Encounter: 12/28/16 Time of Encounter: 09:15 - Assessment and plan (1) Diastolic CHF, acute on chronic Current Visit: Yes Status: Acute Assessment and plan: Acute on chronic diastolic heart failure with preserved ejection fraction. Patient stating that he follows a strict fluid restriction at home but states that at times, he simply stops voiding and then his abdomen becomes more distended as well as his lower extremities become more swollen. His primary care provider had recently increased his furosemide dosage at home without effect. Continue to diurese and monitor renal functioning closely. Cardiology and nephrology are both on board. Patient stating he gained 20 pounds in the 2 week timeframe. EXAMINATION: SINGLE VIEW OF THE CHEST 12/27/2016 12:19 pm IMPRESSION: Stable cardiomegaly with findings suggestive of mild pulmonary edema. D/ / Avery Villanueva MD / Avery Villanueva MD Interpreting Provider: Avery Villanueva MD Echo with Imaging Enhancement Agent Date of Study: 09/12/2016 Impressions: LVEF 60%. Normal LV chamber size and function. Mild to moderate concentric left ventricular hypertrophy. Severe left ventricular diastolic dysfunction. Atypical septal motion consistent with bundle branch block. Mildly dilated right ventricle with normal function. Severely dilated left atrium. Moderately dilated right atrium. Unable to estimate RVSP due to lack of TR jet. (2) GINA (acute kidney injury) Current Visit: No Status: Acute Assessment and plan: In review of his chart, patient does not have chronic kidney disease. He has had bouts of normal renal functioning in the past few months. Nephrology is onboard-checking a renal ultrasound and a urinalysis. Will continue to monitor closely as we diurese him. (3) Acute on chronic respiratory failure with hypoxia Current Visit: Yes Status: Acute Assessment and plan: Changes to supplemental oxygenation. He is on 3 L per nasal cannula continuously at home, same here. Continue BiPAP while sleeping. (4) Atrial fibrillation Current Visit: No Status: Chronic Assessment and plan: Telemetry reviewed, no signs of atrial fibrillation at this time. Will trend. Qualifiers: Atrial fibrillation type: unspecified Qualified Code(s): I48.91 - Unspecified atrial fibrillation (5) CAD (coronary artery disease) Current Visit: No Status: Chronic Qualifiers: Coronary Disease-Associated Artery/Lesion type: [place] artery [place] vs. transplanted heart: [place] heart Associated angina: with stable angina Qualified Code(s): I25.118 - Atherosclerotic heart disease of [place] coronary artery with other forms of angina pectoris (6) COPD (chronic obstructive pulmonary disease) Current Visit: No Status: Chronic Assessment and plan: no acute exacerbation. Presentation more consistent with Diastolic HF Exacerbation.. No increased need for supplementation oxygenation. On 3 L per nasal cannula continuously at home as well as BiPAP at bedtime. Qualifiers: COPD type: COPD with acute exacerbation Qualified Code(s): J44.1 - Chronic obstructive pulmonary disease with (acute) exacerbation (7) Elevated troponin Current Visit: No Status: Chronic Assessment and plan: Acute on chronic since earlier this year. Trending down. His denies chest pain. Low suspicion for acute coronary syndrome. Likely secondary to acute kidney injury. (8) HTN (hypertension) Current Visit: No Status: Chronic Assessment and plan: Controlled, we will continue to trend and adjust medications as indicated (9) Hyperlipidemia Current Visit: No Status: Chronic Assessment and plan: Lipid panel from earlier this year essentially unremarkable. Recommend continue high-dose statin and low-cholesterol diet Qualifiers: Hyperlipidemia type: mixed hyperlipidemia Qualified Code(s): E78.2 - Mixed hyperlipidemia (10) Hypoventilation associated with obesity Current Visit: No Status: Chronic (11) Iron deficiency anemia Current Visit: No Status: Chronic Assessment and plan: Stable, chronic, consistent with his baseline. (12) Sleep apnea Current Visit: Yes Status: Chronic Assessment and plan: Compliant with BiPAP (13) Type 2 diabetes mellitus Current Visit: Yes Status: Chronic Assessment and plan: Uncontrolled with recent A1c of 10.2%. Continue sliding scale while admitted. (14) Morbid obesity with BMI of 45.0-49.9, adult Current Visit: No Status: Chronic (15) DVT prophylaxis Current Visit: No Status: Acute Assessment and plan: Subcutaneous heparin - Subjective Interval history: Patient seen and examined. On examination, patient sitting upright on the side of his bed. Patient stating he is feeling better but not back to his baseline. He denies pain at this time. He states the swelling in his legs has improved and the swelling in his abdomen is starting to go down slightly. He states he is eating well and denies concerns at this time. - Constitutional Vitals: Temp Pulse Resp BP Pulse Ox 98.2 F 70 18 105/65 96 12/28/16 10:50 12/28/16 10:50 12/28/16 10:50 12/28/16 10:50 12/28/16 10:50 General appearance: Present: A&O X 3, morbidly obese, pleasant, no acute distress, answers questions appropriately - Head Head exam: Present: atraumatic, normocephalic - Eye Eye exam: Present: PERRL, conjuntiva pink, sclera anicteric Pupils: Present: PERRL - Neck Neck exam general surgery: Present: supple, trachea midline. Absent: lymphadenopathy - Respiratory Respiratory exam: Present: decreased breath sounds, rhonchi. Absent: accessory muscle use, rales, respiratory distress, wheezes - Cardiovascular Cardiovascular exam: Present: RRR, +S1, +S2. Absent: diastolic murmur, gallop, rubs, systolic murmur - GI/Abdominal GI/Abdominal exam: Present: distended, normal bowel sounds, soft, no peritoneal signs. Absent: tenderness - Extremities Exam Extremities exam: Present: pedal edema, warm, radial pulses palpable and symmetrical. Absent: calf tenderness, cyanotic - Neurological Exam Neurological exam: Present: alert, CN II-XII intact, oriented X3, no focal deficits, strengths equal and symetr throughout. Absent: pronater drift, facial droop, speech deficit - Skin Skin exam: Present: dry, intact, pallor, warm Internal Medicine: Result - Labs CBC & Chem 7: 12/28/16 05:58 12/28/16 05:58 Labs: Short CBC 12/28/16 Range/Units 05:58 WBC 6.9 (4.3-11.1) K/mcL Hgb 10.3 L (12.9-16.9) g/dL Hct 34.0 L (37.5-50.1) % Plt Count 187 (140-400) K/mcL Neutrophils # 4.2 (1.6-8.9) K/mcL BMP 12/28/16 05:58 Sodium 145 Potassium 4.0 Chloride 103 Carbon Dioxide 32 H BUN 69 H Creatinine 1.64 H Glucose 159 H Calcium 9.6 Cardiac Enzymes 12/27/16 12/28/16 Range/Units 17:55 00:01 Troponin I 0.08 H* 0.05 H* (0-0.03) ng/mL - VTE Documentation of Mechanical Device: Graduated compression elastic hosiery Consult Discharge Plan - Plan Referrals: Lavinia Guerra MD [Primary Care Provider] -
--- NOTE | 2016-12-28 11:52 | Cardiology Consult Note ---
Date of Encounter: 12/28/16 Time of Encounter: 11:42 Assessment and Plan Discussion w patient/family: HFpEF/Diastolic HF - clinically, primarily right sided. Recommend continue lasix IV. Monitor Cr, daily weights, strict I/Os. Negative 1585 since admission. Morbid obesity - weight loss is imperative. GINA - better. Monitor with diuresis. Mild troponin elevation - likely related to GINA, CHF. No chest pain. Presentation not c/w ACS. [place] CAD, prior PCI LAD. Continue aspirin/statin/BB/Imdur therapy. PAF - Not of full AC due to prior GI bleed. Continue aspirin therapy. All questions answered. Please call if any concerns. Thanks, Kaveh Henderson DO, FACC The assessment and plan as outlined above was discussed with the patient and/or family members who expressed understanding and agreement. All questions were answered. Thank you for involving us in the care of your patient. Please call with any questions. History of Present Illness Consult date: 12/28/16 Requesting physician: Eloise Pennington Consult reason: Weight gain Chief complaint: Weight gain History of present illness: Mr. Hill is a 66 year old male with CAD, prior PCI to LAD in 2013, diastolic dysfunction, morbid obesity, AF. Presents with increasing weight gain. Similar to previous, patient reports increasing abdominal distention and LE edema. Cr better today, 1.6. No chest pain reported. TTE 11/24/2015: LVEF 60%. Mild concentric LVH. [place]line dilated RV with normal function. Moderate to severely dilated LA. Valves not assessed. Past Med Surg Social Fam HX - Past Medical History Medical history: arthritis, atrial fibrillation, CHF, COPD, coronary artery disease, diabetes, GERD, GI bleed, hyperlipidemia, hypertension, myocardial infarction, osteoporosis, venous stasis, valvular heart disease, other Psychiatric history: anxiety, depression - Past Surgical History Surgical History: angioplasty/stent, cataract, herniorrhaphy, knee replacement, other - Social History Smoking Status: Never smoker Smokeless Tobacco Status: No Alcohol use: none Drug use: none - Family History Sister Living Status: Still Living Mother Living Status: Still Living Hx Family Cardiac Disorders: Yes (htn,cad, lipid) Hx Family Neurologic Disorders: Yes (alzheimers) Father Living Status: Hx Family Cardiac Disorders: Yes (cad) Hx Family Respiratory Disorders: Yes Hx Family Cancer: Yes (colon) Hx Family GI Disorders: Yes Hx Family Endocrine Disorder: No Medications and Allergies Insulin Human Regular [HumuLIN R] 25 - 30 unit SQ 0800,1700 #0 09/05/15 [ History] Isosorbide MONOnitrate (24 HR) [Imdur] 30 mg PO DAILY #0 09/05/15 [History] Ferrous Sulfate [Iron Supplement] 325 mg PO TID 12/18/15 [History] Aspirin [Lo-Dose Aspirin EC] 81 mg PO DAILY 03/15/16 [History] Insulin NPH/REG 70/30 [HumuLIN 70/30 VIAL] 80 unit SQ BIDWM 03/15/16 [History] Budesonide/Formoterol 160/4.5 [Symbicort 160/4.5] 2 puff IH BIDR 05/10/16 [ History] Diltiazem CD (24hr) [Cardizem CD] 120 mg PO DAILY 05/10/16 [History] Metoprolol [Lopressor] 50 mg PO BID 05/10/16 [History] Nitroglycerin [Nitrostat] 0.4 mg SL Q5M PRN 05/10/16 [History] Pantoprazole Sodium [Protonix] 40 mg PO DAILY 05/10/16 [History] glipiZIDE [Glipizide] 10 mg PO DAILY 05/10/16 [History] metFORMIN [Glucophage] 500 mg PO BIDWM 05/10/16 [History] metOLazone [Metolazone] 10 mg PO DAILY PRN 05/10/16 [History] Buspirone HCl [Buspar] 10 mg PO BID 07/30/16 [History] Oxygen 3 l NS AD 09/11/16 [History] Atorvastatin [Lipitor] 80 mg PO HS tablet 09/14/16 [Rx] Lisinopril [Zestril] 2.5 mg PO DAILY 09/21/16 [History] Albuterol Sulfate [Albuterol Inhaler] 2 puff IH Q4H PRN 09/22/16 [History] Ipratropium/Albuterol Neb [Duoneb] 3 ml IH Q4HR PRN 09/22/16 [History] Acetaminophen [Tylenol] 500 mg PO Q6HR PRN #0 tablet 11/06/16 [Rx] Gabapentin [Neurontin] 200 mg PO TID #60 capsule 11/06/16 [Rx] Allopurinol [Zyloprim 100 MG] 300 mg PO DAILY 12/27/16 [History] Colchicine [Colcrys] 0.6 mg PO DAILY 12/27/16 [History] Furosemide [Lasix] 80 mg PO TID 12/27/16 [History] Potassium Chloride [K-Tab ER] 60 meq PO TID 12/27/16 [History] predniSONE [PredniSONE] 10 mg PO AD 12/27/16 [History] 3 Allergy/AdvReac Type Severity Reaction Status Date / Time No Known Allergies Allergy Verified 12/27/16 11:49 All Systems Review: A 10-system review of systems was performed and is negative for pertinent findings except as documented above in the HPI. - Constitutional Constitutional: weight gain - Cardiovascular Cardiovascular: as per HPI, dyspnea on exertion, leg edema Physical Examination Vital Signs, Last 4 Hours Temp Pulse Resp BP Pulse Ox 12/28/16 10:50 98.2 F 70 18 105/65 96 12/28/16 09:03 16 134/80 96 12/28/16 07:58 97.7 F 76 16 134/80 94 General: Conversant, No Apparent Distress HEENT: Atraumatic, Normocephaly, Mucus Membranes Moist Neck: Normal carotid pulses, Other (Large neck, difficult to assess for JVD) Cardiac: Other (Distant, irregular. No obvious murmurs) Lungs: Other (Shallow but clear) Neuro: Alert and responsive, No focal deficits noted Abdomen: Non-Tender, Other (Obese, tense) Skin: No rashes noted on visualized skin, Other Musculoskeletal: No Chest Wall Tenderness Extremities: No Clubbing, No Cyanosis, Other (Mild to moderate edema bilterally. ) Results 12/28/16 05:58 12/28/16 05:58 Lab Results 12/27/16 12/28/16 12/28/16 17:55 00:01 05:58 WBC 6.9 Hgb 10.3 L Hct 34.0 L Plt Count 187 Sodium Potassium Chloride Carbon Dioxide BUN Creatinine Glucose Calcium Troponin I 0.08 H* 0.05 H* 12/28/16 05:58 WBC Hgb Hct Plt Count Sodium 145 Potassium 4.0 Chloride 103 Carbon Dioxide 32 H BUN 69 H Creatinine 1.64 H Glucose 159 H Calcium 9.6 Troponin I - Imaging and Cardiology Echo: report reviewed - EKG Interpretation EKG results cardiology: personally reviewed Consult Discharge Plan - Plan Referrals: Lavinia Guerra MD [Primary Care Provider] -
[2016-12-28 12:44] LABS: Bilirubin,Urine Negative (Negative); Blood,Urine Negative (Negative); Clarity,Urine Clear (Clear); Color,Urine Yellow (Yellow); Glucose,Urine (UA) 100 mg/dL (Normal); Ketones,Urine Negative (Negative); Leukocyte Esterase,Urine Negative (Negative); Nitrite,Urine Negative (Negative); Protein,Urine Negative (Neg-Trace); Specific Gravity,Urine 1.012 (1.010-1.025); Urobilinogen,Urine Normal (Normal)
[2016-12-28 13:00] LABS: Creatinine,Urine 20 mg/dL; Microalbum/Creatinine Ratio,Ur 25 (0-30); Protein/Creatinine Ratio,Urine 0.35 mg/mg (0-0.20)
[2016-12-28 13:01] LABS: Microalbumin,Urine < 5 mg/L
[2016-12-28] MEDS ORDERED: *HR* Morphine 2 MG/ML SYRINGE IVP PRN (15:41)
[2016-12-28 16:02] LABS: ABG Base Excess 10.5 mEq/L (-2.0 to 3.0); ABG HCO3 36.5 mEQ/L (21-27); ABG Oxygen Saturation 95 % (95-98); ABG PCO2 55 mmHg (35-45); ABG PH 7.43 pH Units (7.32-7.45); ABG PO2 74 mmHg (85-104); ABG TCO2 38.2 mEq/L (20-26)
[2016-12-28 16:03] LABS: Blood Gas FiO2 32 %
--- NOTE | 2016-12-28 17:26 | Event Note ---
Date of Encounter: 12/28/16 Time of Encounter: 17:15 Have been notified twice today for possible concerns of EKG abnormalities. Reviewed telemetry both times and was consistent with artifact. Performed another EKG both times, and was unchanged. No change to patient's symptoms. Will continue to monitor.
[2016-12-29 05:01] LABS: Basophils # 0.1 K/mcL (0.0-0.2); Basophils % 0.8 %; Eosinophils # 0.4 K/mcL (0.0-0.6); Eosinophils % 4.4 %; Hematocrit 37.4 % (37.5-50.1); Hemoglobin 11.2 g/dL (12.9-16.9); Immature Granulocytes % 0.9 % (0-4); Lymphocytes # 2.7 K/mcL (0.6-4.6); Lymphocytes % 31.3 %; Mean Corpuscular HGB Conc 29.9 g/dL (31.6-35.5); Mean Corpuscular Hemoglobin 27.5 pg (28.0-33.3); Mean Corpuscular Volume 91.9 fL (83.0-100.0); Mean Platelet Volume 11.7 fL (9.4-12.4); Monocytes # 0.8 K/mcL (0.0-1.3); Neutrophils # 4.7 K/mcL (1.6-8.9); Platelet Count 220 K/mcL (140-400); Red Blood Count 4.07 M/mcL (4.19-5.50); Red Cell Distribution Width 20.2 % (11.5-14.5); Segmented Neutrophils % 53.6 %
[2016-12-29 05:15] LABS: % Iron Saturation 16 % (20-55); BUN/Creatinine Ratio 40 (6-26); Blood Urea Nitrogen 43 mg/dL (8-26); Calcium 10.3 mg/dL (8.6-10.8); Carbon Dioxide 33 mEq/L (19-29); Chloride 104 mEq/L (98-109); Glucose 182 mg/dL (70-99); Iron 53 mcg/dL (65-175); Osmolality,Calculated 321 (280-300); Potassium 4.6 mEq/L (3.5-4.5); Sodium 148 mEq/L (136-145); Transferrin 243 mg/dL (174-364); eGFR For African Americans > 60 (> 60); eGFR For Non-African Americans > 60 (> 60)
[2016-12-29 05:35] LABS: Ferritin 96 ng/ml (22-275)
[2016-12-29 05:49] LABS: Folate 13.4 ng/mL (7.0-31.4)
[2016-12-29] MEDS: Budesonide/Formoterol 160/4.5 MDI IH SCH ×2 (07:43→20:11)
[2016-12-29] MEDS: Insulin LISPRO 300 UNITS/3 ML VIAL SQ SCH ×6 (09:13→21:11)
[2016-12-29] MEDS: *HR* Heparin 5,000 UNIT/ML VIAL SQ SCH ×3 (09:14→23:07)
[2016-12-29] MEDS: Insulin NPH/REG 70/30 100 UNIT/ML (x5UNIT) SQ SCH ×2 (09:14→17:32)
[2016-12-29] MEDS: Colchicine 0.6 MG TABLET PO SCH (09:15)
[2016-12-29] MEDS: Aspirin Enteric Coated 81 MG Tablet PO SCH (09:15)
[2016-12-29] MEDS: Diltiazem CD (24hr) 120 MG CAPSULE PO SCH (09:15)
[2016-12-29] MEDS: Furosemide 100 MG/10 ML VIAL IVP SCH ×2 (09:16→21:21)
[2016-12-29] MEDS: Isosorbide MONOnitrate (24 HR) 30 MG TAB.ER.24H PO SCH (09:16)
[2016-12-29] MEDS: Gabapentin 100 MG CAPSULE PO SCH ×3 (09:16→21:22)
--- NOTE | 2016-12-29 09:49 | Internal Med Progress Note ---
Date of Encounter: 12/29/16 Time of Encounter: 08:30 - Assessment and plan (1) Diastolic CHF, acute on chronic Current Visit: Yes Status: Acute Assessment and plan: Acute on chronic diastolic heart failure with preserved ejection fraction. Patient stating that he follows a strict fluid restriction at home but states that at times, he simply stops voiding and then his abdomen becomes more distended as well as his lower extremities become more swollen. His primary care provider had recently increased his furosemide dosage at home without effect. Thus far, he is handling his diuresis well however his abdominal distention and shortness of breath have worsened overnight despite losing nearly 5 kg overnight. His abdomen is more distended and is now firm. We will get an ultrasound to see if may be a paracentesis is indicated-patient stating he has never had one of these before. Will also ramp up the treatment for COPD exacerbation. Renal functioning now normal. Continue to diurese and monitor renal functioning closely. Cardiology and nephrology are both on board. Patient stating he gained 20 pounds in the 2 week timeframe. EXAMINATION: SINGLE VIEW OF THE CHEST 12/27/2016 12:19 pm IMPRESSION: Stable cardiomegaly with findings suggestive of mild pulmonary edema. D/ / Avery Villanueva MD / Avery Villanueva MD Interpreting Provider: Avery Villanueva MD Echo with Imaging Enhancement Agent Date of Study: 09/12/2016 Impressions: LVEF 60%. Normal LV chamber size and function. Mild to moderate concentric left ventricular hypertrophy. Severe left ventricular diastolic dysfunction. Atypical septal motion consistent with bundle branch block. Mildly dilated right ventricle with normal function. Severely dilated left atrium. Moderately dilated right atrium. Unable to estimate RVSP due to lack of TR jet. (2) GINA (acute kidney injury) Current Visit: No Status: Resolved (3) Acute on chronic respiratory failure with hypoxia Current Visit: Yes Status: Acute Assessment and plan: No changes to supplemental oxygenation. He is on 3 L per nasal cannula continuously at home, same here. Continue BiPAP while sleeping-patient telling me that he was not offered BiPAP last night however reports indicate that he declined BiPAP. Strongly encouraged to use BiPAP when asleep. (4) Atrial fibrillation Current Visit: No Status: Chronic Assessment and plan: Telemetry reviewed, no signs of atrial fibrillation at this time. Will trend. Of note, have had multiple calls regarding possible arrhythmias on the telemetry monitor. These have been investigated every time and the first 2 times this happened, EKGs were unremarkable and further review of telemetry consistent with artifact. Cardiology on board. Qualifiers: Atrial fibrillation type: unspecified Qualified Code(s): I48.91 - Unspecified atrial fibrillation (5) CAD (coronary artery disease) Current Visit: No Status: Chronic Qualifiers: Coronary Disease-Associated Artery/Lesion type: [place] artery [place] vs. transplanted heart: [place] heart Associated angina: with stable angina Qualified Code(s): I25.118 - Atherosclerotic heart disease of [place] coronary artery with other forms of angina pectoris (6) COPD (chronic obstructive pulmonary disease) Current Visit: No Status: Chronic Assessment and plan: Unlikely that he has had an acute exacerbation however his shortness of breath has worsened overnight despite losing 5 kg of fluid. While the presentation is more consistent with diastolic heart failure exacerbation, will schedule his duo nebs. Will hold off on steroids at this time and monitor closely. No wheezing appreciated on examination however aeration poor. We will also add mucolytics and monitor closely. No increased need for supplementation oxygenation. On 3 L per nasal cannula continuously at home as well as BiPAP at bedtime. Qualifiers: COPD type: COPD with acute exacerbation Qualified Code(s): J44.1 - Chronic obstructive pulmonary disease with (acute) exacerbation (7) Elevated troponin Current Visit: No Status: Chronic Assessment and plan: Acute on chronic since earlier this year. Trending down. His denies chest pain. Low suspicion for acute coronary syndrome. Likely secondary to acute kidney injury. (8) HTN (hypertension) Current Visit: No Status: Chronic Assessment and plan: Controlled, we will continue to trend and adjust medications as indicated (9) Hyperlipidemia Current Visit: No Status: Chronic Assessment and plan: Lipid panel from earlier this year essentially unremarkable. Recommend continue high-dose statin and low-cholesterol diet Qualifiers: Hyperlipidemia type: mixed hyperlipidemia Qualified Code(s): E78.2 - Mixed hyperlipidemia (10) Hypoventilation associated with obesity Current Visit: No Status: Chronic (11) Iron deficiency anemia Current Visit: No Status: Chronic Assessment and plan: Stable, chronic, consistent with his baseline. (12) Sleep apnea Current Visit: Yes Status: Chronic Assessment and plan: Unclear whether or not the patient is compliant with BiPAP. He states he was never offered however was charted that he declined it which would be more likely. He was a encouraged to use it when he is asleep. (13) Type 2 diabetes mellitus Current Visit: Yes Status: Chronic Assessment and plan: Uncontrolled with recent A1c of 10.2%. Continue sliding scale while admitted. (14) Morbid obesity with BMI of 45.0-49.9, adult Current Visit: No Status: Chronic (15) DVT prophylaxis Current Visit: No Status: Acute Assessment and plan: Subcutaneous heparin - Subjective Interval history: Patient seen and examined. On examination, patient resting supine in bed with the head of his bed at approx 30 degrees. he states he did not sleep last night. He states his shortness of breath has slightly worsened. He denies pain at this time. He states his abdomen feels more distended. He states he was able to eat breakfast this morning despite dry heaving most of the morning. No vomiting. - Constitutional Vitals: Temp Pulse Resp BP Pulse Ox 97.5 F L 72 15 134/79 98 12/29/16 08:04 12/29/16 08:04 12/29/16 08:04 12/29/16 08:04 12/29/16 08:04 General appearance: Present: A&O X 3, morbidly obese, pleasant, severe distress (moderate), answers questions appropriately - Head Head exam: Present: atraumatic, normocephalic - Eye Eye exam: Present: PERRL, conjuntiva pink, sclera anicteric Pupils: Present: PERRL - Neck Neck exam general surgery: Present: supple, trachea midline. Absent: lymphadenopathy - Respiratory Respiratory exam: Present: accessory muscle use, decreased breath sounds, respiratory distress (grunting), tachypnea. Absent: prolonged expiratory phase , rales, rhonchi, wheezes - Cardiovascular Cardiovascular exam: Present: RRR, +S1, +S2. Absent: diastolic murmur, gallop, rubs, systolic murmur - GI/Abdominal GI/Abdominal exam: Present: distended, firm, normal bowel sounds, no peritoneal signs. Absent: tenderness - Extremities Exam Extremities exam: Present: pedal edema (1+ pitting bilaterally), warm, radial pulses palpable and symmetrical. Absent: calf tenderness, cyanotic - Neurological Exam Neurological exam: Present: alert, CN II-XII intact, oriented X3, no focal deficits, strengths equal and symetr throughout. Absent: pronater drift, facial droop, speech deficit - Skin Skin exam: Present: dry, erythema, intact, normal color, warm Internal Medicine: Result - Labs CBC & Chem 7: 12/29/16 04:26 12/29/16 04:26 Labs: Short CBC 12/29/16 Range/Units 04:26 WBC 8.7 (4.3-11.1) K/mcL Hgb 11.2 L (12.9-16.9) g/dL Hct 37.4 L (37.5-50.1) % Plt Count 220 (140-400) K/mcL Neutrophils # 4.7 (1.6-8.9) K/mcL BMP 12/29/16 04:26 Sodium 148 H Potassium 4.6 H Chloride 104 Carbon Dioxide 33 H BUN 43 H D Creatinine 1.07 Glucose 182 H Calcium 10.3 Urine 12/28/16 Range/Units 12:37 Urine Color Yellow (Yellow) Urine Clarity Clear (Clear) Urine pH 6.0 (5.0-8.0) pH Units Ur Specific [place] 1.012 (1.010-1.025) Urine Protein Negative (Neg-Trace) mg/dL Urine Glucose (UA) 100 H (Normal) mg/dL - ABG Interpretation ABG results: ABG ABG pH 7.43 pH Units (7.32-7.45) 12/28/16 15:50 ABG pCO2 55 mmHg (35-45) H 12/28/16 15:50 ABG pO2 74 mmHg (85-104) L 12/28/16 15:50 ABG O2 Saturation 95 % (95-98) 12/28/16 15:50 - Impressions Impressions Retroperitoneum Ultrasound 12/28/16 13:00 IMPRESSION: Unremarkable ultrasound of the kidneys and urinary bladder. D/ / Jannie Guevara MD / Jannie Guevara MD Interpreting Provider: Jannie Guevara MD - VTE Documentation of Mechanical Device: Graduated compression elastic hosiery Consult Discharge Plan - Plan Referrals: Lavinia Guerra MD [Primary Care Provider] -
--- NOTE | 2016-12-29 09:51 | Nephrology Progress Note ---
Date of Encounter: 12/29/16 Time of Encounter: 09:51 - Assessment and Plan (1) GINA (acute kidney injury) Current Visit: No Status: Acute Resolved. Seems to be hemodynamic in nature. Renal ultrasound unremarkable. he does have a mild elevation of his protein to creatinine ration that needs to be followed on an outpatient basis. Will sign off. Please call if any questions or concerns. (2) Type 2 diabetes mellitus Current Visit: Yes Status: Chronic Per primary team. 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 Qualifiers: Congestive heart failure type: diastolic Qualified Code(s): I50.33 - Acute on chronic diastolic (congestive) heart failure (4) Anemia Current Visit: No Status: Chronic Per primary team. Qualifiers: Anemia type: unspecified type Qualified Code(s): D64.9 - Anemia, unspecified (5) HTN (hypertension) Current Visit: No Status: Chronic Blood pressure controlled. Qualifiers: Hypertension type: essential hypertension Qualified Code(s): I10 - Essential (primary) hypertension (6) Morbid obesity with BMI of 45.0-49.9, adult Current Visit: No Status: Chronic Outpatient management. Subjective Principal diagnosis: GINA Interval history: Patient seen. He has no new complaints. He is sitting on the edge of the bed. Objective - Vital Signs Vital signs: Vital Signs Temp Pulse Resp BP Pulse Ox 12/29/16 08:04 97.5 F L 72 15 134/79 98 12/29/16 07:44 18 93 12/29/16 03:13 97.8 F 64 16 129/73 96 12/28/16 22:54 97.5 F L 71 16 115/74 95 12/28/16 20:29 94 12/28/16 20:24 18 94 12/28/16 19:11 97.5 F L 72 16 117/82 97 12/28/16 15:32 97.5 F L 71 18 127/78 92 12/28/16 10:50 98.2 F 70 18 105/65 96 Intake and Output 12/28/16 12/29/16 12/29/16 23:59 07:59 15:59 Intake Total 480 / 480 240 / 240 440 / 440 Output Total 1475 / 1475 200 / 200 300 / 300 Balance -995 / -995 40 / 40 140 / 140 Intake: Oral 480 / 480 240 / 240 440 / 440 Output: Urine 1475 / 1475 200 / 200 300 / 300 Other: Meal Dinner Breakfast Percent of Meal Consumed 100% 100% Weight 125.282 kg Blood Glucose* 197 213 Patient Weight 12/29/16 23:59 Weight 125.282 kg - General Appearance General appearance: Present: well-developed, well-nourished, obese EENT: Present: ATNC Additional Comments: Respirations are unlabored. Cardiology: Present: regular rate Gastrointestinal: Present: obese Neurologic: Present: alert and oriented x3 Psychiatric: Present: mood/affect appropriate - Lab 12/29/16 04:26 12/29/16 04:26 Most recent lab results ABG pH 7.43 pH Units (7.32-7.45) 12/28/16 15:50 ABG pCO2 55 mmHg (35-45) H 12/28/16 15:50 ABG pO2 74 mmHg (85-104) L 12/28/16 15:50 ABG HCO3 36.5 mEQ/L (21-27) H 12/28/16 15:50 ABG O2 Saturation 95 % (95-98) 12/28/16 15:50 Calcium 10.3 mg/dL (8.6-10.8) 12/29/16 04:26 Urine Creatinine 20 mg/dL 12/28/16 12:37 Urine Total Protein < 7 mg/dL (1-14) 12/28/16 12:37 - VTE Documentation of Mechanical Device: Graduated compression elastic hosiery Consult Discharge Plan - Plan Referrals: Lavinia Guerra MD [Primary Care Provider] -
[2016-12-29] MEDS ORDERED: Ondansetron 4 MG/2 ML VIAL IVP PRN (10:01)
[2016-12-29] MEDS: Ipratropium/Albuterol Neb 3 ML IH SCH ×4 (11:38→20:11)
[2016-12-29] MEDS: *HR* HYDROcodone/Acet 5/325 mg TABLET PO PRN (12:15)
--- NOTE | 2016-12-29 15:10 | Cardiology Progress Note ---
Date of Encounter: 12/29/16 Time of Encounter: 15:08 Assessment and Plan (1) Diastolic heart failure Current Visit: No Status: Chronic HFpEF. Overall, volume status improving with diuresis. Cr normal. Recommend continue diuretics. Monitor Cr, daily weights, I/Os. No new cardiology recommendations. Please call if any issues. Please ask patient to followup with cardiology upon discharge. Qualifiers: Heart failure chronicity: chronic Qualified Code(s): I50.32 - Chronic diastolic (congestive) heart failure (2) CAD (coronary artery disease) Current Visit: No Status: Chronic [place] CAD. Recommend continue aspirin/statin/BB/Imdur therapy. Risk factor modification is imperative. Qualifiers: Coronary Disease-Associated Artery/Lesion type: [place] artery [place] vs. transplanted heart: [place] heart Associated angina: with stable angina Qualified Code(s): I25.118 - Atherosclerotic heart disease of [place] coronary artery with other forms of angina pectoris (3) PAF (paroxysmal atrial fibrillation) Current Visit: Yes Status: Acute PAF. Not on full AC due to prior GI bleed. Continue aspirin therapy, BB/CCB therapy. Discussion w patient/family: HFpEF/Diastolic HF - clinically, primarily right sided. Recommend continue lasix IV. Monitor Cr, daily weights, strict I/Os. Negative 1585 since admission. Morbid obesity - weight loss is imperative. GINA - better. Monitor with diuresis. Mild troponin elevation - likely related to GINA, CHF. No chest pain. Presentation not c/w ACS. [place] CAD, prior PCI LAD. Continue aspirin/statin/BB/Imdur therapy. PAF - Not of full AC due to prior GI bleed. Continue aspirin therapy. All questions answered. Please call if any concerns. Thanks, Kaveh Henderson DO, [facility] The assessment and plan as outlined above was discussed with the patient and/or family members who expressed understanding and agreement. All questions were answered. Thank you for involving us in the care of your patient. Please call with any questions. Subjective Principal diagnosis: CHF Interval history: Patient seen and examined earlier today. Reports feeling better, but edema/abdominal distention remains. I/Os negative 2500 mL overnight. Cr normalized. No chest pain. Objective Vital Signs, Last 4 Hours Temp Pulse Resp BP Pulse Ox 12/29/16 11:45 18 93 12/29/16 11:38 98.1 F 71 15 111/71 94 General: Conversant, No Apparent Distress HEENT: Atraumatic, Normocephaly, Mucus Membranes Moist Neck: No JVD, Normal carotid pulses Cardiac: Reg Rate and Rhythm, Normal S1 and S2, No Murmur Lungs: Normal Breath Sounds, No Wheeze, Rales, Rhonchi Neuro: Alert and responsive Abdomen: Soft, Non-Tender, Other (Obese) Skin: No rashes noted on visualized skin Musculoskeletal: No Chest Wall Tenderness Extremities: No Clubbing, No Cyanosis, Other (Mild edema bilaterally) Results 12/29/16 04:26 12/29/16 04:26 Lab Results 12/29/16 12/29/16 04:26 04:26 WBC 8.7 Hgb 11.2 L Hct 37.4 L Plt Count 220 Sodium 148 H Potassium 4.6 H Chloride 104 Carbon Dioxide 33 H BUN 43 H D Creatinine 1.07 Glucose 182 H Calcium 10.3 - Imaging and Cardiology Echo: report reviewed - VTE Documentation of Mechanical Device: Graduated compression elastic hosiery Consult Discharge Plan - Plan Referrals: Lavinia Guerra MD [Primary Care Provider] -
--- NOTE | 2016-12-29 18:29 | Event Note ---
Date of Encounter: 12/29/16 Time of Encounter: 18:15 Patient seen and reexamined. On reexamination, patient sitting upright in his chair. Respiratory distress improved from this morning. Aeration improved. Abdomen remains distended however less firm than this morning. He states he feels more comfortable and denies concerns. Awaiting ultrasound to ascertain if a paracentesis is indicated.
[2016-12-29] MEDS: Insulin Regular, Human 100 UNIT/ML SQ SCH (19:29)
[2016-12-30] MEDS: Ipratropium/Albuterol Neb 3 ML IH SCH ×7 (00:14→23:58)
[2016-12-30 06:31] LABS: BUN/Creatinine Ratio 26 (6-26); Blood Urea Nitrogen 27 mg/dL (8-26); Calcium 10.5 mg/dL (8.6-10.8); Carbon Dioxide 36 mEq/L (19-29); Chloride 102 mEq/L (98-109); Glucose 218 mg/dL (70-99); Osmolality,Calculated 318 (280-300); Potassium 4.3 mEq/L (3.5-4.5); Sodium 148 mEq/L (136-145); eGFR For African Americans > 60 (> 60); eGFR For Non-African Americans > 60 (> 60)
[2016-12-30] MEDS: Budesonide/Formoterol 160/4.5 MDI IH SCH ×2 (07:33→20:22)
[2016-12-30] MEDS: Isosorbide MONOnitrate (24 HR) 30 MG TAB.ER.24H PO SCH (08:11)
[2016-12-30] MEDS: Aspirin Enteric Coated 81 MG Tablet PO SCH (08:11)
[2016-12-30] MEDS: Colchicine 0.6 MG TABLET PO SCH (08:12)
[2016-12-30] MEDS: Furosemide 100 MG/10 ML VIAL IVP SCH ×2 (08:13→21:33)
[2016-12-30] MEDS: Gabapentin 100 MG CAPSULE PO SCH ×3 (08:13→21:32)
[2016-12-30] MEDS: *HR* Heparin 5,000 UNIT/ML VIAL SQ SCH ×2 (08:13→15:08)
[2016-12-30] MEDS: Diltiazem CD (24hr) 120 MG CAPSULE PO SCH (08:14)
[2016-12-30] MEDS: Insulin LISPRO 300 UNITS/3 ML VIAL SQ SCH ×6 (08:18→21:34)
[2016-12-30] MEDS: Insulin NPH/REG 70/30 100 UNIT/ML (x5UNIT) SQ SCH ×2 (08:30→18:02)
[2016-12-30] MEDS: *HR* HYDROcodone/Acet 5/325 mg TABLET PO PRN ×2 (15:08→21:32)
--- NOTE | 2016-12-30 16:31 | Internal Med Progress Note ---
Date of Encounter: 12/30/16 Time of Encounter: 12:20 - Assessment and plan (1) CHF (congestive heart failure) Current Visit: Yes Status: Acute Assessment and plan: Patient presents with exertional dyspnea, pedal edema and acute on chronic hypoxia. He is likely noncompliant with fluid restriction at home. Noted to have appropriate urine output with good net negative fluid balance. Continue IV Lasix, will add metolazone. Continue beta liv, Nitrate and calcium channel liv. Strict fluid restriction. Monitor urine output. Patient will likely require home health services, at least visiting nurse, at discharge. Qualifiers: Congestive heart failure type: diastolic Congestive heart failure chronicity: acute on chronic Qualified Code(s): I50.33 - Acute on chronic diastolic (congestive) heart failure (2) Acute kidney injury superimposed on CKD Current Visit: Yes Status: Resolved Assessment and plan: Serum creatinine normalized. Patient likely does not have chronic kidney disease but has episodes of renal dysfunction due to aggressive diuresis. Continue to monitor but patient does require IV Lasix for now. (3) Diabetes mellitus type 2, uncontrolled Current Visit: Yes Status: Chronic Assessment and plan: Likely due to medical noncompliance. We will increase basal insulin, continue sliding scale. Continue Accu-Chek blood glucose monitoring. Diabetic diet. 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 Qualifiers: Coronary Disease-Associated Artery/Lesion type: [place] artery [place] vs. transplanted heart: [place] heart Associated angina: with stable angina Qualified Code(s): I25.118 - Atherosclerotic heart disease of [place] coronary artery with other forms of angina pectoris (5) HTN (hypertension) Current Visit: Yes Status: Chronic Qualifiers: Hypertension type: essential hypertension Qualified Code(s): I10 - Essential (primary) hypertension (6) COPD (chronic obstructive pulmonary disease) Current Visit: Yes Status: Chronic Qualifiers: COPD type: unspecified COPD Qualified Code(s): J44.9 - Chronic obstructive pulmonary disease, unspecified (7) Sleep apnea Current Visit: Yes Status: Chronic Assessment and plan: Patient noted to be noncompliant with CPAP. Reinforced compliance. Qualifiers: Sleep apnea type: obstructive Qualified Code(s): G47.33 - Obstructive sleep apnea (adult) (pediatric) (8) PAF (paroxysmal atrial fibrillation) Current Visit: Yes Status: Chronic Assessment and plan: Continue beta liv and calcium channel liv. Not on long-term anticoagulation due to recent GI bleed per patient. - Subjective Interval history: Reports feeling better. Continues to have leg swelling, abdominal distention, facial puffiness and some exertional dyspnea. - Constitutional Vitals: Temp Pulse Resp BP Pulse Ox 98.1 F 73 18 119/76 94 12/30/16 15:36 12/30/16 15:36 12/30/16 15:36 12/30/16 15:36 12/30/16 15:36 General appearance: Present: A&O X 3, morbidly obese, answers questions appropriately - Respiratory Respiratory exam: Present: CTAB. Absent: accessory muscle use, rhonchi, wheezes - Cardiovascular Cardiovascular exam: Present: irregular rhythm, +S1, +S2. Absent: diastolic murmur, gallop, rubs, systolic murmur - GI/Abdominal GI/Abdominal exam: Present: distended, normal bowel sounds, soft, no peritoneal signs. Absent: tenderness - Extremities Exam Extremities exam: Present: full ROM, pedal edema, warm, radial pulses palpable and symmetrical. Absent: calf tenderness, cyanotic - Neurological Exam Neurological exam: Present: CN II-XII intact, oriented X3, no focal deficits. Absent: pronater drift, facial droop, speech deficit Internal Medicine: Result - Labs CBC & Chem 7: 12/29/16 04:26 12/30/16 05:43 Labs: BMP 12/30/16 05:43 Sodium 148 H Potassium 4.3 Chloride 102 Carbon Dioxide 36 H BUN 27 H D Creatinine 1.04 Glucose 218 H Calcium 10.5 - ABG Interpretation ABG results: ABG ABG pH 7.43 pH Units (7.32-7.45) 12/28/16 15:50 ABG pCO2 55 mmHg (35-45) H 12/28/16 15:50 ABG pO2 74 mmHg (85-104) L 12/28/16 15:50 ABG O2 Saturation 95 % (95-98) 12/28/16 15:50 - Impressions Impressions Abdomen Ultrasound 12/30/16 10:30 IMPRESSION: 1. No visualized ascites, unchanged since the 10/28/2016 CT. 2. Incidental note of moderate hepatic steatosis. D/ / Willam Bui MD / Willam Bui MD Interpreting Provider: Willam Bui MD - VTE Documentation of Mechanical Device: Graduated compression elastic hosiery Consult Discharge Plan - Plan Referrals: Lavinia Guerra MD [Primary Care Provider] -
[2016-12-30] MEDS: metOLazone 2.5 MG TABLET PO SCH (18:02)
[2016-12-31] MEDS: *HR* Heparin 5,000 UNIT/ML VIAL SQ SCH ×3 (00:27→16:13)
[2016-12-31] MEDS: Ipratropium/Albuterol Neb 3 ML IH SCH ×4 (03:21→16:09)
[2016-12-31 06:41] LABS: BUN/Creatinine Ratio 19 (6-26); Blood Urea Nitrogen 21 mg/dL (8-26); Calcium 10.1 mg/dL (8.6-10.8); Carbon Dioxide 35 mEq/L (19-29); Chloride 101 mEq/L (98-109); Glucose 202 mg/dL (70-99); Magnesium 1.2 mg/dL (1.6-2.6); Osmolality,Calculated 311 (280-300); Potassium 4.2 mEq/L (3.5-4.5); Sodium 146 mEq/L (136-145); eGFR For African Americans > 60 (> 60); eGFR For Non-African Americans > 60 (> 60)
[2016-12-31] MEDS: Furosemide 100 MG/10 ML VIAL IVP SCH (07:57)
[2016-12-31] MEDS: Aspirin Enteric Coated 81 MG Tablet PO SCH (07:58)
[2016-12-31] MEDS: metOLazone 2.5 MG TABLET PO SCH (07:59)
[2016-12-31] MEDS: Diltiazem CD (24hr) 120 MG CAPSULE PO SCH (07:59)
[2016-12-31] MEDS: Gabapentin 100 MG CAPSULE PO SCH ×2 (07:59→16:13)
[2016-12-31] MEDS: Colchicine 0.6 MG TABLET PO SCH (07:59)
[2016-12-31] MEDS: Isosorbide MONOnitrate (24 HR) 30 MG TAB.ER.24H PO SCH (07:59)
[2016-12-31] MEDS: Insulin LISPRO 300 UNITS/3 ML VIAL SQ SCH ×5 (08:00→16:26)
[2016-12-31] MEDS: Budesonide/Formoterol 160/4.5 MDI IH SCH (08:24)
[2016-12-31] MEDS: Insulin NPH/REG 70/30 100 UNIT/ML (x5UNIT) SQ SCH (09:32)
[2016-12-31 15:45] VITALS: BP 118/63
[2016-12-31] MEDS: *HR* HYDROcodone/Acet 5/325 mg TABLET PO PRN (16:13)
--- NOTE | 2016-12-31 16:17 | Electrocardiograph Report ---
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
--- NOTE | 2016-12-31 16:59 | Discharge Summary ---
Date of Encounter: 12/31/16 Time of Encounter: 16:55 - Discharge Diagnosis (1) Diastolic CHF, acute on chronic Priority: Primary Status: Acute Comments: Acute on chronic hypoxic respiratory failure secondary to acute pulmonary edema from acute diastolic CHF exacerbation (2) CAD (coronary artery disease) Priority: Secondary Status: Chronic Qualifiers: Coronary Disease-Associated Artery/Lesion type: [place] artery [place] vs. transplanted heart: [place] heart Associated angina: with stable angina Qualified Code(s): I25.118 - Atherosclerotic heart disease of [place] coronary artery with other forms of angina pectoris (3) Asthma with COPD (chronic obstructive pulmonary disease) Priority: Secondary Status: Chronic (4) HTN (hypertension) Priority: Secondary Status: Chronic Qualifiers: Hypertension type: essential hypertension Qualified Code(s): I10 - Essential (primary) hypertension (5) Gouty arthritis Priority: Secondary Status: Resolved (6) PAF (paroxysmal atrial fibrillation) Priority: Secondary Status: Chronic (7) Diabetes mellitus type 2, uncontrolled Priority: Secondary Status: Chronic Qualifiers: Diabetes mellitus complication status: with hyperglycemia Diabetes mellitus halfway insulin use: with halfway use Qualified Code(s): E11.65 - Type 2 diabetes mellitus with hyperglycemia; Z79.4 - custodial (current) use of insulin - Discharge Medications Home Medications: Insulin Human Regular [HumuLIN R] 25 - 30 unit SQ 0800,1700 #0 09/05/15 [ History] Isosorbide MONOnitrate (24 HR) [Imdur] 30 mg PO DAILY #0 09/05/15 [History] Ferrous Sulfate [Iron Supplement] 325 mg PO TID 12/18/15 [History] Aspirin [Lo-Dose Aspirin EC] 81 mg PO DAILY 03/15/16 [History] Insulin NPH/REG 70/30 [HumuLIN 70/30 VIAL] 80 unit SQ BIDWM 03/15/16 [History] Budesonide/Formoterol 160/4.5 [Symbicort 160/4.5] 2 puff IH BIDR 05/10/16 [ History] Diltiazem CD (24hr) [Cardizem CD] 120 mg PO DAILY 05/10/16 [History] Metoprolol [Lopressor] 50 mg PO BID 05/10/16 [History] Nitroglycerin [Nitrostat] 0.4 mg SL Q5M PRN 05/10/16 [History] Pantoprazole Sodium [Protonix] 40 mg PO DAILY 05/10/16 [History] glipiZIDE [Glipizide] 10 mg PO DAILY 05/10/16 [History] metFORMIN [Glucophage] 500 mg PO BIDWM 05/10/16 [History] metOLazone [Metolazone] 10 mg PO DAILY PRN 05/10/16 [History] Buspirone HCl [Buspar] 10 mg PO BID 07/30/16 [History] Oxygen 3 l NS AD 09/11/16 [History] Atorvastatin [Lipitor] 80 mg PO HS tablet 09/14/16 [Rx] Lisinopril [Zestril] 2.5 mg PO DAILY 09/21/16 [History] Albuterol Sulfate [Albuterol Inhaler] 2 puff IH Q4H PRN 09/22/16 [History] Ipratropium/Albuterol Neb [Duoneb] 3 ml IH Q4HR PRN 09/22/16 [History] Acetaminophen [Tylenol] 500 mg PO Q6HR PRN #0 tablet 11/06/16 [Rx] Gabapentin [Neurontin] 200 mg PO TID #60 capsule 11/06/16 [Rx] Allopurinol [Zyloprim 100 MG] 300 mg PO DAILY 12/27/16 [History] Colchicine [Colcrys] 0.6 mg PO DAILY 12/27/16 [History] Furosemide [Lasix] 80 mg PO TID 12/27/16 [History] Potassium Chloride [K-Tab ER] 60 meq PO TID 12/27/16 [History] predniSONE [PredniSONE] 10 mg PO AD 12/27/16 [History] Allergies/Adverse Reactions: 3 Allergy/AdvReac Type Severity Reaction Status Date / Time No Known Allergies Allergy Verified 12/27/16 11:49 Procedures/tests Complete & Pending: Procedures Performed prior 72 hours Category Date Time Status US abdomen limited [US] Routine Exams 12/30/16 10:30 Completed ECG 12 lead ECG [ECG] Routine Y 12/28/16 17:28 Completed Date of admission: 12/27/16 16:51 Primary care physician: Lavinia Guerra, Consults: 12/27/16 16:59 Consult to Behavior Clinician [CONS] Routine Reason for SW Consult: multiple visits to ER. Pt has home o2 through [facility] 3L continuous 12/27/16 17:07 Consult to Cardiology [CONS] Routine Comment: Consulting Provider: Cardiology Helga Reason for Consult: 66M with CHFx, takes 80 Lasix TID at home plus 10mg Metolazone PRN. 20lb wt gain in 2 weeks. GINA with Cr 2.66 Call Completed: Yes 12/27/16 18:19 Consult to Nephrology [CONS] Routine Consulting Provider: Kidney Helga/CATARINO/SINDHU/KORI Reason for Consult: GINA creatinine of 2.66. here with CHF exacerbation Call Completed: Yes 12/30/16 16:36 Consult to Occupational Therapy [CONS] Routine Comment: Evaluate, develop and implement POC Reason for Consult: CHF, morbid obesity, exertional dyspnea Consult to Physical Therapy [CONS] Routine Comment: Evaluate, develop and implement POC Reason for Consult: CHF, morbid obesity, exertional dyspnea - Patient Status Disposition: Home, Self-Care Condition: Good Overall status at discharge: patient is back to baseline - Discharge Instructions Follow Up With: Lavinia Guerra MD [Primary Care Provider] - Additional Instructions: Follow-up with primary care physician within the next 7 days. Follow-up with cardiology within the next 2 weeks. Follow up with nephrology within the next 2 -3 weeks. Continue Lasix 80 mg 3 times a day and metolazone as needed. Decrease fluid intake at home - Diet and Activity Activity: increase activity as tolerated, wear oxygen at all times Diet: low salt diet Hospital course: Mr. Hill is a 66 year old male with a past medical history of diastolic CHF , diabetes type 2 insulin-dependent, chronic kidney disease stage III, CAD with prior PCI to the LAD, gout, hypertension, morbid obesity, atrial fibrillation not on anticoagulation due to prior GI bleed/used to be on Coumadin, bilateral lower extremity edema, SALVADOR, GERD, hyperlipidemia, hypertension, osteoporosis, depression was sent to [facility] ED from his primary care physician's office for increased shortness of breath and weight gain. Patient follows with his primary care provider every 2 weeks, may noted to have gained 20 pound. [place] short of breath. Evaluation in the [facility] EGD included a chest x-ray which showed stable cardiomegaly with findings suggesting mild pulmonary edema. Troponin was mildly elevated at 0.06, however this is down from previous. BNP was elevated to 52. He was in history of present illness with BUN of 76 and creatinine of 2.66 up from previous of 1.49. He was given IV push Lasix and transferred to our facility. Was evaluated by cardiology, no new recommendations were indicated. Was continued on Lasix 60 mg twice a day IV, metolazone 2.5 mg daily. The patient takes 80 mg of Lasix 3 times a day at home and 10 mg of metolazone as needed only, apparently he drinks lots of fluids at home and was recommended to have fluid restriction in order to maintain the same Lasix and metolazone doses. - Time Spent with Patient Total time spent providing and/or coordinating discharge services: Greater than 30 minutes (40 min) - Constitutional Vitals: Temp Pulse Resp BP Pulse Ox 98.4 F 85 16 118/63 99 12/31/16 15:44 12/31/16 15:44 12/31/16 16:09 12/31/16 15:44 12/31/16 16:09 General appearance: Present: A&O X 3, morbidly obese, answers questions appropriately - Head Head exam: Present: atraumatic, normocephalic - Eye Eye exam: Present: PERRL, conjuntiva pink, sclera anicteric Pupils: Present: PERRL - Neck Neck exam general surgery: Present: supple, trachea midline. Absent: lymphadenopathy - Respiratory Respiratory exam: Present: CTAB. Absent: accessory muscle use, rales, rhonchi, wheezes - Cardiovascular Cardiovascular exam: Present: RRR, +S1, +S2. Absent: diastolic murmur, gallop, rubs, systolic murmur - GI/Abdominal GI/Abdominal exam: Present: distended (Obese), normal bowel sounds, soft, no peritoneal signs. Absent: tenderness - Extremities Exam Extremities exam: Present: pedal edema (+1 pitting edema in both lower extremities), warm, radial pulses palpable and symmetrical. Absent: calf tenderness, cyanotic - Neurological Exam Neurological exam: Present: CN II-XII intact, oriented X3, no focal deficits. Absent: pronater drift, facial droop, speech deficit - Skin Skin exam: Present: dry, intact - VTE Documentation of Mechanical Device: Graduated compression elastic hosiery
== END 2016-12-31 18:45 | disposition home or self-care (01) | DRG 291 ==
LOC: 3BNU → SUATTDRO 16:51
PROVIDERS: ADMIT Nurse Practitioner Family; ATTEND Internal Medicine

== ENCOUNTER 2017-08-05 12:42 | Inpatient (IN) ==
[2017-08-05] MEDS ORDERED: Naloxone 0.4 MG/ML INJ IVP PRN (15:20)
[2017-08-05] MEDS ORDERED: Ipratropium/Albuterol Neb 3 ML IH PRN (15:25)
[2017-08-05] MEDS ORDERED: Nitroglycerin 0.4 MG TAB.SUBL SL PRN (15:25)
[2017-08-05] MEDS ORDERED: *HR* Dextrose 50 % in Water (Syg) 50 ML SYRINGE IVP PRN (15:28)
[2017-08-05] MEDS ORDERED: Dextrose Gel 15 GM/37.5 ML TUBE PO PRN ×2 (15:28)
[2017-08-05] MEDS ORDERED: Potassium Chloride Elixir 20 MEQ/15 ML UDC PO ONE (15:28)
[2017-08-05] MEDS ORDERED: D5% in Water 1,000 ML IVC PRN (15:28)
--- NOTE | 2017-08-05 15:42 | Internal Med History&Physical ---
Date of Encounter: 08/05/17 Time of Encounter: 15:40 Internal Medicine - H&P: HPI Chief complaint: Shortness of breath Admitted From: Emergency Dept Plans for Post Hospital Care: Home History of present illness: Mr. Hill is a 67 year old male with history of CHF, atrial fibrillation, hypertension, diabetes, who was transferred from [place] emergency room with complaints of shortness of breath. Patient reports progressively worsening exertional dyspnea, associated with leg swelling and weight gain and orthopnea for the last 2-3 weeks. He reports subjective fevers and dry cough and diaphoresis along with intermittent chest pain, relieved with sublingual nitroglycerin. He reports compliance with all his medications including diuretics, although not strict compliance with fluid restriction. Past Med Surg Social Fam HX - Past Medical History Medical history: arthritis, asthma, atrial fibrillation, CHF, COPD, coronary artery disease, diabetes, GERD, GI bleed, hyperlipidemia, hypertension, myocardial infarction, osteoporosis, RA, renal disease, venous stasis, valvular heart disease, other Psychiatric history: anxiety, depression - Past Surgical History Surgical History: angioplasty/stent, cataract, herniorrhaphy (ventral hernia repair), knee replacement, other - Social History Smoking Status: Never smoker Smokeless Tobacco Status: No Alcohol use: none Drug use: none Occupational status: retired Current living situation: Home, With Family Activity Level: Independent ambulation Recent Out of Country Travel Within the Last 8 Weeks: No Exposure or Possible Exposure to Illness During Travel: No - Family History Sister Living Status: Still Living Mother Living Status: Still Living Hx Family Cardiac Disorders: Yes (htn,cad, lipid) Hx Family Neurologic Disorders: Yes (alzheimers) Father Living Status: Hx Family Cardiac Disorders: Yes (cad) Hx Family Respiratory Disorders: Yes Hx Family Cancer: Yes (colon) Hx Family GI Disorders: Yes Hx Family Endocrine Disorder: No Internal Medicine - H&P: Meds Isosorbide MONOnitrate (24 HR) [Imdur] 30 mg PO DAILY #0 09/05/15 [History] Ferrous Sulfate [Iron Supplement] 325 mg PO TID 12/18/15 [History] Aspirin [Lo-Dose Aspirin EC] 81 mg PO DAILY 03/15/16 [History] Insulin NPH/REG 70/30 [HumuLIN 70/30 VIAL] 80 unit SQ BIDWM 03/15/16 [History] Budesonide/Formoterol 160/4.5 [Symbicort 160/4.5] 2 puff IH BIDR 05/10/16 [ History] Metoprolol [Lopressor] 50 mg PO BID 05/10/16 [History] Nitroglycerin [Nitrostat] 0.4 mg SL Q5M PRN 05/10/16 [History] Pantoprazole Sodium [Protonix] 40 mg PO DAILY 05/10/16 [History] glipiZIDE [Glipizide] 10 mg PO DAILY 05/10/16 [History] metFORMIN [Glucophage] 500 mg PO BIDWM 05/10/16 [History] metOLazone [Metolazone] 10 mg PO DAILY PRN 05/10/16 [History] Buspirone HCl [Buspar] 10 mg PO BID 07/30/16 [History] Oxygen 3 l NS AD 09/11/16 [History] Atorvastatin [Lipitor] 80 mg PO HS tablet 09/14/16 [Rx] Lisinopril [Zestril] 2.5 mg PO DAILY 09/21/16 [History] Albuterol Sulfate [Albuterol Inhaler] 2 puff IH Q4H PRN 09/22/16 [History] Ipratropium/Albuterol Neb [Duoneb] 3 ml IH Q4HR PRN 09/22/16 [History] Acetaminophen [Tylenol] 500 mg PO Q6HR PRN #0 tablet 11/06/16 [Rx] Gabapentin [Neurontin] 200 mg PO TID #60 capsule 11/06/16 [Rx] Allopurinol [Zyloprim 100 MG] 450 mg PO DAILY 12/27/16 [History] Colchicine [Colcrys] 0.3 mg PO DAILY 12/27/16 [History] Furosemide [Lasix] 80 mg PO TID 12/27/16 [History] Potassium Chloride [K-Tab ER] 20 meq PO QID 12/27/16 [History] Albuterol Neb [Proventil Neb] 2.5 mg IH TID 08/05/17 [History] Anakinra [Kineret] 100 mg SQ DAILY PRN 08/05/17 [History] Glucagon,Human Recombinant [Glucagon Emergency Kit] 1 mg IJ PRN PRN 08/05/17 [ History] Oxycodone HCl [Oxaydo] 5 mg PO Q6H PRN 08/05/17 [History] 3 Allergy/AdvReac Type Severity Reaction Status Date / Time No Known Allergies Allergy Verified 12/27/16 11:49 All Systems PM: A 10-system review of systems was performed and is negative for pertinent findings except as documented above in the HPI. - Constitutional Constitutional: weight gain, no chills, no fever(s), no night sweats - EENT Eyes: no change in vision, no discharge, no pain, no photophobia Ears: no ear discharge, no ear pain, no tinnitus Nose, mouth and throat: no dysphagia, no nasal discharge, no neck pain, no sore throat - Cardiovascular Cardiovascular ROS IM: chest pain, diaphoresis, dyspnea, dyspnea on exertion, edema, orthopnea - Respiratory Respiratory: cough - Gastrointestinal Gastrointestinal: no abdominal pain, no diarrhea, no hematemesis, no hematochezia, no melena, no nausea, no vomiting - Musculoskeletal Musculoskeletal ROS IM: no numbness, no tingling - Integumentary Integumentary IM: no rash, no unusual bruising - Neurological Neurological ROS: no confusion, no convulsions, no focal weakness, no numbness, no tingling, no tremor(s) - Hematologic/Lymphatic Hematologic/Lymphatic: no easy bruising - Constitutional Vitals: Temp Pulse Resp BP Pulse Ox 97.9 F 53 17 120/76 95 08/05/17 14:38 08/05/17 14:38 08/05/17 14:38 08/05/17 14:38 08/05/17 15:01 General appearance: Present: A&O X 3, obese, answers questions appropriately - Respiratory Respiratory exam: Present: CTAB. Absent: accessory muscle use, rales, rhonchi, wheezes - Cardiovascular Cardiovascular exam: Present: bradycardia, irregular rhythm, +S1, +S2. Absent: diastolic murmur, gallop, rubs, systolic murmur - GI/Abdominal GI/Abdominal exam: Present: normal bowel sounds, soft (obese), no peritoneal signs. Absent: distended, tenderness - Extremities Exam Extremities exam: Present: full ROM, pedal edema (1+ pitting pedal edema B/L), warm, radial pulses palpable and symmetrical. Absent: calf tenderness, cyanotic - Neurological Exam Neurological exam: Present: CN II-XII intact, oriented X3, no focal deficits. Absent: pronater drift, facial droop, speech deficit - Skin Skin exam: Present: dry, intact - Assessment and plan (1) CHF exacerbation Current Visit: Yes Status: Acute Assessment and plan: Echocardiogram from September and November 2016 showed preserved ejection fraction, severe left ventricular diastolic dysfunction, biatrial dilation. Presents with exertional dyspnea, orthopnea and weight gain. Hold oral diuretics, start IV Lasix along with fluid restriction, urine output monitoring and daily weights. Hold beta liv due to bradycardia. Continue nitrates, LOWELL inhibitor. Telemetry monitoring, serial troponins. Repeat transthoracic echocardiogram. EKG reviewed independently- irregular bradycardia; a.fib with SVR; Chest XRay shows cardiomegaly and pulmonary vascular congestion; CODE STATUS discussed with patient and his at bedside. His has a copy of DNR comfort care arrest on the patient, he does have a living will and his is his DPOA. He also confirms DNI status. Qualifiers: Heart failure type: diastolic Qualified Code(s): I50.33 - Acute on chronic diastolic (congestive) heart failure (2) Essential hypertension Current Visit: Yes Status: Chronic Assessment and plan: Blood pressure low normal. Continue nitrates and low-dose LOWELL inhibitor, monitor blood pressure closely. (3) SALVADOR (obstructive sleep apnea) Current Visit: Yes Status: Chronic Assessment and plan: Supposed to be on CPAP at home, reports that he lost his CPAP several months ago , due to hospitalization and not using it; transplant case manager to be consulted; (4) Hypokalemia Current Visit: Yes Status: Acute Assessment and plan: related to diuretic-use; supplement with PO KCl and continue home regimen; (5) Respiratory failure Current Visit: Yes Status: Chronic Assessment and plan: due to COPD and CHF; Qualifiers: Chronicity: chronic Respiratory failure complication: hypoxia Qualified Code(s): J96.11 - Chronic respiratory failure with hypoxia (6) Atrial fibrillation Current Visit: Yes Status: Chronic Assessment and plan: hold beta liv due to bradycardia/SVR; continue Telemetry. Not on anticoagulation due to h/o- GI bleed, continue ASA; Qualifiers: Atrial fibrillation type: paroxysmal Qualified Code(s): I48.0 - Paroxysmal atrial fibrillation (7) CAD (coronary artery disease) Current Visit: Yes Status: Chronic Qualifiers: Coronary Disease-Associated Artery/Lesion type: [place] artery [place] vs. transplanted heart: [place] heart Associated angina: with stable angina Qualified Code(s): I25.118 - Atherosclerotic heart disease of [place] coronary artery with other forms of angina pectoris (8) CKD (chronic kidney disease) Current Visit: Yes Status: Chronic Assessment and plan: serum creatinine stable; follows with Nephrology as outpatient; avoid new nephrotoxic agents; Qualifiers: Chronic kidney disease stage: stage 3 (moderate) Qualified Code(s): N18.3 - Chronic kidney disease, stage 3 (moderate) (9) COPD (chronic obstructive pulmonary disease) Current Visit: Yes Status: Chronic Assessment and plan: not in acute exacerbation; continue PRN bronchodilator nebs and supplemental O2; Qualifiers: COPD type: unspecified COPD Qualified Code(s): J44.9 - Chronic obstructive pulmonary disease, unspecified (10) Diabetes mellitus Current Visit: Yes Status: Chronic Assessment and plan: h/o- uncontrolled DM; Accucheck blood glucose monitoring with basal bolus insulin regimen; HbA1C from Apr 2017 was close to 10%; diabetic diet; Qualifiers: Diabetes mellitus type: type 2 Diabetes mellitus watermaster insulin use: with watermaster use Diabetes mellitus complication status: with hyperglycemia Qualified Code(s): E11.65 - Type 2 diabetes mellitus with hyperglycemia; Z79.4 - longterm (current) use of insulin (11) Hyperlipidemia Current Visit: Yes Status: Chronic Qualifiers: Hyperlipidemia type: mixed hyperlipidemia Qualified Code(s): E78.2 - Mixed hyperlipidemia - Time Spent With Patient Total time spent is greater than 50% in coordination of care (as documented) at patient's floor/unit and/or counseling patient:
[2017-08-05] MEDS: Insulin LISPRO 300 UNITS/3 ML VIAL SQ SCH ×2 (16:30→20:23)
[2017-08-05] MEDS ORDERED: Insulin NPH/REG 70/30 100 UNIT/ML (x5UNIT) SQ SCH (17:00)
[2017-08-05] MEDS ORDERED: Ibuprofen 400 MG TABLET PO ONE (17:28)
[2017-08-05] MEDS: *HR* Heparin 5,000 UNIT/ML VIAL SQ SCH (17:50)
[2017-08-05] MEDS: Insulin NPH/REG 70/30 100 UNIT/ML (x5UNIT) SQ SCH (17:50)
[2017-08-05] MEDS: Gabapentin 100 MG CAPSULE PO SCH (20:22)
[2017-08-05] MEDS ORDERED: Furosemide 40 MG/4 ML VIAL IVP SCH (21:00)
[2017-08-05] MEDS: Budesonide/Formoterol 160/4.5 MDI IH SCH (21:35)
[2017-08-06 04:44] LABS: Basophils % 0.7 %; Eosinophils # 0.2 K/mcL (0.0-0.6); Eosinophils % 4.7 %; Hemoglobin 12.7 g/dL (12.9-16.9); Immature Granulocytes % 0.2 % (0-4); Lymphocytes # 1.8 K/mcL (0.6-4.6); Lymphocytes % 39.3 %; Mean Corpuscular Hemoglobin 28.7 pg (28.0-33.3); Mean Corpuscular Volume 92.6 fL (83.0-100.0); Mean Platelet Volume 11.1 fL (9.4-12.4); Monocytes # 0.4 K/mcL (0.0-1.3); Monocytes % 7.8 %; Neutrophils # 2.1 K/mcL (1.6-8.9); Platelet Count 151 K/mcL (140-400); Red Blood Count 4.43 M/mcL (4.19-5.50); Red Cell Distribution Width 14.5 % (11.5-14.5); Segmented Neutrophils % 47.3 %
[2017-08-06 05:10] LABS: BUN/Creatinine Ratio 16 (6-26); Blood Urea Nitrogen 19 mg/dL (8-23); Calcium 9.4 mg/dL (8.6-10.3); Carbon Dioxide 40 mEq/L (23-29); Chloride 99 mEq/L (98-107); Glucose 166 mg/dL (70-105); Magnesium 1.9 mg/dL (1.6-2.6); Osmolality,Calculated 302 (280-300); Potassium 3.8 mEq/L (3.5-5.1); Sodium 143 mEq/L (136-145); eGFR For African Americans > 60 (> 60); eGFR For Non-African Americans > 60 (> 60)
[2017-08-06] MEDS: *HR* Heparin 5,000 UNIT/ML VIAL SQ SCH ×2 (05:15→17:21)
[2017-08-06] MEDS: Budesonide/Formoterol 160/4.5 MDI IH SCH ×2 (07:34→19:56)
[2017-08-06] MEDS ORDERED: Albuterol 2.5 MG/3 ML NEBULIZER IH PRN (07:50)
[2017-08-06] MEDS ORDERED: Furosemide 40 MG/4 ML VIAL IVP SCH (08:00)
[2017-08-06] MEDS: Aspirin Enteric Coated 81 MG Tablet PO SCH (08:03)
[2017-08-06] MEDS: Isosorbide MONOnitrate (24 HR) 30 MG TAB.ER.24H PO SCH (08:03)
[2017-08-06] MEDS: Gabapentin 100 MG CAPSULE PO SCH ×3 (08:03→21:14)
[2017-08-06] MEDS: Insulin LISPRO 300 UNITS/3 ML VIAL SQ SCH ×4 (08:04→21:14)
[2017-08-06] MEDS: Insulin NPH/REG 70/30 100 UNIT/ML (x5UNIT) SQ SCH ×2 (10:20→17:21)
[2017-08-06 10:33] LABS: ABG Base Excess 10 mEq/L (-2 to 3); ABG HCO3 35 mEq/L (21-27); ABG Oxygen Saturation 95 % (95-98); ABG PCO2 47 mmHg (35-45); ABG PH 7.49 pH Units (7.32-7.45); ABG PO2 69 mmHg (85-104); ABG TCO2 37 mEq/L (20-26)
[2017-08-06] MEDS ORDERED: Furosemide 40 MG/4 ML VIAL IVP ONE (11:01)
--- NOTE | 2017-08-06 11:07 | Internal Med Progress Note ---
Date of Encounter: 08/06/17 Time of Encounter: 11:00 - Assessment and plan (1) CHF exacerbation Current Visit: Yes Status: Inactive Assessment and plan: Clinically improving reported to be on Lasix 80mg PO TID at home will increase to Lasix 80mg IV BID monitor strict I/Os, daily weights fluid restriction diet f/u 2D echo continue to hold BB given bradycardia O2 supplementation as needed bipap support at bedtime. Qualifiers: Heart failure type: diastolic Qualified Code(s): I50.33 - Acute on chronic diastolic (congestive) heart failure (2) Hypokalemia Current Visit: Yes Status: Resolved Assessment and plan: Resolved continue to monitor electrolytes and replace as needed (3) Hyperlipidemia Current Visit: Yes Status: Chronic Assessment and plan: continue home dose of lipitor Qualifiers: Hyperlipidemia type: mixed hyperlipidemia Qualified Code(s): E78.2 - Mixed hyperlipidemia (4) Diabetes mellitus Current Visit: Yes Status: Chronic Assessment and plan: continue hold oral antihyperglycemic agents sliding scale insulin algorithm monitor FS and BG ADA diet Qualifiers: Diabetes mellitus type: type 2 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 insulin use: with prison use Diabetes mellitus complication status: with hyperglycemia Qualified Code(s): E11.65 - Type 2 diabetes mellitus with hyperglycemia; Z79.4 - manager long term care (current) use of insulin (5) Atrial fibrillation Current Visit: Yes Status: Chronic Assessment and plan: noted to be bradycardic but asymptomatic holding BB due to bradycardia not on anticoagulation due to history of GI bleeds continue ASA 81mg PO qd Qualifiers: Atrial fibrillation type: paroxysmal Qualified Code(s): I48.0 - Paroxysmal atrial fibrillation (6) Respiratory failure Current Visit: Yes Status: Chronic Assessment and plan: due to COPD and CHF; Qualifiers: Chronicity: chronic Respiratory failure complication: hypoxia Qualified Code(s): J96.11 - Chronic respiratory failure with hypoxia (7) COPD (chronic obstructive pulmonary disease) Current Visit: Yes Status: Chronic Assessment and plan: not in acute exacerbation continue PRN bronchodilator nebs and supplemental O2 bipap at bedtime Qualifiers: COPD type: unspecified COPD Qualified Code(s): J44.9 - Chronic obstructive pulmonary disease, unspecified (8) CKD (chronic kidney disease) Current Visit: Yes Status: Chronic Assessment and plan: serum creatinine stable and at baseline follows with Nephrology as outpatient avoid new nephrotoxic agents Qualifiers: Chronic kidney disease stage: stage 3 (moderate) Qualified Code(s): N18.3 - Chronic kidney disease, stage 3 (moderate) (9) Essential hypertension Current Visit: Yes Status: Chronic Assessment and plan: BP within acceptable range Continue nitrates and low-dose LOWELL inhibitor, monitor blood pressure closely. (10) SALVADOR (obstructive sleep apnea) Current Visit: Yes Status: Chronic Assessment and plan: Bipap at bedtime will consult disease case manager rn in regards to arrangement of CPAP upon discharge (11) DVT prophylaxis Current Visit: Yes Status: Acute Assessment and plan: heparin SQ - Time Spent With Patient Total time spent is greater than 50% in coordination of care (as documented) at patient's floor/unit and/or counseling patient: - Subjective Interval history: Pt seen and examined at bedside. Reports of feeling better compared to the previous day. Noted to have worsening hypercapneia on BMP, ABG consistent with compensation. Pt denies any respiratory distress and states he is beginning to feel better. will use bipap at bedtime. - Constitutional Vitals: Temp Pulse Resp BP Pulse Ox 98.0 F 58 16 128/53 98 08/06/17 07:11 08/06/17 07:11 08/06/17 07:35 08/06/17 07:11 08/06/17 08:05 General appearance: Present: cooperative, A&O X 3, morbidly obese, pleasant, no acute distress, answers questions appropriately - Head Head exam: Present: atraumatic, normocephalic - Eye Eye exam: Present: conjuntiva pink, sclera anicteric - Respiratory Respiratory exam: Absent: respiratory distress (bibasilar rales, diffuse expiratory wheezing ) - Cardiovascular Cardiovascular exam: Present: irregular rhythm, +S1, +S2 - GI/Abdominal GI/Abdominal exam: Present: normal bowel sounds, soft, no peritoneal signs. Absent: distended, tenderness - Extremities Exam Extremities exam: Present: pedal edema, warm, radial pulses palpable and symmetrical. Absent: calf tenderness - Neurological Exam Neurological exam: Present: oriented X3 - Psychiatric Psychiatric exam: Present: normal affect, normal mood Internal Medicine: Result - Labs CBC & Chem 7: 08/06/17 04:28 08/06/17 04:28 Labs: Short CBC 08/06/17 Range/Units 04:28 WBC 4.5 (4.3-11.1) K/mcL Hgb 12.7 L (12.9-16.9) g/dL Hct 41.0 (37.5-50.1) % Plt Count 151 (140-400) K/mcL Neutrophils # 2.1 (1.6-8.9) K/mcL BMP 08/06/17 04:28 Sodium 143 Potassium 3.8 Chloride 99 Carbon Dioxide 40 H* BUN 19 Creatinine 1.17 Glucose 166 H Calcium 9.4 Cardiac Enzymes 08/05/17 08/05/17 08/06/17 Range/Units 15:42 21:32 04:28 Troponin I 0.03 0.04 H* 0.03 (< 0.04) ng/mL - ABG Interpretation ABG results: ABG ABG pH 7.49 pH Units (7.32-7.45) H 08/06/17 10:28 ABG pCO2 47 mmHg (35-45) H 08/06/17 10:28 ABG pO2 69 mmHg (85-104) L 08/06/17 10:28 ABG O2 Saturation 95 % (95-98) 08/06/17 10:28 Consult Discharge Plan - Plan Referrals: Lavinia Guerra MD [Primary Care Provider] -
[2017-08-06 13:09] LABS: Adenovirus Not Detected (Not Detect); Bordetella Pertussis Not Detected (Not Detect); Chlamydophila pneumoniae Not Detected (Not Detect); Coronavirus 229E Not Detected (Not Detect); Coronavirus HKU1 Not Detected (Not Detect); Coronavirus NL63 Not Detected (Not Detect); Coronavirus OC43 Not Detected (Not Detect); Human Metapneumovirus Not Detected (Not Detect); Human Rhinovirus/Enterovirus Not Detected (Not Detect); Influenza A Subtype 2009 H1 Not Detected (Not Detect); Influenza A Untypeable Not Detected (Not Detect); Influenza B Not Detected (Not Detect); Mycoplasma pneumoniae Not Detected (Not Detect); Parainfluenza Virus 1 Not Detected (Not Detect); Parainfluenza Virus 2 Not Detected (Not Detect); Parainfluenza Virus 3 Not Detected (Not Detect); Parainfluenza Virus 4 Not Detected (Not Detect); Respiratory Syncytial Virus Not Detected (Not Detect)
[2017-08-06] MEDS: Acetaminophen 325 MG TABLET PO PRN (14:09)
[2017-08-06] MEDS: Ipratropium/Albuterol Neb 3 ML IH SCH ×2 (15:42→19:56)
[2017-08-06] MEDS ORDERED: NON-FORMULARY MEDICATION 1 EACH EACH (Oxygen [Oxygen] 3 L) NS SCH (16:30)
[2017-08-06] MEDS: Furosemide 40 MG/4 ML VIAL IVP SCH (17:22)
[2017-08-07] MEDS: *HR* OxyCODONE Immed Rel 5 MG TABLET PO PRN ×2 (00:12→10:41)
[2017-08-07] MEDS: Acetaminophen 325 MG TABLET PO PRN ×3 (01:14→20:31)
[2017-08-07] MEDS ORDERED: GuaiFENesin Liq 200 MG/10 ML UDC PO PRN (03:47)
[2017-08-07] MEDS: *HR* Heparin 5,000 UNIT/ML VIAL SQ SCH ×2 (06:24→16:47)
[2017-08-07 07:26] LABS: BUN/Creatinine Ratio 19 (6-26); Blood Urea Nitrogen 19 mg/dL (8-23); Calcium 9.3 mg/dL (8.6-10.3); Carbon Dioxide 34 mEq/L (23-29); Chloride 101 mEq/L (98-107); Glucose 214 mg/dL (70-105); Magnesium 1.8 mg/dL (1.6-2.6); Osmolality,Calculated 303 (280-300); Phosphorous 4.1 mg/dL (2.7-4.5); Sodium 142 mEq/L (136-145); eGFR For African Americans > 60 (> 60); eGFR For Non-African Americans > 60 (> 60)
[2017-08-07 07:43] LABS: Basophils % 0.9 %; Eosinophils # 0.2 K/mcL (0.0-0.6); Hematocrit 39.7 % (37.5-50.1); Hemoglobin 12.4 g/dL (12.9-16.9); Immature Granulocytes % 0.2 % (0-4); Lymphocytes # 1.5 K/mcL (0.6-4.6); Lymphocytes % 35.7 %; Mean Corpuscular HGB Conc 31.2 g/dL (31.6-35.5); Mean Corpuscular Hemoglobin 29.2 pg (28.0-33.3); Mean Corpuscular Volume 93.6 fL (83.0-100.0); Monocytes # 0.3 K/mcL (0.0-1.3); Monocytes % 7.9 %; Neutrophils # 2.2 K/mcL (1.6-8.9); Platelet Count 158 K/mcL (140-400); Red Blood Count 4.24 M/mcL (4.19-5.50); Red Cell Distribution Width 14.7 % (11.5-14.5); Segmented Neutrophils % 51.3 %
[2017-08-07] MEDS: Furosemide 40 MG/4 ML VIAL IVP SCH ×2 (08:18→16:47)
[2017-08-07] MEDS: Insulin NPH/REG 70/30 100 UNIT/ML (x5UNIT) SQ SCH ×2 (08:18→16:47)
[2017-08-07] MEDS: Insulin LISPRO 300 UNITS/3 ML VIAL SQ SCH ×3 (08:18→16:47)
[2017-08-07] MEDS: Gabapentin 100 MG CAPSULE PO SCH ×3 (08:19→20:30)
[2017-08-07] MEDS: Isosorbide MONOnitrate (24 HR) 30 MG TAB.ER.24H PO SCH (08:19)
[2017-08-07] MEDS: Aspirin Enteric Coated 81 MG Tablet PO SCH (08:19)
[2017-08-07] MEDS: Ipratropium/Albuterol Neb 3 ML IH SCH ×3 (10:57→22:52)
[2017-08-07] MEDS: Budesonide/Formoterol 160/4.5 MDI IH SCH ×2 (10:58→22:52)
--- NOTE | 2017-08-07 16:23 | Internal Med Progress Note ---
Date of Encounter: 08/07/17 Time of Encounter: 13:48 - Assessment and plan (1) CHF exacerbation Current Visit: Yes Status: Inactive Assessment and plan: Clinically improving reported to be on Lasix 80mg PO TID at home continue Lasix 80mg IV BID monitor strict I/Os, daily weights fluid restriction diet 2D echo: LVEF 55%. Not all LV wall segments were well visualized. Consider use of Definity for future studies. Mild concentric left ventricular hypertrophy. Normal right ventricular structure and function. Moderate left ventricular diastolic dysfunction. Bi-atrial enlargement. Mild mitral regurgitation. Mild pulmonic regurgitation. No pulmonary hypertension. continue to hold BB given bradycardia O2 supplementation as needed bipap support at bedtime. Qualifiers: Heart failure type: diastolic Qualified Code(s): I50.33 - Acute on chronic diastolic (congestive) heart failure (2) Hypokalemia Current Visit: Yes Status: Resolved (3) Hyperlipidemia Current Visit: Yes Status: Chronic Assessment and plan: continue home dose of lipitor Qualifiers: Hyperlipidemia type: mixed hyperlipidemia Qualified Code(s): E78.2 - Mixed hyperlipidemia (4) Diabetes mellitus Current Visit: Yes Status: Chronic Assessment and plan: continue hold oral antihyperglycemic agents sliding scale insulin algorithm (increased to high dose sliding scale insulin algorithm) monitor FS and BG ADA diet Qualifiers: Diabetes mellitus type: type 2 Diabetes mellitus human resources supervisor insulin use: with penitentiary use Diabetes mellitus complication status: with hyperglycemia Qualified Code(s): E11.65 - Type 2 diabetes mellitus with hyperglycemia; 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.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 of 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 (5) Atrial fibrillation Current Visit: Yes Status: Chronic Assessment and plan: HR within acceptable range despite holding BB, will continue to closely monitor as pt was bradycardic upon arrival and yesterday not on anticoagulation due to history of GI bleeds continue ASA 81mg PO qd Qualifiers: Atrial fibrillation type: paroxysmal Qualified Code(s): I48.0 - Paroxysmal atrial fibrillation (6) Respiratory failure Current Visit: Yes Status: Chronic Assessment and plan: due to COPD and CHF; Qualifiers: Chronicity: chronic Respiratory failure complication: hypoxia Qualified Code(s): J96.11 - Chronic respiratory failure with hypoxia (7) COPD (chronic obstructive pulmonary disease) Current Visit: Yes Status: Chronic Assessment and plan: not in acute exacerbation continue PRN bronchodilator nebs and supplemental O2 bipap at bedtime Qualifiers: COPD type: unspecified COPD Qualified Code(s): J44.9 - Chronic obstructive pulmonary disease, unspecified (8) CKD (chronic kidney disease) Current Visit: Yes Status: Chronic Assessment and plan: serum creatinine stable and at baseline follows with Nephrology as outpatient avoid new nephrotoxic agents Qualifiers: Chronic kidney disease stage: stage 3 (moderate) Qualified Code(s): N18.3 - Chronic kidney disease, stage 3 (moderate) (9) Essential hypertension Current Visit: Yes Status: Chronic Assessment and plan: BP within acceptable range Continue nitrates and low-dose LOWELL inhibitor, monitor blood pressure closely. (10) SALVADOR (obstructive sleep apnea) Current Visit: Yes Status: Chronic Assessment and plan: Bipap at bedtime will consult block and case maker in regards to arrangement of CPAP upon discharge (11) DVT prophylaxis Current Visit: Yes Status: Acute Assessment and plan: heparin SQ - Time Spent With Patient Total time spent is greater than 50% in coordination of care (as documented) at patient's floor/unit and/or counseling patient: - Subjective Interval history: Pt seen and examined at bedside. Sitting in bed and reports of improvement in his respiratory status compared to previous day Noted to have good urine output will continue another day of IV lasix with tentative d/c in am on PO lasix no overnight issues reported - Constitutional Vitals: Temp Pulse Resp BP Pulse Ox 97.5 F L 70 18 108/69 95 08/07/17 15:29 08/07/17 15:29 08/07/17 16:09 08/07/17 15:29 08/07/17 16:09 General appearance: Present: cooperative, A&O X 3, morbidly obese, pleasant, no acute distress, answers questions appropriately - Head Head exam: Present: atraumatic, normocephalic - Eye Eye exam: Present: conjuntiva pink, sclera anicteric - Respiratory Respiratory exam: Absent: respiratory distress, wheezes (scattered rales) - Cardiovascular Cardiovascular exam: Present: RRR, +S1, +S2. Absent: diastolic murmur, gallop, rubs, systolic murmur - GI/Abdominal GI/Abdominal exam: Present: normal bowel sounds, soft, no peritoneal signs. Absent: distended, tenderness - Extremities Exam Extremities exam: Present: warm, radial pulses palpable and symmetrical. Absent : calf tenderness - Neurological Exam Neurological exam: Present: oriented X3 Internal Medicine: Result - Labs CBC & Chem 7: 08/07/17 06:30 08/07/17 06:30 Labs: Short CBC 08/07/17 Range/Units 06:30 WBC 4.3 (4.3-11.1) K/mcL Hgb 12.4 L (12.9-16.9) g/dL Hct 39.7 (37.5-50.1) % Plt Count 158 (140-400) K/mcL Neutrophils # 2.2 (1.6-8.9) K/mcL BMP 08/07/17 06:30 Sodium 142 Potassium 4.0 Chloride 101 Carbon Dioxide 34 H BUN 19 Creatinine 1.00 Glucose 214 H Calcium 9.3 - ABG Interpretation ABG results: ABG ABG pH 7.49 pH Units (7.32-7.45) H 08/06/17 10:28 ABG pCO2 47 mmHg (35-45) H 08/06/17 10:28 ABG pO2 69 mmHg (85-104) L 08/06/17 10:28 ABG O2 Saturation 95 % (95-98) 08/06/17 10:28 - Impressions Impressions Echocardiogram 08/07/17 16:30 Impressions: LVEF 55%. Not all LV wall segments were well visualized. Consider use of Definity for future studies. Mild concentric left ventricular hypertrophy. Normal right ventricular structure and function. Moderate left ventricular diastolic dysfunction. Bi-atrial enlargement. Mild mitral regurgitation. Mild pulmonic regurgitation. No pulmonary hypertension. Left Ventricular Wall Motion: Rest Echo Findings The apex, apical anterior, mid anterior, apical septal and apical lateral neumann were not visualized. All other wall segments showed normal motion. Findings: Study Quality * Technically adequate exam. ECG Findings * Normal sinus rhythm with ectopy. Left Ventricle * LVEF 55%. * Normal LV chamber size. * Mild concentric left ventricular hypertrophy. * Moderate left ventricular diastolic dysfunction. Right Ventricle * Normal right ventricular structure and function. Left Atrium * Severely dilated left atrium. Right Atrium * Moderately dilated right atrium. Mitral Valve * Normal mitral valve structure. * No mitral stenosis. * Mild mitral regurgitation. Aortic Valve * No aortic regurgitation. * Aortic valve not well visualized. * No aortic stenosis. Tricuspid Valve * Tricuspid valve not well visualized. * Trace tricuspid regurgitation. * Estimated RA pressure is 3 mmHg. Pulmonic Valve * Pulmonic valve is not well visualized. * No pulmonic stenosis. * Mild pulmonic regurgitation. Pulmonary Artery * Pulmonary artery not well visualized. Aorta * Normally sized aortic root for BSA. Pericardium * There is no pericardial effusion present. Interatrial Septum * No evidence of PFO by color Doppler. IVC * Normal IVC dimensions and inspiratory collapse. Consult Discharge Plan - Plan Referrals: Lavinia Guerra MD [Primary Care Provider] - 08/14/17 3:00 pm (Please follow up as schedule....)
[2017-08-07] MEDS ORDERED: Insulin LISPRO 300 UNITS/3 ML VIAL SQ SCH (16:24)
[2017-08-08 05:52] LABS: Basophils % 0.6 %; Eosinophils # 0.3 K/mcL (0.0-0.6); Eosinophils % 5.3 %; Hematocrit 40.2 % (37.5-50.1); Hemoglobin 12.4 g/dL (12.9-16.9); Immature Granulocytes % 0.2 % (0-4); Lymphocytes # 1.5 K/mcL (0.6-4.6); Lymphocytes % 32.5 %; Mean Corpuscular HGB Conc 30.8 g/dL (31.6-35.5); Mean Corpuscular Hemoglobin 28.8 pg (28.0-33.3); Mean Corpuscular Volume 93.5 fL (83.0-100.0); Mean Platelet Volume 11.9 fL (9.4-12.4); Monocytes # 0.5 K/mcL (0.0-1.3); Monocytes % 9.6 %; Neutrophils # 2.4 K/mcL (1.6-8.9); Platelet Count 156 K/mcL (140-400); Red Cell Distribution Width 14.7 % (11.5-14.5); Segmented Neutrophils % 51.8 %
[2017-08-08 06:04] LABS: BUN/Creatinine Ratio 19 (6-26); Blood Urea Nitrogen 20 mg/dL (8-23); Calcium 9.5 mg/dL (8.6-10.3); Carbon Dioxide 34 mEq/L (23-29); Chloride 101 mEq/L (98-107); Glucose 239 mg/dL (70-105); Magnesium 1.9 mg/dL (1.6-2.6); Osmolality,Calculated 308 (280-300); Phosphorous 4.5 mg/dL (2.7-4.5); Potassium 4.5 mEq/L (3.5-5.1); Sodium 144 mEq/L (136-145); eGFR For African Americans > 60 (> 60); eGFR For Non-African Americans > 60 (> 60)
[2017-08-08] MEDS: *HR* Heparin 5,000 UNIT/ML VIAL SQ SCH ×2 (06:28→17:21)
[2017-08-08] MEDS: *HR* OxyCODONE Immed Rel 5 MG TABLET PO PRN (06:31)
[2017-08-08] MEDS: Budesonide/Formoterol 160/4.5 MDI IH SCH (07:49)
[2017-08-08] MEDS: Ipratropium/Albuterol Neb 3 ML IH SCH ×2 (07:49→16:18)
[2017-08-08] MEDS: Acetaminophen 325 MG TABLET PO PRN (08:45)
[2017-08-08] MEDS: Isosorbide MONOnitrate (24 HR) 30 MG TAB.ER.24H PO SCH (08:46)
[2017-08-08] MEDS: Gabapentin 100 MG CAPSULE PO SCH ×2 (08:46→15:38)
[2017-08-08] MEDS: Aspirin Enteric Coated 81 MG Tablet PO SCH (08:49)
[2017-08-08] MEDS: Furosemide 40 MG TABLET PO SCH ×3 (08:49→17:24)
[2017-08-08] MEDS: Insulin NPH/REG 70/30 100 UNIT/ML (x5UNIT) SQ SCH ×2 (08:59→17:24)
[2017-08-08] MEDS: Insulin LISPRO 300 UNITS/3 ML VIAL SQ SCH ×3 (08:59→17:24)
--- NOTE | 2017-08-08 14:17 | Discharge Summary ---
- NOTES TO OUTPATIENT PROVIDER Notes to Outpatient Provider: Please monitor patient's potassium level, pt was noted to have K level of 4.6 due to which his home dose of K was decreased to once a day. 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 insulin use: with [facility]p use Diabetes mellitus complication status: with hyperglycemia Qualified Code(s): E11.65 - Type 2 diabetes mellitus with hyperglycemia; Z79.4 - long term care pharmacist (current) use of insulin (5) Atrial fibrillation Priority: Secondary Status: Chronic Qualifiers: Atrial fibrillation type: paroxysmal Qualified Code(s): I48.0 - Paroxysmal atrial fibrillation (6) Respiratory failure Priority: Secondary Status: Chronic Qualifiers: Chronicity: chronic Respiratory failure complication: hypoxia Qualified Code(s): J96.11 - Chronic respiratory failure with hypoxia (7) COPD (chronic obstructive pulmonary disease) Priority: Secondary Status: Chronic Qualifiers: COPD type: unspecified COPD Qualified Code(s): J44.9 - Chronic obstructive pulmonary disease, unspecified (8) CKD (chronic kidney disease) Priority: Secondary Status: Chronic Qualifiers: Chronic kidney disease stage: stage 3 (moderate) Qualified Code(s): N18.3 - Chronic kidney disease, stage 3 (moderate) (9) Essential hypertension Priority: Secondary Status: Chronic (10) SALVADOR (obstructive sleep apnea) Priority: Secondary Status: Chronic (11) DVT prophylaxis Priority: Secondary Status: Acute Hospital course: Mr. Hill is a 67 year old male with PMH of CHF on LTOT, morbid obesity, HTN who was admitted for acute respiratory distress secondary to acute CHF exacerbation. Pt was started on IV lasix to which he responded well. He is currently back to his baseline respiratory status. He was noted to have potassium level of 4.5 due to which his home dose of potassium was decreased to once daily. Pt is to obtain lab work prior to his follow up with primary care physician. Pt is medically stable for discharge to home with follow up with PCP and cardiology. financial services education consultant were contacted in regards to pt's cpap support. As per insurance company, cpap was discontinued due to his noncompliance. at this time pt is willing to remain complaint. 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 Discharge discussed with: patient, nurse, social work, case management - Time Spent with Patient Total time spent providing and/or coordinating discharge services: Greater than 30 minutes - Discharge Medications Home Medications: Isosorbide MONOnitrate (24 HR) [Imdur] 30 mg PO DAILY #0 09/05/15 [History] Ferrous Sulfate [Iron Supplement] 325 mg PO TID 12/18/15 [History] Aspirin [Lo-Dose Aspirin EC] 81 mg PO DAILY 03/15/16 [History] Insulin NPH/REG 70/30 [HumuLIN 70/30 VIAL] 80 unit SQ BIDWM 03/15/16 [History] Budesonide/Formoterol 160/4.5 [Symbicort 160/4.5] 2 puff IH BIDR 05/10/16 [ History] Metoprolol [Lopressor] 50 mg PO BID 05/10/16 [History] Nitroglycerin [Nitrostat] 0.4 mg SL Q5M PRN 05/10/16 [History] Pantoprazole Sodium [Protonix] 40 mg PO DAILY 05/10/16 [History] glipiZIDE [Glipizide] 10 mg PO DAILY 05/10/16 [History] metFORMIN [Glucophage] 500 mg PO BIDWM 05/10/16 [History] metOLazone [Metolazone] 10 mg PO DAILY PRN 05/10/16 [History] Buspirone HCl [Buspar] 10 mg PO BID 07/30/16 [History] Oxygen 3 l NS AD 09/11/16 [History] Atorvastatin [Lipitor] 80 mg PO HS tablet 09/14/16 [Rx] Lisinopril [Zestril] 2.5 mg PO DAILY 09/21/16 [History] Albuterol Sulfate [Albuterol Inhaler] 2 puff IH Q4H PRN 09/22/16 [History] Ipratropium/Albuterol Neb [Duoneb] 3 ml IH Q4HR PRN 09/22/16 [History] Acetaminophen [Tylenol] 500 mg PO Q6HR PRN #0 tablet 11/06/16 [Rx] Gabapentin [Neurontin] 200 mg PO TID #60 capsule 11/06/16 [Rx] Allopurinol [Zyloprim 100 MG] 450 mg PO DAILY 12/27/16 [History] Colchicine [Colcrys] 0.3 mg PO DAILY 12/27/16 [History] Furosemide [Lasix] 80 mg PO TID 12/27/16 [History] Albuterol Neb [Proventil Neb] 2.5 mg IH TID 08/05/17 [History] Anakinra [Kineret] 100 mg SQ DAILY PRN 08/05/17 [History] Glucagon,Human Recombinant [Glucagon Emergency Kit] 1 mg IJ PRN PRN 08/05/17 [ History] Oxycodone HCl [Oxaydo] 5 mg PO Q6H PRN 08/05/17 [History] Potassium Chloride 20 meq PO DAILY tab.er.prt 08/08/17 [Rx] Allergies/Adverse Reactions: 3 Allergy/AdvReac Type Severity Reaction Status Date / Time No Known Allergies Allergy Verified 12/27/16 11:49 Date of admission: 08/05/17 15:20 Primary care physician: Lavinia Guerra, Consults: 08/06/17 14:22 Consult to Nurse Navigator [CONS] Routine Comment: CHF Discharging clinician: Eloise Pennington Anticipated date of discharge: 08/08/17 - Constitutional Vitals: Temp Pulse Resp BP Pulse Ox 97.8 F 77 18 122/64 94 08/08/17 11:21 08/08/17 11:21 08/08/17 11:21 08/08/17 11:21 08/08/17 11:21 General appearance: Present: cooperative, A&O X 3, morbidly obese, pleasant, no acute distress, answers questions appropriately - Head Head exam: Present: atraumatic, normocephalic - Eye Eye exam: Present: conjuntiva pink, sclera anicteric - Respiratory Respiratory exam: Absent: rales (equal air entry bilaterally ), respiratory distress, wheezes - Cardiovascular Cardiovascular exam: Present: irregular rhythm, +S1, +S2. Absent: diastolic murmur, gallop, rubs, systolic murmur - GI/Abdominal GI/Abdominal exam: Present: normal bowel sounds, soft, no peritoneal signs. Absent: distended, tenderness - Extremities Exam Extremities exam: Present: warm, radial pulses palpable and symmetrical. Absent : calf tenderness, tenderness - Neurological Exam Neurological exam: Present: oriented X3 - Patient Status Disposition: Home, Self-Care Condition: Good Functional capacity at discharge: independent ambulation - Ambulatory Orders Ambulatory Orders: Basic Metabolic Panel [CHEM] Time Frame: 5 Days, Facility: [facility], Location: Lab - Discharge Instructions Follow Up With: Lavinia Guerra MD [Primary Care Provider] - 08/14/17 3:00 pm (Please follow up as schedule....) Additional Instructions: Please follow up with your primary care physician within five days after your discharge from the hospital. Please follow up with cardiology within one to two week after your discharge from the hospital. Your home dose of potassium has been reduce to once a day. Please obtain the prescribed lab work prior to your follow up with your PCP and your potassium supplement dose will be adjusted as per your lab reports. Resume all other home medications as prescribed by your primary care physician. - Diet and Activity Activity: resume usual activities as tolerated, wear oxygen at all times, wear oxygen at night Diet: low fat, low cholesterol, low salt diet
[2017-08-08 16:11] VITALS: BP 125/74
== END 2017-08-08 18:18 | disposition home or self-care (01) | DRG 291 ==
LOC: 2ANU
PROVIDERS: ADMIT Internal Medicine; ATTEND Internal Medicine

== ENCOUNTER 2018-10-17 00:12 | Inpatient (IN) ==
[2018-10-17] MEDS: 0.9 % Sodium Chloride 1,000 ML IVC SCH ×2 (02:00→11:37)
[2018-10-17] MEDS ORDERED: Naloxone 0.4 MG/ML INJ IVP PRN (03:32)
[2018-10-17] MEDS ORDERED: D5% in Water 1,000 ML IVC PRN (04:25)
[2018-10-17] MEDS ORDERED: *HR* Dextrose 50 % in Water (Syg) 50 ML SYRINGE IVP PRN (04:25)
[2018-10-17] MEDS ORDERED: Dextrose Gel 15 GM/37.5 ML TUBE PO PRN ×2 (04:25)
--- NOTE | 2018-10-17 04:27 | Internal Med History&Physical ---
<Mayo Wright - Last Filed: 10/17/18 05:07> Date of Encounter: 10/17/18 Time of Encounter: 03:15 Internal Medicine - H&P: HPI Chief complaint: Chest pain History of present illness: Mr. Hill is a 68 year old male with a PMH of paroxysmal atrial fibrillation not on anticoagulation due to prior GI bleed, COPD, CHF, CAD s/p stents, HTN, HLD, previous IN, and GERD who presented to [facility] as a transfer from [place] on 10/17/18. He initially presented to the ED for sudden onset left-sided chest pain with radiation into the abdomen. Reported a tearing sensation. Reports multiple MIs in the past; has a history of 2 stent placements. Reports that his chest pain is similar to the MIs that he previously had. He took aspirin and 3 nitroglycerin, which only mildly improved his pain. Also reported shortness of breath, dizziness, and lightheadedness. Reported that the pain was worse when he ambulated. Upon arrival, vital signs were significant for a low heart rate of 49 bpm and a low blood pressure of 108/51. Labs demonstrated a low hemoglobin of 11.1, which appears to be baseline, a low sodium at 121, elevated creatinine at 2.13, elevated glucose at 912, and an elevated troponin 0.05. EKG demonstrated sinus bradycardia at 53 bpm, T-wave inversion in aVF and V6. No ST changes. Left axis deviation. EKG was unchanged from previous in 09/17/18. Chest x-ray showed no acute process. CTA of the chest showed no evidence of pulmonary embolism or acute pulmonary abnormality, stable mild cardiomegaly, and calcific coronary artery disease. A CT scan of the abdomen demonstrated hepatosplenomegaly with fatty infiltration of the liver. On interview, patient states that he is feeling better than when he did on initial presentation. He endorses mild shortness of breath, but states that his chest pain is largely resolved. On exam, he has mild +1 pitting edema in lower extremities, shortened inspiratory phase, tachypnea, diminished breath sounds, but no crackles, wheezes, or rhonchi. He reports a family history of coronary artery disease on both sides of the family. He states that over the past few days, he has not drank as much as he normally does. Reports that his urine output is not what it normally is. Also reports a 6 month history of increasing difficulty with urination. He is currently satting well on 2.5 L of oxygen, which is his home dose. He denies fever, chills, nausea, vomiting, chest pain, chest tightness, palpitations, cough, or increased sputum production. Endorses mild shortness of breath and swelling in the lower extremities. He has no further complaints at this time. Past Med Surg Social Fam HX - Past Medical History Medical history: arthritis, asthma, atrial fibrillation, CHF, COPD, coronary artery disease, diabetes, GERD, GI bleed, hyperlipidemia, hypertension, myocardial infarction, osteoporosis, RA, renal disease, venous stasis, valvular heart disease, other Additional medical history: gout, anemia Psychiatric history: anxiety, depression - Past Surgical History Surgical History: angioplasty/stent, cataract, herniorrhaphy, knee replacement, other Additional surgical history: Hernia rupture. Bilateral knee surgery. Bilateral inguinal hernia repair. cardiac stents x 2 - Social History Smoking Status: Never smoker Smokeless Tobacco Status: No Alcohol use: none Drug use: none - Family History Sister Living Status: Still Living Mother Living Status: Still Living Hx Family Cardiac Disorders: Yes (htn,cad, lipid) Hx Family Neurologic Disorders: Yes (alzheimers) Father Living Status: Hx Family Cardiac Disorders: Yes (cad) Hx Family Respiratory Disorders: Yes Hx Family Cancer: Yes (colon) Hx Family GI Disorders: Yes Hx Family Endocrine Disorder: No Internal Medicine - H&P: Meds Isosorbide MONOnitrate (24 HR) [Imdur] 30 mg PO DAILY #0 09/05/15 [History] Nitroglycerin [Nitrostat] 0.4 mg SL Q5M PRN 05/10/16 [History] Pantoprazole Sodium [Protonix] 40 mg PO DAILY 05/10/16 [History] metFORMIN [Glucophage] 500 mg PO BIDWM 05/10/16 [History] Buspirone HCl [Buspar] 10 mg PO BID PRN 07/30/16 [History] Oxygen 4 l NS AD 09/11/16 [History] Lisinopril [Zestril] 2.5 mg PO DAILY 09/21/16 [History] Ipratropium/Albuterol Neb [Duoneb] 3 ml IH Q4HR PRN 09/22/16 [History] Anakinra [Kineret] 100 mg SQ DAILY PRN 08/05/17 [History] Potassium Chloride 20 meq PO DAILY tab.er.prt 08/08/17 [Rx] Levothyroxine [Synthroid] 25 mcg PO DAILY 02/16/18 [History] Sertraline [Zoloft] 100 mg PO DAILY 02/16/18 [History] Colchicine [Mitigare] 0.6 mg PO AD PRN 09/12/18 [History] Gabapentin [Neurontin] 200 mg PO TID PRN 09/12/18 [History] glipiZIDE [Glipizide] 10 mg PO DAILY 09/12/18 [History] Allopurinol [Zyloprim 300 MG] 450 mg PO DAILY 09/13/18 [History] Aspirin [Lo-Dose Aspirin EC] 81 mg PO DAILY 09/13/18 [History] Atorvastatin Calcium [Lipitor] 80 mg PO HS 09/13/18 [History] Ferrous Sulfate [Iron] 325 mg PO TID 09/13/18 [History] Insulin NPH Hum/Reg Insulin Hm [Novolin 70-30 100 Unit/ml Vial] 80 units SQ BID 09/13/18 [History] Insulin Regular, Human [Novolin R] 40 units SQ BID 09/13/18 [History] Oxycodone HCl 5 mg PO BID PRN 09/13/18 [History] Metoprolol [Lopressor] 25 mg PO BID #60 tablet 09/18/18 [Rx] Torsemide [Demadex] 40 mg PO BID 30 Days #60 tablet 09/18/18 [Rx] Spironolactone [Aldactone] 25 mg PO DAILY 10/16/18 [History] Allergy/AdvReac Type Severity Reaction Status Date / Time No Known Allergies Allergy Verified 10/16/18 21:49 All Systems PM: A 10-system review of systems was performed and is negative for pertinent findings except as documented above in the HPI. - Constitutional Vitals: Temp Pulse Resp BP Pulse Ox 97.7 F 65 22 95/61 97 10/17/18 03:14 10/17/18 03:14 10/17/18 03:14 10/17/18 03:14 10/17/18 03:14 Exam: General: A&O X3, conversant, tachypnea, on oxygen via nasal cannula Head: atraumatic, normocephalic Eye: PERRL, EOMI, conjuntiva pink, sclera anicteric Neck: Supple, trachea midline; No lymphadenopathy Respiratory: Shortened inspiratory phase, diminished breath sounds, no wheezes, rales, rhonchi Cardiovascular: Tachycardia, +S1, +S2; no murmurs, rubs, gallops Abdomen: Firm, distended Extremities: +1 pitting edema in b/l LEs extending up to the knees Neurological: No focal weakness or deficits noted Psychiatric: Normal affect, normal mood Skin: Dry, intact - Assessment and Plan (1) Chest pain Current Visit: Yes Status: Acute Assessment and plan: - Etiology unknown at this time; possibly due to demand ischemia in the setting of acidosis due to hyperglycemia and tachypnea - Patient has an extensive cardiac history; multiple previous MIs and 2 stents - Troponin was elevated on presentation at 0.05 - He reports that his pain was mildly relieved with the use of aspirin and nitroglycerin - At the time of interview, patient's initial chest pain had nearly completely resolved Plan: - Continuous telemetry - Trend troponin 3 - Nitroglycerin PRN Qualifiers: Qualified Code(s): R07.9 - Chest pain, unspecified (2) Hyperglycemia Current Visit: Yes Status: Acute Assessment and plan: - Presented with an elevated glucose level at 535 - He was given 25 units of detemir, 12 units regular insulin - Patient reports that when he checks his blood glucose levels, it is normally in the 400s Plan: - Accu-Cheks every 6 hours - Sliding scale insulin, low dose; although patient has elevated glucose in the 400s, he states that his baseline is in the 400s. Therefore, we will initiate low-dose sliding scale to avoid dropping his glucose too rapidly from baseline - Repeat a.m. labs (3) GINA (acute kidney injury) Current Visit: No Status: Acute Assessment and plan: - Presented with elevated creatinine at 2.13; per chart review, patient appears to have normal renal function at baseline - Unknown etiology at this time; possibly secondary to poor by mouth intake - Patient reports increased difficulty urinating over the past 6 months - He has no known history of BPH - Reports that due to his fluid restriction requirements for CHF, sometimes she does not drink a lot of - He reports a lower urine output over the past few days than normal Plan: - Obtain urinalysis with urine studies for GINA workup: Creatinine kinase, urine eosinophils, urine sodium, urine creatinine, urine protein - Gentle IV fluid hydration with normal saline at 75 mL/h - Obtain retroperitoneal ultrasound to rule out the possibility of obstruction - Strict Is and Os, daily weights - Renally dose medications, avoid nephrotoxins if possible - Repeat a.m. labs (4) Heart failure with preserved ejection fraction Current Visit: Yes Status: Acute Assessment and plan: - Known history of congestive heart failure - Previous echo on 09/13/18 demonstrated LVEF 60% with mild concentric LVH, moderate LV diastolic dysfunction - Patient normally takes Bumex 2 mg by mouth twice a day Plan: - Will hold diuretics for the time being in the setting of GINA - We will order repeat echocardiogram Qualifiers: Qualified Code(s): I50.30 - Unspecified diastolic (congestive) heart failure (5) Hypertension Current Visit: Yes Status: Acute Assessment and plan: - Patient has a known history of hypertension - Normally takes lisinopril, Lopressor, and Imdur - We will hold these in the setting of low blood pressure and GINA Qualifiers: Qualified Code(s): I10 - Essential (primary) hypertension (6) Diabetes Current Visit: Yes Status: Acute Assessment and plan: - Patient has known history of diabetes - Sliding scale insulin Qualifiers: Qualified Code(s): E11.9 - Type 2 diabetes mellitus without complications (7) DVT prophylaxis Current Visit: No Status: Acute Assessment and plan: - Subcutaneous heparin - Time Spent With Patient Total time spent is greater than 50% in coordination of care (as documented) at patient's floor/unit and/or counseling patient: <Cliff Blankenship - Last Filed: 10/17/18 06:34> Date of Encounter: 10/17/18 Internal Medicine - H&P: HPI History of present illness: Mr. Hill is a 68 year old male All Systems PM: A 10-system review of systems was performed and is negative for pertinent findings except as documented above in the HPI. - Constitutional Vitals: Temp Pulse Resp BP Pulse Ox 97.7 F 65 22 95/61 97 10/17/18 03:14 10/17/18 03:14 10/17/18 03:14 10/17/18 03:14 10/17/18 03:14 Internal Med - H&P Results - Labs CBC & Chem 7: 06/15/19 04:42 10/17/18 04:42 Labs: Short CBC 10/17/18 Range/Units 04:42 WBC 7.4 (4.3-11.1) K/mcL Hgb 10.6 L (12.9-16.9) g/dL Hct 33.3 L (37.5-50.1) % Plt Count 165 (140-400) K/mcL Neutrophils # 4.8 (1.6-8.9) K/mcL BMP 10/17/18 04:42 Sodium 130 L D Potassium 4.9 Chloride 93 L Carbon Dioxide 27 BUN 42 H Creatinine 2.28 H Glucose 403 H Calcium 8.6 Cardiac Enzymes 10/17/18 Range/Units 04:42 Troponin I 0.05 H* (< 0.04) ng/mL - Time Spent With Patient Total time spent is greater than 50% in coordination of care (as documented) at patient's floor/unit and/or counseling patient: - Attending Attestation I saw and evaluated the patient. I reviewed the residents note, performed my own physical examination and agree with findings and plan as documented in the residents note. Patient seen and examined on 10/17/18. Patient presents with elevated blood sugar and chest pain. Now improving. Patient poorly controlled diabetic, poor insight into his disease. Would certainly benefit from diabetes education if that were available at this facility. Needs close monitoring of sugars and better out patient management of his diabetes.
[2018-10-17 05:30] LABS: Basophils % 0.5 %; Eosinophils # 0.2 K/mcL (0.0-0.6); Eosinophils % 2.9 %; Hematocrit 33.3 % (37.5-50.1); Hemoglobin 10.6 g/dL (12.9-16.9); Immature Granulocytes % 0.4 % (0-4); Lymphocytes # 1.6 K/mcL (0.6-4.6); Lymphocytes % 21.4 %; Mean Corpuscular HGB Conc 31.8 g/dL (31.6-35.5); Mean Corpuscular Hemoglobin 28.3 pg (28.0-33.3); Mean Platelet Volume 12.6 fL (9.4-12.4); Monocytes # 0.7 K/mcL (0.0-1.3); Monocytes % 9.7 %; Neutrophils # 4.8 K/mcL (1.6-8.9); Platelet Count 165 K/mcL (140-400); Red Blood Count 3.74 M/mcL (4.19-5.50); Red Cell Distribution Width 15.1 % (11.5-14.5); Segmented Neutrophils % 65.1 %; White Blood Count 7.4 K/mcL (4.3-11.1)
[2018-10-17 05:38] LABS: Prothrombin Time 11.1 Seconds (9.4-12.1)
[2018-10-17 05:50] LABS: Creatine Kinase 247 Units/L (30-223)
[2018-10-17 05:54] LABS: BUN/Creatinine Ratio 18 (6-26); Blood Urea Nitrogen 42 mg/dL (8-23); Calcium 8.6 mg/dL (8.6-10.3); Carbon Dioxide 27 mEq/L (23-29); Chloride 93 mEq/L (98-107); Chol/HDL Ratio 7.4 (0-4.9); Cholesterol 171 mg/dL (< 200); Glucose 403 mg/dL (70-105); HDL Cholesterol 23 mg/dL (40-59); Magnesium 2.3 mg/dL (1.6-2.6); Osmolality,Calculated 297 (280-300); Potassium 4.9 mEq/L (3.5-5.1); Sodium 130 mEq/L (136-145); Triglycerides 939 mg/dL (< 150); eGFR For African Americans 35 (> 60); eGFR For Non-African Americans 29 (> 60)
[2018-10-17] MEDS ORDERED: Perflutren Lipid Microsphere 1.3 ML in 0.9 % Sodium Chloride 8.7 ML IVP ONE (07:28)
[2018-10-17] MEDS: Insulin LISPRO 300 UNITS/3 ML VIAL SQ SCH ×5 (08:28→20:50)
[2018-10-17 10:33] LABS: Troponin I 0.05 ng/mL (< 0.04)
[2018-10-17 10:38] LABS: C-Reactive Protein 11 mg/L (Less than 10)
[2018-10-17 11:21] LABS: Calcium 8.5 mg/dL (8.6-10.3); Potassium 4.1 mEq/L (3.5-5.1)
[2018-10-17] MEDS ORDERED: Aspirin 81 MG TAB.CHEW PO SCH (14:00)
--- NOTE | 2018-10-17 14:04 | Event Note ---
Date of Encounter: 10/17/18 Time of Encounter: 14:03 Patient is a 68y/o male admitted for evaluation of chest pain and hyperglycemia. Patient seen and exmained earlier this morning. Sitting in bed and reported of feeling significantly better since his hospitalization. He denies any chest pain or shortness of breath at this time. Noted to have elevated TNI however has chronic hx of elevated TNI. Cardiology evaluation has been requested f/u 2D ehco will continue IV fluids and closely monitor renal function accuchecks q4h with high dose sliding scale insulin algorithm Holding diuretics at this time and will closely monitor for signs of volume overload. Labs and vitals reviewed Care plan discussed with patient/RN Awaiting home medications verification. Will restart home meds once med reconciliation has been completed
[2018-10-17 14:14] LABS: Bilirubin,Urine Negative (Negative); Blood,Urine Trace (Negative); Clarity,Urine Clear (Clear); Color,Urine Yellow (Yellow); Glucose,Urine (UA) 500 mg/dL (Normal); Ketones,Urine Negative (Negative); Leukocyte Esterase,Urine Negative (Negative); Nitrite,Urine Negative (Negative); Protein,Urine 100 mg/dL (Neg-Trace); Specific Gravity,Urine 1.019 (1.010-1.025); Urobilinogen,Urine Normal (Normal)
[2018-10-17 14:16] LABS: Bacteria,Urine None Seen per hpf (None-Few); Hyaline Casts,Urine None Seen per lpf (None-Few); Squamous Epithelial Cell,Urine Many per lpf (None-Few)
[2018-10-17 14:22] LABS: Sodium, Urine 27.4 mEq/L
[2018-10-17] MEDS ORDERED: BUSPIRONE HCL 10 MG TABLET PO PRN (19:49)
[2018-10-17] MEDS ORDERED: Ipratropium/Albuterol Neb 3 ML IH PRN (19:49)
[2018-10-17] MEDS ORDERED: Colchicine 0.6 MG TABLET PO PRN (19:49)
[2018-10-17] MEDS ORDERED: Nitroglycerin 0.4 MG TAB.SUBL SL PRN (19:49)
[2018-10-17] MEDS ORDERED: (Anakinra [Kineret] 100 MG) SQ PRN (19:49)
[2018-10-17] MEDS ORDERED: NON-FORMULARY MEDICATION 1 EACH EACH (Oxygen 3 L) NS SCH (20:00)
[2018-10-17] MEDS: Torsemide 20 MG TABLET PO SCH (20:50)
[2018-10-17] MEDS: *HR* OxyCODONE Immed Rel 15 MG TABLET PO PRN (20:50)
[2018-10-18] MEDS: Insulin LISPRO 300 UNITS/3 ML VIAL SQ SCH ×6 (00:36→20:27)
[2018-10-18 01:58] LABS: Basophils % 0.6 %; Eosinophils # 0.3 K/mcL (0.0-0.6); Eosinophils % 4.8 %; Hematocrit 35.4 % (37.5-50.1); Hemoglobin 11.2 g/dL (12.9-16.9); Immature Granulocytes % 0.6 % (0-4); Lymphocytes # 1.6 K/mcL (0.6-4.6); Lymphocytes % 24.4 %; Mean Corpuscular HGB Conc 31.6 g/dL (31.6-35.5); Mean Corpuscular Hemoglobin 27.7 pg (28.0-33.3); Mean Corpuscular Volume 87.4 fL (83.0-100.0); Mean Platelet Volume 12.2 fL (9.4-12.4); Monocytes # 0.4 K/mcL (0.0-1.3); Monocytes % 5.9 %; Neutrophils # 4.2 K/mcL (1.6-8.9); Platelet Count 168 K/mcL (140-400); Red Blood Count 4.05 M/mcL (4.19-5.50); Red Cell Distribution Width 15.3 % (11.5-14.5); Segmented Neutrophils % 63.7 %; White Blood Count 6.6 K/mcL (4.3-11.1)
[2018-10-18 02:16] LABS: Calcium 8.8 mg/dL (8.6-10.3); Magnesium 2.2 mg/dL (1.6-2.6); Phosphorous 3.3 mg/dL (2.7-4.5); Potassium 4.3 mEq/L (3.5-5.1)
[2018-10-18] MEDS: Levothyroxine 25 MCG TABLET PO SCH (04:56)
--- NOTE | 2018-10-18 08:11 | Cardiology Consult Note ---
<Nathan Hidalgo - Last Filed: 10/18/18 08:11> Date of Encounter: 10/18/18 Time of Encounter: 08:09 Assessment and Plan (1) Chest pain Current Visit: Yes Status: Acute Presents with intermittent shortness of breath and chest pain over the past 2 weeks, worse on exertion. Substernal heaviness. Mild improvement with nitro. Troponin 0.05, 0.05, 0.04--likely demand ischemia in setting of GINA (improving). Hx of borderline trops. ECG mild, diffuse changes compared to 2016. BNP 180. No acute findings of CXR. Limited TTE 10/17/18: LVEF 65-70%. Mild cLVH. Mildly dilated RV with normal systolic function. Nuclear stress test 09/16/15: Perfusion imaging negative for ischemia or infarct. Gated EF 67%. [facility] 11/22/14: Moderate, but stable CAD. EF 65%. Previously placed stents in mLAD with mild in stent restenosis. No ischemic evaluation in >3 years. Will proceed with Nuclear stress test, 2 day. Increase Imdur to 60mg daily following stress test. Will discuss and review with Dr. Gonzales. Qualifiers: Chest pain type: chest pain on breathing Qualified Code(s): R07.1 - Chest pain on breathing (2) CAD (coronary artery disease) Current Visit: No Status: Chronic Hx CAD and PCI. [facility] 11/22/14: Moderate, but stable CAD. EF 65%. Previously placed stents in mLAD with mild in stent restenosis. Continue ASA, Statin. Add BB. Qualifiers: Coronary Disease-Associated Artery/Lesion type: [place] artery [place] vs. transplanted heart: [place] heart Associated angina: without angina Qualified Code(s): I25.10 - Atherosclerotic heart disease of [place] coronary artery without angina pectoris (3) Elevated troponin Current Visit: No Status: Chronic Troponin 0.05, 0.05, 0.04--likely demand ischemia in setting of GINA (improving). Also hx of borderline trops. Nondiagnostic for ACS. Mild, diffuse ECG compared to 2016. (4) PAF (paroxysmal atrial fibrillation) Current Visit: Yes Status: Chronic Known PAF, noted on tele. Resume low dose BB. Not on AC d/t GI bleed last year. Continue ASA only. Discussion w patient/family: The assessment and plan as outlined above was discussed with the patient and/or family members who expressed understanding and agreement. All questions were answered. Thank you for involving us in the care of your patient. Please call with any questions. I will discuss and review with Dr. Gonzales and make changes as necessary. History of Present Illness Consult date: 10/18/18 Requesting physician: Eloise Pennington Consult reason: chest pain, troponins Chief complaint: chest pain, dyspnea History of present illness: Mr. Hill is a 68 year old male with past medical history significant for CAD status post prior PCI, paroxysmal atrial fibrillation not on anticoagulation due to GI bleed last year, diastolic CHF, diabetes, COPD on home O2, and obesity who presents with shortness of breath and chest pain over the past 2 weeks, described as intermittent and worse on exertion. Chest pain is substernal heaviness. Mild improvement with nitro. Troponin 0.05, 0.05, 0.04. Cardiology consulted for further recs. BNP 180. No acute findings of CXR. GINA on admission, now improved. Prior CV testing: Limited TTE 10/17/18: LVEF 65-70%. Mild cLVH. Mildly dilated RV with normal systolic function. TTE 09/13/18: LVEF 60%. Normal LV chamber size and function. Mild cLVH. Moderate LVDD. Mildly dilated RV with normal function. No significant valvular dysfunction. No evidence of pulmonary hypertension. Nuclear stress test 09/16/15: Perfusion imaging negative for ischemia or infarct. Gated EF 67%. [facility] 11/22/14: Moderate, but stable CAD. EF 65%. Previously placed stents in mLAD with mild in stent restenosis. Past Med Surg Social Fam HX - Past Medical History Medical history: arthritis, asthma, atrial fibrillation, CHF, COPD, coronary artery disease, diabetes, GERD, GI bleed, hyperlipidemia, hypertension, myocardial infarction, osteoporosis, RA, renal disease, venous stasis, valvular heart disease, other Additional medical history: gout, anemia Psychiatric history: anxiety, depression - Past Surgical History Surgical History: angioplasty/stent, cataract, herniorrhaphy, knee replacement, other Additional surgical history: Hernia rupture. Bilateral knee surgery. Bilateral inguinal hernia repair. cardiac stents x 2 - Social History Smoking Status: Never smoker Smokeless Tobacco Status: No Alcohol use: none Drug use: none - Family History Sister Living Status: Still Living Mother Living Status: Still Living Hx Family Cardiac Disorders: Yes (htn,cad, lipid) Hx Family Neurologic Disorders: Yes (alzheimers) Father Living Status: Hx Family Cardiac Disorders: Yes (cad) Hx Family Respiratory Disorders: Yes Hx Family Cancer: Yes (colon) Hx Family GI Disorders: Yes Hx Family Endocrine Disorder: No Medications and Allergies Isosorbide MONOnitrate (24 HR) [Imdur] 30 mg PO DAILY #0 09/05/15 [History] Nitroglycerin [Nitrostat] 0.4 mg SL Q5M PRN 05/10/16 [History] Pantoprazole Sodium [Protonix] 40 mg PO DAILY 05/10/16 [History] metFORMIN [Glucophage] 500 mg PO BIDWM 05/10/16 [History] Buspirone HCl [Buspar] 10 mg PO BID PRN 07/30/16 [History] Oxygen 3 l NS AD 09/11/16 [History] Lisinopril [Zestril] 2.5 mg PO DAILY 09/21/16 [History] Ipratropium/Albuterol Neb [Duoneb] 3 ml IH Q4HR PRN 09/22/16 [History] Anakinra [Kineret] 100 mg SQ DAILY PRN 08/05/17 [History] Potassium Chloride 20 meq PO DAILY tab.er.prt 08/08/17 [Rx] Levothyroxine [Synthroid] 25 mcg PO DAILY 02/16/18 [History] Sertraline [Zoloft] 100 mg PO DAILY 02/16/18 [History] Colchicine [Mitigare] 0.6 mg PO AD PRN 09/12/18 [History] Gabapentin [Neurontin] 200 mg PO TID PRN 09/12/18 [History] glipiZIDE [Glipizide] 10 mg PO DAILY 09/12/18 [History] Allopurinol [Zyloprim 300 MG] 450 mg PO DAILY 09/13/18 [History] Aspirin [Lo-Dose Aspirin EC] 81 mg PO DAILY 09/13/18 [History] Atorvastatin Calcium [Lipitor] 80 mg PO HS 09/13/18 [History] Ferrous Sulfate [Iron] 325 mg PO TID 09/13/18 [History] Insulin NPH Hum/Reg Insulin Hm [Novolin 70-30 100 Unit/ml Vial] 80 units SQ BID 09/13/18 [History] Insulin Regular, Human [Novolin R] 40 units SQ BID 09/13/18 [History] Oxycodone HCl 15 mg PO BID PRN 09/13/18 [History] Metoprolol [Lopressor] 25 mg PO BID #60 tablet 09/18/18 [Rx] Spironolactone [Aldactone] 25 mg PO DAILY 10/16/18 [History] Allergy/AdvReac Type Severity Reaction Status Date / Time No Known Allergies Allergy Verified 10/16/18 21:49 All Systems Review: The remainder of the systems were reviewed and are negative - Cardiovascular Cardiovascular: as per HPI, chest pain with exertion, dyspnea on exertion - Respiratory Respiratory: dyspnea Physical Examination Vital Signs, Last 4 Hours Temp Pulse Resp BP Pulse Ox 10/18/18 07:51 97.9 F 71 18 151/104 95 Vital Signs Temp Pulse Resp BP Pulse Ox 10/18/18 07:51 97.9 F 71 18 151/104 95 10/18/18 03:54 98.0 F 76 19 120/90 93 10/18/18 00:15 15 147/89 96 10/17/18 22:47 98.2 F 70 19 147/89 92 10/17/18 19:30 98.0 F 69 18 111/92 94 10/17/18 16:17 97.8 F 59 18 118/67 92 10/17/18 14:07 91 10/17/18 11:12 97.8 F 76 18 108/68 91 Intake and Output 10/17/18 10/18/18 10/18/18 23:59 07:59 15:59 Intake Total 1000 / 2000 900 / 900 Output Total 1200 / 1500 1850 / 1850 Balance -200 / 500 -950 / -950 Intake: IV Fluids 1000 / 2000 0.9 % Sodium Chloride 1,000 ML 1000 / 2000 @ 75 mls/hr IVC .[id number] [facility] Rx #:[id number] Oral 0 / 0 900 / 900 Output: Urine 1200 / 1500 1850 / 1850 Other: Meal NPO Percent of Meal Consumed 0% Weight 125.673 kg Blood Glucose* 289 266 Patient Weight 10/18/18 23:59 Weight 125.673 kg General: Conversant, No Apparent Distress HEENT: Atraumatic, Normocephaly, Mucus Membranes Moist Neck: No JVD, Normal carotid pulses Cardiac: Reg Rate and Rhythm, Normal S1 and S2, No Murmur Lungs: Other (diminished) Neuro: Alert and responsive, No focal deficits noted Abdomen: Soft, Non-Tender Skin: No rashes noted on visualized skin Musculoskeletal: No Chest Wall Tenderness Extremities: No Clubbing, No Cyanosis, No Edema, Normal Pulses Results 10/18/18 01:29 10/18/18 01:29 Lab Results 10/17/18 10/17/18 10/18/18 09:51 15:33 01:29 WBC 6.6 Hgb 11.2 L Hct 35.4 L Plt Count 168 Sodium 130 L Potassium 4.1 Chloride 96 L Carbon Dioxide 26 BUN 40 H Creatinine 2.10 H Glucose 374 H Calcium 8.5 L Magnesium Troponin I 0.05 H* 0.04 H* 10/18/18 01:29 WBC Hgb Hct Plt Count Sodium 135 L Potassium 4.3 Chloride 98 Carbon Dioxide 26 BUN 35 H Creatinine 1.43 H Glucose 331 H Calcium 8.8 Magnesium 2.2 Troponin I Short CBC 10/18/18 Range/Units 01:29 WBC 6.6 (4.3-11.1) K/mcL Hgb 11.2 L (12.9-16.9) g/dL Hct 35.4 L (37.5-50.1) % Plt Count 168 (140-400) K/mcL Neutrophils # 4.2 (1.6-8.9) K/mcL BMP 10/18/18 10/17/18 Range/Units 01:29 09:51 Sodium 135 L 130 L (136-145) mEq/L Potassium 4.3 4.1 (3.5-5.1) mEq/L Chloride 98 96 L (98-107) mEq/L Carbon Dioxide 26 26 (23-29) mEq/L BUN 35 H 40 H (8-23) mg/dL Creatinine 1.43 H 2.10 H (0.70-1.30) mg/dL Glucose 331 H 374 H (70-105) mg/dL Calcium 8.8 8.5 L (8.6-10.3) mg/dL Cardiac Enzymes 10/17/18 10/17/18 Range/Units 15:33 09:51 Troponin I 0.04 H* 0.05 H* (< 0.04) ng/mL Urine 10/17/18 Range/Units 14:00 Urine Color Yellow (Yellow) Urine Clarity Clear (Clear) Urine pH 6.0 (5.0-8.0) pH Units Ur Specific [place] 1.019 (1.010-1.025) Urine Protein 100 H (Neg-Trace) mg/dL Urine Glucose (UA) 500 H (Normal) mg/dL Impressions Echocardiogram Limited Views 10/17/18 03:40 Impressions: LVEF 65-70%. Mild concentric left ventricular hypertrophy. Mildly dilated right ventricle with normal systolic function. Left Ventricular Wall Motion: Rest Echo Findings All wall segments showed normal motion. Findings: Study Quality * Technically adequate exam. ECG Findings * Normal sinus rhythm. Left Ventricle * LVEF 65-70%. * Mild concentric left ventricular hypertrophy. Right Ventricle * Mildly dilated right ventricle with normal systolic function. Left Atrium * Normal left atrial size. Right Atrium * Normal right atrial size. Active Medications Albuterol/Ipratropium (Duoneb) 3 ml IH S0DEVIN PRN PRN Reason: Shortness Of Breath/Wheezing Stop: 04/18/19 19:50 Allopurinol (Zyloprim) 450 mg PO DAILY [facility] Stop: 04/19/19 09:01 Aspirin (Aspirin Ec) 81 mg PO DAILY [facility] Stop: 04/19/19 09:01 Atorvastatin Calcium (Lipitor) 80 mg PO HS [facility] Stop: 04/18/19 21:01 Last Admin: 10/17/18 20:50 Dose: 80 mg Documented by: Buspirone HCl (Buspar Hcl) 10 mg PO BID PRN PRN Reason: PANIC ATTACK Stop: 04/18/19 19:50 Colchicine (Colcrys) 0.6 mg PO AD PRN PRN Reason: GOUT Dextrose/Water (Dextrose 50% (Syg)) 25 ml IVP AD PRN PRN Reason: Hypoglycemia Stop: 04/18/19 04:26 Ferrous Sulfate (Ferrous Sulfate) 325 mg PO TIDWM [facility] Stop: 04/18/19 21:01 Last Admin: 10/17/18 20:50 Dose: 325 mg Documented by: Gabapentin (Neurontin) 200 mg PO TID PRN PRN Reason: Pain Stop: 04/18/19 19:50 Glipizide (Glucotrol) 10 mg PO DAILY [facility] Stop: 04/19/19 09:01 Glucagon (Glucagen) 1 mg IM ONCE PRN PRN Reason: Hypoglycemia Stop: 04/18/19 04:26 Glucose (Gluctose) 15 gm PO ONCE PRN PRN Reason: Hypoglycemia Stop: 04/18/19 04:26 Glucose (Gluctose) 30 gm PO ONCE PRN PRN Reason: Hypoglycemia Stop: 04/18/19 04:26 Dextrose (Dextrose 5%) 1,000 mls @ 100 mls/hr IVC .Q10H PRN PRN Reason: HYPOGLYCEMIA Stop: 04/18/19 04:26 Insulin Human Lispro (Humalog) 0 units SQ Q4H [facility]YAN; Protocol Stop: 04/18/19 14:01 Last Admin: 10/18/18 04:55 Dose: 10 units Documented by: Levothyroxine Sodium (Synthroid) 25 mcg PO 0630 [facility] Stop: 04/19/19 06:31 Last Admin: 10/18/18 04:56 Dose: 25 mcg Documented by: Naloxone HCl (Narcan) 0.4 mg IVP Q2MPRN PRN PRN Reason: SEE COMMENTS Stop: 04/18/19 03:33 Nitroglycerin (Nitroglycerin) 0.4 mg SL Q5MIN PRN PRN Reason: CHEST PAIN Stop: 04/18/19 19:50 Omeprazole (Prilosec) 20 mg PO DAILY [facility] Stop: 04/19/19 09:01 Oxycodone HCl (Roxicodone) 15 mg PO BID PRN; Protocol PRN Reason: Pain Stop: 04/18/19 19:50 Last Admin: 10/17/18 20:50 Dose: 15 mg Documented by: Pharmacy Profile Note (Patient Taking Own Medication) 0 each SQ DAILY PRN PRN Reason: Inflammation Potassium Chloride (Potassium Chloride) 20 meq PO DAILY [facility] Stop: 04/19/19 09:01 Sertraline HCl (Zoloft) 100 mg PO DAILY [facility] Stop: 04/19/19 09:01 Spironolactone (Aldactone) 25 mg PO DAILY [facility] Stop: 04/19/19 09:01 Torsemide (Demadex) 40 mg PO BIDDIURETIC [facility] Stop: 04/18/19 21:01 Last Admin: 10/17/18 20:50 Dose: 40 mg Documented by: - Imaging and Cardiology Stress Test: report reviewed Echo: report reviewed Cardiac cath: report reviewed - EKG Interpretation EKG results cardiology: personally reviewed, other (12 hr tele AVG HR 70, PAF) Consult Discharge Plan - Plan Referrals: Lavinia Enrique MD [Primary Care Provider] - <Victor Manuel Gonzales - Last Filed: 10/18/18 15:32> Date of Encounter: 10/18/18 - Attending Attestation Patient was seen and evaluated independently by me. Findings, assessment and plan were discussed at length with patient, questions answered. Agree with nurse practitioner's/resident's documentation. Addition as follows, 68 yoCM ho CAD LAD-SCAR with moderate stenosis, HFpEF, PAF no A/C due GIB, IDDM, COPD on O2. P/w worsening typical and atypical chest pain and dyspnea 2 wks. ECG SR w/o ischemic changes. Trop max 0.05. BNP 180. TE EF 65-70%, mild RV dilation nl function. Lab sig for resolving GINA,mild anemia RA, HD stable, CTA, RR, 1+ B/L LE edema. A: Chest pain, suspected accelerating angina Minimal trop elevation, myocardial injury due to ADHF vs type II Ho CAD, SCAR-LAD with known moderate stenosis ADHF, HFpEF, close to euvolemia now GINA, resolving COPD on O2 P: SPECT volume ctr by loop diuretics and aldactone c/w ASA, statin, imdur, BB Victor Manuel Gonzales MD, PhD Assessment and Plan Discussion w patient/family: The assessment and plan as outlined above was discussed with the patient and/or family members who expressed understanding and agreement. All questions were answered. Thank you for involving us in the care of your patient. Please call with any questions. History of Present Illness History of present illness: Mr. Hill is a 68 year old male All Systems Review: The remainder of the systems were reviewed and are negative Physical Examination Vital Signs, Last 4 Hours Temp Pulse Resp BP Pulse Ox 10/18/18 12:30 90 10/18/18 11:30 98.3 F 90 19 129/73 96 Results 10/18/18 01:29 10/18/18 01:29 Lab Results 10/17/18 10/18/18 10/18/18 15:33 01:29 01:29 WBC 6.6 Hgb 11.2 L Hct 35.4 L Plt Count 168 Sodium 135 L Potassium 4.3 Chloride 98 Carbon Dioxide 26 BUN 35 H Creatinine 1.43 H Glucose 331 H Calcium 8.8 Magnesium 2.2 Troponin I 0.04 H*
[2018-10-18] MEDS ORDERED: *HR* GlipiZIDE 5 MG TABLET PO SCH (09:00)
[2018-10-18] MEDS ORDERED: Regadenoson 0.4 MG/5 ML SYRINGE IVP ONE (09:19)
[2018-10-18] MEDS: Aspirin Enteric Coated 81 MG Tablet PO SCH (12:10)
[2018-10-18] MEDS: Spironolactone 25 MG TABLET PO SCH (12:10)
[2018-10-18] MEDS: Gabapentin 100 MG CAPSULE PO PRN (12:10)
[2018-10-18] MEDS: *HR* OxyCODONE Immed Rel 15 MG TABLET PO PRN ×2 (12:11→22:05)
[2018-10-18] MEDS: Torsemide 20 MG TABLET PO SCH (12:11)
[2018-10-18] MEDS ORDERED: Ondansetron 4 MG/2 ML VIAL IVP PRN (13:58)
[2018-10-18] MEDS ORDERED: Insulin LISPRO 300 UNITS/3 ML VIAL SQ SCH ×2 (14:00→16:00)
--- NOTE | 2018-10-18 14:04 | Internal Med Progress Note ---
Hospitalist Progress Note - Encounter Date of Encounter: 10/18/18 Time of Encounter: 14:04 - Subjective Interval History: Patient seen and examined earlier today. Patient is sitting in chair and states he feels better compared to previous day. S/p part one of nuclear stress test earlier today. Noted to remain hyperglycemia, will restart home insulin dose after med reconciliation. Denies any shortness of breath or chest pain at this time. No overnight events reported. Ten point ROS is negative except as listed above - Exam Vitals: Temp Pulse Resp BP Pulse Ox 98.3 F 90 19 129/73 96 10/18/18 11:30 10/18/18 12:30 10/18/18 11:30 10/18/18 11:30 10/18/18 11:30 Exam: General: No acute distress, AAO x 3, morbidly obese HEENT: EOMI, NC/AT, no scleral icterus Respiratory: Equal air entry bilaterally, no wheezing, no rales Cardiovascular: Regular, Rate, Rhythm, + murmur GI: Soft, Non tender, non distended, normal bowel sounds Ext: bilateral LE edema, no tenderness, positive pulses Neuro: AAO x 3, no focal deficits Rest of the clinical exam is noncontributory - Summary of Assessment and Plan Summary of Assessment and Plan: Patient is a 68y/o male with PMH Of Afib (not on anticoagulation due to GI bleed), CAD, CHF, DM, COPD on home O2 who is admitted for chest pain. Assessment/Plan: 1. Chest pain Resolved cardiology on board and input appreciated s/p part one of the nuclear stress test today 2D echo reviewed continue management as per cardiology 2. CAD continue home dose of ASA, statin BB added by cardiology 3. Elevated TNI down trending TNI cardiology on board management as per cardio 4. Hx of Afib Continue BB not on anticoagulation due to hx of GI bleed continue Aspirin 5. Uncontrolled DM restarted patient's home dose of basal insulin coverage continue accuchecks q4h with high dose sliding scale insulin algorithm monitor BG closely 6. GINA on CKD s/p 2L of IVF renal function improving will hold diuretic therapy at this time and closely monitor renal function 7. Hx of CHF continue home medications 8. COPD not in acute exacerbation continue bronchodilator support as needed 9. DVT ppx:heparin SQ Care plan discussed with patient/RN - Time Spent with Patient Total time spent is greater than 50% in coordination of care (as documented) at patient's floor/unit and/or counseling patient: Internal Medicine: Result - Labs CBC & Chem 7: 10/18/18 01:29 10/18/18 01:29 Labs: Short CBC 10/18/18 Range/Units 01:29 WBC 6.6 (4.3-11.1) K/mcL Hgb 11.2 L (12.9-16.9) g/dL Hct 35.4 L (37.5-50.1) % Plt Count 168 (140-400) K/mcL Neutrophils # 4.2 (1.6-8.9) K/mcL BMP 10/18/18 01:29 Sodium 135 L Potassium 4.3 Chloride 98 Carbon Dioxide 26 BUN 35 H Creatinine 1.43 H Glucose 331 H Calcium 8.8 Cardiac Enzymes 10/17/18 Range/Units 15:33 Troponin I 0.04 H* (< 0.04) ng/mL Urine 10/17/18 Range/Units 14:00 Urine Color Yellow (Yellow) Urine Clarity Clear (Clear) Urine pH 6.0 (5.0-8.0) pH Units Ur Specific [place] 1.019 (1.010-1.025) Urine Protein 100 H (Neg-Trace) mg/dL Urine Glucose (UA) 500 H (Normal) mg/dL - ABG Interpretation ABG results: PT/INR, D-dimer PT 11.1 Seconds (9.4-12.1) 10/17/18 04:42 - Impressions Impressions Echocardiogram Limited Views 10/17/18 03:40 Impressions: LVEF 65-70%. Mild concentric left ventricular hypertrophy. Mildly dilated right ventricle with normal systolic function. Left Ventricular Wall Motion: Rest Echo Findings All wall segments showed normal motion. Findings: Study Quality * Technically adequate exam. ECG Findings * Normal sinus rhythm. Left Ventricle * LVEF 65-70%. * Mild concentric left ventricular hypertrophy. Right Ventricle * Mildly dilated right ventricle with normal systolic function. Left Atrium * Normal left atrial size. Right Atrium * Normal right atrial size. Consult Discharge Plan - Plan Referrals: Lavinia Enrique MD [Primary Care Provider] -
[2018-10-18] MEDS: Insulin NPH/REG 70/30 100 UNIT/ML (x5UNIT) SQ SCH ×2 (16:10→20:26)
[2018-10-18] MEDS: *HR* Heparin 5,000 UNIT/ML VIAL SQ SCH (17:31)
[2018-10-19] MEDS: Insulin LISPRO 300 UNITS/3 ML VIAL SQ SCH ×5 (00:10→17:28)
[2018-10-19 03:45] LABS: Basophils % 0.5 %; Eosinophils # 0.4 K/mcL (0.0-0.6); Eosinophils % 6.1 %; Hematocrit 36.2 % (37.5-50.1); Hemoglobin 11.4 g/dL (12.9-16.9); Immature Granulocytes % 0.7 % (0-4); Lymphocytes % 33.7 %; Mean Corpuscular HGB Conc 31.5 g/dL (31.6-35.5); Mean Corpuscular Hemoglobin 27.5 pg (28.0-33.3); Mean Corpuscular Volume 87.2 fL (83.0-100.0); Monocytes # 0.5 K/mcL (0.0-1.3); Neutrophils # 2.9 K/mcL (1.6-8.9); Platelet Count 173 K/mcL (140-400); Red Blood Count 4.15 M/mcL (4.19-5.50); Red Cell Distribution Width 15.2 % (11.5-14.5); White Blood Count 5.8 K/mcL (4.3-11.1)
[2018-10-19 04:00] LABS: BUN/Creatinine Ratio 23 (6-26); Blood Urea Nitrogen 30 mg/dL (8-23); Calcium 9.1 mg/dL (8.6-10.3); Carbon Dioxide 25 mEq/L (23-29); Chloride 100 mEq/L (98-107); Glucose 84 mg/dL (70-105); Magnesium 2.1 mg/dL (1.6-2.6); Osmolality,Calculated 291 (280-300); Phosphorous 2.7 mg/dL (2.7-4.5); Potassium 3.6 mEq/L (3.5-5.1); Sodium 138 mEq/L (136-145); eGFR For African Americans > 60 (> 60); eGFR For Non-African Americans 56 (> 60)
[2018-10-19] MEDS: *HR* Heparin 5,000 UNIT/ML VIAL SQ SCH ×2 (06:18→17:29)
[2018-10-19 07:40] LABS: Estimated Average Glucose 355 mg/dl
--- NOTE | 2018-10-19 08:22 | Cardiology Progress Note ---
Date of Encounter: 10/19/18 Time of Encounter: 08:20 Assessment and Plan (1) GINA (acute kidney injury) Current Visit: No Status: Acute Per Cardiology: Presented with GINA, now resolved. (2) Elevated troponin Current Visit: No Status: Chronic Per Cardiology: Troponin 0.05, 0.05, 0.04--likely demand ischemia in setting of GINA (improving). Also, hx of borderline trops. Nondiagnostic for ACS. Mild, diffuse ECG compared to 2016. No cardiac rehabilitation consult warranted. EF preserved on echo. Nuclear stress test negative for ischemia. Chest pain-free this morning. On aspirin, statin, beta liv, long-acting nitrate. Cardiology signing off, reconsult as needed, follow-up arranged. All questions answered. (3) PAF (paroxysmal atrial fibrillation) Current Visit: Yes Status: Chronic Per Cardiology: Known PAF. On BB. Not on AC d/t GI bleed last year. Continue ASA only. Discussion w patient/family: The assessment and plan as outlined above was discussed with the patient and/or family members who expressed understanding and agreement. All questions were answered. Thank you for involving us in the care of your patient. Please call with any questions. Subjective Interval history: Denies any chest pain this morning. Reports overall short of breath has improved. He reports he utilizes oxygen at home is 3 L. Objective Vital Signs, Last 4 Hours Temp Pulse Resp BP Pulse Ox 10/19/18 07:55 98.3 F 62 18 154/83 99 General: Conversant, No Apparent Distress HEENT: Atraumatic, Normocephaly, Mucus Membranes Moist Neck: No JVD, Normal carotid pulses Cardiac: Reg Rate and Rhythm, Normal S1 and S2, No Murmur Lungs: Normal Breath Sounds, No Wheeze, Rales, Rhonchi, Other (on NC 3L o2) Neuro: Alert and responsive, No focal deficits noted Abdomen: Soft, Non-Tender Skin: No rashes noted on visualized skin Musculoskeletal: No Chest Wall Tenderness Extremities: No Clubbing, No Cyanosis, No Edema, Normal Pulses Results 10/19/18 03:10 10/19/18 03:10 Lab Results Laboratory Tests 10/17/18 10/17/18 10/17/18 04:42 04:42 04:42 Hgb Hct INR 1.0 Creatinine 2.28 H Hemoglobin A1c Magnesium Troponin I 0.05 H* B-Natriuretic Peptide 10/17/18 10/17/18 10/17/18 04:42 09:51 15:33 Hgb Hct INR Creatinine Hemoglobin A1c Magnesium Troponin I 0.05 H* 0.04 H* B-Natriuretic Peptide 180 H 10/19/18 10/19/18 10/19/18 03:10 03:10 03:10 Hgb 11.4 L Hct 36.2 L INR Creatinine 1.28 Hemoglobin A1c 14.0 H Magnesium 2.1 Troponin I B-Natriuretic Peptide ITS Impressions Echocardiogram Limited Views 10/17/18 03:40 Impressions: LVEF 65-70%. Mild concentric left ventricular hypertrophy. Mildly dilated right ventricle with normal systolic function. Left Ventricular Wall Motion: Rest Echo Findings All wall segments showed normal motion. Findings: Study Quality * Technically adequate exam. ECG Findings * Normal sinus rhythm. Left Ventricle * LVEF 65-70%. * Mild concentric left ventricular hypertrophy. Right Ventricle * Mildly dilated right ventricle with normal systolic function. Left Atrium * Normal left atrial size. Right Atrium * Normal right atrial size. Active Medications Albuterol/Ipratropium (Duoneb) 3 ml IH [id number] PRN PRN Reason: Shortness Of Breath/Wheezing Stop: 04/18/19 19:50 Allopurinol (Zyloprim) 450 mg PO DAILY [facility] Stop: 04/19/19 09:01 Last Admin: 10/18/18 12:11 Dose: 450 mg Documented by: Aspirin (Aspirin Ec) 81 mg PO DAILY [facility] Stop: 04/19/19 09:01 Last Admin: 10/18/18 12:10 Dose: 81 mg Documented by: Atorvastatin Calcium (Lipitor) 80 mg PO HS [facility] Stop: 04/18/19 21:01 Last Admin: 10/18/18 20:27 Dose: 80 mg Documented by: Buspirone HCl (Buspar Hcl) 10 mg PO BID PRN PRN Reason: PANIC ATTACK Stop: 04/18/19 19:50 Colchicine (Colcrys) 0.6 mg PO AD PRN PRN Reason: GOUT Dextrose/Water (Dextrose 50% (Syg)) 25 ml IVP AD PRN PRN Reason: Hypoglycemia Stop: 04/18/19 04:26 Ferrous Sulfate (Ferrous Sulfate) 325 mg PO TIDWM [facility] Stop: 04/18/19 21:01 Last Admin: 10/18/18 17:30 Dose: 325 mg Documented by: Gabapentin (Neurontin) 200 mg PO TID PRN PRN Reason: Pain Stop: 04/18/19 19:50 Last Admin: 10/18/18 12:10 Dose: 200 mg Documented by: Glucagon (Glucagen) 1 mg IM ONCE PRN PRN Reason: Hypoglycemia Stop: 04/18/19 04:26 Glucose (Gluctose) 15 gm PO ONCE PRN PRN Reason: Hypoglycemia Stop: 04/18/19 04:26 Glucose (Gluctose) 30 gm PO ONCE PRN PRN Reason: Hypoglycemia Stop: 04/18/19 04:26 Heparin Sodium (Porcine) (Heparin) 5,000 unit SQ Q12HCO [facility] Stop: 04/19/19 18:01 Last Admin: 10/19/18 06:18 Dose: 5,000 unit Documented by: Dextrose (Dextrose 5%) 1,000 mls @ 100 mls/hr IVC .Q10H PRN PRN Reason: HYPOGLYCEMIA Stop: 04/18/19 04:26 Insulin Human Lispro (Humalog) 0 units SQ Q4HR [facility]; Protocol Stop: 04/19/19 16:01 Last Admin: 10/19/18 04:19 Dose: Not Given Documented by: Insulin Isophane/Insulin Regular (Humulin 70/30 Vial) 80 unit SQ BID [facility] Stop: 04/19/19 14:01 Last Admin: 10/18/18 20:26 Dose: 80 unit Documented by: Isosorbide Mononitrate (Imdur) 60 mg PO DAILY [facility] Stop: 04/20/19 12:01 Levothyroxine Sodium (Synthroid) 25 mcg PO 0630 [facility] Stop: 04/19/19 06:31 Last Admin: 10/18/18 04:56 Dose: 25 mcg Documented by: Metoprolol Tartrate (Lopressor) 25 mg PO BID [facility] Stop: 04/19/19 09:01 Last Admin: 10/18/18 20:28 Dose: 25 mg Documented by: Naloxone HCl (Narcan) 0.4 mg IVP Q2MPRN PRN PRN Reason: SEE COMMENTS Stop: 04/18/19 03:33 Nitroglycerin (Nitroglycerin) 0.4 mg SL Q5MIN PRN PRN Reason: CHEST PAIN Stop: 04/18/19 19:50 Omeprazole (Prilosec) 20 mg PO DAILY [facility] Stop: 04/19/19 09:01 Last Admin: 10/18/18 12:10 Dose: 20 mg Documented by: Ondansetron HCl (Zofran) 4 mg IVP Q6HR PRN; Protocol PRN Reason: nausea/vomiting Stop: 04/19/19 13:59 Oxycodone HCl (Roxicodone) 15 mg PO BID PRN; Protocol PRN Reason: Pain Stop: 04/18/19 19:50 Last Admin: 10/18/18 22:05 Dose: 15 mg Documented by: Pharmacy Profile Note (Patient Taking Own Medication) 0 each SQ DAILY PRN PRN Reason: Inflammation Potassium Chloride (Potassium Chloride) 20 meq PO DAILY [facility] Stop: 04/19/19 09:01 Last Admin: 10/18/18 12:10 Dose: 20 meq Documented by: Sertraline HCl (Zoloft) 100 mg PO DAILY [facility] Stop: 04/19/19 09:01 Last Admin: 10/18/18 12:10 Dose: 100 mg Documented by: Spironolactone (Aldactone) 25 mg PO DAILY [facility] Stop: 04/19/19 09:01 Last Admin: 10/18/18 12:10 Dose: 25 mg Documented by: Torsemide (Demadex) 40 mg PO BIDDIURETIC [facility] Stop: 04/18/19 21:01 Last Admin: 10/18/18 12:11 Dose: 40 mg Documented by: - Imaging and Cardiology Stress Test: report reviewed Echo: report reviewed Consult Discharge Plan - Plan Referrals: Lavinia Enrique MD [Primary Care Provider] -
[2018-10-19] MEDS: Aspirin Enteric Coated 81 MG Tablet PO SCH (09:07)
[2018-10-19] MEDS: Levothyroxine 25 MCG TABLET PO SCH (09:07)
[2018-10-19] MEDS: Spironolactone 25 MG TABLET PO SCH (09:07)
[2018-10-19] MEDS: *HR* OxyCODONE Immed Rel 15 MG TABLET PO PRN (09:08)
[2018-10-19] MEDS: Gabapentin 100 MG CAPSULE PO PRN (09:08)
[2018-10-19] MEDS: Insulin NPH/REG 70/30 100 UNIT/ML (x5UNIT) SQ SCH (09:11)
--- NOTE | 2018-10-19 09:45 | Discharge Summary ---
- NOTES TO OUTPATIENT PROVIDER Notes to Outpatient Provider: Patient was admitted for chest pain and hyperglycemia. Underwent nuclear stress test that was negative for ischemic perfusion defect. His home dose of imdur was increased. BG better controlled. Noted to have A1C of 14 which has worsened. Was noted to have GINA which has resolved. Please monitor renal function. Orders not resulted at time of discharge: Pending orders 10/17/18 14:00 Culture,Urine [RM] Routine 10/18/18 08:29 NM miarnda perf SPECT multi [NM] Routine Date of Encounter: 10/19/18 Time of Encounter: 09:43 - Discharge Diagnosis (1) GINA (acute kidney injury) Priority: Secondary Status: Resolved (2) Chest pain Priority: Primary Status: Resolved Qualifiers: Chest pain type: unspecified Qualified Code(s): R07.9 - Chest pain, unspecified (3) Elevated troponin Priority: Primary Status: Chronic (4) Hyperglycemia Priority: Secondary Status: Resolved (5) Hypertension Priority: Secondary Status: Chronic Qualifiers: Qualified Code(s): I10 - Essential (primary) hypertension (6) PAF (paroxysmal atrial fibrillation) Priority: Secondary Status: Chronic (7) Hyperglycemia due to type 2 diabetes mellitus Priority: Secondary Status: Chronic Qualifiers: Diabetes mellitus intermediate manager insulin use: with retirement use Qualified Code(s): E11.65 - Type 2 diabetes mellitus with hyperglycemia; Z79.4 - salvage determiner (current) use of insulin Hospital course: Mr. Hill is a 68 year old male with PMH of CHF, DM, COPD on home oxygen, CKD, CAD, HTN, HLD, Afib who was admitted for chest pain with elevated TNI, GINA, and hyperglycemia. He was evaluated by cardiology and underwent nuclear stress test. He was started on insulin therapy. His nuclear stress test was negative for ischemic perfusion defect. His home dose of Imdur was increased. His home dose of diuretic was held which resulted in resolution of GINA. He is currently chest pain free, BG better controlled. He was seen and examined earlier this morning. He is medically stable for discharge to home with outpatient follow up with PCP and cardiology. Pt in agreement with the discharge care and plan, all questions were answered. Discharge discussed with: patient, nurse, social work, case management, databases software consultant - Time Spent with Patient Total time spent providing and/or coordinating discharge services: 35 minutes Time spent: Greater than 30 minutes - Discharge Medications Prescriptions: New Isosorbide MONOnitrate (24 HR) [Imdur] 60 mg PO DAILY #30 tab.er.24h Torsemide [Demadex] 40 mg PO BIDDIURETIC tablet Continued Oxygen 3 l NS AD Ipratropium/Albuterol Neb [Duoneb] 3 ml IH Q4HR PRN PRN Reason: Shortness Of Breath/Wheezing Potassium Chloride 20 meq PO DAILY tab.er.prt Allopurinol [Zyloprim 300 MG] 450 mg PO DAILY Aspirin [Lo-Dose Aspirin EC] 81 mg PO DAILY Atorvastatin Calcium [Lipitor] 80 mg PO HS Ferrous Sulfate [Iron] 325 mg PO TID Insulin NPH Hum/Reg Insulin Hm [Novolin 70-30 100 Unit/ml Vial] 80 units SQ BID Insulin Regular, Human [Novolin R] 40 units SQ BID Oxycodone HCl 15 mg PO BID PRN PRN Reason: Pain Metoprolol [Lopressor] 25 mg PO BID #60 tablet metFORMIN [Glucophage] 500 mg PO BIDWM Pantoprazole Sodium [Protonix] 40 mg PO DAILY Nitroglycerin [Nitrostat] 0.4 mg SL Q5M PRN PRN Reason: Chest Pain Buspirone HCl [Buspar] 10 mg PO BID PRN PRN Reason: PANIC ATTACK Lisinopril [Zestril] 2.5 mg PO DAILY Anakinra [Kineret] 100 mg SQ DAILY PRN PRN Reason: Inflammation Sertraline [Zoloft] 100 mg PO DAILY Levothyroxine [Synthroid] 25 mcg PO DAILY Colchicine [Mitigare] 0.6 mg PO AD PRN PRN Reason: GOUT glipiZIDE [Glipizide] 10 mg PO DAILY Gabapentin [Neurontin] 200 mg PO TID PRN PRN Reason: Pain Spironolactone [Aldactone] 25 mg PO DAILY Discontinued Isosorbide MONOnitrate (24 HR) [Imdur] 30 mg PO DAILY #0 Home Medications: Nitroglycerin [Nitrostat] 0.4 mg SL Q5M PRN 05/10/16 [History] Pantoprazole Sodium [Protonix] 40 mg PO DAILY 05/10/16 [History] metFORMIN [Glucophage] 500 mg PO BIDWM 05/10/16 [History] Buspirone HCl [Buspar] 10 mg PO BID PRN 07/30/16 [History] Oxygen 3 l NS AD 09/11/16 [History] Lisinopril [Zestril] 2.5 mg PO DAILY 09/21/16 [History] Ipratropium/Albuterol Neb [Duoneb] 3 ml IH Q4HR PRN 09/22/16 [History] Anakinra [Kineret] 100 mg SQ DAILY PRN 08/05/17 [History] Potassium Chloride 20 meq PO DAILY tab.er.prt 08/08/17 [Rx] Levothyroxine [Synthroid] 25 mcg PO DAILY 02/16/18 [History] Sertraline [Zoloft] 100 mg PO DAILY 02/16/18 [History] Colchicine [Mitigare] 0.6 mg PO AD PRN 09/12/18 [History] Gabapentin [Neurontin] 200 mg PO TID PRN 09/12/18 [History] glipiZIDE [Glipizide] 10 mg PO DAILY 09/12/18 [History] Allopurinol [Zyloprim 300 MG] 450 mg PO DAILY 09/13/18 [History] Aspirin [Lo-Dose Aspirin EC] 81 mg PO DAILY 09/13/18 [History] Atorvastatin Calcium [Lipitor] 80 mg PO HS 09/13/18 [History] Ferrous Sulfate [Iron] 325 mg PO TID 09/13/18 [History] Insulin NPH Hum/Reg Insulin Hm [Novolin 70-30 100 Unit/ml Vial] 80 units SQ BID 09/13/18 [History] Insulin Regular, Human [Novolin R] 40 units SQ BID 09/13/18 [History] Oxycodone HCl 15 mg PO BID PRN 09/13/18 [History] Metoprolol [Lopressor] 25 mg PO BID #60 tablet 09/18/18 [Rx] Spironolactone [Aldactone] 25 mg PO DAILY 10/16/18 [History] Isosorbide MONOnitrate (24 HR) [Imdur] 60 mg PO DAILY #30 tab.er.24h 10/19/18 [Rx] Torsemide [Demadex] 40 mg PO BIDDIURETIC tablet 10/19/18 [Rx] Allergies/Adverse Reactions: Allergy/AdvReac Type Severity Reaction Status Date / Time No Known Allergies Allergy Verified 10/16/18 21:49 Date of admission: 10/17/18 04:22 Primary care physician: Lavinia Enrique MD Consults: 10/17/18 10:24 Consult to Cardiology [CONS] Routine Comment: Consulting Provider: Belkis Partida Reason for Consult: chest pain Time Notified: 10:24 Call Completed: Yes Discharging clinician: Eloise Pennington Anticipated date of discharge: 10/19/18 - Constitutional Vitals: Temp Pulse Resp BP Pulse Ox 98.3 F 62 18 154/83 99 10/19/18 07:55 10/19/18 07:55 10/19/18 07:55 10/19/18 07:55 10/19/18 07:55 Exam: General: No acute distress, AAO x 3, morbidly obese HEENT: EOMI, NC/AT, no scleral icterus Respiratory: Equal air entry bilaterally, no wheezing, no rales Cardiovascular: Regular, Rate, Rhythm, + murmur GI: Soft, Non tender, non distended, normal bowel sounds Ext: bilateral LE edema, no tenderness, positive pulses Neuro: AAO x 3, no focal deficits Rest of the clinical exam is noncontributory - Patient Status Disposition: Home, Self-Care - Discharge Instructions Follow Up With: Lavinia Enrique MD [Primary Care Provider] - Additional Instructions: 1. Please follow up with your primary care physician within five days after your discharge from the hospital. 2. Please follow up with cardiology within one week after your discharge from the hospital. 3. Your home dose of Imdur has been increased to 60mg once a day 4. Please continue all your other home medications as prescribed by your primary care physician. 5. Please seek medical help immediately if you have difficulty breathing or if chest pain occurs. - Diet and Activity Activity: wear oxygen at all times, wear oxygen at night Diet: diabetic diet, low fat, low cholesterol, low salt diet
[2018-10-19] MEDS ORDERED: Isosorbide MONOnitrate (24 HR) 60 MG TAB.ER.24H PO SCH (12:00)
[2018-10-19 13:21] VITALS: BP 132/71
== END 2018-10-19 18:30 | disposition home or self-care (01) | DRG 683 ==
LOC: 2NNU → SUATTDRO 04:22
PROVIDERS: ADMIT Internal Medicine; ATTEND Internal Medicine

== ENCOUNTER 2019-01-31 02:46 | Observation (INO) ==
[2019-01-31] MEDS ORDERED: Naloxone 0.4 MG/ML INJ IVP PRN ×2 (09:35→12:18)
[2019-01-31] MEDS ORDERED: Ondansetron 4 MG/2 ML VIAL IVP PRN (09:35)
[2019-01-31] MEDS ORDERED: Dextrose Gel 15 GM/37.5 ML TUBE PO PRN ×2 (09:43)
[2019-01-31] MEDS ORDERED: D5% in Water 1,000 ML IVC PRN (09:43)
[2019-01-31] MEDS ORDERED: *HR* Dextrose 50 % in Water (Syg) 50 ML SYRINGE IVP PRN (09:43)
[2019-01-31] MEDS ORDERED: Nitroglycerin 0.4 MG TAB.SUBL SL PRN (09:48)
[2019-01-31] MEDS ORDERED: Ipratropium/Albuterol Neb 3 ML IH PRN (09:48)
[2019-01-31] MEDS: Insulin LISPRO 300 UNITS/3 ML VIAL SQ SCH ×3 (12:02→20:28)
[2019-01-31] MEDS: *HR* OxyCODONE Immed Rel 15 MG TABLET PO PRN (13:37)
[2019-01-31] MEDS ORDERED: Insulin DETEMIR 100 UNIT/ML X5UNITS SQ ONE (14:38)
[2019-01-31] MEDS: Furosemide 80 MG in 0.9 % Sodium Chloride 50 ML IV SCH (15:14)
[2019-01-31] MEDS: Nystatin POWDER 30 GM BOTTLE TP SCH ×2 (16:18→20:33)
[2019-01-31] MEDS ORDERED: Insulin LISPRO 300 UNITS/3 ML VIAL SQ ONE (17:22)
[2019-01-31] MEDS: Apixaban 5 MG TABLET PO SCH (20:22)
[2019-01-31] MEDS: Insulin DETEMIR 100 UNIT/ML X5UNITS SQ SCH (20:23)
[2019-01-31] MEDS: Gabapentin 100 MG CAPSULE PO PRN (20:23)
[2019-01-31] MEDS ORDERED: Insulin DETEMIR 100 UNIT/ML X5UNITS SQ SCH (21:00)
[2019-01-31] MEDS ORDERED: Insulin Human Regular 10 UNIT in 0.9 % Sodium Chloride 10 ML IV ONE (21:36)
[2019-02-01] MEDS: *HR* OxyCODONE Immed Rel 15 MG TABLET PO PRN ×3 (01:10→19:56)
[2019-02-01] MEDS ORDERED: Insulin Human Regular 10 UNIT in 0.9 % Sodium Chloride 10 ML IV ONE (02:20)
[2019-02-01 04:10] LABS: Basophils % 0.1 %; Eosinophils % 0.1 %; Hematocrit 31.8 % (37.5-50.1); Hemoglobin 9.4 g/dL (12.9-16.9); Immature Granulocytes % 0.5 % (0-4); Lymphocytes # 1.3 K/mcL (0.6-4.6); Lymphocytes % 14.5 %; Mean Corpuscular HGB Conc 29.6 g/dL (31.6-35.5); Mean Corpuscular Hemoglobin 26.5 pg (28.0-33.3); Mean Corpuscular Volume 89.6 fL (83.0-100.0); Mean Platelet Volume 11.1 fL (9.4-12.4); Monocytes # 0.9 K/mcL (0.0-1.3); Monocytes % 9.8 %; Neutrophils # 6.5 K/mcL (1.6-8.9); Platelet Count 169 K/mcL (140-400); Red Blood Count 3.55 M/mcL (4.19-5.50); White Blood Count 8.6 K/mcL (4.3-11.1)
[2019-02-01 04:30] LABS: BUN/Creatinine Ratio 36 (6-26); Blood Urea Nitrogen 38 mg/dL (8-23); Calcium 8.7 mg/dL (8.6-10.3); Carbon Dioxide 35 mEq/L (23-29); Chloride 99 mEq/L (98-107); Glucose 257 mg/dL (70-105); Osmolality,Calculated 304 (280-300); Sodium 138 mEq/L (136-145); eGFR For African Americans > 60 (> 60); eGFR For Non-African Americans > 60 (> 60)
[2019-02-01 04:32] LABS: % Iron Saturation 6 % (20-55); Iron 26 mcg/dL (65-175); Transferrin 333 mg/dL (203-362)
[2019-02-01 04:49] LABS: Ferritin 18 ng/mL (20-250)
[2019-02-01 05:37] LABS: Folate 15.4 ng/mL (3.0-16.0)
[2019-02-01] MEDS: Levothyroxine 25 MCG TABLET PO SCH (06:02)
[2019-02-01 08:03] LABS: Estimated Average Glucose 329 mg/dl
[2019-02-01] MEDS: metOLazone 5 MG TABLET PO SCH (08:09)
[2019-02-01] MEDS: Apixaban 5 MG TABLET PO SCH ×2 (08:09→19:56)
[2019-02-01] MEDS: Isosorbide MONOnitrate (24 HR) 60 MG TAB.ER.24H PO SCH (08:10)
[2019-02-01] MEDS: Spironolactone 25 MG TABLET PO SCH (08:10)
[2019-02-01] MEDS: Metoprolol XL (24 HR) Succ 50 MG TAB.ER.24H PO SCH (08:10)
[2019-02-01] MEDS: Insulin LISPRO 300 UNITS/3 ML VIAL SQ SCH ×4 (08:11→19:56)
[2019-02-01] MEDS: Nystatin POWDER 30 GM BOTTLE TP SCH ×3 (08:30→19:56)
[2019-02-01] MEDS: Furosemide 80 MG in 0.9 % Sodium Chloride 50 ML IV SCH (09:07)
[2019-02-01] MEDS: Insulin DETEMIR 100 UNIT/ML X5UNITS SQ SCH ×2 (13:03→19:57)
[2019-02-01] MEDS: Gabapentin 100 MG CAPSULE PO PRN ×2 (13:09→19:56)
[2019-02-01] MEDS: Furosemide 40 MG/4 ML VIAL IVP SCH (17:12)
[2019-02-02] MEDS: Levothyroxine 25 MCG TABLET PO SCH (06:22)
[2019-02-02 07:08] VITALS: BP 117/62
[2019-02-02] MEDS: Furosemide 40 MG/4 ML VIAL IVP SCH (08:24)
[2019-02-02] MEDS: Metoprolol XL (24 HR) Succ 50 MG TAB.ER.24H PO SCH (08:24)
[2019-02-02] MEDS: Apixaban 5 MG TABLET PO SCH (08:24)
[2019-02-02] MEDS: metOLazone 5 MG TABLET PO SCH (08:24)
[2019-02-02] MEDS: Insulin LISPRO 300 UNITS/3 ML VIAL SQ SCH ×2 (08:24→12:11)
[2019-02-02] MEDS: Isosorbide MONOnitrate (24 HR) 60 MG TAB.ER.24H PO SCH (08:24)
[2019-02-02] MEDS: Insulin DETEMIR 100 UNIT/ML X5UNITS SQ SCH (08:24)
[2019-02-02] MEDS: Spironolactone 25 MG TABLET PO SCH (08:25)
[2019-02-02] MEDS: Nystatin POWDER 30 GM BOTTLE TP SCH (08:25)
[2019-02-02] MEDS: *HR* OxyCODONE Immed Rel 15 MG TABLET PO PRN (12:11)
== END 2019-02-02 14:02 | disposition home or self-care (01) ==
LOC: 3BNU → SUATTDRO 09:06
PROVIDERS: ADMIT Pharmacist; ATTEND Family Medicine

== ENCOUNTER 2019-02-15 13:39 | Inpatient (IN) ==
[2019-02-15] MEDS ORDERED: Ipratropium/Albuterol Neb 3 ML IH ONE (13:49)
[2019-02-15] MEDS ORDERED: methylPREDNISolone 125 MG/2 ML VIAL IVP ONE (13:49)
[2019-02-15] MEDS ORDERED: Albuterol 2.5 MG/3 ML NEBULIZER IH ONE (13:49)
[2019-02-15] MEDS ORDERED: Furosemide 40 MG/4 ML VIAL IVP ONE (13:49)
[2019-02-15 14:14] LABS: Basophils # 0.1 K/mcL (0.0-0.2); Basophils % 0.6 %; Eosinophils # 0.4 K/mcL (0.0-0.6); Eosinophils % 4.2 %; Hemoglobin 9.7 g/dL (12.9-16.9); Immature Granulocytes % 0.6 % (0-4); Lymphocytes # 1.9 K/mcL (0.6-4.6); Lymphocytes % 22.9 %; Mean Corpuscular HGB Conc 29.4 g/dL (31.6-35.5); Mean Corpuscular Hemoglobin 26.2 pg (28.0-33.3); Mean Corpuscular Volume 89.2 fL (83.0-100.0); Mean Platelet Volume 11.8 fL (9.4-12.4); Monocytes # 0.7 K/mcL (0.0-1.3); Monocytes % 8.9 %; Neutrophils # 5.2 K/mcL (1.6-8.9); Platelet Count 177 K/mcL (140-400); Red Cell Distribution Width 15.6 % (11.5-14.5); Segmented Neutrophils % 62.8 %; White Blood Count 8.3 K/mcL (4.3-11.1)
[2019-02-15] MEDS ORDERED: 0.9 % Sodium Chloride 500 ML IVC ONE (14:32)
[2019-02-15] MEDS ORDERED: 0.9 % Sodium Chloride 500 ML ONE (14:32)
[2019-02-15 14:41] LABS: Troponin I 0.04 ng/mL (< 0.04)
[2019-02-15 14:48] LABS: Calcium 8.9 mg/dL (8.6-10.3); Potassium 3.8 mEq/L (3.5-5.1)
[2019-02-15] MEDS ORDERED: Piperacillin/Tazobactam 3.375 GM in 0.9 % Sodium Chloride Mini Bag 100 ML IVPB ONE (15:02)
[2019-02-15] MEDS ORDERED: Azithromycin 500 MG in D5% in Water 250 ML IVPB STA (15:02)
[2019-02-15] MEDS ORDERED: Naloxone 0.4 MG/ML INJ IVP PRN (17:01)
[2019-02-15] MEDS ORDERED: *HR* Dextrose 50 % in Water (Syg) 50 ML SYRINGE IVP PRN (17:03)
[2019-02-15] MEDS ORDERED: Dextrose Gel 15 GM/37.5 ML TUBE PO PRN ×2 (17:03)
[2019-02-15] MEDS ORDERED: D5% in Water 1,000 ML IVC PRN (17:03)
[2019-02-15] MEDS ORDERED: Nitroglycerin 0.4 MG TAB.SUBL SL PRN (17:12)
[2019-02-15] MEDS ORDERED: Insulin Regular, Human 100 UNIT/ML SQ ONE (17:56)
[2019-02-15] MEDS: metOLazone 5 MG TABLET PO SCH (18:13)
[2019-02-15] MEDS ORDERED: Insulin LISPRO 300 UNITS/3 ML VIAL SQ ONE ×2 (18:30→18:45)
[2019-02-15] MEDS: Ipratropium/Albuterol Neb 3 ML IH SCH ×2 (18:35→22:27)
[2019-02-15] MEDS: Furosemide 40 MG/4 ML VIAL IVP SCH (20:51)
[2019-02-15] MEDS: *HR* OxyCODONE Immed Rel 15 MG TABLET PO PRN (20:51)
[2019-02-15] MEDS: Apixaban 5 MG TABLET PO SCH (20:52)
[2019-02-15] MEDS: Gabapentin 100 MG CAPSULE PO PRN (20:52)
[2019-02-15] MEDS ORDERED: Insulin LISPRO 300 UNITS/3 ML VIAL SQ SCH (21:00)
[2019-02-15] MEDS ORDERED: Furosemide 40 MG/4 ML VIAL IVP SCH (21:00)
[2019-02-15] MEDS ORDERED: Insulin DETEMIR 100 UNIT/ML X5UNITS SQ ONE (21:28)
[2019-02-16 00:39] LABS: Basophils % 0.4 %; Eosinophils % 0.4 %; Hematocrit 33.9 % (37.5-50.1); Hemoglobin 9.7 g/dL (12.9-16.9); Lymphocytes # 0.5 K/mcL (0.6-4.6); Lymphocytes % 5.9 %; Mean Corpuscular HGB Conc 28.6 g/dL (31.6-35.5); Mean Corpuscular Hemoglobin 25.7 pg (28.0-33.3); Mean Corpuscular Volume 89.9 fL (83.0-100.0); Monocytes # 0.2 K/mcL (0.0-1.3); Monocytes % 2.3 %; Neutrophils # 7.3 K/mcL (1.6-8.9); Platelet Count 174 K/mcL (140-400); Red Blood Count 3.77 M/mcL (4.19-5.50); Red Cell Distribution Width 16.2 % (11.5-14.5); White Blood Count 8.1 K/mcL (4.3-11.1)
[2019-02-16 01:02] LABS: Anisocytosis 1+ (Not Present); Hypochromasia Present (Not Present); Platelet Estimate Normal (Normal); Polychromasia 1+ (Not Present)
[2019-02-16 01:11] LABS: BUN/Creatinine Ratio 27 (6-26); Blood Urea Nitrogen 45 mg/dL (8-23); Carbon Dioxide 32 mEq/L (23-29); Chloride 79 mEq/L (98-107); Chol/HDL Ratio 5.4 (0-4.9); Cholesterol 150 mg/dL (< 200); Glucose 805 mg/dL (70-105); HDL Cholesterol 28 mg/dL (40-59); Magnesium 1.7 mg/dL (1.6-2.6); Osmolality,Calculated 321 (280-300); Phosphorous 5.6 mg/dL (2.7-4.5); Sodium 130 mEq/L (136-145); Triglycerides 533 mg/dL (< 150); eGFR For African Americans 50 (> 60); eGFR For Non-African Americans 41 (> 60)
[2019-02-16] MEDS ORDERED: Insulin Human Regular 10 UNIT in 0.9 % Sodium Chloride 10 ML IV ONE ×2 (01:39)
[2019-02-16] MEDS ORDERED: 0.9 % Sodium Chloride 1,000 ML IVC ONE (02:10)
[2019-02-16] MEDS: Nystatin POWDER 30 GM BOTTLE TP SCH ×6 (03:14→21:50)
[2019-02-16] MEDS ORDERED: Insulin LISPRO 300 UNITS/3 ML VIAL SQ ONE (03:28)
[2019-02-16] MEDS ORDERED: Insulin LISPRO 300 UNITS/3 ML VIAL SQ PRN ×2 (03:28)
[2019-02-16] MEDS ORDERED: *HR* Dextrose 50 % in Water (Syg) 50 ML SYRINGE IVP PRN (03:28)
[2019-02-16] MEDS: Levalbuterol Neb 1.25 MG/3 ML IH SCH ×5 (03:48→21:46)
[2019-02-16 04:05] LABS: ABG Base Excess 10 mEq/L (-2 to 3); ABG HCO3 36 mEq/L (21-27); ABG Oxygen Saturation 89 % (95-98); ABG PCO2 58 mmHg (35-45); ABG PO2 58 mmHg (85-104); ABG TCO2 38 mEq/L (20-26)
[2019-02-16] MEDS: Insulin Human Regular 100 UNIT in 0.9 % Sodium Chloride 100 ML IVC SCH ×5 (04:41→19:38)
[2019-02-16] MEDS: Levothyroxine 25 MCG TABLET PO SCH (05:14)
[2019-02-16 05:25] LABS: Bilirubin,Urine Negative (Negative); Blood,Urine Negative (Negative); Clarity,Urine Clear (Clear); Color,Urine Yellow (Yellow); Glucose,Urine (UA) >=1000 mg/dL (Normal); Ketones,Urine Negative (Negative); Leukocyte Esterase,Urine Negative (Negative); Nitrite,Urine Negative (Negative); PH,Urine 6.5 pH Units (5.0-8.0); Protein,Urine Negative (Neg-Trace); Specific Gravity,Urine 1.022 (1.010-1.025); Urobilinogen,Urine Normal (Normal)
[2019-02-16 05:37] LABS: Potassium 4.5 mEq/L (3.5-5.1)
[2019-02-16 05:41] LABS: Albumin 4.6 g/dL (3.5-5.7); BUN/Creatinine Ratio 32 (6-26); Blood Urea Nitrogen 46 mg/dL (8-23); Carbon Dioxide 33 mEq/L (23-29); Chloride 82 mEq/L (98-107); Phosphorous 4.3 mg/dL (2.7-4.5); Potassium 4.4 mEq/L (3.5-5.1); Sodium 132 mEq/L (136-145); eGFR For African Americans 59 (> 60); eGFR For Non-African Americans 49 (> 60)
[2019-02-16] MEDS ORDERED: 0.9 % Sodium Chloride 250 ML IVC ONE (07:03)
[2019-02-16] MEDS: Spironolactone 25 MG TABLET PO SCH (07:11)
[2019-02-16] MEDS: Isosorbide MONOnitrate (24 HR) 60 MG TAB.ER.24H PO SCH (07:12)
[2019-02-16] MEDS: Apixaban 5 MG TABLET PO SCH ×2 (07:12→21:38)
[2019-02-16] MEDS: Metoprolol XL (24 HR) Succ 25 MG TAB.ER.24H PO SCH (07:12)
[2019-02-16] MEDS: Colchicine 0.6 MG TABLET PO SCH (07:12)
[2019-02-16] MEDS: predniSONE 20 MG TABLET PO SCH (07:12)
[2019-02-16] MEDS: Furosemide 40 MG/4 ML VIAL IVP SCH (07:24)
[2019-02-16 07:26] LABS: Estimated Average Glucose 309 mg/dl
[2019-02-16] MEDS ORDERED: Insulin LISPRO 300 UNITS/3 ML VIAL SQ SCH (07:30)
[2019-02-16 08:49] LABS: Calcium 9.1 mg/dL (8.6-10.3); Potassium 3.9 mEq/L (3.5-5.1)
[2019-02-16] MEDS ORDERED: Insulin Human Regular 100 UNIT in 0.9 % Sodium Chloride 100 ML IVC SCH (09:30)
[2019-02-16] MEDS ORDERED: Potassium Chloride 40 MEQ, Lidocaine 1% 2 ML in 0.9 % Sodium Chloride 500 ML IVPB ONE (09:33)
[2019-02-16] MEDS: *HR* OxyCODONE Immed Rel 15 MG TABLET PO PRN ×2 (10:07→23:43)
[2019-02-16] MEDS: Gabapentin 100 MG CAPSULE PO PRN (10:07)
[2019-02-16 10:44] LABS: BUN/Creatinine Ratio 34 (6-26); Blood Urea Nitrogen 48 mg/dL (8-23); Calcium 9.3 mg/dL (8.6-10.3); Carbon Dioxide 35 mEq/L (23-29); Chloride 84 mEq/L (98-107); Glucose 526 mg/dL (70-105); Osmolality,Calculated 316 (280-300); Potassium 3.9 mEq/L (3.5-5.1); Sodium 135 mEq/L (136-145); eGFR For African Americans > 60 (> 60); eGFR For Non-African Americans 50 (> 60)
[2019-02-16 13:41] LABS: BUN/Creatinine Ratio 38 (6-26); Blood Urea Nitrogen 48 mg/dL (8-23); Calcium 9.3 mg/dL (8.6-10.3); Carbon Dioxide 38 mEq/L (23-29); Chloride 87 mEq/L (98-107); Glucose 362 mg/dL (70-105); Osmolality,Calculated 311 (280-300); Potassium 4.1 mEq/L (3.5-5.1); Sodium 137 mEq/L (136-145); eGFR For African Americans > 60 (> 60); eGFR For Non-African Americans 57 (> 60)
[2019-02-16 17:11] LABS: BUN/Creatinine Ratio 38 (6-26); Blood Urea Nitrogen 46 mg/dL (8-23); Calcium 9.1 mg/dL (8.6-10.3); Carbon Dioxide 39 mEq/L (23-29); Chloride 89 mEq/L (98-107); Glucose 263 mg/dL (70-105); Osmolality,Calculated 309 (280-300); Potassium 3.7 mEq/L (3.5-5.1); Sodium 139 mEq/L (136-145); eGFR For African Americans > 60 (> 60); eGFR For Non-African Americans > 60 (> 60)
[2019-02-16 19:18] LABS: BUN/Creatinine Ratio 38 (6-26); Blood Urea Nitrogen 46 mg/dL (8-23); Calcium 9.6 mg/dL (8.6-10.3); Carbon Dioxide 41 mEq/L (23-29); Chloride 90 mEq/L (98-107); Glucose 187 mg/dL (70-105); Osmolality,Calculated 309 (280-300); Potassium 3.6 mEq/L (3.5-5.1); Sodium 141 mEq/L (136-145); eGFR For African Americans > 60 (> 60); eGFR For Non-African Americans > 60 (> 60)
[2019-02-16 19:23] LABS: VBG HCO3 41 mEq/L (21-27); VBG PCO2 71 mmHg (41-51); VBG PH 7.37 pH Units (7.32-7.42); VBG PO2 180 mmHg (25-50)
[2019-02-16 19:37] LABS: BUN/Creatinine Ratio 44 (6-26); Blood Urea Nitrogen 47 mg/dL (8-23); Calcium 9.1 mg/dL (8.6-10.3); Carbon Dioxide 40 mEq/L (23-29); Chloride 90 mEq/L (98-107); Glucose 270 mg/dL (70-105); Osmolality,Calculated 312 (280-300); Potassium 4.2 mEq/L (3.5-5.1); Sodium 140 mEq/L (136-145); eGFR For African Americans > 60 (> 60); eGFR For Non-African Americans > 60 (> 60)
[2019-02-17] MEDS ORDERED: Insulin DETEMIR 100 UNIT/ML X5UNITS SQ ONE ×2 (00:59→06:29)
[2019-02-17] MEDS: Levalbuterol Neb 1.25 MG/3 ML IH SCH ×4 (04:24→21:50)
[2019-02-17] MEDS: predniSONE 20 MG TABLET PO SCH (07:27)
[2019-02-17] MEDS: Spironolactone 25 MG TABLET PO SCH (07:27)
[2019-02-17] MEDS: Metoprolol XL (24 HR) Succ 25 MG TAB.ER.24H PO SCH (07:27)
[2019-02-17] MEDS: Nystatin POWDER 30 GM BOTTLE TP SCH ×3 (07:27→20:00)
[2019-02-17] MEDS: Colchicine 0.6 MG TABLET PO SCH (07:27)
[2019-02-17] MEDS: Apixaban 5 MG TABLET PO SCH ×2 (07:27→19:58)
[2019-02-17] MEDS: Isosorbide MONOnitrate (24 HR) 60 MG TAB.ER.24H PO SCH (07:27)
[2019-02-17] MEDS: Gabapentin 100 MG CAPSULE PO PRN ×2 (07:29→22:22)
[2019-02-17] MEDS: *HR* OxyCODONE Immed Rel 15 MG TABLET PO PRN ×2 (07:29→22:22)
[2019-02-17] MEDS ORDERED: Insulin LISPRO 300 UNITS/3 ML VIAL SQ SCH ×3 (07:45→21:00)
[2019-02-17] MEDS: Levothyroxine 25 MCG TABLET PO SCH (08:02)
[2019-02-17 08:19] LABS: Basophils % 0.2 %; Eosinophils # 0.1 K/mcL (0.0-0.6); Eosinophils % 1.1 %; Hematocrit 33.3 % (37.5-50.1); Hemoglobin 9.7 g/dL (12.9-16.9); Immature Granulocytes % 0.4 % (0-4); Lymphocytes # 1.4 K/mcL (0.6-4.6); Lymphocytes % 17.5 %; Mean Corpuscular HGB Conc 29.1 g/dL (31.6-35.5); Mean Corpuscular Hemoglobin 26.1 pg (28.0-33.3); Mean Corpuscular Volume 89.8 fL (83.0-100.0); Monocytes # 0.5 K/mcL (0.0-1.3); Monocytes % 6.4 %; Platelet Count 175 K/mcL (140-400); Red Blood Count 3.71 M/mcL (4.19-5.50); Red Cell Distribution Width 15.8 % (11.5-14.5); Segmented Neutrophils % 74.4 %; White Blood Count 8.1 K/mcL (4.3-11.1)
[2019-02-17] MEDS: Insulin LISPRO 300 UNITS/3 ML VIAL SQ SCH ×3 (08:19→16:52)
[2019-02-17 08:39] LABS: BUN/Creatinine Ratio 41 (6-26); Blood Urea Nitrogen 41 mg/dL (8-23); Calcium 9.2 mg/dL (8.6-10.3); Carbon Dioxide 34 mEq/L (23-29); Chloride 90 mEq/L (98-107); Glucose 346 mg/dL (70-105); Magnesium 1.9 mg/dL (1.6-2.6); Osmolality,Calculated 306 (280-300); Potassium 4.1 mEq/L (3.5-5.1); Sodium 136 mEq/L (136-145); eGFR For African Americans > 60 (> 60); eGFR For Non-African Americans > 60 (> 60)
[2019-02-17] MEDS ORDERED: Insulin NPH 100 UNIT/ML (x5UNIT) SQ SCH ×2 (09:00→21:00)
[2019-02-17] MEDS: Azithromycin 250 MG TABLET PO SCH (12:46)
[2019-02-17] MEDS: Furosemide 40 MG/4 ML VIAL IVP SCH ×2 (14:55→16:14)
[2019-02-17] MEDS: metOLazone 5 MG TABLET PO SCH (16:52)
[2019-02-17 22:08] LABS: BUN/Creatinine Ratio 32 (6-26); Blood Urea Nitrogen 45 mg/dL (8-23); Calcium 9.5 mg/dL (8.6-10.3); Carbon Dioxide 34 mEq/L (23-29); Chloride 86 mEq/L (98-107); Glucose 543 mg/dL (70-105); Osmolality,Calculated 310 (280-300); Sodium 132 mEq/L (136-145); eGFR For African Americans > 60 (> 60); eGFR For Non-African Americans 51 (> 60)
[2019-02-17 22:28] LABS: VBG HCO3 38 mEq/L (21-27); VBG PCO2 47 mmHg (41-51); VBG PH 7.52 pH Units (7.32-7.42); VBG PO2 195 mmHg (25-50)
[2019-02-17] MEDS ORDERED: D5% in 0.45% NACL 1,000 ML IVC PRN (23:14)
[2019-02-17] MEDS ORDERED: Insulin Regular, Human 100 UNIT/ML IV PRN (23:14)
[2019-02-17] MEDS ORDERED: 0.45 % Sodium Chloride w/KCl 20 MEQ/1,000 ML MLS IVC SCH (23:15)
[2019-02-17] MEDS ORDERED: Insulin Human Regular 100 UNIT in 0.9 % Sodium Chloride 100 ML IVC SCH (23:15)
[2019-02-18] MEDS: D5% in 0.45% NACL w KCl 20 MEQ/1,000 ML MLS IVC PRN ×3 (00:30→09:33)
[2019-02-18] MEDS: Levalbuterol Neb 1.25 MG/3 ML IH SCH ×4 (03:39→21:45)
[2019-02-18] MEDS: Insulin Human Regular 100 UNIT in 0.9 % Sodium Chloride 100 ML IVC SCH ×2 (03:58→10:54)
[2019-02-18 04:48] LABS: BUN/Creatinine Ratio 38 (6-26); Blood Urea Nitrogen 40 mg/dL (8-23); Calcium 9.5 mg/dL (8.6-10.3); Carbon Dioxide 37 mEq/L (23-29); Chloride 93 mEq/L (98-107); Glucose 92 mg/dL (70-105); Osmolality,Calculated 297 (280-300); Potassium 3.4 mEq/L (3.5-5.1); Sodium 139 mEq/L (136-145); eGFR For African Americans > 60 (> 60); eGFR For Non-African Americans > 60 (> 60)
[2019-02-18] MEDS: Levothyroxine 25 MCG TABLET PO SCH (05:57)
[2019-02-18] MEDS: Metoprolol XL (24 HR) Succ 25 MG TAB.ER.24H PO SCH (09:18)
[2019-02-18] MEDS: Apixaban 5 MG TABLET PO SCH ×2 (09:19→20:18)
[2019-02-18] MEDS: Isosorbide MONOnitrate (24 HR) 60 MG TAB.ER.24H PO SCH (09:19)
[2019-02-18] MEDS: Colchicine 0.6 MG TABLET PO SCH (09:19)
[2019-02-18] MEDS: Spironolactone 25 MG TABLET PO SCH (09:19)
[2019-02-18] MEDS: Furosemide 40 MG/4 ML VIAL IVP SCH ×2 (09:19→17:08)
[2019-02-18] MEDS: predniSONE 20 MG TABLET PO SCH (09:19)
[2019-02-18] MEDS: Nystatin POWDER 30 GM BOTTLE TP SCH ×3 (09:20→20:19)
[2019-02-18] MEDS: *HR* OxyCODONE Immed Rel 15 MG TABLET PO PRN ×2 (09:46→20:17)
[2019-02-18] MEDS: Gabapentin 100 MG CAPSULE PO PRN ×2 (09:46→20:18)
[2019-02-18] MEDS: Azithromycin 250 MG TABLET PO SCH (11:51)
[2019-02-18] MEDS: Insulin NPH 100 UNIT/ML (x5UNIT) SQ SCH ×2 (12:12→20:18)
[2019-02-18] MEDS: Insulin LISPRO 300 UNITS/3 ML VIAL SQ SCH ×2 (12:12→17:09)
[2019-02-18] MEDS ORDERED: Insulin LISPRO 300 UNITS/3 ML VIAL SQ SCH (16:30)
[2019-02-19 01:17] LABS: BUN/Creatinine Ratio 28 (6-26); Blood Urea Nitrogen 36 mg/dL (8-23); Calcium 8.9 mg/dL (8.6-10.3); Carbon Dioxide 33 mEq/L (23-29); Chloride 91 mEq/L (98-107); Glucose 380 mg/dL (70-105); Osmolality,Calculated 300 (280-300); Potassium 4.2 mEq/L (3.5-5.1); Sodium 133 mEq/L (136-145); eGFR For African Americans > 60 (> 60); eGFR For Non-African Americans 56 (> 60)
[2019-02-19 01:21] LABS: Basophils % 0.2 %; Eosinophils % 0.3 %; Hematocrit 32.7 % (37.5-50.1); Hemoglobin 9.8 g/dL (12.9-16.9); Immature Granulocytes % 0.6 % (0-4); Lymphocytes # 1.1 K/mcL (0.6-4.6); Lymphocytes % 18.2 %; Mean Corpuscular Hemoglobin 26.4 pg (28.0-33.3); Mean Corpuscular Volume 88.1 fL (83.0-100.0); Mean Platelet Volume 11.8 fL (9.4-12.4); Monocytes # 0.5 K/mcL (0.0-1.3); Monocytes % 8.1 %; Neutrophils # 4.6 K/mcL (1.6-8.9); Platelet Count 189 K/mcL (140-400); Red Blood Count 3.71 M/mcL (4.19-5.50); Red Cell Distribution Width 15.9 % (11.5-14.5); Segmented Neutrophils % 72.6 %; White Blood Count 6.3 K/mcL (4.3-11.1)
[2019-02-19] MEDS: Levalbuterol Neb 1.25 MG/3 ML IH SCH ×4 (04:11→22:36)
[2019-02-19] MEDS: Levothyroxine 25 MCG TABLET PO SCH (05:01)
[2019-02-19] MEDS: predniSONE 20 MG TABLET PO SCH (08:34)
[2019-02-19] MEDS: Nystatin POWDER 30 GM BOTTLE TP SCH ×4 (08:34→23:40)
[2019-02-19] MEDS: Furosemide 40 MG/4 ML VIAL IVP SCH (08:34)
[2019-02-19] MEDS: Colchicine 0.6 MG TABLET PO SCH (08:35)
[2019-02-19] MEDS: *HR* OxyCODONE Immed Rel 15 MG TABLET PO PRN ×2 (08:35→21:04)
[2019-02-19] MEDS: Gabapentin 100 MG CAPSULE PO PRN ×2 (08:36→21:03)
[2019-02-19] MEDS: Insulin NPH 100 UNIT/ML (x5UNIT) SQ SCH ×2 (08:37→21:04)
[2019-02-19] MEDS: Metoprolol XL (24 HR) Succ 25 MG TAB.ER.24H PO SCH (08:37)
[2019-02-19] MEDS: Spironolactone 25 MG TABLET PO SCH (08:37)
[2019-02-19] MEDS: Isosorbide MONOnitrate (24 HR) 60 MG TAB.ER.24H PO SCH (08:37)
[2019-02-19] MEDS: Apixaban 5 MG TABLET PO SCH ×2 (08:37→21:04)
[2019-02-19] MEDS: Insulin LISPRO 300 UNITS/3 ML VIAL SQ SCH ×5 (08:38→17:00)
[2019-02-19] MEDS: Azithromycin 250 MG TABLET PO SCH (12:14)
[2019-02-19] MEDS: Torsemide 20 MG TABLET PO SCH (21:04)
[2019-02-20 01:40] LABS: BUN/Creatinine Ratio 32 (6-26); Blood Urea Nitrogen 39 mg/dL (8-23); Calcium 9.1 mg/dL (8.6-10.3); Carbon Dioxide 32 mEq/L (23-29); Chloride 91 mEq/L (98-107); Glucose 383 mg/dL (70-105); Osmolality,Calculated 305 (280-300); Potassium 3.9 mEq/L (3.5-5.1); Sodium 135 mEq/L (136-145); eGFR For African Americans > 60 (> 60); eGFR For Non-African Americans 59 (> 60)
[2019-02-20] MEDS: Levalbuterol Neb 1.25 MG/3 ML IH SCH ×2 (03:45→11:01)
[2019-02-20] MEDS: Levothyroxine 25 MCG TABLET PO SCH (06:06)
[2019-02-20] MEDS: Insulin LISPRO 300 UNITS/3 ML VIAL SQ SCH ×4 (08:49→12:12)
[2019-02-20] MEDS: Insulin NPH 100 UNIT/ML (x5UNIT) SQ SCH (08:50)
[2019-02-20] MEDS: Apixaban 5 MG TABLET PO SCH (08:51)
[2019-02-20] MEDS: *HR* OxyCODONE Immed Rel 15 MG TABLET PO PRN (08:51)
[2019-02-20] MEDS: Gabapentin 100 MG CAPSULE PO PRN (08:51)
[2019-02-20] MEDS: predniSONE 20 MG TABLET PO SCH (08:51)
[2019-02-20] MEDS: Isosorbide MONOnitrate (24 HR) 60 MG TAB.ER.24H PO SCH (08:51)
[2019-02-20] MEDS: Torsemide 20 MG TABLET PO SCH (08:52)
[2019-02-20] MEDS: Metoprolol XL (24 HR) Succ 25 MG TAB.ER.24H PO SCH (08:52)
[2019-02-20] MEDS: Colchicine 0.6 MG TABLET PO SCH (08:52)
[2019-02-20] MEDS: Nystatin POWDER 30 GM BOTTLE TP SCH (08:52)
[2019-02-20] MEDS: Spironolactone 25 MG TABLET PO SCH (08:52)
[2019-02-20 11:44] VITALS: BP 121/71
[2019-02-20] MEDS: Azithromycin 250 MG TABLET PO SCH (12:12)
== END 2019-02-20 13:55 | disposition home health service (06) | DRG 291 ==
LOC: EMEROOARM 13:39 → 2ANU 13:39 → SUATTDRO 16:20 → 2ANU 17:12 → SUATTDRO 17:16 → 2NNU 02-16 04:22
PROVIDERS: ADMIT Internal Medicine; ATTEND Internal Medicine

== ENCOUNTER 2019-05-08 14:31 | Inpatient (IN) ==
[2019-05-08] MEDS ORDERED: Naloxone 0.4 MG/ML INJ IVP PRN (18:41)
[2019-05-08] MEDS ORDERED: Ipratropium/Albuterol Neb 3 ML IH PRN (18:48)
[2019-05-08 20:02] LABS: Albumin 4.1 g/dL (3.5-5.7); Albumin/Globulin Ratio 1.2 (1.1-2.2); Bilirubin,Total 0.8 mg/dL (0.3-1.0); Calcium 9.4 mg/dL (8.6-10.3); Globulin 3.4 g/dL (2.4-3.5); Magnesium 2.4 mg/dL (1.6-2.6); Phosphorous 7.3 mg/dL (2.7-4.5); Potassium 5.4 mEq/L (3.5-5.1); Total Protein 7.5 g/dL (6.4-8.9)
[2019-05-08 20:09] LABS: INR 1.1; Prothrombin Time 12.2 Seconds (9.4-12.1)
[2019-05-08 20:12] LABS: Troponin I 0.28 ng/mL (< 0.04)
[2019-05-08] MEDS ORDERED: Insulin DETEMIR 100 UNIT/ML X5UNITS SQ SCH (21:00)
[2019-05-08] MEDS: Insulin LISPRO 300 UNITS/3 ML VIAL SQ SCH (21:00)
[2019-05-08 21:13] LABS: Bilirubin,Urine Negative (Negative); Blood,Urine Trace (Negative); Clarity,Urine Clear (Clear); Color,Urine Yellow (Yellow); Glucose,Urine (UA) Normal (Normal); Ketones,Urine Negative (Negative); Leukocyte Esterase,Urine Negative (Negative); Nitrite,Urine Negative (Negative); Protein,Urine 30 mg/dL (Neg-Trace); Specific Gravity,Urine 1.012 (1.010-1.025); Urobilinogen,Urine Normal (Normal)
[2019-05-08 21:15] LABS: Bacteria,Urine None Seen per hpf (None-Few); Hyaline Casts,Urine None Seen per lpf (None-Few); RBC,Urine 0-3 per hpf (0-3); Squamous Epithelial Cell,Urine Moderate per lpf (None-Few); WBC,Urine 0-3 per hpf (0-3)
[2019-05-08] MEDS: *HR* OxyCODONE Immed Rel 15 MG TABLET PO PRN (21:49)
[2019-05-09] MEDS: *HR* Heparin 5,000 UNIT/ML VIAL SQ SCH ×2 (05:33→17:38)
[2019-05-09 07:29] LABS: Adenovirus Not Detected (Not Detect); Bordetella Pertussis Not Detected (Not Detect); Chlamydophila pneumoniae Not Detected (Not Detect); Coronavirus 229E Not Detected (Not Detect); Coronavirus HKU1 Not Detected (Not Detect); Coronavirus NL63 Not Detected (Not Detect); Coronavirus OC43 Not Detected (Not Detect); Human Metapneumovirus Not Detected (Not Detect); Human Rhinovirus/Enterovirus Not Detected (Not Detect); Influenza A Subtype 2009 H1 Not Detected (Not Detect); Influenza B Not Detected (Not Detect); Mycoplasma pneumoniae Not Detected (Not Detect); Parainfluenza Virus 1 Not Detected (Not Detect); Parainfluenza Virus 2 Not Detected (Not Detect); Parainfluenza Virus 3 Not Detected (Not Detect); Parainfluenza Virus 4 Not Detected (Not Detect); Respiratory Syncytial Virus Not Detected (Not Detect)
[2019-05-09 08:18] LABS: Basophils % 0.4 %; Eosinophils # 0.3 K/mcL (0.0-0.6); Eosinophils % 3.8 %; Hematocrit 32.3 % (37.5-50.1); Immature Granulocytes % 0.4 % (0-4); Lymphocytes # 1.5 K/mcL (0.6-4.6); Lymphocytes % 21.6 %; Mean Corpuscular Hemoglobin 25.8 pg (28.0-33.3); Mean Corpuscular Volume 83.2 fL (83.0-100.0); Monocytes # 0.6 K/mcL (0.0-1.3); Monocytes % 8.9 %; Neutrophils # 4.4 K/mcL (1.6-8.9); Platelet Count 176 K/mcL (140-400); Red Blood Count 3.88 M/mcL (4.19-5.50); Red Cell Distribution Width 17.4 % (11.5-14.5); Segmented Neutrophils % 64.9 %; White Blood Count 6.8 K/mcL (4.3-11.1)
[2019-05-09] MEDS ORDERED: Insulin DETEMIR 100 UNIT/ML X5UNITS SQ ONE (08:18)
[2019-05-09 08:36] LABS: Calcium 9.3 mg/dL (8.6-10.3)
[2019-05-09 08:40] LABS: Troponin I 0.24 ng/mL (< 0.04)
[2019-05-09] MEDS: Insulin LISPRO 300 UNITS/3 ML VIAL SQ SCH ×4 (09:27→20:09)
[2019-05-09] MEDS ORDERED: Chloraseptic Spray 177 ML BOTTLE MM PRN (10:47)
[2019-05-09] MEDS ORDERED: Ipratropium/Albuterol Neb 3 ML IH PRN (19:19)
[2019-05-09] MEDS: *HR* OxyCODONE Immed Rel 15 MG TABLET PO PRN (20:09)
[2019-05-09] MEDS ORDERED: Insulin DETEMIR 100 UNIT/ML X5UNITS SQ SCH ×2 (21:00)
[2019-05-10 02:14] LABS: Basophils % 0.7 %; Eosinophils # 0.3 K/mcL (0.0-0.6); Eosinophils % 4.7 %; Hematocrit 32.6 % (37.5-50.1); Hemoglobin 9.7 g/dL (12.9-16.9); Immature Granulocytes % 0.3 % (0-4); Lymphocytes # 1.4 K/mcL (0.6-4.6); Mean Corpuscular HGB Conc 29.8 g/dL (31.6-35.5); Mean Corpuscular Hemoglobin 25.5 pg (28.0-33.3); Mean Corpuscular Volume 85.8 fL (83.0-100.0); Mean Platelet Volume 11.8 fL (9.4-12.4); Monocytes # 0.6 K/mcL (0.0-1.3); Monocytes % 9.7 %; Neutrophils # 3.5 K/mcL (1.6-8.9); Platelet Count 162 K/mcL (140-400); Red Cell Distribution Width 17.3 % (11.5-14.5); Segmented Neutrophils % 60.6 %; White Blood Count 5.8 K/mcL (4.3-11.1)
[2019-05-10 02:35] LABS: Calcium 9.3 mg/dL (8.6-10.3)
[2019-05-10] MEDS ORDERED: Insulin DETEMIR 100 UNIT/ML X5UNITS SQ ONE (08:12)
[2019-05-10] MEDS ORDERED: Metoprolol XL (24 HR) Succ 25 MG TAB.ER.24H PO SCH ×2 (09:00→15:33)
[2019-05-10] MEDS ORDERED: Isosorbide MONOnitrate (24 HR) 60 MG TAB.ER.24H PO SCH ×2 (09:00→15:35)
[2019-05-10] MEDS: *HR* Heparin 5,000 UNIT/ML VIAL SQ SCH ×2 (10:03→17:53)
[2019-05-10] MEDS: Insulin LISPRO 300 UNITS/3 ML VIAL SQ SCH ×5 (10:07→22:01)
[2019-05-10] MEDS: *HR* OxyCODONE Immed Rel 15 MG TABLET PO PRN (10:17)
[2019-05-10] MEDS: Acetaminophen 325 MG TABLET PO PRN (14:30)
[2019-05-10] MEDS ORDERED: Clotrimazole 1% CRM 15 GM TUBE TP PRN (15:02)
[2019-05-10] MEDS ORDERED: Gabapentin 100 MG CAPSULE PO PRN (15:02)
[2019-05-10] MEDS ORDERED: Apixaban 5 MG TABLET PO SCH (21:00)
[2019-05-10] MEDS ORDERED: Insulin DETEMIR 100 UNIT/ML X5UNITS SQ SCH (21:00)
[2019-05-11 02:13] LABS: Basophils % 0.6 %; Eosinophils # 0.3 K/mcL (0.0-0.6); Eosinophils % 5.6 %; Hematocrit 33.3 % (37.5-50.1); Hemoglobin 10.2 g/dL (12.9-16.9); Immature Granulocytes % 0.4 % (0-4); Lymphocytes % 20.2 %; Mean Corpuscular HGB Conc 30.6 g/dL (31.6-35.5); Mean Corpuscular Hemoglobin 25.6 pg (28.0-33.3); Mean Corpuscular Volume 83.7 fL (83.0-100.0); Mean Platelet Volume 11.8 fL (9.4-12.4); Monocytes # 0.5 K/mcL (0.0-1.3); Monocytes % 9.7 %; Neutrophils # 3.2 K/mcL (1.6-8.9); Platelet Count 176 K/mcL (140-400); Red Blood Count 3.98 M/mcL (4.19-5.50); Red Cell Distribution Width 17.2 % (11.5-14.5); Segmented Neutrophils % 63.5 %
[2019-05-11 02:31] LABS: Calcium 9.8 mg/dL (8.6-10.3); Potassium 4.2 mEq/L (3.5-5.1)
[2019-05-11] MEDS: *HR* OxyCODONE Immed Rel 15 MG TABLET PO PRN (05:43)
[2019-05-11] MEDS: *HR* Heparin 5,000 UNIT/ML VIAL SQ SCH (05:51)
[2019-05-11] MEDS ORDERED: Levothyroxine 25 MCG TABLET PO SCH (06:30)
[2019-05-11] MEDS: Insulin LISPRO 300 UNITS/3 ML VIAL SQ SCH ×2 (08:48→08:49)
[2019-05-11] MEDS ORDERED: Insulin NPH 100 UNIT/ML (x5UNIT) SQ SCH (11:15)
[2019-05-11 11:50] VITALS: BP 106/80
[2019-05-11] MEDS ORDERED: Insulin Regular, Human 100 UNIT/ML SQ SCH ×2 (12:00)
[2019-05-11] MEDS ORDERED: INSULIN REGULAR HUMAN 45 UNIT SQ SCH (12:00)
[2019-05-11] MEDS: Acetaminophen 325 MG TABLET PO PRN (12:31)
== END 2019-05-11 17:15 | disposition home or self-care (01) | DRG 291 ==
LOC: 2NNU → SUATTDRO 18:03
PROVIDERS: ADMIT Family Medicine; ATTEND Student in an Organized Health Care Education/Training Program

== ENCOUNTER 2019-07-02 15:02 | Inpatient (IN) ==
[2019-07-02] MEDS ORDERED: Naloxone 0.4 MG/ML INJ IVP PRN (16:55)
[2019-07-02] MEDS ORDERED: Ondansetron 4 MG/2 ML VIAL IVP PRN (16:55)
[2019-07-02] MEDS ORDERED: Acetaminophen 325 MG TABLET PO PRN (16:55)
[2019-07-02 17:25] LABS: Basophils # 0.1 K/mcL (0.0-0.2); Basophils % 0.6 %; Eosinophils # 0.2 K/mcL (0.0-0.6); Eosinophils % 2.2 %; Hematocrit 28.3 % (37.5-50.1); Hemoglobin 8.2 g/dL (12.9-16.9); Immature Granulocytes % 0.9 % (0-4); Lymphocytes # 1.3 K/mcL (0.6-4.6); Lymphocytes % 14.6 %; Mean Corpuscular Hemoglobin 24.3 pg (28.0-33.3); Mean Corpuscular Volume 83.7 fL (83.0-100.0); Mean Platelet Volume 10.9 fL (9.4-12.4); Monocytes # 0.8 K/mcL (0.0-1.3); Monocytes % 9.5 %; Neutrophils # 6.3 K/mcL (1.6-8.9); Nucleated Red Blood Cells 0.2 /100 WBC (0); Platelet Count 206 K/mcL (140-400); Red Blood Count 3.38 M/mcL (4.19-5.50); Red Cell Distribution Width 16.2 % (11.5-14.5); Segmented Neutrophils % 72.2 %; White Blood Count 8.7 K/mcL (4.3-11.1)
[2019-07-02 17:44] LABS: Potassium 3.6 mEq/L (3.5-5.1)
[2019-07-02 17:45] LABS: Magnesium 2.1 mg/dL (1.6-2.6)
[2019-07-02 17:50] LABS: Troponin I 0.05 ng/mL (< 0.04)
[2019-07-02] MEDS ORDERED: Furosemide 40 MG/4 ML VIAL ONE (18:34)
[2019-07-02] MEDS ORDERED: *HR* Heparin 5,000 UNIT/ML VIAL IVP ONE (18:39)
[2019-07-02] MEDS ORDERED: *HR* Heparin 5,000 UNIT/ML VIAL IVP PRN (18:39)
[2019-07-02] MEDS ORDERED: *HR* Dextrose 50 % in Water (Syg) 50 ML SYRINGE IVP PRN (18:43)
[2019-07-02] MEDS ORDERED: Dextrose Gel 15 GM/37.5 ML TUBE PO PRN ×2 (18:43)
[2019-07-02] MEDS ORDERED: D5% in Water 1,000 ML IVC PRN (18:43)
[2019-07-02] MEDS ORDERED: Heparin 25,000 UNIT/250 ML D5W 25,000 UNIT/250 ML IV.SOLN IVC SCH (18:45)
[2019-07-02] MEDS ORDERED: Nitroglycerin 0.4 MG TAB.SUBL SL PRN (18:53)
[2019-07-02] MEDS: Furosemide 40 MG/4 ML VIAL IVP SCH (19:02)
[2019-07-02 19:41] LABS: Hemoglobin 8.4 g/dL (12.9-16.9); Mean Corpuscular Hemoglobin 23.9 pg (28.0-33.3); Mean Corpuscular Volume 82.6 fL (83.0-100.0); Mean Platelet Volume 11.5 fL (9.4-12.4); Platelet Count 222 K/mcL (140-400); Red Blood Count 3.51 M/mcL (4.19-5.50); Red Cell Distribution Width 16.3 % (11.5-14.5); White Blood Count 9.4 K/mcL (4.3-11.1)
[2019-07-02 19:46] LABS: INR 1.4; Prothrombin Time 15.5 Seconds (9.4-12.1)
[2019-07-02 20:05] LABS: Heparin anti-factor XA UFH 1.62 IU/mL (0.30-0.70)
[2019-07-02] MEDS: Insulin DETEMIR 100 UNIT/ML X5UNITS SQ SCH (20:16)
[2019-07-02 20:33] LABS: Adenovirus Not Detected (Not Detect); Bordetella Pertussis Not Detected (Not Detect); Coronavirus 229E Not Detected (Not Detect); Coronavirus HKU1 Not Detected (Not Detect); Coronavirus NL63 Not Detected (Not Detect); Coronavirus OC43 Not Detected (Not Detect); Human Metapneumovirus Not Detected (Not Detect); Human Rhinovirus/Enterovirus Not Detected (Not Detect); Influenza A Subtype 2009 H1 Not Detected (Not Detect); Influenza B Not Detected (Not Detect); Parainfluenza Virus 1 Not Detected (Not Detect); Parainfluenza Virus 2 Not Detected (Not Detect); Parainfluenza Virus 3 Not Detected (Not Detect); Parainfluenza Virus 4 Not Detected (Not Detect); Respiratory Syncytial Virus Not Detected (Not Detect)
[2019-07-02 20:34] LABS: Chlamydophila pneumoniae Not Detected (Not Detect); Mycoplasma pneumoniae Not Detected (Not Detect)
[2019-07-02] MEDS: Heparin 25,000 UNIT/250 ML D5W 25,000 UNIT/250 ML IV.SOLN IVC SCH (21:27)
[2019-07-03] MEDS: Morphine Sulfate 2 MG/ML SYRINGE IVP PRN ×2 (00:02→23:33)
[2019-07-03] MEDS ORDERED: Pregabalin 25 MG CAPSULE PO ONE (02:20)
[2019-07-03 05:44] LABS: Basophils # 0.1 K/mcL (0.0-0.2); Basophils % 0.6 %; Eosinophils # 0.2 K/mcL (0.0-0.6); Eosinophils % 2.9 %; Hematocrit 28.8 % (37.5-50.1); Hemoglobin 8.4 g/dL (12.9-16.9); Immature Granulocytes % 1.3 % (0-4); Lymphocytes # 1.6 K/mcL (0.6-4.6); Lymphocytes % 19.6 %; Mean Corpuscular HGB Conc 29.2 g/dL (31.6-35.5); Mean Corpuscular Hemoglobin 24.2 pg (28.0-33.3); Mean Platelet Volume 11.9 fL (9.4-12.4); Monocytes # 0.7 K/mcL (0.0-1.3); Monocytes % 8.7 %; Neutrophils # 5.3 K/mcL (1.6-8.9); Platelet Count 209 K/mcL (140-400); Red Blood Count 3.47 M/mcL (4.19-5.50); Red Cell Distribution Width 16.5 % (11.5-14.5); Segmented Neutrophils % 66.9 %; White Blood Count 7.9 K/mcL (4.3-11.1)
[2019-07-03] MEDS ORDERED: *HR* OxyCODONE Immed Rel 15 MG TABLET PO STA (05:55)
[2019-07-03 06:06] LABS: Calcium 9.2 mg/dL (8.6-10.3); Magnesium 2.2 mg/dL (1.6-2.6); Potassium 3.8 mEq/L (3.5-5.1)
[2019-07-03] MEDS: Levothyroxine 25 MCG TABLET PO SCH (06:12)
[2019-07-03] MEDS: *HR* Heparin 5,000 UNIT/ML VIAL IVP PRN (06:14)
[2019-07-03 06:31] LABS: Folate 7.9 ng/mL (3.0-16.0)
[2019-07-03] MEDS: Furosemide 40 MG/4 ML VIAL IVP SCH (09:07)
[2019-07-03] MEDS: Insulin LISPRO 300 UNITS/3 ML VIAL SQ SCH ×4 (09:07→17:38)
[2019-07-03] MEDS: Isosorbide MONOnitrate (24 HR) 60 MG TAB.ER.24H PO SCH (09:08)
[2019-07-03] MEDS: hydrALAZINE 10 MG TABLET PO SCH ×3 (09:08→20:19)
[2019-07-03] MEDS: Metoprolol XL (24 HR) Succ 25 MG TAB.ER.24H PO SCH (09:08)
[2019-07-03] MEDS ORDERED: Perflutren Lipid Microsphere 1.3 ML in 0.9 % Sodium Chloride 8.7 ML IVP ONE (10:36)
[2019-07-03] MEDS: Iron Sucrose Complex 250 MG in 0.9 % Sodium Chloride 250 ML IVPB SCH (13:06)
[2019-07-03] MEDS: Insulin DETEMIR 100 UNIT/ML X5UNITS SQ SCH ×3 (17:52→21:04)
[2019-07-03] MEDS: Gabapentin 100 MG CAPSULE PO PRN (20:52)
[2019-07-03] MEDS ORDERED: Insulin LISPRO 300 UNITS/3 ML VIAL SQ SCH (21:00)
[2019-07-03] MEDS: Clotrimazole 1% CRM 15 GM TUBE TP SCH (21:06)
[2019-07-03] MEDS: Nystatin Ointment 15 GM TUBE TP SCH (21:06)
[2019-07-04] MEDS ORDERED: Insulin LISPRO 300 UNITS/3 ML VIAL SQ STA (04:44)
[2019-07-04] MEDS: Levothyroxine 25 MCG TABLET PO SCH (05:15)
[2019-07-04 07:47] LABS: Basophils # 0.1 K/mcL (0.0-0.2); Basophils % 0.8 %; Eosinophils # 0.2 K/mcL (0.0-0.6); Eosinophils % 3.1 %; Hematocrit 28.8 % (37.5-50.1); Hemoglobin 8.5 g/dL (12.9-16.9); Immature Granulocytes % 1.5 % (0-4); Lymphocytes # 1.4 K/mcL (0.6-4.6); Lymphocytes % 18.2 %; Mean Corpuscular HGB Conc 29.5 g/dL (31.6-35.5); Mean Corpuscular Hemoglobin 24.6 pg (28.0-33.3); Mean Corpuscular Volume 83.5 fL (83.0-100.0); Mean Platelet Volume 11.5 fL (9.4-12.4); Monocytes # 0.6 K/mcL (0.0-1.3); Monocytes % 8.6 %; Neutrophils # 5.1 K/mcL (1.6-8.9); Nucleated Red Blood Cells 0.5 /100 WBC (0); Platelet Count 202 K/mcL (140-400); Red Blood Count 3.45 M/mcL (4.19-5.50); Red Cell Distribution Width 16.3 % (11.5-14.5); Segmented Neutrophils % 67.8 %; White Blood Count 7.5 K/mcL (4.3-11.1)
[2019-07-04 08:05] LABS: BUN/Creatinine Ratio 36 (6-26); Blood Urea Nitrogen 42 mg/dL (8-23); Calcium 9.5 mg/dL (8.6-10.3); Carbon Dioxide 39 mEq/L (23-29); Chloride 92 mEq/L (98-107); Glucose 269 mg/dL (70-105); Magnesium 2.4 mg/dL (1.6-2.6); Osmolality,Calculated 310 (280-300); Sodium 140 mEq/L (136-145); eGFR For African Americans > 60 (> 60); eGFR For Non-African Americans > 60 (> 60)
[2019-07-04] MEDS: Heparin 25,000 UNIT/250 ML D5W 25,000 UNIT/250 ML IV.SOLN IVC SCH ×2 (08:44→23:55)
[2019-07-04] MEDS: Isosorbide MONOnitrate (24 HR) 60 MG TAB.ER.24H PO SCH (08:45)
[2019-07-04] MEDS: Insulin LISPRO 300 UNITS/3 ML VIAL SQ SCH ×3 (08:45→16:18)
[2019-07-04] MEDS: Metoprolol XL (24 HR) Succ 25 MG TAB.ER.24H PO SCH (08:46)
[2019-07-04] MEDS: *HR* Heparin 5,000 UNIT/ML VIAL IVP PRN (08:46)
[2019-07-04] MEDS: hydrALAZINE 10 MG TABLET PO SCH ×3 (08:46→19:22)
[2019-07-04] MEDS: Furosemide 40 MG/4 ML VIAL IVP SCH (08:46)
[2019-07-04] MEDS: Spironolactone 25 MG TABLET PO SCH (08:46)
[2019-07-04] MEDS: Insulin DETEMIR 100 UNIT/ML X5UNITS SQ SCH ×2 (08:49→20:39)
[2019-07-04] MEDS: Clotrimazole 1% CRM 15 GM TUBE TP SCH ×2 (09:00→19:22)
[2019-07-04] MEDS: Nystatin Ointment 15 GM TUBE TP SCH ×2 (09:00→19:22)
[2019-07-04] MEDS ORDERED: Isosorbide MONOnitrate (24 HR) 60 MG TAB.ER.24H PO SCH (09:00)
[2019-07-04] MEDS: Iron Sucrose Complex 250 MG in 0.9 % Sodium Chloride 250 ML IVPB SCH (10:29)
[2019-07-04] MEDS: *HR* OxyCODONE Immed Rel 15 MG TABLET PO PRN (13:32)
[2019-07-05 01:10] LABS: Basophils % 0.8 %; Hemoglobin 8.7 g/dL (12.9-16.9); Mean Corpuscular Volume 84.7 fL (83.0-100.0); Nucleated Red Blood Cells 0.6 /100 WBC (0)
[2019-07-05 01:12] LABS: Basophils # 0.1 K/mcL (0.0-0.2); Eosinophils # 0.2 K/mcL (0.0-0.6); Eosinophils % 2.9 %; Hematocrit 30.5 % (37.5-50.1); Immature Granulocytes % 2.4 % (0-4); Lymphocytes # 1.6 K/mcL (0.6-4.6); Lymphocytes % 18.7 %; Mean Corpuscular HGB Conc 28.5 g/dL (31.6-35.5); Mean Corpuscular Hemoglobin 24.2 pg (28.0-33.3); Mean Platelet Volume 11.3 fL (9.4-12.4); Monocytes # 0.7 K/mcL (0.0-1.3); Monocytes % 8.4 %; Neutrophils # 5.5 K/mcL (1.6-8.9); Platelet Count 209 K/mcL (140-400); Red Cell Distribution Width 16.8 % (11.5-14.5); Segmented Neutrophils % 66.8 %; White Blood Count 8.3 K/mcL (4.3-11.1)
[2019-07-05 01:24] LABS: BUN/Creatinine Ratio 28 (6-26); Blood Urea Nitrogen 35 mg/dL (8-23); Calcium 9.4 mg/dL (8.6-10.3); Carbon Dioxide 36 mEq/L (23-29); Chloride 90 mEq/L (98-107); Glucose 384 mg/dL (70-105); Magnesium 2.2 mg/dL (1.6-2.6); Osmolality,Calculated 304 (280-300); Potassium 3.9 mEq/L (3.5-5.1); Sodium 135 mEq/L (136-145); eGFR For African Americans > 60 (> 60); eGFR For Non-African Americans 57 (> 60)
[2019-07-05 01:32] LABS: Anisocytosis 1+ (Not Present); Hypochromasia Present (Not Present); Ovalocytes 1+ (Not Present); Platelet Estimate Normal (Normal)
[2019-07-05] MEDS: Levothyroxine 25 MCG TABLET PO SCH (05:08)
[2019-07-05] MEDS: *HR* OxyCODONE Immed Rel 15 MG TABLET PO PRN ×2 (05:15→15:56)
[2019-07-05] MEDS: hydrALAZINE 10 MG TABLET PO SCH ×3 (08:10→20:35)
[2019-07-05] MEDS: Isosorbide MONOnitrate (24 HR) 60 MG TAB.ER.24H PO SCH (08:10)
[2019-07-05] MEDS: Metoprolol XL (24 HR) Succ 25 MG TAB.ER.24H PO SCH (08:10)
[2019-07-05] MEDS: Spironolactone 25 MG TABLET PO SCH (08:10)
[2019-07-05] MEDS: Insulin LISPRO 300 UNITS/3 ML VIAL SQ SCH ×3 (08:11→17:20)
[2019-07-05] MEDS: Clotrimazole 1% CRM 15 GM TUBE TP SCH ×2 (08:17→20:36)
[2019-07-05] MEDS: Nystatin Ointment 15 GM TUBE TP SCH ×2 (08:17→20:36)
[2019-07-05] MEDS: Insulin DETEMIR 100 UNIT/ML X5UNITS SQ SCH ×2 (08:17→20:35)
[2019-07-05] MEDS: Furosemide 40 MG/4 ML VIAL IVP SCH (08:17)
[2019-07-05] MEDS: Heparin 25,000 UNIT/250 ML D5W 25,000 UNIT/250 ML IV.SOLN IVC SCH (15:56)
[2019-07-05] MEDS ORDERED: Insulin LISPRO 300 UNITS/3 ML VIAL SQ SCH (21:00)
[2019-07-06] MEDS: Levothyroxine 25 MCG TABLET PO SCH (05:40)
[2019-07-06 06:01] LABS: Basophils # 0.1 K/mcL (0.0-0.2); Basophils % 0.6 %; Eosinophils # 0.2 K/mcL (0.0-0.6); Eosinophils % 2.4 %; Hemoglobin 9.4 g/dL (12.9-16.9); Immature Granulocytes % 2.2 % (0-4); Lymphocytes # 1.4 K/mcL (0.6-4.6); Lymphocytes % 16.9 %; Mean Corpuscular HGB Conc 29.4 g/dL (31.6-35.5); Mean Corpuscular Volume 85.1 fL (83.0-100.0); Mean Platelet Volume 10.7 fL (9.4-12.4); Monocytes # 0.6 K/mcL (0.0-1.3); Monocytes % 7.6 %; Neutrophils # 5.9 K/mcL (1.6-8.9); Nucleated Red Blood Cells 1.4 /100 WBC (0); Platelet Count 211 K/mcL (140-400); Red Blood Count 3.76 M/mcL (4.19-5.50); Red Cell Distribution Width 17.1 % (11.5-14.5); Segmented Neutrophils % 70.3 %; White Blood Count 8.3 K/mcL (4.3-11.1)
[2019-07-06 06:23] LABS: BUN/Creatinine Ratio 26 (6-26); Blood Urea Nitrogen 25 mg/dL (8-23); Calcium 9.9 mg/dL (8.6-10.3); Carbon Dioxide 35 mEq/L (23-29); Chloride 95 mEq/L (98-107); Glucose 255 mg/dL (70-105); Osmolality,Calculated 299 (280-300); Potassium 3.8 mEq/L (3.5-5.1); Sodium 138 mEq/L (136-145); eGFR For African Americans > 60 (> 60); eGFR For Non-African Americans > 60 (> 60)
[2019-07-06] MEDS ORDERED: Insulin DETEMIR 100 UNIT/ML X5UNITS SQ SCH (09:00)
[2019-07-06] MEDS: Spironolactone 25 MG TABLET PO SCH (09:02)
[2019-07-06] MEDS: hydrALAZINE 10 MG TABLET PO SCH ×3 (09:02→19:59)
[2019-07-06] MEDS: Metoprolol XL (24 HR) Succ 25 MG TAB.ER.24H PO SCH (09:02)
[2019-07-06] MEDS: Isosorbide MONOnitrate (24 HR) 60 MG TAB.ER.24H PO SCH (09:02)
[2019-07-06] MEDS: Nystatin Ointment 15 GM TUBE TP SCH ×2 (09:03→20:07)
[2019-07-06] MEDS: Furosemide 40 MG/4 ML VIAL IVP SCH (09:03)
[2019-07-06] MEDS: Clotrimazole 1% CRM 15 GM TUBE TP SCH ×2 (09:03→20:07)
[2019-07-06] MEDS: Insulin LISPRO 300 UNITS/3 ML VIAL SQ SCH ×3 (10:23→17:15)
[2019-07-06] MEDS ORDERED: Insulin DETEMIR 100 UNIT/ML X5UNITS SQ ONE (11:18)
[2019-07-06] MEDS: *HR* OxyCODONE Immed Rel 15 MG TABLET PO PRN (14:04)
[2019-07-06] MEDS: Apixaban 5 MG TABLET PO SCH (19:59)
[2019-07-06] MEDS: Gabapentin 100 MG CAPSULE PO PRN (19:59)
[2019-07-06] MEDS: Insulin DETEMIR 100 UNIT/ML X5UNITS SQ SCH (20:01)
[2019-07-07] MEDS: *HR* OxyCODONE Immed Rel 15 MG TABLET PO PRN (00:03)
[2019-07-07 05:21] LABS: Hemoglobin 9.2 g/dL (12.9-16.9)
[2019-07-07 05:22] LABS: Basophils # 0.1 K/mcL (0.0-0.2); Basophils % 0.9 %; Eosinophils # 0.3 K/mcL (0.0-0.6); Eosinophils % 3.1 %; Immature Granulocytes % 2.6 % (0-4); Lymphocytes # 1.8 K/mcL (0.6-4.6); Lymphocytes % 22.5 %; Mean Corpuscular HGB Conc 28.8 g/dL (31.6-35.5); Mean Corpuscular Hemoglobin 24.5 pg (28.0-33.3); Mean Corpuscular Volume 85.3 fL (83.0-100.0); Mean Platelet Volume 11.5 fL (9.4-12.4); Monocytes # 0.7 K/mcL (0.0-1.3); Monocytes % 8.2 %; Nucleated Red Blood Cells 0.6 /100 WBC (0); Platelet Count 204 K/mcL (140-400); Red Blood Count 3.75 M/mcL (4.19-5.50); Red Cell Distribution Width 18.4 % (11.5-14.5); Segmented Neutrophils % 62.7 %
[2019-07-07 05:39] LABS: BUN/Creatinine Ratio 21 (6-26); Blood Urea Nitrogen 25 mg/dL (8-23); Calcium 9.7 mg/dL (8.6-10.3); Carbon Dioxide 32 mEq/L (23-29); Chloride 94 mEq/L (98-107); Glucose 263 mg/dL (70-105); Magnesium 2.2 mg/dL (1.6-2.6); Osmolality,Calculated 296 (280-300); Sodium 136 mEq/L (136-145); eGFR For African Americans > 60 (> 60); eGFR For Non-African Americans > 60 (> 60)
[2019-07-07 06:27] LABS: Polychromasia 1+ (Not Present)
[2019-07-07 06:28] LABS: Anisocytosis 2+ (Not Present); Macrocytosis Present (Not Present); Microcytosis Present (Not Present); Ovalocytes 1+ (Not Present); Platelet Estimate Normal (Normal); Poikilocytosis 1+ (Not Present)
[2019-07-07 06:29] LABS: Hypochromasia Present (Not Present)
[2019-07-07] MEDS: Levothyroxine 25 MCG TABLET PO SCH (06:35)
[2019-07-07 07:43] VITALS: BP 117/70
[2019-07-07] MEDS: Isosorbide MONOnitrate (24 HR) 60 MG TAB.ER.24H PO SCH (09:42)
[2019-07-07] MEDS: Apixaban 5 MG TABLET PO SCH (09:42)
[2019-07-07] MEDS: hydrALAZINE 10 MG TABLET PO SCH (09:42)
[2019-07-07] MEDS: Spironolactone 25 MG TABLET PO SCH (09:42)
[2019-07-07] MEDS: Insulin LISPRO 300 UNITS/3 ML VIAL SQ SCH (09:43)
[2019-07-07] MEDS: Clotrimazole 1% CRM 15 GM TUBE TP SCH (09:43)
[2019-07-07] MEDS: Furosemide 40 MG/4 ML VIAL IVP SCH (09:43)
[2019-07-07] MEDS: Nystatin Ointment 15 GM TUBE TP SCH (09:43)
[2019-07-07] MEDS: Metoprolol XL (24 HR) Succ 25 MG TAB.ER.24H PO SCH (09:43)
[2019-07-07] MEDS: Insulin DETEMIR 100 UNIT/ML X5UNITS SQ SCH (09:46)
== END 2019-07-07 12:29 | disposition home health service (06) | DRG 280 ==
LOC: 3BNU → SUATTDRO 16:40
PROVIDERS: ADMIT Pharmacist; ATTEND Internal Medicine

== ENCOUNTER 2019-08-04 14:57 | Inpatient (IN) ==
[2019-08-04] MEDS ORDERED: Naloxone 0.4 MG/ML INJ IVP PRN (18:50)
[2019-08-04] MEDS ORDERED: *HR* Promethazine 25 MG/ML VIAL IVP PRN (18:57)
[2019-08-04] MEDS ORDERED: *HR* Dextrose 50 % in Water (Syg) 50 ML SYRINGE IVP PRN (19:00)
[2019-08-04] MEDS ORDERED: D5% in Water 1,000 ML IVC PRN (19:00)
[2019-08-04] MEDS ORDERED: Dextrose Gel 15 GM/37.5 ML TUBE PO PRN ×2 (19:00)
[2019-08-04] MEDS ORDERED: Ipratropium/Albuterol Neb 3 ML IH PRN (19:02)
[2019-08-04] MEDS ORDERED: Nitroglycerin 0.4 MG TAB.SUBL SL PRN (19:45)
[2019-08-04] MEDS: Apixaban 5 MG TABLET PO SCH (20:52)
[2019-08-04] MEDS: metOLazone 5 MG TABLET PO SCH (20:52)
[2019-08-04] MEDS: Insulin DETEMIR 100 UNIT/ML X5UNITS SQ SCH (20:52)
[2019-08-04] MEDS: Furosemide 40 MG/4 ML VIAL IVP SCH (20:52)
[2019-08-04] MEDS: *HR* OxyCODONE Immed Rel 15 MG TABLET PO PRN (20:56)
[2019-08-04] MEDS: Clotrimazole 1% CRM 15 GM TUBE TP SCH (21:01)
[2019-08-04] MEDS: Ipratropium/Albuterol Neb 3 ML IH SCH (22:30)
[2019-08-05 00:41] LABS: Eosinophils % 1.8 %; Monocytes % 7.4 %
[2019-08-05 00:42] LABS: Basophils % 0.4 %; Eosinophils # 0.2 K/mcL (0.0-0.6); Hemoglobin 8.9 g/dL (12.9-16.9); Immature Granulocytes % 0.4 % (0-4); Lymphocytes # 1.3 K/mcL (0.6-4.6); Lymphocytes % 11.8 %; Mean Corpuscular HGB Conc 28.7 g/dL (31.6-35.5); Mean Corpuscular Hemoglobin 24.6 pg (28.0-33.3); Mean Corpuscular Volume 85.6 fL (83.0-100.0); Mean Platelet Volume 11.9 fL (9.4-12.4); Monocytes # 0.8 K/mcL (0.0-1.3); Neutrophils # 8.5 K/mcL (1.6-8.9); Platelet Count 192 K/mcL (140-400); Red Blood Count 3.62 M/mcL (4.19-5.50); Red Cell Distribution Width 18.3 % (11.5-14.5); Segmented Neutrophils % 78.2 %; White Blood Count 10.9 K/mcL (4.3-11.1)
[2019-08-05 00:57] LABS: Calcium 9.2 mg/dL (8.6-10.3); Magnesium 2.1 mg/dL (1.6-2.6); Potassium 3.3 mEq/L (3.5-5.1)
[2019-08-05 01:06] LABS: Hypochromasia Present (Not Present); Platelet Estimate Normal (Normal)
[2019-08-05] MEDS: Ipratropium/Albuterol Neb 3 ML IH SCH ×4 (04:20→21:45)
[2019-08-05] MEDS: Levothyroxine 25 MCG TABLET PO SCH (05:36)
[2019-08-05] MEDS ORDERED: Morphine Sulfate 2 MG/ML SYRINGE IVP ONE (06:45)
[2019-08-05] MEDS: Insulin LISPRO 300 UNITS/3 ML VIAL SQ SCH ×4 (08:42→20:17)
[2019-08-05] MEDS: Furosemide 40 MG/4 ML VIAL IVP SCH ×2 (08:43→20:16)
[2019-08-05] MEDS: cefTRIAXone 2,000 MG in Water for inj. (sterile) 20 ML IVP SCH (08:43)
[2019-08-05] MEDS: Apixaban 5 MG TABLET PO SCH ×2 (08:43→20:16)
[2019-08-05] MEDS: Spironolactone 25 MG TABLET PO SCH (08:44)
[2019-08-05] MEDS: metOLazone 5 MG TABLET PO SCH (08:44)
[2019-08-05] MEDS: Metoprolol XL (24 HR) Succ 25 MG TAB.ER.24H PO SCH (08:45)
[2019-08-05] MEDS: Clotrimazole 1% CRM 15 GM TUBE TP SCH ×2 (08:45→20:13)
[2019-08-05] MEDS: Isosorbide MONOnitrate (24 HR) 60 MG TAB.ER.24H PO SCH (08:45)
[2019-08-05] MEDS: Azithromycin 500 MG in 0.9 % Sodium Chloride 250 ML IVPB SCH (08:45)
[2019-08-05] MEDS ORDERED: cefTRIAXone 2,000 MG in 0.9 % Sodium Chloride Mini Bag 100 ML IVPB SCH (09:00)
[2019-08-05] MEDS: *HR* OxyCODONE Immed Rel 15 MG TABLET PO PRN (10:08)
[2019-08-05] MEDS: Insulin DETEMIR 100 UNIT/ML X5UNITS SQ SCH (20:16)
[2019-08-06] MEDS: *HR* OxyCODONE Immed Rel 15 MG TABLET PO PRN ×2 (02:11→13:24)
[2019-08-06] MEDS: Gabapentin 100 MG CAPSULE PO PRN ×2 (02:14→09:29)
[2019-08-06] MEDS: Ipratropium/Albuterol Neb 3 ML IH SCH ×4 (03:57→21:59)
[2019-08-06] MEDS: Levothyroxine 25 MCG TABLET PO SCH (05:46)
[2019-08-06 08:59] LABS: Basophils % 0.4 %; Eosinophils # 0.2 K/mcL (0.0-0.6); Eosinophils % 1.8 %; Hematocrit 31.4 % (37.5-50.1); Hemoglobin 8.9 g/dL (12.9-16.9); Immature Granulocytes % 0.4 % (0-4); Lymphocytes # 1.2 K/mcL (0.6-4.6); Lymphocytes % 12.7 %; Mean Corpuscular HGB Conc 28.3 g/dL (31.6-35.5); Mean Corpuscular Hemoglobin 24.1 pg (28.0-33.3); Mean Corpuscular Volume 85.1 fL (83.0-100.0); Mean Platelet Volume 11.7 fL (9.4-12.4); Monocytes # 0.7 K/mcL (0.0-1.3); Monocytes % 7.7 %; Neutrophils # 7.4 K/mcL (1.6-8.9); Platelet Count 206 K/mcL (140-400); Red Blood Count 3.69 M/mcL (4.19-5.50); Red Cell Distribution Width 18.7 % (11.5-14.5); White Blood Count 9.6 K/mcL (4.3-11.1)
[2019-08-06 09:20] LABS: BUN/Creatinine Ratio 38 (6-26); Blood Urea Nitrogen 49 mg/dL (8-23); Calcium 8.8 mg/dL (8.6-10.3); Carbon Dioxide 35 mEq/L (23-29); Chloride 91 mEq/L (98-107); Glucose 333 mg/dL (70-105); Osmolality,Calculated 310 (280-300); Potassium 3.4 mEq/L (3.5-5.1); Sodium 137 mEq/L (136-145); eGFR For African Americans > 60 (> 60); eGFR For Non-African Americans 56 (> 60)
[2019-08-06] MEDS: Insulin LISPRO 300 UNITS/3 ML VIAL SQ SCH ×5 (09:22→20:34)
[2019-08-06 09:25] LABS: Anisocytosis 1+ (Not Present); Hypochromasia Present (Not Present); Platelet Estimate Normal (Normal)
[2019-08-06] MEDS: cefTRIAXone 2,000 MG in Water for inj. (sterile) 20 ML IVP SCH (09:25)
[2019-08-06] MEDS: Metoprolol XL (24 HR) Succ 25 MG TAB.ER.24H PO SCH (09:26)
[2019-08-06] MEDS: Apixaban 5 MG TABLET PO SCH ×2 (09:26→20:30)
[2019-08-06] MEDS: Furosemide 40 MG/4 ML VIAL IVP SCH ×2 (09:26→20:30)
[2019-08-06] MEDS: Spironolactone 25 MG TABLET PO SCH (09:26)
[2019-08-06] MEDS: Isosorbide MONOnitrate (24 HR) 60 MG TAB.ER.24H PO SCH (09:26)
[2019-08-06] MEDS: metOLazone 5 MG TABLET PO SCH (09:26)
[2019-08-06] MEDS: Clotrimazole 1% CRM 15 GM TUBE TP SCH ×2 (09:27→20:47)
[2019-08-06] MEDS: Azithromycin 500 MG in 0.9 % Sodium Chloride 250 ML IVPB SCH (09:27)
[2019-08-06 09:33] LABS: Poikilocytosis 1+ (Not Present)
[2019-08-06] MEDS: Insulin DETEMIR 100 UNIT/ML X5UNITS SQ SCH (20:31)
[2019-08-07] MEDS: *HR* OxyCODONE Immed Rel 15 MG TABLET PO PRN ×2 (00:18→18:28)
[2019-08-07 02:23] LABS: Immature Granulocytes % 0.6 % (0-4); Lymphocytes % 16.2 %
[2019-08-07 02:24] LABS: Basophils # 0.1 K/mcL (0.0-0.2); Basophils % 0.6 %; Eosinophils # 0.3 K/mcL (0.0-0.6); Eosinophils % 3.9 %; Hemoglobin 8.9 g/dL (12.9-16.9); Lymphocytes # 1.4 K/mcL (0.6-4.6); Mean Corpuscular HGB Conc 28.7 g/dL (31.6-35.5); Mean Corpuscular Hemoglobin 24.6 pg (28.0-33.3); Mean Corpuscular Volume 85.6 fL (83.0-100.0); Mean Platelet Volume 11.8 fL (9.4-12.4); Monocytes # 0.7 K/mcL (0.0-1.3); Monocytes % 8.3 %; Neutrophils # 6.2 K/mcL (1.6-8.9); Platelet Count 215 K/mcL (140-400); Red Blood Count 3.62 M/mcL (4.19-5.50); Red Cell Distribution Width 18.4 % (11.5-14.5); Segmented Neutrophils % 70.4 %; White Blood Count 8.8 K/mcL (4.3-11.1)
[2019-08-07 02:34] LABS: BUN/Creatinine Ratio 36 (6-26); Blood Urea Nitrogen 49 mg/dL (8-23); Calcium 9.2 mg/dL (8.6-10.3); Carbon Dioxide 36 mEq/L (23-29); Chloride 90 mEq/L (98-107); Glucose 288 mg/dL (70-105); Magnesium 2.2 mg/dL (1.6-2.6); Osmolality,Calculated 306 (280-300); Potassium 3.5 mEq/L (3.5-5.1); Sodium 136 mEq/L (136-145); eGFR For African Americans > 60 (> 60); eGFR For Non-African Americans 51 (> 60)
[2019-08-07 02:44] LABS: Anisocytosis 1+ (Not Present); Microcytosis Present (Not Present); Platelet Estimate Normal (Normal); Polychromasia 1+ (Not Present)
[2019-08-07] MEDS: Ipratropium/Albuterol Neb 3 ML IH SCH ×4 (04:19→22:00)
[2019-08-07] MEDS: Levothyroxine 25 MCG TABLET PO SCH (05:32)
[2019-08-07] MEDS: Isosorbide MONOnitrate (24 HR) 60 MG TAB.ER.24H PO SCH (08:03)
[2019-08-07] MEDS: Apixaban 5 MG TABLET PO SCH ×2 (08:03→20:56)
[2019-08-07] MEDS: Spironolactone 25 MG TABLET PO SCH (08:03)
[2019-08-07] MEDS: metOLazone 5 MG TABLET PO SCH (08:03)
[2019-08-07] MEDS: Azithromycin 500 MG in 0.9 % Sodium Chloride 250 ML IVPB SCH (08:04)
[2019-08-07] MEDS: Insulin LISPRO 300 UNITS/3 ML VIAL SQ SCH ×7 (08:04→20:56)
[2019-08-07] MEDS: Clotrimazole 1% CRM 15 GM TUBE TP SCH ×2 (08:05→20:57)
[2019-08-07] MEDS: Furosemide 40 MG/4 ML VIAL IVP SCH ×2 (08:05→20:56)
[2019-08-07] MEDS: Albumin 25% 25gram/100mL 25 GM/100 ML IV.SOLN IVPB SCH ×3 (10:50→23:15)
[2019-08-07] MEDS: Metoprolol XL (24 HR) Succ 25 MG TAB.ER.24H PO SCH (10:50)
[2019-08-07] MEDS: cefTRIAXone 2,000 MG in Water for inj. (sterile) 20 ML IVP SCH (10:51)
[2019-08-07] MEDS: Insulin DETEMIR 100 UNIT/ML X5UNITS SQ SCH (20:56)
[2019-08-08 02:26] LABS: BUN/Creatinine Ratio 41 (6-26); Blood Urea Nitrogen 52 mg/dL (8-23); Calcium 9.5 mg/dL (8.6-10.3); Carbon Dioxide 39 mEq/L (23-29); Chloride 93 mEq/L (98-107); Glucose 296 mg/dL (70-105); Osmolality,Calculated 313 (280-300); Potassium 3.3 mEq/L (3.5-5.1); Sodium 139 mEq/L (136-145); eGFR For African Americans > 60 (> 60); eGFR For Non-African Americans 56 (> 60)
[2019-08-08] MEDS: *HR* OxyCODONE Immed Rel 15 MG TABLET PO PRN ×2 (03:26→16:34)
[2019-08-08] MEDS: Ipratropium/Albuterol Neb 3 ML IH SCH ×4 (04:00→21:53)
[2019-08-08] MEDS: Levothyroxine 25 MCG TABLET PO SCH (05:50)
[2019-08-08] MEDS: Albumin 25% 25gram/100mL 25 GM/100 ML IV.SOLN IVPB SCH (07:47)
[2019-08-08] MEDS: Spironolactone 25 MG TABLET PO SCH (07:47)
[2019-08-08] MEDS: metOLazone 5 MG TABLET PO SCH (07:47)
[2019-08-08] MEDS: Apixaban 5 MG TABLET PO SCH ×2 (07:48→20:57)
[2019-08-08] MEDS: Insulin LISPRO 300 UNITS/3 ML VIAL SQ SCH ×7 (07:48→21:06)
[2019-08-08] MEDS: Isosorbide MONOnitrate (24 HR) 60 MG TAB.ER.24H PO SCH (07:48)
[2019-08-08] MEDS: Metoprolol XL (24 HR) Succ 25 MG TAB.ER.24H PO SCH (07:48)
[2019-08-08] MEDS: Clotrimazole 1% CRM 15 GM TUBE TP SCH ×2 (07:49→20:53)
[2019-08-08] MEDS ORDERED: Famotidine 20 MG TABLET PO PRN (07:50)
[2019-08-08] MEDS: Furosemide 40 MG/4 ML VIAL IVP SCH ×2 (09:47→20:57)
[2019-08-08] MEDS: Azithromycin 500 MG in 0.9 % Sodium Chloride 250 ML IVPB SCH (09:48)
[2019-08-08] MEDS ORDERED: Furosemide 40 MG/4 ML VIAL IVP ONE (10:04)
[2019-08-08] MEDS: cefTRIAXone 2,000 MG in Water for inj. (sterile) 20 ML IVP SCH (10:14)
[2019-08-08] MEDS: Doxycycline 100 MG CAPSULE PO SCH ×2 (13:27→23:54)
[2019-08-08] MEDS: Gabapentin 100 MG CAPSULE PO PRN (13:29)
[2019-08-08] MEDS: Insulin DETEMIR 100 UNIT/ML X5UNITS SQ SCH (20:57)
[2019-08-08] MEDS ORDERED: Acetaminophen 325 MG TABLET PO PRN (21:23)
[2019-08-09 02:33] LABS: BUN/Creatinine Ratio 44 (6-26); Blood Urea Nitrogen 55 mg/dL (8-23); Calcium 9.6 mg/dL (8.6-10.3); Carbon Dioxide 36 mEq/L (23-29); Chloride 91 mEq/L (98-107); Glucose 287 mg/dL (70-105); Osmolality,Calculated 310 (280-300); Potassium 3.2 mEq/L (3.5-5.1); Sodium 137 mEq/L (136-145); eGFR For African Americans > 60 (> 60); eGFR For Non-African Americans 57 (> 60)
[2019-08-09] MEDS: Ipratropium/Albuterol Neb 3 ML IH SCH ×4 (03:43→22:00)
[2019-08-09] MEDS: Levothyroxine 25 MCG TABLET PO SCH (05:40)
[2019-08-09] MEDS: *HR* OxyCODONE Immed Rel 15 MG TABLET PO PRN ×2 (06:56→21:30)
[2019-08-09] MEDS: Insulin LISPRO 300 UNITS/3 ML VIAL SQ SCH ×7 (06:56→21:33)
[2019-08-09] MEDS: Furosemide 40 MG/4 ML VIAL IVP SCH ×2 (08:57→20:19)
[2019-08-09] MEDS: Metoprolol XL (24 HR) Succ 25 MG TAB.ER.24H PO SCH (08:58)
[2019-08-09] MEDS: Gabapentin 100 MG CAPSULE PO PRN ×2 (08:58→18:01)
[2019-08-09] MEDS: cefTRIAXone 2,000 MG in Water for inj. (sterile) 20 ML IVP SCH (08:59)
[2019-08-09] MEDS: Apixaban 5 MG TABLET PO SCH ×2 (08:59→20:19)
[2019-08-09] MEDS: Spironolactone 25 MG TABLET PO SCH (08:59)
[2019-08-09] MEDS: Isosorbide MONOnitrate (24 HR) 60 MG TAB.ER.24H PO SCH (08:59)
[2019-08-09] MEDS: metOLazone 5 MG TABLET PO SCH (08:59)
[2019-08-09] MEDS: Clotrimazole 1% CRM 15 GM TUBE TP SCH (11:42)
[2019-08-09] MEDS: Doxycycline 100 MG CAPSULE PO SCH ×2 (13:24→23:48)
[2019-08-09] MEDS: Insulin DETEMIR 100 UNIT/ML X5UNITS SQ SCH ×2 (14:38→21:44)
[2019-08-09] MEDS ORDERED: Furosemide 40 MG/4 ML VIAL IVP ONE (17:39)
[2019-08-10] MEDS: Clotrimazole 1% CRM 15 GM TUBE TP SCH ×3 (00:13→21:00)
[2019-08-10] MEDS: Silver Sulfadiazine 50 GM TUBE TP SCH ×2 (00:33→08:38)
[2019-08-10] MEDS: Ipratropium/Albuterol Neb 3 ML IH SCH ×4 (03:43→21:30)
[2019-08-10] MEDS ORDERED: Furosemide 40 MG/4 ML VIAL IVP ONE (06:27)
[2019-08-10] MEDS: Levothyroxine 25 MCG TABLET PO SCH (06:35)
[2019-08-10 07:26] LABS: BUN/Creatinine Ratio 45 (6-26); Blood Urea Nitrogen 57 mg/dL (8-23); Calcium 9.6 mg/dL (8.6-10.3); Carbon Dioxide 38 mEq/L (23-29); Chloride 90 mEq/L (98-107); Glucose 297 mg/dL (70-105); Osmolality,Calculated 311 (280-300); Potassium 3.1 mEq/L (3.5-5.1); Sodium 137 mEq/L (136-145); eGFR For African Americans > 60 (> 60); eGFR For Non-African Americans 56 (> 60)
[2019-08-10] MEDS: Insulin LISPRO 300 UNITS/3 ML VIAL SQ SCH ×7 (08:34→20:59)
[2019-08-10] MEDS: Apixaban 5 MG TABLET PO SCH ×2 (08:35→20:56)
[2019-08-10] MEDS: Isosorbide MONOnitrate (24 HR) 60 MG TAB.ER.24H PO SCH (08:36)
[2019-08-10] MEDS: Metoprolol XL (24 HR) Succ 25 MG TAB.ER.24H PO SCH (08:36)
[2019-08-10] MEDS: Spironolactone 25 MG TABLET PO SCH ×2 (08:36→11:48)
[2019-08-10] MEDS: metOLazone 5 MG TABLET PO SCH (08:36)
[2019-08-10] MEDS: Furosemide 40 MG/4 ML VIAL IVP SCH (08:37)
[2019-08-10] MEDS: Insulin DETEMIR 100 UNIT/ML X5UNITS SQ SCH ×2 (08:40→20:59)
[2019-08-10] MEDS: Gabapentin 100 MG CAPSULE PO PRN (10:29)
[2019-08-10] MEDS: cefTRIAXone 2,000 MG in Water for inj. (sterile) 20 ML IVP SCH (10:30)
[2019-08-10] MEDS: *HR* OxyCODONE Immed Rel 15 MG TABLET PO PRN ×2 (10:30→22:30)
[2019-08-10] MEDS ORDERED: Spironolactone 25 MG TABLET PO ONE (11:15)
[2019-08-10] MEDS: Doxycycline 100 MG CAPSULE PO SCH (12:13)
[2019-08-10] MEDS ORDERED: Furosemide 40 MG/4 ML VIAL IVP SCH (21:00)
[2019-08-11] MEDS: Doxycycline 100 MG CAPSULE PO SCH ×2 (00:47→11:55)
[2019-08-11 02:07] LABS: Red Cell Distribution Width 18.7 % (11.5-14.5)
[2019-08-11 02:09] LABS: Hematocrit 29.7 % (37.5-50.1); Hemoglobin 8.5 g/dL (12.9-16.9); Mean Corpuscular HGB Conc 28.6 g/dL (31.6-35.5); Mean Corpuscular Hemoglobin 24.4 pg (28.0-33.3); Mean Corpuscular Volume 85.3 fL (83.0-100.0); Mean Platelet Volume 11.1 fL (9.4-12.4); Platelet Count 211 K/mcL (140-400); Red Blood Count 3.48 M/mcL (4.19-5.50); White Blood Count 7.5 K/mcL (4.3-11.1)
[2019-08-11 02:30] LABS: Calcium 9.6 mg/dL (8.6-10.3)
[2019-08-11] MEDS: Ipratropium/Albuterol Neb 3 ML IH SCH ×4 (03:27→21:46)
[2019-08-11] MEDS: Gabapentin 100 MG CAPSULE PO PRN ×3 (04:11→20:43)
[2019-08-11] MEDS: Levothyroxine 25 MCG TABLET PO SCH (05:47)
[2019-08-11] MEDS: Silver Sulfadiazine 50 GM TUBE TP SCH (07:27)
[2019-08-11] MEDS: Clotrimazole 1% CRM 15 GM TUBE TP SCH ×2 (07:27→23:00)
[2019-08-11] MEDS: metOLazone 5 MG TABLET PO SCH (08:01)
[2019-08-11] MEDS: Apixaban 5 MG TABLET PO SCH ×2 (08:03→20:42)
[2019-08-11] MEDS: Metoprolol XL (24 HR) Succ 25 MG TAB.ER.24H PO SCH (08:04)
[2019-08-11] MEDS: Insulin LISPRO 300 UNITS/3 ML VIAL SQ SCH ×7 (08:04→20:44)
[2019-08-11] MEDS: Isosorbide MONOnitrate (24 HR) 60 MG TAB.ER.24H PO SCH (08:04)
[2019-08-11] MEDS: Insulin DETEMIR 100 UNIT/ML X5UNITS SQ SCH ×2 (08:12→20:44)
[2019-08-11] MEDS ORDERED: Insulin DETEMIR 100 UNIT/ML X5UNITS SQ ONE (08:31)
[2019-08-11] MEDS ORDERED: Insulin DETEMIR 100 UNIT/ML X5UNITS SQ SCH (09:00)
[2019-08-11] MEDS ORDERED: Furosemide 40 MG/4 ML VIAL IVP SCH (09:00)
[2019-08-11] MEDS: Azithromycin 250 MG TABLET PO SCH (09:57)
[2019-08-11] MEDS: Spironolactone 25 MG TABLET PO SCH (09:57)
[2019-08-11] MEDS: cefTRIAXone 2,000 MG in Water for inj. (sterile) 20 ML IVP SCH (09:59)
[2019-08-11] MEDS: *HR* OxyCODONE Immed Rel 15 MG TABLET PO PRN ×2 (12:11→21:03)
[2019-08-12] MEDS: Doxycycline 100 MG CAPSULE PO SCH ×2 (01:16→13:42)
[2019-08-12 01:39] LABS: Hematocrit 30.2 % (37.5-50.1); Hemoglobin 8.6 g/dL (12.9-16.9); Mean Corpuscular HGB Conc 28.5 g/dL (31.6-35.5); Mean Corpuscular Hemoglobin 24.4 pg (28.0-33.3); Mean Corpuscular Volume 85.6 fL (83.0-100.0); Mean Platelet Volume 10.9 fL (9.4-12.4); Platelet Count 204 K/mcL (140-400); Red Blood Count 3.53 M/mcL (4.19-5.50); Red Cell Distribution Width 18.9 % (11.5-14.5); White Blood Count 6.9 K/mcL (4.3-11.1)
[2019-08-12 01:56] LABS: BUN/Creatinine Ratio 43 (6-26); Blood Urea Nitrogen 56 mg/dL (8-23); Calcium 9.9 mg/dL (8.6-10.3); Carbon Dioxide 38 mEq/L (23-29); Chloride 93 mEq/L (98-107); Glucose 250 mg/dL (70-105); Osmolality,Calculated 316 (280-300); Potassium 3.4 mEq/L (3.5-5.1); Sodium 141 mEq/L (136-145); eGFR For African Americans > 60 (> 60); eGFR For Non-African Americans 54 (> 60)
[2019-08-12] MEDS: Ipratropium/Albuterol Neb 3 ML IH SCH ×2 (03:35→10:11)
[2019-08-12] MEDS: Levothyroxine 25 MCG TABLET PO SCH (05:45)
[2019-08-12] MEDS: Azithromycin 250 MG TABLET PO SCH (08:39)
[2019-08-12] MEDS: Spironolactone 25 MG TABLET PO SCH (08:40)
[2019-08-12] MEDS: Isosorbide MONOnitrate (24 HR) 60 MG TAB.ER.24H PO SCH (08:40)
[2019-08-12] MEDS: Insulin LISPRO 300 UNITS/3 ML VIAL SQ SCH ×4 (08:40→11:56)
[2019-08-12] MEDS: Apixaban 5 MG TABLET PO SCH (08:41)
[2019-08-12] MEDS: Insulin DETEMIR 100 UNIT/ML X5UNITS SQ SCH (08:44)
[2019-08-12] MEDS: Clotrimazole 1% CRM 15 GM TUBE TP SCH (08:57)
[2019-08-12] MEDS ORDERED: Furosemide 40 MG/4 ML VIAL IVP SCH (09:00)
[2019-08-12] MEDS ORDERED: Metoprolol XL (24 HR) Succ 25 MG TAB.ER.24H PO SCH (09:00)
[2019-08-12] MEDS: cefTRIAXone 2,000 MG in Water for inj. (sterile) 20 ML IVP SCH (09:42)
[2019-08-12] MEDS: Silver Sulfadiazine 50 GM TUBE TP SCH (09:43)
[2019-08-12 10:43] VITALS: BP 110/63
[2019-08-12] MEDS: *HR* OxyCODONE Immed Rel 15 MG TABLET PO PRN (11:51)
== END 2019-08-12 13:58 | disposition home health service (06) | DRG 291 ==
LOC: 2ANU → SUATTDRO 08-05 13:02
PROVIDERS: ADMIT Internal Medicine; ATTEND Internal Medicine

== ENCOUNTER 2019-08-25 20:35 | Inpatient (IN) ==
[2019-08-25] MEDS ORDERED: Nitroglycerin 0.4 MG TAB.SUBL SL PRN (23:26)
[2019-08-25] MEDS ORDERED: Apixaban 5 MG TABLET PO SCH (23:30)
[2019-08-25] MEDS ORDERED: Furosemide 40 MG/4 ML VIAL IVP ONE (23:34)
[2019-08-25] MEDS ORDERED: Naloxone 0.4 MG/ML INJ IVP PRN (23:35)
[2019-08-25] MEDS ORDERED: Morphine Sulfate 2 MG/ML SYRINGE IVP PRN (23:38)
[2019-08-26] MEDS ORDERED: Ondansetron 4 MG/2 ML VIAL IVP PRN
[2019-08-26] MEDS ORDERED: Ipratropium/Albuterol Neb 3 ML IH PRN
[2019-08-26] MEDS: MethylPREDNISolone 40 MG/ML VIAL IVP SCH ×4 (00:04→23:40)
[2019-08-26] MEDS ORDERED: D5% in Water 1,000 ML IVC PRN ×2 (00:06→01:28)
[2019-08-26] MEDS ORDERED: Dextrose Gel 15 GM/37.5 ML TUBE PO PRN ×4 (00:06→01:28)
[2019-08-26] MEDS ORDERED: *HR* Dextrose 50 % in Water (Syg) 50 ML SYRINGE IVP PRN ×2 (00:06→01:28)
[2019-08-26] MEDS: *HR* OxyCODONE Immed Rel 15 MG TABLET PO PRN ×3 (00:34→21:13)
[2019-08-26 01:03] LABS: Red Cell Distribution Width 20.2 % (11.5-14.5); White Blood Count 7.5 K/mcL (4.3-11.1)
[2019-08-26 01:05] LABS: Hematocrit 32.9 % (37.5-50.1); Mean Corpuscular HGB Conc 27.4 g/dL (31.6-35.5); Mean Corpuscular Hemoglobin 25.5 pg (28.0-33.3); Mean Corpuscular Volume 93.2 fL (83.0-100.0); Mean Platelet Volume 11.6 fL (9.4-12.4); Platelet Count 170 K/mcL (140-400); Red Blood Count 3.53 M/mcL (4.19-5.50)
[2019-08-26 01:24] LABS: Calcium 8.7 mg/dL (8.6-10.3); Potassium 3.9 mEq/L (3.5-5.1)
[2019-08-26] MEDS ORDERED: *HR* Heparin 5,000 UNIT/ML VIAL IVP PRN (01:36)
[2019-08-26] MEDS ORDERED: *HR* Heparin 5,000 UNIT/ML VIAL IVP ONE (01:36)
[2019-08-26] MEDS ORDERED: Heparin 25,000 UNIT/250 ML D5W 25,000 UNIT/250 ML IV.SOLN IVC SCH (01:45)
[2019-08-26 03:27] LABS: INR 1.7; Prothrombin Time 19.5 Seconds (9.4-12.1)
[2019-08-26] MEDS: Cefepime HCl 1,000 MG in Water for inj. (sterile) 10 ML IVP SCH ×2 (05:46→17:25)
[2019-08-26 06:12] LABS: Bilirubin,Urine Negative (Negative); Blood,Urine Negative (Negative); Clarity,Urine Clear (Clear); Color,Urine Yellow (Yellow); Glucose,Urine (UA) Normal (Normal); Ketones,Urine Negative (Negative); Leukocyte Esterase,Urine Negative (Negative); Nitrite,Urine Negative (Negative); PH,Urine 5.5 pH Units (5.0-8.0); Protein,Urine 100 mg/dL (Neg-Trace); Specific Gravity,Urine 1.017 (1.010-1.025); Urobilinogen,Urine Normal (Normal)
[2019-08-26 06:15] LABS: Bacteria,Urine None Seen per hpf (None-Few); Hyaline Casts,Urine None Seen per lpf (None-Few); Squamous Epithelial Cell,Urine Moderate per lpf (None-Few); WBC,Urine 0-3 per hpf (0-3)
[2019-08-26 07:13] LABS: Sodium, Urine 18.6 mEq/L
[2019-08-26] MEDS ORDERED: Aminoglycoside Consult 1 EACH MC ONE (07:50)
[2019-08-26] MEDS: Budesonide/Formoterol 160/4.5 1 PUFF INH IH SCH ×2 (08:08→22:33)
[2019-08-26] MEDS: Isosorbide MONOnitrate (24 HR) 60 MG TAB.ER.24H PO SCH (08:10)
[2019-08-26] MEDS: Metoprolol XL (24 HR) Succ 25 MG TAB.ER.24H PO SCH (08:10)
[2019-08-26] MEDS: levoFLOXacin 750 MG TABLET PO SCH (08:11)
[2019-08-26] MEDS: Insulin LISPRO 300 UNITS/3 ML VIAL SQ SCH ×5 (08:13→20:58)
[2019-08-26] MEDS: Insulin DETEMIR 100 UNIT/ML X5UNITS SQ SCH ×2 (08:19→20:58)
[2019-08-26 08:37] LABS: Heparin anti-factor XA UFH > 2.00 IU/mL (0.30-0.70)
[2019-08-26 09:09] LABS: Activated Partial Thrombo Time 144.4 Seconds (26.0-36.0)
[2019-08-26] MEDS: Heparin 25,000 UNIT/250 ML D5W 25,000 UNIT/250 ML IV.SOLN IVC SCH ×2 (09:57→22:32)
[2019-08-26] MEDS ORDERED: Furosemide 40 MG in 0.9 % Sodium Chloride 50 ML IV SCH (12:15)
[2019-08-26] MEDS ORDERED: 0.9 % Sodium Chloride 250 ML ONE (15:59)
[2019-08-26] MEDS: *HR* Heparin 5,000 UNIT/ML VIAL IVP PRN (18:04)
[2019-08-26] MEDS ORDERED: Furosemide 40 MG/4 ML VIAL IVP ONE (20:00)
[2019-08-26] MEDS ORDERED: Insulin LISPRO 300 UNITS/3 ML VIAL SQ SCH ×2 (21:00)
[2019-08-26] MEDS: Gabapentin 100 MG CAPSULE PO PRN (22:51)
[2019-08-27 00:54] LABS: Basophils % 0.2 %
[2019-08-27 00:56] LABS: Hematocrit 30.9 % (37.5-50.1); Hemoglobin 8.5 g/dL (12.9-16.9); Immature Granulocytes % 0.8 % (0-4); Lymphocytes # 0.6 K/mcL (0.6-4.6); Lymphocytes % 10.1 %; Mean Corpuscular HGB Conc 27.5 g/dL (31.6-35.5); Mean Corpuscular Hemoglobin 25.1 pg (28.0-33.3); Mean Corpuscular Volume 91.4 fL (83.0-100.0); Mean Platelet Volume 11.7 fL (9.4-12.4); Monocytes # 0.5 K/mcL (0.0-1.3); Monocytes % 7.7 %; Platelet Count 160 K/mcL (140-400); Red Blood Count 3.38 M/mcL (4.19-5.50); Red Cell Distribution Width 20.1 % (11.5-14.5); Segmented Neutrophils % 81.2 %; White Blood Count 6.1 K/mcL (4.3-11.1)
[2019-08-27 01:11] LABS: Magnesium 1.8 mg/dL (1.6-2.6); Phosphorous 3.9 mg/dL (2.7-4.5)
[2019-08-27 01:12] LABS: Calcium 8.7 mg/dL (8.6-10.3); Potassium 4.7 mEq/L (3.5-5.1)
[2019-08-27] MEDS: Cefepime HCl 1,000 MG in Water for inj. (sterile) 10 ML IVP SCH (05:33)
[2019-08-27] MEDS: *HR* OxyCODONE Immed Rel 15 MG TABLET PO PRN ×2 (05:41→17:43)
[2019-08-27] MEDS: MethylPREDNISolone 40 MG/ML VIAL IVP SCH (07:39)
[2019-08-27] MEDS: Insulin LISPRO 300 UNITS/3 ML VIAL SQ SCH ×8 (07:39→23:12)
[2019-08-27] MEDS: Insulin DETEMIR 100 UNIT/ML X5UNITS SQ SCH (08:04)
[2019-08-27] MEDS ORDERED: Regadenoson 0.4 MG/5 ML SYRINGE IVP ONE (08:10)
[2019-08-27] MEDS: Budesonide/Formoterol 160/4.5 1 PUFF INH IH SCH ×2 (08:38→20:00)
[2019-08-27] MEDS ORDERED: Furosemide 40 MG/4 ML VIAL IVP SCH (09:00)
[2019-08-27] MEDS ORDERED: Insulin DETEMIR 100 UNIT/ML X5UNITS SQ ONE (09:07)
[2019-08-27] MEDS: Spironolactone 25 MG TABLET PO SCH (09:50)
[2019-08-27] MEDS: levoFLOXacin 750 MG TABLET PO SCH (09:50)
[2019-08-27] MEDS: Aspirin 81 MG TAB.CHEW PO SCH (09:50)
[2019-08-27] MEDS: Levothyroxine 25 MCG TABLET PO SCH (09:50)
[2019-08-27] MEDS: Metoprolol XL (24 HR) Succ 25 MG TAB.ER.24H PO SCH (09:51)
[2019-08-27] MEDS: Furosemide 40 MG/4 ML VIAL IVP SCH ×2 (11:12→23:03)
[2019-08-27] MEDS ORDERED: Insulin LISPRO 300 UNITS/3 ML VIAL SQ SCH (11:30)
[2019-08-27 14:19] LABS: ABG Base Excess 8 mEq/L (-2 to 3); ABG HCO3 35 mEq/L (21-27); ABG Oxygen Saturation 95 % (95-98); ABG PCO2 62 mmHg (35-45); ABG PH 7.36 pH Units (7.32-7.45); ABG PO2 80 mmHg (85-104); ABG TCO2 37 mEq/L (20-26); Blood Gas Modality BiLevel
[2019-08-27] MEDS ORDERED: Morphine Sulfate 2 MG/ML SYRINGE IVP ONE (14:25)
[2019-08-27] MEDS: Heparin 25,000 UNIT/250 ML D5W 25,000 UNIT/250 ML IV.SOLN IVC SCH (14:49)
[2019-08-27] MEDS ORDERED: Furosemide 40 MG TABLET PO SCH (17:00)
[2019-08-27] MEDS ORDERED: MethylPREDNISolone 40 MG/ML VIAL IVP SCH (18:00)
[2019-08-27] MEDS ORDERED: Insulin DETEMIR 100 UNIT/ML X5UNITS SQ SCH (21:00)
[2019-08-27] MEDS: Doxycycline 100 MG CAPSULE PO SCH (23:03)
[2019-08-27] MEDS: Insulin NPH 100 UNIT/ML (x5UNIT) SQ SCH (23:12)
[2019-08-28] MEDS: Levothyroxine 25 MCG TABLET PO SCH ×2 (05:45→09:14)
[2019-08-28 05:59] LABS: Hemoglobin 8.8 g/dL (12.9-16.9); Immature Granulocytes % 0.5 % (0-4)
[2019-08-28 06:01] LABS: Hematocrit 31.6 % (37.5-50.1); Lymphocytes # 1.1 K/mcL (0.6-4.6); Lymphocytes % 17.4 %; Mean Corpuscular HGB Conc 27.8 g/dL (31.6-35.5); Mean Corpuscular Volume 89.8 fL (83.0-100.0); Mean Platelet Volume 11.1 fL (9.4-12.4); Monocytes # 0.7 K/mcL (0.0-1.3); Monocytes % 10.9 %; Neutrophils # 4.5 K/mcL (1.6-8.9); Platelet Count 149 K/mcL (140-400); Red Blood Count 3.52 M/mcL (4.19-5.50); Red Cell Distribution Width 20.5 % (11.5-14.5); Segmented Neutrophils % 71.2 %; White Blood Count 6.3 K/mcL (4.3-11.1)
[2019-08-28 06:20] LABS: Anisocytosis 1+ (Not Present); BUN/Creatinine Ratio 50 (6-26); Blood Urea Nitrogen 61 mg/dL (8-23); Carbon Dioxide 36 mEq/L (23-29); Chloride 96 mEq/L (98-107); Glucose 225 mg/dL (70-105); Hypochromasia Present (Not Present); Microcytosis Present (Not Present); Osmolality,Calculated 316 (280-300); Platelet Estimate Normal (Normal); Potassium 4.2 mEq/L (3.5-5.1); Sodium 141 mEq/L (136-145); eGFR For African Americans > 60 (> 60); eGFR For Non-African Americans 59 (> 60)
[2019-08-28 06:22] LABS: Phosphorous 3.5 mg/dL (2.7-4.5)
[2019-08-28] MEDS: Budesonide/Formoterol 160/4.5 1 PUFF INH IH SCH ×2 (07:40→23:04)
[2019-08-28] MEDS ORDERED: NON-FORMULARY MEDICATION 1 EACH EACH (Furosemide [Lasix] 80 MG) PO SCH (09:00)
[2019-08-28] MEDS: *HR* OxyCODONE Immed Rel 15 MG TABLET PO PRN (09:14)
[2019-08-28] MEDS: predniSONE 20 MG TABLET PO SCH (09:14)
[2019-08-28] MEDS: Aspirin 81 MG TAB.CHEW PO SCH (09:15)
[2019-08-28] MEDS: Gabapentin 100 MG CAPSULE PO PRN ×2 (09:15→20:51)
[2019-08-28] MEDS: Insulin LISPRO 300 UNITS/3 ML VIAL SQ SCH ×7 (09:15→20:22)
[2019-08-28] MEDS: Doxycycline 100 MG CAPSULE PO SCH ×2 (09:15→20:30)
[2019-08-28] MEDS: Metoprolol XL (24 HR) Succ 25 MG TAB.ER.24H PO SCH (09:15)
[2019-08-28] MEDS: Spironolactone 25 MG TABLET PO SCH (09:15)
[2019-08-28] MEDS: Heparin 25,000 UNIT/250 ML D5W 25,000 UNIT/250 ML IV.SOLN IVC SCH ×4 (09:21→23:19)
[2019-08-28] MEDS: *HR* Heparin 5,000 UNIT/ML VIAL IVP PRN (12:27)
[2019-08-28] MEDS: Insulin NPH 100 UNIT/ML (x5UNIT) SQ SCH ×2 (13:30→20:23)
[2019-08-28] MEDS: Furosemide 40 MG TABLET PO SCH (17:34)
[2019-08-29 02:54] LABS: Mean Corpuscular HGB Conc 27.1 g/dL (31.6-35.5)
[2019-08-29 02:56] LABS: Eosinophils % 0.4 %; Hematocrit 32.9 % (37.5-50.1); Hemoglobin 8.9 g/dL (12.9-16.9); Immature Granulocytes % 0.3 % (0-4); Lymphocytes # 1.6 K/mcL (0.6-4.6); Lymphocytes % 22.9 %; Mean Corpuscular Hemoglobin 24.9 pg (28.0-33.3); Mean Corpuscular Volume 91.9 fL (83.0-100.0); Mean Platelet Volume 11.6 fL (9.4-12.4); Monocytes # 0.7 K/mcL (0.0-1.3); Monocytes % 10.5 %; Neutrophils # 4.5 K/mcL (1.6-8.9); Platelet Count 160 K/mcL (140-400); Red Blood Count 3.58 M/mcL (4.19-5.50); Segmented Neutrophils % 65.9 %; White Blood Count 6.8 K/mcL (4.3-11.1)
[2019-08-29 03:12] LABS: Platelet Estimate Normal (Normal)
[2019-08-29 03:13] LABS: Anisocytosis 1+ (Not Present); Hypochromasia Present (Not Present); Microcytosis Present (Not Present)
[2019-08-29 03:17] LABS: BUN/Creatinine Ratio 47 (6-26); Blood Urea Nitrogen 53 mg/dL (8-23); Calcium 9.2 mg/dL (8.6-10.3); Carbon Dioxide 41 mEq/L (23-29); Chloride 99 mEq/L (98-107); Glucose 74 mg/dL (70-105); Osmolality,Calculated 311 (280-300); Potassium 3.8 mEq/L (3.5-5.1); Sodium 144 mEq/L (136-145); eGFR For African Americans > 60 (> 60); eGFR For Non-African Americans > 60 (> 60)
[2019-08-29] MEDS ORDERED: polyethylene glycoL 3350 17 GM POWD.PACK PO PRN (03:55)
[2019-08-29] MEDS: Levothyroxine 25 MCG TABLET PO SCH (05:45)
[2019-08-29] MEDS: Insulin LISPRO 300 UNITS/3 ML VIAL SQ SCH ×7 (08:04→19:57)
[2019-08-29] MEDS: Insulin NPH 100 UNIT/ML (x5UNIT) SQ SCH ×2 (08:22→19:58)
[2019-08-29] MEDS: Furosemide 40 MG TABLET PO SCH ×2 (08:22→17:08)
[2019-08-29] MEDS: Spironolactone 25 MG TABLET PO SCH (08:22)
[2019-08-29] MEDS: Aspirin 81 MG TAB.CHEW PO SCH (08:23)
[2019-08-29] MEDS: Metoprolol XL (24 HR) Succ 25 MG TAB.ER.24H PO SCH (08:23)
[2019-08-29] MEDS: Doxycycline 100 MG CAPSULE PO SCH ×2 (08:23→20:41)
[2019-08-29] MEDS: Isosorbide MONOnitrate (24 HR) 60 MG TAB.ER.24H PO SCH (08:23)
[2019-08-29] MEDS: predniSONE 20 MG TABLET PO SCH (08:23)
[2019-08-29] MEDS: Budesonide/Formoterol 160/4.5 1 PUFF INH IH SCH ×2 (10:29→20:01)
[2019-08-29] MEDS: *HR* OxyCODONE Immed Rel 15 MG TABLET PO PRN ×2 (10:58→20:47)
[2019-08-29] MEDS: Gabapentin 100 MG CAPSULE PO PRN (10:59)
[2019-08-29] MEDS: Heparin 25,000 UNIT/250 ML D5W 25,000 UNIT/250 ML IV.SOLN IVC SCH (17:09)
[2019-08-30 01:46] LABS: Eosinophils % 0.5 %; Hemoglobin 8.9 g/dL (12.9-16.9)
[2019-08-30 01:47] LABS: Hematocrit 31.7 % (37.5-50.1); Immature Granulocytes % 0.3 % (0-4); Lymphocytes # 1.1 K/mcL (0.6-4.6); Lymphocytes % 19.2 %; Mean Corpuscular HGB Conc 28.1 g/dL (31.6-35.5); Mean Corpuscular Hemoglobin 25.6 pg (28.0-33.3); Mean Corpuscular Volume 91.4 fL (83.0-100.0); Mean Platelet Volume 11.4 fL (9.4-12.4); Monocytes # 0.6 K/mcL (0.0-1.3); Neutrophils # 4.1 K/mcL (1.6-8.9); Platelet Count 142 K/mcL (140-400); Red Blood Count 3.47 M/mcL (4.19-5.50); White Blood Count 5.9 K/mcL (4.3-11.1)
[2019-08-30 02:04] LABS: Anisocytosis 2+ (Not Present); BUN/Creatinine Ratio 40 (6-26); Blood Urea Nitrogen 45 mg/dL (8-23); Calcium 9.1 mg/dL (8.6-10.3); Carbon Dioxide 35 mEq/L (23-29); Chloride 99 mEq/L (98-107); Glucose 175 mg/dL (70-105); Hypochromasia Present (Not Present); Osmolality,Calculated 310 (280-300); Platelet Estimate Normal (Normal); Potassium 4.7 mEq/L (3.5-5.1); Sodium 142 mEq/L (136-145); eGFR For African Americans > 60 (> 60); eGFR For Non-African Americans > 60 (> 60)
[2019-08-30 02:05] LABS: Macrocytosis Present (Not Present); Microcytosis Present (Not Present); Polychromasia 1+ (Not Present)
[2019-08-30] MEDS: Levothyroxine 25 MCG TABLET PO SCH (05:44)
[2019-08-30] MEDS: Heparin 25,000 UNIT/250 ML D5W 25,000 UNIT/250 ML IV.SOLN IVC SCH (07:25)
[2019-08-30] MEDS: Insulin LISPRO 300 UNITS/3 ML VIAL SQ SCH ×7 (07:44→20:28)
[2019-08-30] MEDS: Aspirin 81 MG TAB.CHEW PO SCH (08:34)
[2019-08-30] MEDS: predniSONE 20 MG TABLET PO SCH (08:34)
[2019-08-30] MEDS: Furosemide 40 MG TABLET PO SCH ×2 (08:34→16:17)
[2019-08-30] MEDS: Doxycycline 100 MG CAPSULE PO SCH ×2 (08:34→20:37)
[2019-08-30] MEDS: Isosorbide MONOnitrate (24 HR) 60 MG TAB.ER.24H PO SCH (08:35)
[2019-08-30] MEDS: Spironolactone 25 MG TABLET PO SCH (08:35)
[2019-08-30] MEDS: Insulin NPH 100 UNIT/ML (x5UNIT) SQ SCH ×2 (08:35→20:38)
[2019-08-30] MEDS: Metoprolol XL (24 HR) Succ 25 MG TAB.ER.24H PO SCH (08:35)
[2019-08-30] MEDS: Budesonide/Formoterol 160/4.5 1 PUFF INH IH SCH ×2 (10:07→21:46)
[2019-08-30] MEDS ORDERED: *HR* Midazolam HCl 2 MG/2 ML VIAL ONE (12:56)
[2019-08-30] MEDS ORDERED: 0.9 % Sodium Chloride 2,000 ML ONE (12:56)
[2019-08-30] MEDS ORDERED: Nitroglycerin 1,000 MCG/10 ML VIAL IV ONE (12:57)
[2019-08-30] MEDS ORDERED: ISOVUE-370 200 ML INFUS..BTL ONE (12:57)
[2019-08-30] MEDS ORDERED: *HR* Heparin 10,000 UNIT/10 ML VIAL ONE (12:57)
[2019-08-30] MEDS ORDERED: Heparin 1,000 UNITS/500 mL 500 ML ONE (12:57)
[2019-08-30] MEDS ORDERED: Acetaminophen 325 MG TABLET PO PRN (13:53)
[2019-08-30] MEDS: *HR* OxyCODONE Immed Rel 15 MG TABLET PO PRN (16:17)
[2019-08-30] MEDS: Apixaban 5 MG TABLET PO SCH (20:37)
[2019-08-31] MEDS: Gabapentin 100 MG CAPSULE PO PRN ×2 (00:19→13:59)
[2019-08-31] MEDS: *HR* OxyCODONE Immed Rel 15 MG TABLET PO PRN (05:32)
[2019-08-31] MEDS: Levothyroxine 25 MCG TABLET PO SCH (05:32)
[2019-08-31 06:44] LABS: Monocytes % 9.3 %; Platelet Count 141 K/mcL (140-400)
[2019-08-31 06:45] LABS: Eosinophils # 0.1 K/mcL (0.0-0.6); Eosinophils % 1.4 %; Hematocrit 33.6 % (37.5-50.1); Hemoglobin 9.2 g/dL (12.9-16.9); Immature Granulocytes % 0.2 % (0-4); Lymphocytes # 1.2 K/mcL (0.6-4.6); Lymphocytes % 20.9 %; Mean Corpuscular HGB Conc 27.4 g/dL (31.6-35.5); Mean Corpuscular Hemoglobin 24.5 pg (28.0-33.3); Mean Corpuscular Volume 89.6 fL (83.0-100.0); Mean Platelet Volume 10.8 fL (9.4-12.4); Monocytes # 0.5 K/mcL (0.0-1.3); Red Blood Count 3.75 M/mcL (4.19-5.50); Red Cell Distribution Width 19.8 % (11.5-14.5); Segmented Neutrophils % 68.2 %; White Blood Count 5.8 K/mcL (4.3-11.1)
[2019-08-31 07:01] LABS: BUN/Creatinine Ratio 41 (6-26); Blood Urea Nitrogen 36 mg/dL (8-23); Calcium 9.6 mg/dL (8.6-10.3); Carbon Dioxide 36 mEq/L (23-29); Chloride 100 mEq/L (98-107); Glucose 48 mg/dL (70-105); Osmolality,Calculated 306 (280-300); Potassium 3.9 mEq/L (3.5-5.1); Sodium 145 mEq/L (136-145); eGFR For African Americans > 60 (> 60); eGFR For Non-African Americans > 60 (> 60)
[2019-08-31 07:14] LABS: Hypochromasia Present (Not Present); Platelet Estimate Normal (Normal)
[2019-08-31] MEDS: Insulin LISPRO 300 UNITS/3 ML VIAL SQ SCH ×4 (07:19→11:30)
[2019-08-31] MEDS: Aspirin 81 MG TAB.CHEW PO SCH (08:44)
[2019-08-31] MEDS: Isosorbide MONOnitrate (24 HR) 60 MG TAB.ER.24H PO SCH (08:44)
[2019-08-31] MEDS: Doxycycline 100 MG CAPSULE PO SCH (08:44)
[2019-08-31] MEDS: Furosemide 40 MG TABLET PO SCH (08:45)
[2019-08-31] MEDS: Apixaban 5 MG TABLET PO SCH (08:45)
[2019-08-31] MEDS: Spironolactone 25 MG TABLET PO SCH (08:45)
[2019-08-31] MEDS: Metoprolol XL (24 HR) Succ 25 MG TAB.ER.24H PO SCH (08:45)
[2019-08-31] MEDS: predniSONE 20 MG TABLET PO SCH (08:45)
[2019-08-31] MEDS: Insulin NPH 100 UNIT/ML (x5UNIT) SQ SCH (08:52)
[2019-08-31] MEDS: Budesonide/Formoterol 160/4.5 1 PUFF INH IH SCH (10:42)
[2019-08-31 11:25] VITALS: BP 118/66
== END 2019-08-31 16:24 | disposition home health service (06) | DRG 246 ==
LOC: 3BNU → SUATTDRO 22:08
PROVIDERS: ADMIT Family Medicine; ATTEND Internal Medicine